=== PATIENT | male | born 1965 | race Caucasian/White ===

== ENCOUNTER 2025-01-29 10:04 | Emergency (ER) | payer OTHER ==
--- OUTSIDE RECORDS SUMMARY | 2025-01-29 10:11 | XMS REPORT | Continuity of Care Document ---
Author Name Unknown Address [address] [facility] [address] [place] [address] [facility] [place] Address [address] [facility] [place] [address] Care Team Providers Care Silk Presser Name Role Phone No , Pcp Primary Care Physician Unavailab AGUSTIN Perkins Attending Clinician Unavailable ANGELICA CASTRO Attending Clinician Unavail able TEENA SAXENA Attending Clinician UnavailBERENICE De La Cruz Attending Clinician Unavailable CARLEEN ABARCA Attending Clinician Rosario JAMARI Damian Attending Clinician Unavailable Tabby Lim RN Attending Clinician UnavailDEMETRA Alfonso Attending Clinician Unavailable Alpa Pal RN Attending Clinician Unavailbrina Rizzo MD, Attending Clinician [phone] Roya Alfonso Attending Clinician Unavailable Jayashree Mccartney MD Attending Clinician [phone] Joel ESTEBAN, Chicho Attending Clinician [phone] Parker Reese MD Attending Clinician [phone] Teena Saxena MD Attending Clinician [phone] Doctor Unassigned, [place] Attending Clinician U mandi HAY Attending Clinician Unavailable Olivia Graham LMSW Attending Clinician Unava ilable ROMANA, CHOCKALINGAM Attending Clinician Unav ERNIE Moss Attending Clinician Unav ailable Duane Salter Attending Clinician [phone] CHRETIEN_F Attending Clinician Unavailable SALINA_L Attending Clinician Unavailable Huma Downing Attending Clinician [phone] XI PAYAN Attending Clinician UnavailJunior Gruber Attending Clinician [phone] RUEL ATKINS Admitting Clinician Unavailable PARKER REESE Admitting Clinician Unavailable GENE REES Admitting Clinician Sofi Reese MD, Parker Admitting Clinician [phone] GAETANO_Frederick Admitting Clinician Unavailable TANIETIMAL_F Admitting Clinician Unavailable SALINA_Inez Admitting Clinician Unavailable KELLE SAMUELS Admitting Clinician Unavailable Payers Payer Name Policy Type Policy Number Effective Date Expirati on Date Source [employer] [employer] [id number] 2024 00:00:00 INDIGENT PROGRAM [id number] Problems Condition Name Condition Details Condition Category Status Onset Date Resolution Date Last Treatment Date Treating Clinician Comments Source Thrombus of cardiac chamber Thrombus of Cardiac Chamber Problem Active 09-09 00:00: 00 [facility] LV (left ventricula r) mural thrombus LV (left ventricula r) mural thrombus Disease Active 2023-04 00:00: 00 Herlinda Alfredo Heart failure Heart failure Disease [facility] 2023-04 00:00: 00 Herlinda Alfredo Smoker Smoker Disease Recurre [facility] 2023-04 00:00: 00 Herlinda Alfredo History of CAD (coronary artery disease) History of CAD (coronary artery disease) Disease Active 2023-04 00:00: 00 Herlinda Alfredo Acute ischemic stroke Acute ischemic stroke Disease Active 2023-04 00:00: 00 Herlinda Alfredo Sleep apnea Sleep Apnea Problem Active 2021-04 0-06 00:00: 00 [facility] Dyspnea Dyspnea Problem Active 2020-04 00:00: 00 [facility] Cerebral atheroscle rosis Cerebral atheroscle rosis Disease Active 2020-04 00:00: 00 [facility]linda Bolaños Epic Family history of ischemic heart disease Family history of ischemic heart disease Disease Active 2020-04 00:00: 00 Herlinda Bolaños Epic 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 ve heart disease with congestive heart failure Disease Active 2020-04 00:00: 00 Herlinda Bolaños Epic Stented coronary artery Stented coronary artery Disease Active 2020-04 00:00: 00 Herlinda Bolaños Epic Body mass index 30+ - obesity Body Mass Index 30+ - Obesity Problem Active 12-14 00:00: 00 [facility] Coronary arterioscl erosis in patient with history of previous myocardial infarction Coronary arterioscl erosis in patient with history of previous myocardial infarction Disease Active 05-20 00:00: 00 [facility]linda Bolaños Epic Benign hypertensi ve kidney disease Benign hypertensi ve kidney disease Disease Active 2018-04 00:00: 00 Herlinda Bolaños Epic Localized edema Localized edema Disease Active 01-20 00:00: 00 Herlinda Bolaños Epic Microscopi c hematuria Microscopi c hematuria Disease Active 01-20 00:00: 00 Herlinda Bolaños Epic Nicotine dependence Nicotine dependence Disease Active 01-20 00:00: 00 Herlinda Bolaños Epic Nonalcohol ic steatohepa titis (MOTA) Nonalcohol ic steatohepa titis (MOTA) Disease Active 01-20 00:00: 00 Herlinda Bolaños Epic Obstructiv e sleep apnea syndrome Obstructiv e sleep apnea syndrome Disease Active 01-20 00:00: 00 Herlinda Bolaños [facility] Pain of right hip joint Pain of right hip joint Disease Active 01-20 00:00: 00 Herlinda Bolaños Epic Coronary arterioscl erosis in [place] artery Coronary Arterioscl erosis in [place] Artery Problem Active 12-23 00:00: 00 [facility] Coronary arterioscl erosis in [place] artery Coronary arterioscl erosis in [place] artery Disease Active 12-23 00:00: 00 Herlinda Bolaños Epic Cardiomyop athy Cardiomyop athy Disease Active 12-23 00:00: 00 Herlinda Bolaños Epic Chronic kidney disease stage 3 Chronic Kidney Disease Stage 3 Problem Active 12-03 00:00: 00 [facility] Type 2 diabetes mellitus with diabetic chronic kidney disease Type 2 diabetes mellitus with diabetic chronic kidney disease Disease Active 12-03 00:00: 00 Herlinda Bolaños Epic Type 2 diabetes mellitus Type 2 diabetes mellitus Disease Active 12-03 00:00: 00 Herlinda Bolaños [facility] Chronic low back pain Chronic low back pain Disease Active 12-03 00:00: 00 Herlinda Bolaños [facility] Morbid obesity Morbid obesity Disease Active 12-03 00:00: 00 Herlinda Alfredo Tobacco use disorder, continuous Tobacco use disorder, continuous Disease Active 12-03 00:00: 00 Herlinda Alfredo Vitamin D deficiency , unspecifie d Vitamin D deficiency , unspecifie d Disease Active 12-03 00:00: 00 Herlinda Alfredo Hyperlipid emia Hyperlipid emia Problem Active 10-08 00:00: 00 [facility] Sleep disorder Sleep Disorder Problem Active 09-10 00:00: 00 [facility] Steatotic liver disease Steatotic Liver Disease Problem Active 07-17 00:00: 00 [facility] Hydronephr osis Hydronephr osis Disease Active 07-17 00:00: 00 Herlinda Alfredo Myocardial infarction Myocardial Infarction Problem Active 07-10 00:00: 00 [facility] History of renal calculi History of renal calculi Disease Active 07-10 00:00: 00 Herlinda Alfredo Coronary atheroscle rosis Coronary atheroscle rosis Disease Active 2-11 00:00: 00 Overview: Formattin g of this note might be different from the original. ICD10 Diagnosis Term Compounding Assistant Utility [facility] HLD (hyperlipi demia) HLD (hyperlipi demia) Disease Active 2- 00:00: 00 Overview: Formattin g of this note might be different from the original. ICD10 Diagnosis Term Compounding Assistant Utility [facility] Allergies, Adverse Reactions, Alerts Allergy Name Allergy Type Status Severity Reaction(s) Onset Date Inactive Date Treating Clinician Comments Source NO KNOWN ALLERGIE S Drug Class Active [facility] Tramadol Allergy to substanc e Active Nausea [facility] Social History Social Habit Start Date Stop Date Quantity Comments Source Exposure to SARS-CoV-2 (event) Not sure [facility] History of tobacco use Cigarette Smoker [facility] Sexual orientation [facility] Gender identity Jamari malini [facility] Cigarette pack-years 2024-05-11 00:00:00 2024-05-11 00:00:00 [facility] Alcoholic beverage intake 2024-05-11 00:00:00 2024-05-11 00:00:00 Lifetime non-drinker (finding) [facility] History of Social function 2024-05-11 00:00:00 2024-05-11 00:00:00 [facility] Tobacco use and exposure 2024-04-15 00:00:00 2024-04-15 00:00:00 User of smokeless tobacco [facility] Sex 2020-10-12 04:46:49 2020-10-12 04:46:49 Male (finding) [facility] Cigarettes smoked current (pack per day) - Reported 2018-11-12 00:00:00 2018-11-12 00:00:00 [facility] Alcohol intake 2018-11-12 00:00:00 2018-11-12 00:00:00 Current non-drinker of alcohol (finding) [facility] Tobacco Comment 2018-08-06 00:00:00 2018-08-06 00:00:00 vapes too [facility] Sex Assigned At 1965 00:00:00 1965 00:00:00 [facility] Smoking Status Start Date Stop Date Source Smokes tobacco daily 2024-05-11 00:00:00 [facility] Heavy tobacco smoker 2020-10-31 00:00:00 [facility] Medications Ordered Medication Name Filled Medication Name Start Date Stop Date Current Medication? Ordering Clinician Indication Dosage Frequency Signature (SIG) Comments Components Source aspirin 325 MG EC tablet 1-13 09:27: 58 Yes QD 1 (one) time each day. [facility] nitroglycer in (Nitrostat) 0.4 MG SL tablet nitroglycer in (Nitrostat) 0.4 MG SL tablet - 16:17: [address] 0.4 mg under the tongue every 5 minutes if needed for chest pain. Herlinda Bolaños [email or web address] empaglifloz in (Jardiance) tablet 10 mg empaglifloz in (Jardiance) tablet 10 mg 2023-04 09:00: 00 Yes 10mg QD 10 mg, Oral, Daily, First dose on 04/26/24 at 0900 Herlinda Bolaños [email or web address] metoprolol succinate XL (Toprol-XL) 24 hr tablet 25 mg metoprolol succinate XL (Toprol-XL) 24 hr tablet 25 mg 2023-04 09:00: 00 Yes 25mg QD 25 mg, Oral, Daily, First dose on 04/26/24 at 0900, Do not crush or chew. Herlinda Bolaños [email or web address] metFORMIN (Glucophage ) tablet 1,000 mg metFORMIN (Glucophage ) tablet 1,000 mg 2023-04 08:00: 00 Yes 1000mg 1,000 mg, Oral, 2 times daily with meals, First dose on 04/26/24 at 0800, Restricted to ordering by or upon consult with Endocrine Service for all new patient orders. Consult NOT required for patients admitted on metformin from home and whose metformin is not the reason for the admission. Herlinda Bolaños [email or web address] lisinopril 2.5 MG tablet lisinopril 2.5 MG tablet 2023-04 00:00: 00 04-26 23:59 :00 No 2.5mg QD Take 1 tablet by mouth 1 time each day. Do not start before April 26, 2024. Herlinda Bolaños [email or web address] aspirin 81 MG chewable tablet aspirin 81 MG chewable tablet 2023-04 00:00: 00 04-26 23:59 :00 No 81mg QD Chew 1 tablet 1 time each day. Do not start before April 26, 2024. Herlinda Bolaños [email or web address] metFORMIN (Glucophage ) 1000 MG tablet metFORMIN (Glucophage ) 1000 MG tablet 2023-04 00:00: 00 04-26 23:59 :00 No 1000mg Take 1 tablet by mouth in the morning and 1 tablet in the evening. Take with meals. Do not start before April 26, 2024. Herlinda Alfredo metoprolol succinate XL (Toprol-XL) 25 MG 24 hr tablet metoprolol succinate XL (Toprol-XL) 25 MG 24 hr tablet 2023-04 00:00: 00 04-26 23:59 :00 No 25mg QD Take 1 tablet by mouth 1 time each day. Do not crush or chew. Do not start before April 26, 2024. Herlinda Alfredo empaglifloz in (Jardiance) 10 MG empaglifloz in (Jardiance) 10 MG 2023-04 00:00: 00 10-23 23:59 :00 No 10mg QD Take 1 tablet by mouth 1 time each day. Do not start before April 26, 2024. Herlinda Alfredo warfarin (Coumadin) tablet 5 mg warfarin (Coumadin) tablet 5 mg 2023-04 17:00: 00 Yes 5mg 5 mg, Oral, Once, On 04/25/24 at 1700, For 1 dose, [facility] 3: Reproducti ve risk Hazardous Drug -- Refer to safe handling procedure PPE Matrix Herlinda Alfredo cholecalcif christiane (Vitamin D-3) 250 MCG (19118 UT) capsule cholecalcif christiane (Vitamin D-3) 250 MCG (18362 UT) capsule 2023-04 14:55: 54 04-25 00:00 :00 No [id number] QD Take 10,000 Units by mouth 1 time each day. Herlinda Alfredo rivaroxaban (Xarelto) 2.5 MG tablet rivaroxaban (Xarelto) 2.5 MG tablet 2023-04 14:55: 54 04-25 00:00 :00 No 2.5mg Q.5D 2.5 mg by Per G Tube route in the morning and 2.5 mg in the evening. Herlinda Alfredo simvastatin (Zocor) 40 MG tablet simvastatin (Zocor) 40 MG tablet 2023-04 14:55: 54 04-25 00:00 :00 No 1{tbl} QD Take 1 tablet by mouth 1 time each day. Herlinda Alfredo empaglifloz in (Jardiance) tablet 10 mg empaglifloz in (Jardiance) tablet 10 mg 2023-04 13:30: 00 Yes [id number] 10mg QD Herlinda Alfredo lisinopril tablet 2.5 mg lisinopril tablet 2.5 mg 2023-04 10:00: 00 Yes 2.5mg QD 2.5 mg, Oral, Daily, First dose on Sat04/25/24 at 1000 Herlinda Alfredo atorvastati n (Lipitor) 80 MG tablet atorvastati n (Lipitor) 80 MG tablet 2023-04 00:00: 00 04-25 23:59 :00 No 80mg Take 1 tablet by mouth at bedtime. Herlinda Alfredo insulin glargine (Lantus) 100 UNIT/ML injection insulin glargine (Lantus) 100 UNIT/ML injection 2023-04 00:00: 00 04-25 23:59 :00 No 10U Inject 10 Units under the skin in the evening. Herlinda Alfredo warfarin (Coumadin) tablet 5 mg warfarin (Coumadin) tablet 5 mg 2023-04 17:00: 00 Yes 5mg 5 mg, Oral, Once, On Sat04/24/24 at 1700, For 1 dose, [facility] 3: Reproducti ve risk Hazardous Drug -- Refer to safe handling procedure PPE Matrix Herlinda Alfredo aspirin chewable tablet 81 mg aspirin chewable tablet 81 mg 2023-04 14:15: 00 Yes 81mg QD 81 mg, Oral, Daily, First dose on Sat04/24/24 at 1415 Herlinda Alfredo gabapentin (Neurontin) capsule 300 mg gabapentin (Neurontin) capsule 300 mg 2023-04 02:00: 00 04-24 02:06 :00 No 300mg 300 mg, Oral, Once, On Sat04/24/24 at 0200, For 1 dose Herlinda Alfredo ceFAZolin injection solution 2 g ceFAZolin injection solution 2 g 2023-04 00:00: 00 Yes 2g 2 g, Intravenou s, Administer over 6 Minutes, Oncall, Starting on Sat04/24/24 at 0000, For 1 dose, Prior to EP device imlant Reconstitu te powder vial with 19 mL SWFI to give 100 mg/mL concentrat ion. If approved for IV push, draw up ordered dose and administer ; discard any solution remaining in vial., Suspected Indication (Select all that apply): Surgical Prophylaxi s Herlinda Alfredo vancomycin (Vancocin) vial for injection 1,000 mg vancomycin (Vancocin) vial for injection 1,000 mg 2023-04 00:00: 00 Yes 1000mg 1,000 mg, Intravenou s, Oncall, Starting on Sat04/24/24 at 0000, For 1 dose, Prior to EP device implant Attached 100ml bag of NS Mini-Bag Plus bag. Break seal and mix before use, as follows: For liquid drug vials, skip to step 2. 1. Hold bag with vial down. Squeeze solution into vial until half-full. Shake to suspend drug in solution. 2. Hold bag with vial upside down. Squeeze bag to force air into vial, then release to drain suspended drug from vial into bag. 3. Repeat above until vial is empty of drug and solution is thoroughly mixed. Ensure drug is completely dissolved. Do not remove drug vial. 4. Remove port protector, attach admin set per its instructio ns, then hang container from IV pole and prime set per directions . Do not use in series connection s. 5. Ensure the vial is empty of drug and in solution, then administer medication as ordered. Use within specified BUD., Suspected Indication (Select all that apply): Surgical Prophylaxi s Herlinda Alfredo warfarin (Coumadin) tablet 7.5 mg warfarin (Coumadin) tablet 7.5 mg 2023-04 17:00: 00 Yes 7.5mg 7.5 mg, Oral, Once, On Bijal 04/23/24 at 1700, For 1 dose, [facility] 3: Reproducti ve risk Hazardous Drug -- Refer to safe handling procedure PPE Matrix Herlinda Alfredo insulin lispro (Humalog, Admelog) injection 4 Units insulin lispro (Humalog, Admelog) injection 4 Units 2023-04 12:00: 00 Yes 4U 4 Units, Subcutaneo us, 3 times daily with meals, First dose (after last modificati on) on Sat04/23/24 at 1200 Herlinda Bolaños Epic insulin glargine (Lantus) injection 10 Units insulin glargine (Lantus) injection 10 Units 2023-04 18:00: 00 Yes 10U 10 Units, Subcutaneo us, Every evening, First dose (after last modificati on) on Sat04/22/24 at 1800 Herlinda Bolaños Juni warfarin (Coumadin) tablet 7.5 mg warfarin (Coumadin) tablet 7.5 mg 2023-04 17:00: 00 Yes 7.5mg 7.5 mg, Oral, Once, On Sat04/22/24 at 1700, For 1 dose, [facility] 3: Reproducti ve risk Hazardous Drug -- Refer to safe handling procedure PPE Matrix Herlinda Bolaños Juni aspirin EC EC tablet 81 mg aspirin EC EC tablet 81 mg 2023-04 13:45: 00 04-23 13:06 :05 No 81mg QD 81 mg, Oral, Daily, First dose on Sat04/22/24 at 1345, Do not crush, chew, or split., On hold since Sat04/23/2024 at 0811 until manually unheld Herlinda Bolaños Juni insulin glargine (Lantus) injection 8 Units insulin glargine (Lantus) injection 8 Units 2023-04 18:00: 00 04-22 11:59 :30 No 8U 8 Units, Subcutaneo us, Every evening, First dose (after last modificati on) on Sat04/21/24 at 1800 Herlinda Bolaños Epic insulin lispro (Humalog, Admelog) injection 3 Units insulin lispro (Humalog, Admelog) injection 3 Units 2023-04 17:30: 00 04-23 09:20 :53 No 3U 3 Units, Subcutaneo us, 3 times daily with meals, First dose on Sat04/21/24 at 1730 Herlinda Alfredo insulin lispro (HumaLOG, Admelog) injection 1-4 Units insulin lispro (HumaLOG, Admelog) injection 1-4 Units 2023-04 17:14: 02 Yes 1U [id number] 3D 1-4 Units, Subcutaneo us, 3 times daily PRN, high blood sugar, with meals, Starting on Sat04/21/24 at 1714, For BG < 70, follow hypoglycem ia protocol and notify ordering provider. If patient can eat or drink, give oral carbohydra te as ordered per hypoglycem ia protocol. If patient NPO, give dextrose 50 % IV as ordered per hypoglycem ia protocol. If NPO and no IV access, give glucagon IM as ordered per hypoglycem ia protocol. Check BG every 15 minutes and repeat treatment if continued BG < 80., Correction Insulin Dosing: (DO NOT CHANGE DEFAULT SELECTION/ VALUES): Very Low, BG < 70 instructio ns: Follow Hypoglycem ia Orders, BG 70-149 instructio ns: No Dose Needed, BG 150-199: 1, BG 200-249: 2, BG 250-299: 3, BG >/= 300: 4, BG > 300 instructio ns: Contact Provider Herlinda wiley Roscoe Juni warfarin (Coumadin) tablet 7.5 mg warfarin (Coumadin) tablet 7.5 mg 2023-04 17:00: 00 Yes 7.5mg 7.5 mg, Oral, Once, On Sat04/21/24 at 1700, For 1 dose, [facility] Group 3: Reproducti ve risk Hazardous Drug -- Refer to safe handling procedure PPE Matrix Herlinda Bolaños [facility] warfarin (Coumadin) tablet 7.5 mg warfarin (Coumadin) tablet 7.5 mg 2023-04 17:00: 00 Yes 7.5mg 7.5 mg, Oral, Once, On Sat04/20/24 at 1700, For 1 dose, Haz[facility]ous Drug Group 3: Reproducti ve risk Hazardous Drug -- Refer to safe handling procedure PPE Matrix Herlinda wiley [facility] famotidine (Pepcid) tablet 20 mg famotidine (Pepcid) tablet 20 mg 2023-04 17:00: 04-23 11:11 :28 No 20mg Q.5D 20 mg, Oral, 2 times daily, First dose on Sat04/20/24 at 1700 Herlinda Alfredo Warfarin Dosing per Pharmacy Warfarin Dosing per Pharmacy 2023-04 09:38: 30 Yes 1{each} 1 each, Does not apply, As needed, other, Dose per pharmacy., Starting on Sat04/20/24 at 0938, This order is a placeholde r as a reminder that warfarin is being dosed per pharmacy. Warfarin doses will be entered as a separate order. Herlinda Alfredo metoprolol tartrate (Lopressor) half tablet 12.5 mg metoprolol tartrate (Lopressor) half tablet 12.5 mg 2023-04 10:30: 00 04-25 12:55 :39 No 12.5mg Q.5D 12.5 mg, Oral, Every 12 hours scheduled, First dose (after last modificati on) on Sat04/19/24 at 1030 Herlinda Alfredo lisinopril tablet 5 mg lisinopril tablet 5 mg 2023-04 10:30: 00 04-22 06:21 :30 No 5mg QD 5 mg, Oral, Daily, First dose on Sat04/19/24 at 1030, On hold since Sat04/21/2024 at 1113 until manually unheld Herlinda Alfredo gabapentin (Neurontin) capsule 300 mg gabapentin (Neurontin) capsule 300 mg 2023-04 14:00: 00 04-23 11:11 :28 No 300mg [id number] 3D 300 mg, Oral, Every 8 hours scheduled, First dose on Sat04/17/24 at 1400 Herlinda Bolaños [email or web address] lisinopril tablet 10 mg lisinopril tablet 10 mg 2023-04 12:30: 00 04-19 06:39 :19 No 10mg QD 10 mg, Oral, Daily, First dose on Sat04/17/24 at 1230 Herlinda Bolaños [email or web address] metoprolol tartrate (Lopressor) half tablet 12.5 mg metoprolol tartrate (Lopressor) half tablet 12.5 mg 2023-04 12:30: 00 04-19 10:23 :25 No 12.5mg Q.5D 12.5 mg, Oral, Every 12 hours scheduled, First dose on Sat04/17/24 at 1230 Georgedav Alfredo heparin 50 units/mL in sodium chloride 0.45 % heparin 50 units/mL in sodium chloride 0.45 % 2023-04 10:00: 00 04-24 14:36 :16 No .1U/kg/ h 0.1-40 Units/kg/h r ?96 kg (0.192-76. 8 mL/hr, rounded to 0.19-76.8 mL/hr), Intravenou s, Continuous , Starting on Sat04/17/24 at 1000, AFIB/Strok e PTT Weight Based Heparin Protocol Calculate heparin infusion dose using ACTUAL BODY WEIGHT. Start at 14 units/kg/h r (MAX INITIAL INFUSION = 1,200 units/hr = 24 mL/hr) - adjust per AFIB / Stroke Guidelines below Draw baseline PTT. Initiate drip. DO NOT wait for PTT results to start drip. Draw PTT 6 hours after drip initiation and 6 hours after every dose change. No heparin loading dose or bolus unless specifical ly ordered by provider. Do not draw PTT through line heparin is infused. --- Titration Table PTT < 30 sec: INCREASE dose by 4 units /kg/hr (Actual body Weight). Notify Provider STAT. Draw PTT 6 hours after increase in dose. PTT 30 - 45.9 sec: INCREASE dose by 3 units/kg/h r (Actual body Weight). Draw PTT 6 hours after increase in dose. PTT 46 - 59.9 sec: INCREASE dose by 2 units/kg/h r (Actual body Weight). Draw PTT 6 hours after increase in dose. PTT 60 - 79.9 sec: Therapeuti c, continue at same dose. Redraw PTT in 6 hours to confirm. Once 3 consecutiv e therapeuti c PTT, reduce draws to Q12H. PTT 80 - 90.9 sec: DECREASE dose by 1 unit/kg/hr (Actual Body Weight). Draw PTT 6 hours after decrease in dose. PTT 91 - 99.9 sec: HOLD infusion for 45 min. Notify provider STAT. DECREASE dose by 2 units/kg/h r (Actual Body Weight). Draw PTT 6 hours after decrease in dose. PTT 100 - 119.9 sec: HOLD infusion for 60 min. Notify provider STAT. DECREASE dose by 3 units/kg/h r (Actual Body Weight). Draw PTT 6 hours after decrease in dose. PTT 120 - 150.9 sec: HOLD infusion for 60 min. Notify provider STAT. DECREASE dose by 4 units/kg/h r (Actual Body Weight). Draw PTT 6 hours after decrease in dose. PTT >/= 151 sec: HOLD infusion and repeat PTT STAT through venipunctu re or separate line. Notify provider STAT. 1. If repeat PTT < 151 sec, then follow above protocol. 2. If repeat PTT >/= 151 sec, then continue to HOLD infusion & repeat PTT every 2 hours until PTT < 100 sec. Then DECREASE previous dose by 5 units/kg/h r (Actual Body Weight). Draw PTT 6 hours after decrease in dose --- Herlinda Bolaños Epic gadoteridol (Prohance) injection 7,541.1 mg gadoteridol (Prohance) injection 7,541.1 mg 2023-04 08:30: 31 04-17 08:00 :00 No 27mL 7,541.1 mg (27 mL), Intravenou s, Once in imaging, Starting on Sat04/17/24 at 0830, For 1 dose Herlinda Bolaños Epic heparin injection 5,000 Units heparin injection 5,000 Units 2023-04 16:00: 00 04-17 09:57 :03 No 5000U Q8H 5,000 Units, Subcutaneo us, Every 8 hours, First dose on Sat04/16/24 at 1600 Herlinda Bolaños Epic iohexol (OMNIPaque) 350 MG/ML injection 70 mL iohexol (OMNIPaque) 350 MG/ML injection 70 mL 2023-04 10:06: 21 04-16 10:06 :00 No 70mL 70 mL, Intravenou s, Once in imaging, Starting on Sat04/16/24 at 1006, For 1 dose Herlinda Bolaños Epic sulfur hexafluorid e lipid-type A microsphere s (Lumason) 60.7-25 MG Injectable suspension 2 mL sulfur hexafluorid e lipid-type A microsphere s (Lumason) 60.7-25 MG Injectable suspension 2 mL 2023-04 01:35: 19 04-16 01:35 :00 No 2mL 2 mL, Intravenou s, Once in imaging, Starting on Sat04/16/24 at 0135, For 1 dose, Reconstitu te with 5 mL of PF NS only using provided Mini-Charanjit ; shake vigorously for 20 sec until a homogenous white milky suspension forms. Use immediatel y. May repeat once during procedure. Herlinda Alfredo furosemide (Lasix) injection 40 mg furosemide (Lasix) injection 40 mg 2023-04 23:45: 00 04-16 00:02 :00 No 40mg 40 mg, Intravenou s, Once, On Sat04/15/24 at 2345, For 1 dose Herlinda Alfredo electrolyte solution pH 7.4 (Plasma-lyt e/Normosol/ Isolyte) infusion electrolyte solution pH 7.4 (Plasma-lyt e/Normosol/ Isolyte) infusion 2023-04 22:30: 00 04-17 12:18 :15 No 50mL/h 50 mL/hr, Intravenou s, Continuous , Starting on Sat04/15/24 at 2230 Herlinda Alfredo atorvastati n (Lipitor) tablet 80 mg atorvastati n (Lipitor) tablet 80 mg 2023-04 21:00: 00 Yes 80mg 80 mg, Oral, Nightly, First dose on Sat04/15/24 at 2100 Herlinda Alfredo sodium chloride (NS) 0.9 % flush 10 mL sodium chloride (NS) 0.9 % flush 10 mL 2023-04 21:00: 00 04-25 13:20 :03 No 10mL Q.5D 10 mL, Intravenou s, Every 12 hours scheduled, First dose on Sat04/15/24 at 2100, Administer at least once every 12 hours Herlinda Alfredo sennosides (Senokot) tablet 8.6 mg sennosides (Senokot) tablet 8.6 mg 2023-04 21:00: 00 04-25 13:20 :03 No 1{tbl} Q.5D 8.6 mg (1 tablet), Oral, Every 12 hours scheduled, First dose on Sat04/15/24 at 2100, Hold for Diarrhea Herlinda Alfredo sodium chloride 0.9 % bolus 500 mL sodium chloride 0.9 % bolus 500 mL 2023-04 16:45: 00 04-15 19:00 :00 No 500mL 500 mL, Intravenou s, at 250 mL/hr, Administer over 2 Hours, Once, On Sat04/15/24 at 1645, For 1 dose Herlinda Alfredo nicotine (Nicoderm, Step 1) 21 MG/24HR patch 1 patch nicotine (Nicoderm, Step 1) 21 MG/24HR patch 1 patch 2023-04 16:25: 00 04-25 13:20 :03 No 1{patch } QD 1 patch, Transderma l, Administer over 24 Hours, Daily, First dose on Sat04/15/24 at 1625 Herlinda Alfredo polyethylen e glycol (PEG) 3350 (Miralax) packet 17 g polyethylen e glycol (PEG) 3350 (Miralax) packet 17 g 2023-04 16:25: 00 04-25 13:20 :03 No 17g QD 17 g, Oral, Daily, First dose on Sat04/15/24 at 1625, Dissolve 17 g in 120 to 240 mL (4 to 8 ounces) of beverage. Herlinda Alfredo insulin lispro (HumaLOG, Admelog) injection 2-8 Units [id number] 2-18 16:24: 00 04-21 17:14 :20 No 2U Q6H 2-8 Units, Subcutaneo us, Every 6 hours PRN, high blood sugar, Starting on Sat04/15/24 at 1624, For BG < 70, follow hypoglycem ia protocol and notify ordering provider. If patient can eat or drink, give oral carbohydra te as ordered per hypoglycem ia protocol. If patient NPO, give dextrose 50 % IV as ordered per hypoglycem ia protocol. If NPO and no IV access, give glucagon IM as ordered per hypoglycem ia protocol. Check BG every 15 minutes and repeat treatment if continued BG < 80., Correction Insulin Dosing: (DO NOT CHANGE DEFAULT SELECTION/ VALUES): Starting, BG < 70 instructio ns: Follow Hypoglycem ia Orders, BG 70-149 instructio ns: No Dose Needed, BG 150-199: 2, BG 200-249: 4, BG 250-299: 6, BG >/= 300: 8, BG > 300 instructio ns: Contact Provider Herlinda Bolaños Epic sodium chloride 0.9 % bolus 1,000 mL sodium chloride 0.9 % bolus 1,000 mL 2023-04 16:15: 00 04-15 16:43 :46 No 1000mL 1,000 mL, Intravenou s, at 1,000 mL/hr, Administer over 1 Hours, Once, On Sat04/15/24 at 1615, For 1 dose, Therapeuti c interchang e per protocol for LR fluid shortage Herlinda Bolaños Epic tenecteplas e (TNKase) injection (STROKE) 24 mg tenecteplas e (TNKase) injection (STROKE) 24 mg 2023-04 16:10: 00 04-15 15:39 :00 No 24mg 24 mg, Intravenou s, Once, On Sat04/15/24 at 1610, For 1 dose, IV push over 5 seconds. Dilute with 10 mL sterile water for injection. Max dose = 25 mg (5 mL). Tenectepla se incompatib le with Dextrose solutions. Flush with 10 mL of Normal Saline before and after administra tion. Herlinda Bolaños Epic iohexol (OMNIPaque) 350 MG/ML injection 100 mL iohexol (OMNIPaque) 350 MG/ML injection 100 mL 2023-04 15:38: 00 04-15 15:38 :00 No 100mL 100 mL, Intravenou s, Once in imaging, Starting on Sat04/15/24 at 1538, For 1 dose Herlinda Bolaños Epic sodium chloride (NS) 0.9 % flush 10 mL sodium chloride (NS) 0.9 % flush 10 mL 2023-04 15:24: 00 04-25 13:20 :03 No 10mL 10 mL, Intravenou s, As needed, line care, Starting on Sat04/15/24 at 1524 [facility] simvastatin (Zocor) 10 MG tablet 10-26 13:44: 49 Yes simvastati n 40mg tablet take one tablet every night [facility] LISINOPRIL PO LISINOPRIL PO 10-12 00:00: 00 Yes PO, Daily, 0 Refill(s) [facility] aspirin EC 81 MG EC tablet aspirin EC 81 MG EC tablet 10-12 00:00: 00 Yes 81mg 81 mg = 1 tab, PO, Daily, # 90 tab, 3 Refill(s) [facility] metFORMIN XR (Glucophage -XR) 750 MG 24 hr tablet 09-14 00:00: 00 Yes QD 1 (one) time each day. [facility] clopidogrel (Plavix) 75 MG tablet 09-14 00:00: 00 Yes QD 1 (one) time each day. [facility] nitroglycer in (Nitrostat) 0.4 MG SL tablet 09-14 00:00: 00 Yes nitroglyce rin 0.[address] 1 TABLET (0.4 MG) BY SUBLINGUAL ROUTE NEEDED FOR PAIN. Take one EVERY 5 MINUTES NEEDED FOR CHEST PAIN. DO NOT EXCEED 3 DOSES IN 15 MINUTES. [facility] metoprolol tartrate (Lopressor) 50 MG tablet 09-14 00:00: 00 09-15 04:59 :00 No 50mg Take 50 mg by mouth. [facility] lisinopril 10 MG tablet 09-14 00:00: 00 09-15 04:59 :00 No 10mg Take 10 mg by mouth. [facility] metformin ER 750 mg 24 hr tablet 10-16 00:00: 00 Yes metformin ER 500 mg tablet,ext ended release 24 hr Take 1 tablet every day by oral route in the morning for 30 days. [facility] simvastatin 40 mg tablet 08-06 11:11: 52 Yes 40mg Take 40 mg by mouth at bedtime. [facility] lisinopril 10 mg tablet 08-06 11:10: 49 Yes 10mg Take 10 mg by mouth daily. [facility] ASPIRIN 325 MG ORAL TAB 06-09 00:00: 00 Yes [id number] 1 Tab Oral DAILY [facility] NITROGLYCER IN 0.4 MG SL SUBL 06-09 00:00: 00 Yes [id number] 1 Tab SL Q5MIN PRN [facility] METOPROLOL TARTRATE 50 MG ORAL TAB 06-09 00:00: 00 Yes [id number] 1 Tab Oral BID [facility] CLOPIDOGREL 75 MG ORAL TAB 06-02 00:00: 00 Yes 1 Tab Oral DAILY [facility] aspirin 325 mg tablet,sadaf yed release Take 1 tablet every day by oral route as directed. aspirin 325 mg tablet,sadaf yed release Take 1 tablet every day by oral route as directed. No 1 Q1D aspirin 325 mg tablet,del ayed release Take 1 tablet every day by oral route as directed. [facility] Nitrostat 0.[address] 1 TABLET (0.4 MG) BY SUBLINGUAL ROUTE AT 1ST SIGN OF ATTACK; MAY REPEAT EVERY 5 MINUTES UP TO 3 TABS; IF NO RELIEF SEEK MEDICAL HELP Nitrostat 0.[address] 1 TABLET (0.4 MG) BY SUBLINGUAL ROUTE AT 1ST SIGN OF ATTACK; MAY REPEAT EVERY 5 MINUTES UP TO 3 TABS; IF NO RELIEF SEEK MEDICAL HELP No Nitrostat 0.[address] 1 TABLET (0.4 MG) BY SUBLINGUAL ROUTE AT 1ST SIGN OF ATTACK; MAY REPEAT EVERY 5 MINUTES UP TO 3 TABS; IF NO RELIEF SEEK MEDICAL HELP [facility] lisinopril 2.5 mg tablet Take 1 tablet every day by oral route. lisinopril 2.5 mg tablet Take 1 tablet every day by oral route. No 1 Q1D lisinopril 2.5 mg tablet Take 1 tablet every day by oral route. [facility] metformin 1,000 mg tablet Take 1 tablet twice a day by oral route. metformin 1,000 mg tablet Take 1 tablet twice a day by oral route. No 1 BID metformin 1,000 mg tablet Take 1 tablet twice a day by oral route. [facility] metoprolol succinate ER 25 mg capsule sprinkle, ext. release 24 hr Take 1 capsule every day by oral route. metoprolol succinate ER 25 mg capsule sprinkle, ext. release 24 hr Take 1 capsule every day by oral route. No 1capsul e(s) Q1D metoprolol succinate ER 25 mg capsule sprinkle, ext. release 24 hr Take 1 capsule every day by oral route. [facility] warfarin 5 mg tablet Take 1 tablet by oral route. warfarin 5 mg tablet Take 1 tablet by oral route. No 1 warfarin 5 mg tablet Take 1 tablet by oral route. [facility] Vital Signs Vital Name Observation Time Observation Value Comments S ource Respiratory rate 2024-04-25 14:00:00 18 /min [facility] Systolic blood pressure 2024-04-25 13:15:00 146 mm[Hg] [facility] Diastolic blood pressure 2024-04-25 13:15:00 68 mm[Hg] [facility] Heart rate 2024-04-25 13:15:00 71 /min [facility] Oxygen saturation in Arterial blood by Pulse oximetry 2024-04-25 13:15:00 95 /min [facility] Body temperature 2024-04-25 11:32:56 36.78 [place] [facility] Body height 2024-04-15 22:33:00 183 cm [facility] Body weight 2024-04-15 22:33:00 96 kg [facility] BMI 2024-04-15 22:33:00 28.67 kg/m2 [facility] BP Systolic 2024-09-09 00:00:00 96 mm[Hg] [facility] Height 2024-09-09 00:00:00 67 [in_i] [facility] BP Diastolic 2024-09-09 00:00:00 67 mm[Hg] [facility] Body Weight 2024-09-09 00:00:00 2776 [oz_av] [facility] BMI (Body Mass Index) 2024-09-09 00:00:00 27.2 kg/m2 [facility] Systolic blood pressure 2024-05-11 15:28:00 97 mm[Hg] [facility] Diastolic blood pressure 2024-05-11 15:28:00 72 mm[Hg] [facility] Heart rate 2024-05-11 15:28:00 73 /min [facility] Body temperature 2024-05-11 15:28:00 37 [place] [facility] Respiratory rate 2024-05-11 15:28:00 18 /min [facility] Body height 2024-05-11 15:28:00 [facility].2 [facility] 2024-05-11 15:28:00 86.818 [facility] BMI 2024-05-11 15:28:00 29.98 [facility] Res[facility] 2024-04-25 14:00:00 18 /min [facility] Systolic blood pressure 2024-04-25 13:15:00 146 mm[Hg] [facility] Diastolic blood pressure 2024-04-25 13:15:00 68 mm[Hg] [facility] Heart rate 2024-04-25 13:15:00 71 /min [facility] Oxygen saturation in Arterial blood by Pulse oximetry 2024-04-25 13:15:00 95 /min [facility] Body temperature 2024-04-25 11:32:56 36.78 [place] [facility] Body height 2024-04-15 22:33:00 183 [facility] 2024-04-15 22:33:00 96 kg [facility] 2024-04-15 22:33:00 28.67 kg/m2 [facility] Res[facility] rate 2024-04-25 14:00:00 18 /min [facility] Epic Systolic blood pressure 2024-04-25 13:15:00 146 mm[Hg] [facility] Diastolic blood pressure 2024-04-25 13:15:00 68 mm[Hg] [facility] Epic Heart rate 2024-04-25 13:15:00 71 /min [facility] Oxygen saturation in Arterial blood by Pulse oximetry 2024-04-25 13:15:00 95 /min [facility] Body temperature 2024-04-25 11:32:56 36.78 [place] [facility] Body height 2024-04-15 22:33:00 183 cm Jamari [facility] [place] Body weight 2024-04-15 22:33:00 96 kg Jamari [facility] Epic BMI 2024-04-15 22:33:00 28.67 kg/m2 [facility] BP Diastolic 2022-03-20 00:00:00 74 mm[Hg] [facility] Height 2022-03-20 00:00:00 66 [in_i] [facility] BMI (Body Mass Index) 2022-03-20 00:00:00 34.1 kg/m2 [facility] BP Systolic 2022-03-20 00:00:00 120 mm[Hg] [facility] Body Weight 2022-03-20 00:00:00 3376 [oz_av] [facility] BP Diastolic 2022-02-01 00:00:00 72 mm[Hg] [facility] Height 2022-02-01 00:00:00 66 [in_i] [facility] BMI (Body Mass Index) 2022-02-01 00:00:00 34.2 kg/m2 [facility] BP Systolic 2022-02-01 00:00:00 118 mm[Hg] [facility] Body Weight 2022-02-01 00:00:00 3392 [oz_av] [facility] BP Diastolic 2022-01-02 00:00:00 86 mm[Hg] [facility] Height 2022-01-02 00:00:00 66 [in_i] [facility] BMI (Body Mass Index) 2022-01-02 00:00:00 34.7 kg/m2 [facility] BP Systolic 2022-01-02 00:00:00 138 mm[Hg] [facility] Body Weight 2022-01-02 00:00:00 3440 [oz_av] [facility] BP Diastolic 2020-12-14 00:00:00 95 mm[Hg] [facility] Height 2020-12-14 00:00:00 66 [in_i] [facility] BMI (Body Mass Index) 2020-12-14 00:00:00 36.8 kg/m2 [facility] BP Systolic 2020-12-14 00:00:00 145 mm[Hg] [facility] Body Weight 2020-12-14 00:00:00 3651.2 [oz_av] [facility] BP Diastolic 2020-11-11 00:00:00 77 mm[Hg] [facility] Height 2020-11-11 00:00:00 66 [in_i] [facility] BP Systolic 2020-11-11 00:00:00 122 mm[Hg] [facility] BP Diastolic 2020-10-28 00:00:00 74 mm[Hg] [facility] Height 2020-10-28 00:00:00 66 [in_i] [facility] BMI (Body Mass Index) 2020-10-28 00:00:00 35.6 kg/m2 [facility] BP Systolic 2020-10-28 00:00:00 123 mm[Hg] [facility] Body Weight 2020-10-28 00:00:00 3532.8 [oz_av] [facility] Systolic blood pressure 2020-10-26 13:42:00 119 mm[Hg] [facility] Diastolic blood pressure 2020-10-26 13:42:00 85 mm[Hg] [facility] Heart rate 2020-10-26 13:42:00 93 /min [facility] Body temperature 2020-10-26 13:42:00 36.33 [place] [facility] Body height 2020-10-26 13:42:00 168.9 [facility] Body weight 2020-10-26 13:42:00 100.653 [facility] BMI 2020-10-26 13:42:00 35.28 kg/m2 [facility] Systolic blood pressure 2020-10-26 13:42:00 119 mm[Hg] [facility] Diastolic blood pressure 2020-10-26 13:42:00 85 mm[Hg] [facility] Heart rate 2020-10-26 13:42:00 93 /min [facility] Body temperature 2020-10-26 13:42:00 36.33 [place] [facility] Body height 2020-10-26 13:42:00 168.9 cm [facility] Body weight 2020-10-26 13:42:00 100.653 [facility] BMI 2020-10-26 13:42:00 35.28 kg[facility]m2 [facility] BP Diastolic 2020-10-06 00:00:00 74 mm[Hg] [facility] Height 2020-10-06 00:00:00 66 [in_i] [facility] BMI (Body Mass Index) 2020-10-06 00:00:00 38.1 kg/m2 [facility] BP Systolic 2020-10-06 00:00:00 122 mm[Hg] [facility] Body Weight 2020-10-06 00:00:00 3776 [oz_av] [facility] Procedures Procedure Date / Time Performed Performing Clinician Source POCT Glucose 2024-05-21 00:00:00 [facility] Basic Metabolic Panel 2024-05-03 00:00:00 [facility] Complete Blood Count w/Diff and Platelet 2024-05-03 00:00:00 [facility] Epic PT-INR 2024-04-27 00:00:00 [facility] Epic Protime-INR 2024-04-26 00:00:00 [facility] Epic POC GLUCOSE UNSOLICITED RESULTS 2024-04-25 11:29:00 Teena Saxena [facility] Epic POC GLUCOSE UNSOLICITED RESULTS 2024-04-25 08:45:00 Teena Saxena [facility] Epic COMPLETE BLOOD COUNT 2024-04-25 01:19:00 [facility] DIFFERENTIAL 2024-04-25 01:19:00 Frank Markham [facility] Epic BASIC METABOLIC PANEL 2024-04-25 01:19:00 Brina Markham [facility] Epic COMPLETE BLOOD COUNT W/DIFF AND PLATELET 2024-04-25 01:19:00 [facility] PROTIME-INR 2024-04-25 01:19:00 Frank Markham [facility] POC GLUCOSE UNSOLICITED RESULTS 2024-04-24 22:26:00 Teena Saxena [facility] XR CHEST 2 VIEWS 2024-04-24 21:06:00 Aminah Ramsey [facility] POC GLUCOSE UNSOLICITED RESULTS 2024-04-24 17:35:00 Teena Saxena [facility] ICD DC NEW 2024-04-24 12:28:04 Britton Peterson [facility] POC GLUCOSE UNSOLICITED RESULTS 2024-04-24 07:48:00 Teena Saxena [facility] PT AND PTT 2024-04-24 01:47:[address] [facility] PTT 2024-04-24 00:00:00 Teena Saxena [facility] COMPLETE BLOOD COUNT 2024-04-24 00:00:00 Lior Markham [facility] AUTOMATED DIFFERENTIAL 2024-04-24 00:00:00 Frank Markham [facility] BASIC METABOLIC PANEL 2024-04-24 00:00:00 Brina Markham [facility] MAGNESIUM LEVEL 2024-04-24 00:00:00 [facility] PHOS[facility] 2024-04-24 00:00:00 [facility] COMPLETE BLOOD COUNT W/DIFF AND PLATELET 2024-04-24 00:00:00 Frank Markham [facility] PROTIME-INR 2024-04-24 00:00:00 Darwin Arredondo [facility] POC GLUCOSE UNSOLICITED RESULTS 2024-04-23 15:42:00 Teena Saxena [facility] PT AND PTT 2024-04-23 13:31:00 Teena Saxena [facility] POC GLUCOSE UNSOLICITED RESULTS 2024-04-23 11:51:00 Teena Saxena [facility] POC GLUCOSE UNSOLICITED RESULTS 2024-04-23 07:30:00 Teena Saxena [facility] PT AND PTT 2024-04-23 04:28:00 Duane Merida [facility] COMPLETE BLOOD COUNT 2024-04-23 04:28:00 Kinoshita, To silverio [facility] Epic AUTOMATED DIFFERENTIAL 2024-04-23 04:28:00 Kinoshita, Tomoki [facility] BASIC METABOLIC PANEL 2024-04-23 04:28:00 Kinoshita, T omoki [facility] COMPLETE BLOOD COUNT W/DIFF AND PLATELET 2024-04-23 04:28:00 Kinoshita, Tomoki [facility] Epic PT AND PTT 2024-04-22 21:27:00 Duane Merida [facility] POC GLUCOSE UNSOLICITED RESULTS 2024-04-22 19:18:00 Teena Saxena [facility] Epic POC GLUCOSE UNSOLICITED RESULTS 2024-04-22 16:22:00 Teena Saxena [facility] Epic PT AND PTT 2024-04-22 13:38:00 Vaishnavi Astudillo [facility] POC GLUCOSE UNSOLICITED RESULTS 2024-04-22 12:36:00 Teena Saxena [facility] Epic POC GLUCOSE UNSOLICITED RESULTS 2024-04-22 08:13:00 Teena Saxena [facility] Epic PT AND PTT 2024-04-22 05:46:00 Lynette Castro [facility] COMPLETE BLOOD COUNT 2024-04-22 05:46:00 Kinoshita, To silverio [facility] AUTOMATED DIFFERENTIAL 2024-04-22 05:46:00 Kinoshita, Tomoki [facility] BASIC METABOLIC PANEL 2024-04-22 05:46:00 Kinoshita, T omoki [facility] COMPLETE BLOOD COUNT W/DIFF AND PLATELET 2024-04-22 05:46:00 Kinoshita, Tomoki [facility] Epic POC GLUCOSE UNSOLICITED RESULTS 2024-04-21 19:14:00 Teena Saxena [facility] Epic PT AND PTT 2024-04-21 18:05:00 Teena Saxena [facility] Epic POC GLUCOSE UNSOLICITED RESULTS 2024-04-21 16:12:00 Teena Saxena [facility] POC GLUCOSE UNSOLICITED RESULTS 2024-04-21 11:54:00 Wes Teena [facility] POC GLUCOSE UNSOLICITED RESULTS 2024-04-21 08:24:00 Teena Saxena [facility] PTT 2024-04-21 06:06:00 Teena Saxena [facility] COMPLETE BLOOD COUNT 2024-04-21 00:46:00 Lior Markham [facility] AUTOMATED DIFFERENTIAL 2024-04-21 00:46:00 Rashi, Tomayeshai [facility] BASIC METABOLIC PANEL 2024-04-21 00:46:00 Brina Markham [facility] COMPLETE BLOOD COUNT W/DIFF AND PLATELET 2024-04-21 00:46:00 Rashi, Rupertvalentin [facility] PROTIME-INR 2024-04-21 00:46:00 Yash Gray [facility] PT AND PTT 2024-04-20 18:01:00 Parker Reese [facility] POC GLUCOSE UNSOLICITED RESULTS 2024-04-20 16:11:00 Manndonna Sisjoanner [facility] POC GLUCOSE UNSOLICITED RESULTS 2024-04-20 13:00:00 Parker Reese [facility] PT AND PTT 2024-04-20 12:56:00 Yash Gray [facility] POC GLUCOSE UNSOLICITED RESULTS 2024-04-20 11:32:00 Hugh Sisjoanner [facility] COMPLETE BLOOD COUNT 2024-04-20 10:07:00 Yash Cornelius [facility] AUTOMATED DIFFERENTIAL 2024-04-20 10:07:00 Delci mmjyotioYash [facility] COMPLETE BLOOD COUNT W/DIFF AND PLATELET 2024-04-20 10:07:00 Yash Gray [facility] POC GLUCOSE UNSOLICITED RESULTS 2024-04-20 07:59:00 Manndonna Sishifrederick [facility] PTT 2024-04-20 06:05:00 Lynette Castro [facility] COMPLETE BLOOD COUNT 2024-04-20 02:21:00 Kinoshita, To silverio [facility] AUTOMATED DIFFERENTIAL 2024-04-20 02:21:00 Kinoshita, Frank [facility] BASIC METABOLIC PANEL 2024-04-20 02:21:00 Kinoshita, T kelli [facility] COMPLETE BLOOD COUNT W/DIFF AND PLATELET 2024-04-20 02:21:00 Kinoshita, Abhijiti [facility] POC GLUCOSE UNSOLICITED RESULTS 2024-04-19 20:30:00 Mannava, Sishir [facility] PTT 2024-04-19 17:59:00 Mannava, Sishir [facility] POC GLUCOSE UNSOLICITED RESULTS 2024-04-19 16:08:00 Mannava, Sishir [facility] PTT 2024-04-19 11:55:00 Mannava, Sishir [facility] POC GLUCOSE UNSOLICITED RESULTS 2024-04-19 11:35:00 Mannava, Sishir [facility] COMPLETE BLOOD COUNT 2024-04-19 10:15:00 Kinoshita, To silverio [facility] AUTOMATED DIFFERENTIAL 2024-04-19 10:15:00 Kinoshita, Frank [facility] BASIC METABOLIC PANEL 2024-04-19 10:15:00 Kinoshita, Brina marie [facility] COMPLETE BLOOD COUNT W/DIFF AND PLATELET 2024-04-19 10:15:00 Kinoshita, Abhijiti [facility] PT AND PTT 2024-04-19 05:59:00 [facility] 2024-04-19 05:59:00 Matthias, Mark taylor [facility] AUTOMATED DIFFERENTIAL 2024-04-19 05:59:00 Matthias, Mark Beach [facility] COMPLETE BLOOD COUNT W/DIFF AND PLATELET 2024-04-19 05:59:00 Matthias, Mark Beach [facility] Epic POC GLUCOSE UNSOLICITED RESULTS 2024-04-18 20:17:00 Mannava, Sishir [facility] Epic PT AND PTT 2024-04-18 20:12:00 Mannava, Sishir [facility] POC GLUCOSE UNSOLICITED RESULTS 2024-04-18 17:27:00 Mannava, Sishir [facility] POC GLUCOSE UNSOLICITED RESULTS 2024-04-18 13:11:00 Mannava, Sishir [facility] POC GLUCOSE UNSOLICITED RESULTS 2024-04-18 11:57:00 Mannava, Sishir [facility] POC GLUCOSE UNSOLICITED RESULTS 2024-04-18 08:34:00 Mannava, Sishir [facility] Epic PT AND PTT 2024-04-18 08:28:00 Yash Gray [facility] CT BRAIN WO IV CONTRAST 2024-04-18 05:42:00 Hemalatha Rodriges liberty [facility] COMPLETE BLOOD COUNT 2024-04-18 03:33:00 Mannava, Sish ir [facility] AUTOMATED DIFFERENTIAL 2024-04-18 03:33:00 Mannava, Si eklly [facility] BASIC METABOLIC PANEL 2024-04-18 03:33:00 Mannava, Sis hir [facility] COMPLETE BLOOD COUNT W/DIFF AND PLATELET 2024-04-18 03:33:00 Mannava, Sishir [facility] PT AND PTT 2024-04-18 02:12:00 Mannava, Sishir [facility] COMPLETE BLOOD COUNT 2024-04-18 00:04:00 Mannava, Sish ir [facility] AUTOMATED DIFFERENTIAL 2024-04-18 00:04:00 Mannava, Si kelly [facility] COMPLETE BLOOD COUNT W/DIFF AND PLATELET 2024-04-18 00:04:00 Mannava, Sishir [facility] Epic PT AND PTT 2024-04-17 17:35:00 Lynette Castro [facility] INSPECTOR DIALS FEES PROCEDURE 2024-04-17 16:40:04 Lynette Castro [facility] Epic POC GLUCOSE UNSOLICITED RESULTS 2024-04-17 16:38:00 Manndonna, [facility] CHEST 1 VIEW 2024-04-17 13:30:51 Mark Rizzo [facility] Epic POC GLUCOSE UNSOLICITED RESULTS 2024-04-17 12:24:00 Mannava, Sishir [facility] COMPLETE BLOOD COUNT 2024-04-17 10:08:00 Mark Rizzo [facility] AUTOMATED DIFFERENTIAL 2024-04-17 10:08:00 Matthias, Mark Beach [facility] COMPLETE BLOOD COUNT W/DIFF AND PLATELET 2024-04-17 10:08:00 Matthias, Mark Beach [facility] PROTIME-INR 2024-04-17 10:08:00 Mark Rizzo [facility] PTT 2024-04-17 10:08:00 Matthias, Mark Burr [facility] MRI CARDIAC MORPHOLOGY AND FUNCTION W AND WO IV CONTRAST 2024-04-17 08:27:00 [facility] POC GLUCOSE UNSOLICITED RESULTS 2024-04-17 06:14:00 Mannava, [facility] POC GLUCOSE UNSOLICITED RESULTS 2024-04-17 00:39:00 Mann[facility], [facility] POC GLUCOSE UNSOLICITED RESULTS 2024-04-16 16:33:00 Mann[facility], [facility] POC GLUCOSE UNSOLICITED RESULTS 2024-04-16 12:31:00 Mann[facility], [facility] CT BRAIN WO IV CONTRAST 2024-04-16 10:28:53 Afun Enrike caballero [facility] CT ANGIOGRAM BRAIN NECK STROKE 2024-04-16 10:28:53 Mannava, [facility] POC GLUCOSE UNSOLICITED RESULTS 2024-04-16 08:26:00 Mann[facility], [facility] PLAVIX EFFECT PLATELET 2024-04-16 03:05:00 Agustin Dennison [facility] TRANSTHORACIC ECHO (TTE) COMPLETE W/ CONTRAST 2024-04-16 01:35:10 Paige Moreno [facility] COMPLETE BLOOD COUNT (NO DIFF) 2024-04-16 00:09:00 Susan Oliva Ressler [facility] TROPONIN I HIGH SENSITIVITY (SINGLE ORDER) 2024-04-16 00:08:00 Kelvin Monroy [facility] BASIC METABOLIC PANEL 2024-04-16 00:08:00 [facility] MAGNESIUM LEVEL 2024-04-16 00:08:00 Xavier Oliva Ressler [facility] B-TYPE NATRIURETIC PEPTIDE 2024-04-16 00:08:00 Kelvin Monroy [facility] PHOSPHORUS LEVEL 2024-04-16 00:08:00 Irving Oliva [facility] MRI BRAIN WO IV CONTRAST 2024-04-15 22:40:00 Susan Kyle [facility] PLAVIX EFFECT PLATELET 2024-04-15 20:05:00 Susan Mccartney [facility] ECG 12-LEAD 2024-04-15 16:47:53 Xavier Oliva [facility] DRUG SCREEN URINE (8 DRUGS) 2024-04-15 16:28:00 Susan Oliva [facility] UA WITH CULTURE IF INDICATED 2024-04-15 16:28:00 Susan Oliva [facility] XR CHEST 1 VIEW 2024-04-15 16:19:04 Xavier Oliva [facility] LIPID PANEL W/CALCULATED LDL 2024-04-15 16:03:00 Susan Oliva [facility] HEMOGLOBIN A1C 2024-04-15 16:03:00 Xavier Oliva [facility] CT ANGIOGRAM BRAIN NECK STROKE 2024-04-15 15:37:46 Susan Oliva [facility] CT BRAIN STROKE WO IV CONTRAST 2024-04-15 15:37:46 Susan Oliva [facility] COMPLETE BLOOD COUNT 2024-04-15 15:29:00 Susan Oliva [facility] AUTOMATED DIFFERENTIAL 2024-04-15 15:29:00 Susan Mccartney [facility] BASIC METABOLIC PANEL 2024-04-15 15:29:00 Susan Wong [facility] CREATINE KINASE (CK TOTAL) 2024-04-15 15:29:00 Susan Valles [facility] COMPLETE BLOOD COUNT W/DIFF AND PLATELET 2024-04-15 15:29:00 Susan Oliva [facility] PROTIME-INR 2024-04-15 15:29:00 Xavier Oliva [facility] PTT 2024-04-15 15:29:00 Xavier Oliva [facility] AUTHORIZATION FOR RELEASE OF PHI 2022-11-26 05:01:00 Doctor Unassigned, [facility] EXTERNAL PROVIDER RECORDS 2022-02-09 05:01:00 Do ctor Unassigned, [facility] REFERRAL- REQUEST/RESPONSE 2022-02-01 05:01:00 D octor Unassigned, [facility] AUTHORIZATION FOR RELEASE OF PHI 2020-12-20 05:01:00 Doctor Unassigned, [facility] electrocardiogram, routine ECG, 12 leads min 2020-11-11 00:00:00 [facility] US, abdomen 2020-11-11 00:00:00 [facility] Cholecystectomy 2020-10-23 00:00:[address] [facility] US, gallbladder 2020-10-06 00:00:[address] [facility] Coronary Angioplasty [facility] Insertion of Arterial Stent [facility] Percutaneous Transluminal Angioplasty of Coronary Artery Using Imaging Guidance with Contrast [facility] Magnesium [facility] Phosphorus [facility] Plan of Care Planned Activity Planned Date Details Comments Source Encounters Start Date/Time End Date/Time Encounter Type Admission Type Attending Clinicians Care Facility Care Department Encounter ID Source 2024-11-27 18:18:00 Inpatient Emergency [facility]IN [facility] General Medicine [id number] 2024-04-15 15:22:00 Inpatient Emergency TEENA SAXENA [facility] General Medicine [id number] [facility] 2020-11-14 01:03:56 Outpatient BERENICE ELDER [facility] [id number] [facility] 2024-11-27 18:18:00 2024-12-15 18:09:00 Inpatient Emergency YOEL ABARCA [facility] Cardiology [id number] [facility] 2024-10-28 09:36:00 2024-10-28 09:36:00 Outpatient JAMARI APARICIO [facility] [id number] [facility] 2024-09-09 00:00:00 2024-09-09 00:00:00 TRACI Ritter C: [address] [facility], [place] [address] , Ph. [facility] [phone] [place] [address] 2024-05-07 00:00:00 2024-06-07 23:52:59 Telephone Tabby Lim [facility] [id number] 350.1.13.70 8.2.7.2.686 [id number] [facility] 2024-05-20 13:00:00 2024-05-20 13:00:00 Outpatient DEMETRA BALLARD [facility] [id number] [facility] 2024-04-15 00:00:00 2024-05-16 23:50:05 Telephone Alpa Pal [facility] 1.2840.114 350.1.13.70 8.2.7.2.686 [id number] [facility] 2024-05-11 09:30:00 2024-05-11 10:46:16 Office Visit MatthiasMark FAREED [address] [facility] 1.2840.114 350.1.13.58 9.2.7.2.686 [id number] [facility] 2024-04-16 00:00:00 2024-05-05 13:04:51 [facility] 1.2840.114 350.1.13.70 8.2.7.2.686 [id number] [facility] 2024-04-27 13:40:00 2024-04-27 13:40:00 Outpatient [facility] [id number] [facility] 2024-04-15 15:22:00 2024-04-25 14:55:00 Hospital Encounter Jayashree Mccartney, ChigoziriParker Ortiz [facility] [id number] 350.1.13.70 8.2.7.2.686 [id number] Herlinda Bolaños [facility] 2024-04-15 15:22:00 2024-04-25 14:55:00 Inpatient Emergency TEENA SAXENA [facility] General Medicine [id number] [facility] 2022-11-26 00:00:00 2022-11-26 00:00:00 Orders Only Doctor Unassigned, [facility] 1.2840.114 350.1.13.10 4.2.7.2.686 [id number] [facility] 2022-03-20 00:00:00 2022-03-20 00:00:00 Duane Salter, DO: [address], [facility] G, [place] [address] , Ph. [phone] [place] [address], DR. SALTER [id number] [facility] 2022-02-22 00:00:00 2022-02-22 00:00:00 Case Management Olivia Graham 1..840.114 350.1.13.10 4.2.7.2.686 [id number] [facility] 2022-02-21 13:00:00 2022-02-21 13:00:00 Outpatient R BING AVENDAN[facility] [id number] [facility] 2022-02-09 00:00:00 2022-02-09 00:00:00 Orders Only Doctor Unassigned, [facility] 1.2840.114 350.1.13.10 4.2.7.2.686 [id number] [facility] 2022-02-01 00:00:00 2022-02-01 00:00:00 Orders Only Doctor Unassigned, [facility] 1.2.840.114 350.1.13.10 4.2.7.2.686 [id number] [facility] 2022-02-01 00:00:00 2022-02-01 00:00:00 Duane Salter, DO: [address], [place] [address] , Ph. [facility] SALTER [id number] [facility] 2022-01-02 00:00:00 2022-01-02 00:00:00 Outpatient Duane Salter [facility] [id number] 2022-01-02 00:00:00 2022-01-02 00:00:00 Duane Salter, DO: [address] [place] [address] , Ph. [phone] [facility] SALTER [id number] [facility] 2020-12-20 00:00:00 2020-12-20 00:00:00 Orders Only Doctor Unassigned, [facility] 1.2.840.114 350.1.13.10 4.2.7.2.686 [id number] [facility] 2020-12-14 00:00:00 2020-12-14 00:00:00 Outpatient Huma Downing [facility] [id number] 2020-12-14 00:00:00 2020-12-14 00:00:00 Outpatient Huma Downing [facility] [id number] 2020-12-14 00:00:00 2020-12-14 00:00:00 MARYANN Guillermo-C: [address], [address], [place] [address] , Ph. [facility] [id number] [facility] 2020-11-11 00:00:00 2020-11-11 00:00:00 Outpatient Salina Heena [facility] [id number] 2020-11-11 00:00:00 2020-11-11 00:00:00 Outpatient Salina Heena [facility] [id number] 2020-11-11 00:00:00 2020-11-11 00:00:00 MARYANN Guillermo-C: [address] [place] [address], [address] [place] [address] , Ph. [facility] [id number] [facility] 2020-11-11 00:00:00 2020-11-11 00:00:00 Outpatient Destiny Downinga Marie [facility] [id number] 2020-11-11 00:00:00 2020-11-11 00:00:00 Outpatient Salina Heena [facility] [id number] 2020-10-28 00:00:00 2020-10-28 00:00:00 MARYANN Guillermo-C: [address] [place] [address], [address], [place] [address] , Ph. [facility] [id number] [facility] 2020-10-28 00:00:00 2020-10-28 00:00:00 Outpatient Huma Downing [facility] [id number] 2020-10-26 08:21:02 2020-10-26 09:02:05 Office Visit Berenice Elder [facility] 1.2.840.114 350.1.13.58 9.2.7.2.686 [id number] 2020-10-26 08:21:02 2020-10-26 09:02:05 Office Visit Elder Berenice [facility] 1.2.840.114 350.1.13.58 9.2.7.2.686 [id number] [facility] 2020-10-12 03:37:00 2020-10-15 12:26:00 Inpatient U XI PAYAN [facility] [id number] 2020-10-06 00:00:00 2020-10-06 00:00:00 Junior Tee MD: [address] [place] [address] , Ph. [facility] [id number] [facility] 2020-10-06 00:00:00 2020-10-06 00:00:00 Outpatient Junior Tee [facility] [id number] Results Test Description Test Time Test Comments Results Result Co mments Source [facility] Xcloppa2781-57-77 08:48:02* Test Item Value Reference Range Interpretation Comme nts POC Glu (test code = 7003353153) 212 mg/dL 70-99 H POC Glu Comment 1 (test code = 1526657872) Notified RN/MD POC Performing Location (ayaan t code = 3728602927) [facility] Lab Interpretation (test cod e = 65801-9) Abnormal [facility] Qxfpqcr5031-63-92 22:27:54* Test Item Value Reference Range Interpretation Comme nts POC Glu (test code = 4925761831) 152 mg/dL 70-99 H POC Glu Comment 1 (test code = 1208813366) Notified RN/MD POC Performing Location (ayaan t code = 2449657082) [facility] Lab Interpretation (test cod e = 19260-3) Abnormal [facility] Iqakeoe0447-79-49 17:38:33* Test Item Value Reference Range Interpretation Comme nts POC Glu (test code = 3294914943) 231 mg/dL 70-99 H POC Performing Location (ayaan t code = 7715419145) [facility] Lab Interpretation (test cod e = 98548-6) Abnormal [facility] Sxqprrs8807-09-97 07:50:35* Test Item Value Reference Range Interpretation Comme nts POC Glu (test code = 7503774337) 188 mg/dL 70-99 H POC Performing Location (ayaan t code = 7759419192) [facility] Lab Interpretation (test cod e = 43588-0) Abnormal [facility] Dqsbwel8989-63-00 15:44:16* Test Item Value Reference Range Interpretation Comme nts POC Glu (test code = 7479535957) 168 mg/dL 70-99 H POC Performing Location (ayaan t code = 6908286062) [facility] Lab Interpretation (test cod e = 44273-0) Abnormal [facility] Fkkoxmh7076-32-35 11:52:33* Test Item Value Reference Range Interpretation Comme nts POC Glu (test code = 6749490657) 210 mg/dL 70-99 H POC Performing Location (ayaan t code = 9787307971) [facility] Lab Interpretation (test cod e = 57276-6) Abnormal [facility] Cpyjseq5854-53-57 07:33:10* Test Item Value Reference Range Interpretation Comme nts POC Glu (test code = 4850334286) 170 mg/dL 70-99 H POC Performing Location (ayaan t code = 0252666284) [facility] Lab Interpretation (test cod e = 91062-8) Abnormal [facility] Qfgfirk4369-05-48 19:24:25* Test Item Value Reference Range Interpretation Comme nts POC Glu (test code = 4175577541) 129 mg/dL 70-99 H POC Glu Comment 1 (test code = 7312776978) Notified RN/MD POC Performing Location (ayaan t code = 3177326314) [facility] Lab Interpretation (test cod e = 50598-9) Abnormal [facility] Rtsovbd9572-08-39 17:25:52* Test Item Value Reference Range Interpretation Comme nts POC Glu (test code = 4161208187) 175 mg/dL 70-99 H POC Performing Location (ayaan t code = 5232620616) [facility] Lab Interpretation (test cod e = 39863-3) Abnormal [facility] Uizgaqv1398-47-90 12:54:13* Test Item Value Reference Range Interpretation Comme nts POC Glu (test code = 6130212651) 169 mg/dL 70-99 H POC Performing Location (ayaan t code = 1809601110) [facility] Lab Interpretation (test cod e = 67645-6) Abnormal [facility] Ccmicrt2495-85-98 08:42:27* Test Item Value Reference Range Interpretation Comme nts POC Glu (test code = 4348218984) 196 mg/dL 70-99 H POC Performing Location (ayaan t code = 8217524564) [facility] Lab Interpretation (test cod e = 84377-1) Abnormal [facility] Bvtujey8319-55-48 19:16:33* Test Item Value Reference Range Interpretation Comme nts POC Glu (test code = 0917211538) 151 mg/dL 70-99 H POC Glu Comment 1 (test code = 7555825873) Notified RN/MD POC Performing Location (ayaan t code = 3999664870) [facility] Lab Interpretation (test cod e = 56691-4) Abnormal [facility] Rlemxuf2181-88-59 16:15:55* Test Item Value Reference Range Interpretation Comme nts POC Glu (test code = 8324460419) 189 mg/dL 70-99 H POC Performing Location (ayaan t code = 0933375424) [facility] Lab Interpretation (test cod e = 00755-0) Abnormal [facility] Mpgnkrg4871-21-94 12:00:13* Test Item Value Reference Range Interpretation Comme nts POC Glu (test code = 9547615194) 201 mg/dL 70-99 H POC Performing Location (ayaan t code = 6306626381) [facility] Lab Interpretation (test cod e = 10394-9) Abnormal [facility] Engmnyo6306-16-53 08:55:56* Test Item Value Reference Range Interpretation Comme nts POC Glu (test code = 8175984209) 207 mg/dL 70-99 H POC Performing Location (ayaan t code = 0146915182) [facility] Lab Interpretation (test cod e = 86034-4) Abnormal [facility] Rbshsqk0375-25-01 17:17:39* Test Item Value Reference Range Interpretation Comme nts POC Glu (test code = 8801020528) 125 mg/dL 70-99 H POC Glu Comment 1 (test code = 9477867155) Notified RN/MD POC Performing Location (ayaan t code = 8129535946) [facility] Lab Interpretation (test cod e = 19049-2) Abnormal [facility] Tkavuqs0603-42-06 13:06:24* Test Item Value Reference Range Interpretation Comme nts POC Glu (test code = 8647251375) 226 mg/dL 70-99 H POC Performing Location (ayaan t code = 2309047195) [facility] Lab Interpretation (test cod e = 80177-2) Abnormal [facility] Mzcxxtc0500-05-58 12:00:41* Test Item Value Reference Range Interpretation Comme nts POC Glu (test code = 3039225575) 221 mg/dL 70-99 H POC Glu Comment 1 (test code = 7660007479) Notified RN/MD POC Performing Location (ayaan t code = 9912515506) [facility] Lab Interpretation (test cod e = 26190-9) Abnormal [facility] Hjshmnr9457-66-43 08:28:58* Test Item Value Reference Range Interpretation Comme nts POC Glu (test code = 4237155259) 174 mg/dL 70-99 H POC Glu Comment 1 (test code = 4073984145) Notified RN/MD POC Performing Location (ayaan t code = 5754145402) [facility] Lab Interpretation (test cod e = 64222-1) Abnormal [facility] Dclzfww4931-50-55 20:31:57* Test Item Value Reference Range Interpretation Comme nts POC Glu (test code = 9264084895) 276 mg/dL 70-99 H POC Glu Comment 1 (test code = 4968826930) Notified RN/MD POC Performing Location (ayaan t code = 4467507847) [facility] Lab Interpretation (test cod e = 49531-2) Abnormal [facility] Vxpbmbt9703-04-16 17:09:01* Test Item Value Reference Range Interpretation Comme nts POC Glu (test code = 6689892907) 155 mg/dL 70-99 H POC Glu Comment 1 (test code = 2703812982) Notified RN/MD POC Performing Location (ayaan t code = 9739244030) [facility] Lab Interpretation (test cod e = 92679-1) Abnormal [facility] Jthzgxw9456-15-39 11:37:24* Test Item Value Reference Range Interpretation Comme nts POC Glu (test code = 3838934596) 232 mg/dL 70-99 H POC Glu Comment 1 (test code = 6303549928) Notified RN/MD POC Performing Location (ayaan t code = 0717419610) [facility] Lab Interpretation (test cod e = 48883-0) Abnormal [facility] Dywzsoh0345-00-19 20:28:34* Test Item Value Reference Range Interpretation Comme nts POC Glu (test code = 3380269580) 238 mg/dL 70-99 H POC Performing Location (ayaan t code = 9877982662) [facility] Lab Interpretation (test cod e = 25372-4) Abnormal [facility] Njxndru7327-16-41 17:44:09* Test Item Value Reference Range Interpretation Comme nts POC Glu (test code = 9644085481) 115 mg/dL 70-99 H POC Glu Comment 1 (test code = 8784157164) Notified RN/MD POC Performing Location (ayaan t code = 1588316019) [facility] Lab Interpretation (test cod e = 71832-2) Abnormal [facility] Yuaolpa0025-84-37 13:13:33* Test Item Value Reference Range Interpretation Comme nts POC Glu (test code = 6289963008) 313 mg/dL 70-99 H POC Performing Location (ayaan t code = 5987051173) [facility] Lab Interpretation (test cod e = 10589-4) Abnormal [facility]2024-12-21 12:02:02* Test Item Value Reference Range Interpretation Comme nts POC Glu (test code = 3236210037) 383 mg/dL 70-99 H POC Glu Comment 1 (test code = 5720181539) Notified RN/MD POC Performing Location (ayaan t code = 3910822257) [facility] Lab Interpretation (test cod e = 03303-2) Abnormal [facility]2024-12-21 09:22:10* Test Item Value Reference Range Interpretation Comme nts POC Glu (test code = 2501371207) 205 mg/dL 70-99 H POC Performing Location (ayaan t code = 5645344012) 4 [facility] Lab Interpretation (test cod e = 94305-9) Abnormal [facility]2024-12-20 16:39:35* Test Item Value Reference Range Interpretation Comme nts POC Glu (test code = 2062685926) 208 mg/dL 70-99 H POC Glu Comment 1 (test code = 2362641458) Notified RN/MD POC Performing Location (ayaan t code = 4813191237) [facility] Lab Interpretation (test cod e = 16741-3) Abnormal [place] [address] dhbl9642-90-23 14:46:25* Test Item Value Reference Range Interpretation Comme nts Ventricular Rate (test code = 7899947406) BPM Atrial Rate (test code = 2302675019) BPM LA Interval (test code = 5210983687) 180 ms QRS Duration (test code = 0137347473) 120 ms QT/QTc (test code = 6693626409) 386 ms QTc Calculation (test code = 9709397698) 495 ms P-Stanchfield (test code = 1758086065) degrees R-[place]field (test code = 8617659318) degrees T-[place] (test code = 3050839232) degrees IMP (test code = IMP) PXN (test code = PXN) [facility]2024-12-20 12:47:34* Test Item Value Reference Range Interpretation Comme nts POC Glu (test code = 4147300206) 238 mg/dL 70-99 H POC Performing Location (ayaan t code = 3220265511) [facility] Lab Interpretation (test cod e = 14014-3) Abnormal [facility] Pttgnah1454-75-40 06:17:06* Test Item Value Reference Range Interpretation Comme nts POC Glu (test code = 4249562044) 186 mg/dL 70-99 H POC Performing Location (ayaan t code = 2010305115) [facility] Lab Interpretation (test cod e = 82655-4) Abnormal [facility] Upwmvbj3321-18-51 00:41:40* Test Item Value Reference Range Interpretation Comme nts POC Glu (test code = 2184422567) 229 mg/dL 70-99 H POC Performing Location (ayaan t code = 7380952742) [facility] Lab Interpretation (test cod e = 29642-0) Abnormal [facility] Dbiewwk8974-90-32 17:07:16* Test Item Value Reference Range Interpretation Comme nts POC Glu (test code = 2204530651) 251 mg/dL 70-99 H POC Glu Comment 1 (test code = 0974965336) Notified RN/MD POC Performing Location (ayaan t code = 9972136856) [facility] Lab Interpretation (test cod e = 52064-7) Abnormal [facility] Zdaykda7960-47-31 12:51:37* Test Item Value Reference Range Interpretation Comme nts POC Glu (test code = 3284469708) 251 mg/dL 70-99 H POC Glu Comment 1 (test code = 2174752168) Notified RN/MD POC Performing Location (ayaan t code = 5306229698) [facility] Lab Interpretation (test cod e = 04736-5) Abnormal [facility] Dwvsmda8210-47-39 08:53:42* Test Item Value Reference Range Interpretation Comme nts POC Glu (test code = 1817809089) 262 mg/dL 70-99 H POC Glu Comment 1 (test code = 2196820920) Notified RN/MD POC Performing Location (ayaan t code = 9682213013) J7 [facility] Lab Interpretation (test cod e = 30826-5) Abnormal [facility] tsurxbbe1158-86-99 08:34:44* Test Item Value Reference Range Interpretation Comme nts RVOT Vmean (test code = 3224924092) 0.48 m/s LVOT Vmax/AV Vmax (test code = 6518773393) 0.53 {ratio} Ao Root diam diastole (test code = 2203554422) 32 mm LVOT Vmean (test code = 7066987589) 0.43 m/s LV SV (A4C) (test code = 0287327472) 21 ml LV SI (A2C) (test code = 0239923546) 26 ml LV SV (BP) (test code = 5163784092) 20 ml LVLs (A4C) (test code = 5461138166) 89 mm LVLs (A2C) (test code = 0578518116) 93.3 mm LVLd (A4C) (test code = 2562929690) 95.2 mm LVLd (A2C) (test code = 0050068098) 94.8 mm PV mn eliz (test code = 5768219413) 0.84 m/s LV ESV A2C (test code = [id number]) 168 mL LV EDV A4C (test code = 5881512399) 227 mL LA area A4C (test code = 3679439876) 25.1 cm2 LA area A2C (test code = 8669337672) 22.6 cm2 LV ESV A4C (test code = 2422037056) 206 mL LV EDV A2C (test code = 4153589769) 194 mL LA ESV A2C (test code = 6351284683) 72.319172569734609 mL LA ESV A4C (test code = 4915447369) 72.264129529969223 mL LV est EF (test code = 2205581710) 9 % LV EDV BP (test code = 0807180534) 210 mL LV ESV BP (test code = 4761207415) 190 mL MV A pk eliz (test code = 3456783202) 0.51 m/s MV PHT (test code = 6515056675) 36 ms MV E pk eliz (test code = 8799277667) 1.02 m/s PV mn grad (test code = 7389605636) mmHg AV pk grad (test code = 9300094647) mmHg LV stroke vol (test code = 5758406626) 28 ml RVOT VTI (test code = 9810574336) 15.9 cm RVOT pk eliz (test code = 9157264861) 0.71 m/s AV VTI (test code = 8677827755) 23.3 cm AV pk eliz (test code = 9877747307) 1.33 m/s LVOT VTI (test code = 6506948263) 10 cm LVOT pk eliz (test code = 0430434328) 0.71 m/s LVOT area (test code = 7664386969) 2.84 cm2 LVOT diam (test code = 9704344366) 19 mm MV DT (test code = 4075242847) 122 ms MV e' lateral eliz (test code = 2899937778) 2.94 cm/s MV E/A ratio (test code = 5808154866) PV pk grad (test code = 4405043208) mmHg MV area PHT (test code = 1250742319) 6.11 cm2 LVOT pk grad (test code = 0501429389) mmHg AV mn grad (test code = 7068819208) mmHg RVOT mn grad (test code = 3215637854) mmHg RVOT pk grad (test code = 3656306843) mmHg MV E/e' septal (test code = 3239188401) AV area pk eliz (test code = 2305689491) 1.51 cm2 AV area cont VTI (test code = 0947588550) 1.22 cm2 LVOT mn grad (test code = 8668843877) mmHg RV-chin mid diam (test code = 5543003127) 24 cm RV-chin basal diam (test code = 8029649218) 35 cm RV-chin longitudinal diam (test code = 4870281613) 66 cm LV A4C EF (test code = 7084459122) 9 % LV A2C EF (test code = 9539332945) 13 % AV mn eliz (test code = 1815565474) 0.91 m/s LVPWd (test code = 7254637653) 7 mm LA size (test code = 7844835754) 42 mm Ascending aorta (test code = 4305071498) [address] junction (test code = 2757869505) 24 mm LA vol BP (test code = 4599744737) 81 ml LV biplane EF (test code = 9993508968) 9.5 % Fractional Shortening 2D (test code = 7593210917) 4 % LVIDs (test code = 3287272801) 66 mm IVSd (test code = 5549954293) 7 mm LVIDd (test code = 3521611018) 69 mm PV pk eliz (test code = 2985425350) 1.21 m/s PV VTI (test code = 5889197) 21.7 cm MV E/e' lateral (test code = 0565455) MV e' septal eliz (test code = 9417838) 3.7 cm/s LV ESV 2D (test code = 6716440) 224 mL LV EDV 2D (test code = 6733937) 247 mL IVSd 2D (test code = 1352787) 7 cm BSA (test code = 6790304324) 2.21 m2 Radiology Study observation (narrative) (test code = 46581-0) MARY JO (test code = MARY JO) [facility] EpicGlucose [Mass/volume] in Capillary [id number] 11:16:00 * Test Item Value Reference Range Interpretation Comme nts Blood Glucose: mg/dl (test c ode = Blood Glucose: mg/dl) 349 [facility] Consult Notes Date/Time Note Provider Source 2024-04-23 11:48:35 Reason For Consult Candidacy for primary prevention ICD History Of Present Illness Mr. Calle is a 58-year-old male who was admitted to the hospital on April 15, 2024. He has a history of hypertension, type 2 diabetes, congestive heart failure, coronary artery disease status post PCI x 3 currently on Plavix. He presented to the hospital with left-sided weakness, left facial droop, slurred speech. He received TNK. CTA revealed right M2 proximal occlusion. Endovascular intervention was deferred due to low NIHSS. No significant atherosclerotic disease. MRI brain did show small petechial hemorrhage. Echo showed ejection fraction of 17% with left ventricular thrombus, started on heparin drip. Etiology is thought to be possibly cardioembolic due to LV thrombus. Plan is to transition to warfarin today. Pt has a hx of HFrEf with EF of 35% or less and has been on Metoprolol and Lisinopril for many years. However, during this admission, his EF is reduced to 17% despite being on GDMT. Cardiac MRI 04/16/2024: IMPRESSION: Technically difficult study due to patient's inability to perform adequate breath holding and follow instruction. Realtime, single shot and free breathing techniques were utilized. The exam was terminated prematurely and the study was focusing on accessing intracardiac thrombus. 1. Moderately dilated left ventricle with severely reduced systolic function (LVEF 17% ). The mid to apical anterior, septal and LV apex and mid to apical inferior wall are thinned, severely hypokinetic to akinetic. 2. Normal right ventricular size and systolic function (RVEF 58%) 3. LV thrombus measuring 1.0 x 0.7 cm is seen adjacent to the mid anterior wall. 4. Transmural infarction in the proximal LAD and mid PDA distribution (scar burden approximately 37% and 9% of LV, respectively). The LAD and PDA distribution is nonviable. 5. The LCx distribution is viable. 6. No significant valvular dysfunction on the visualized images Past Medical History He has no past medical history on file. Surgical History He has no past surgical history on file. Social History He reports that he has been smoking cigarettes. He uses smokeless tobacco. He reports current drug use. Drugs: Hydrocodone and Oxycodone. He reports that he does not drink alcohol. Allergies Patient has no known allergies. Medications Medications Prior to Admission Medication Sig Dispense Refill Last Dose/Taking cholecalciferol (Vitamin D-3) 250 MCG (60360 UT) capsule Take 10,000 Units by mouth 1 time each day. lisinopril 10 MG tablet Take 10 mg by mouth 1 time each day. nitroglycerin (Nitrostat) 0.[address] 0.4 mg under the tongue every 5 minutes if needed for chest pain. rivaroxaban (Xarelto) 2.5 MG tablet 2.5 mg by Per G Tube route in the morning and 2.5 mg in the evening. simvastatin (Zocor) 40 MG tablet Take 1 tablet by mouth 1 time each day. Physical Exam CV: Extremities well-perfused Lungs: Non-labored respirations Abdomen: Non-tender, non-distended Neuro:-Mental status: He is alert and oriented x 3. Last Recorded Vitals Blood pressure 117/64, pulse 66, temperature 36.7 ?C (98.1 ?F), resp. rate (!) 23, height 1.83 m (6' 0.05"), weight 96 kg (211 lb 10.3 oz), SpO2 97%. ECG: NSR, IVCD Echo 04/16/2024: Left Ventricle: Left ventricle is severely dilated. LVEDD 7.0 cm Severely reduced systolic function with an estimated EF of 15 - 20%. Grade III diastolic dysfunction of the left ventricle. Elevated left ventricular filling pressure. Large areas of wall motion abnormalities with akinesis involving much of the septum, apex, mid to distal lateral wall and inferior terrell. Anterior basal septum has the best movement. No LV thrombus noted. Right Ventricle: Right ventricle size is normal. Mildly reduced systolic function in the right ventricle. Left Atrium: Left atrium is moderately dilated. Interatrial Septum: Agitated saline study was negative showing no evidence of interatrial shunt. Aortic Valve: Trileaflet aortic valve sclerosis is present. No aortic stenosis present. Mitral Valve: Mitral valve is structurally normal. Trace mitral regurgitation present. Tricuspid Valve: Tricuspid valve is structurally normal. There is insufficient TR jet to estimate pulmonary pressure. IVC/SVC: IVC diameter is less than or equal to 21 mm and decreases greater than 50% during inspiration; therefore the estimated right atrial pressure is normal (~3 mmHg). Pericardium: Small pericardial effusion present. No indication of cardiac tamponade present. Aorta: Normal sized aortic root present. No prior study available. Assessment & Plan Principal Problem: Acute ischemic stroke (HCC) Active Problems: Heart failure (HCC) Smoker Hypertensive disorder History of CAD (coronary artery disease) Type 2 diabetes mellitus with diabetic chronic kidney disease (HCC) Type 2 diabetes mellitus (HCC) LV (left ventricular) mural thrombus #Candidacy for primary prevention ICD #ICM #HFrEF #LV thrombus on warfarin -Pt has a hx of Coronary artery disease status post PCI x 3 -Pt supposedly has a hx of HFrEf with EF of 35% and has been on Metoprolol and Lisinopril for many years. However, during this admission, his EF is reduced to 17% despite being on GDMT. NYHA Class III Plan: - Plan for primary prevention ICD once INR is between 2-3. Will plan for dual chamber ICD. [place] shared decision making tool used. - Pt consented at bedside. Case discussed with Dr. Page. Darwin Arredondo MD electric motor tester EMASON APPRENTICE EMASON APPRENTICE EMASON APPRENTICE EMASON APPRENTICE Childcare Director Physician [facility] 2024-04-21 17:07:17 Associated Order(s): IP CONSULT TO ENDOCRINOLOGY Endocrinology Initial Consult Note Assessment: Patient is a 58-year-old male w/ pmhx of HTN, T2DM, CHF, CAD s/p PCI x 3 currently on Plavix. He presented to the hospital with left-sided weakness, left facial droop, slurred speech. Endocrine consulted for assistance with T2DM management. A1c 10.05 Home med: metformin 1000 mg BID Problem list: T2DM Recommendations: - start glargine 8 U every day - start lispro 3 U TID with meals - lispro low dose sliding scale (listed in epic as very low dose) Plan was discussed with Dr. Davis. Thank you for the opportunity to participate in the care of this patient. We will continue to follow. Please page with any questions or concerns. Thor Pulliam MD PGY-4 Endocrinology Fellow [facility] Date of Consult: 04/21/24 Requesting Physician: Dr Gray Consulting Physician: Dr Davis Reason for Consult:T2DM History of Present Illness: The patient is a 58 y.o. male w PMH of of HTN, T2DM, CHF, CAD s/p PCI x 3 currently on Plavix. He presented to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 Pain Assessment: DVPRS 0 Diet Prior to this Evaluation: NPO Preferred Language: Kosovan PRE-ASSESSMENT: INSPECTOR DIALS Pre-Assessment Current Method of Nutrition: NPO until cleared by Speech FEES PROCEDURE: The Patient was educated re: the purpose of the test and the procedure. The Patient was given the chance to ask questions re: the procedure and provided verbal assent. The [facility] was utilized at this evaluation. Pt completed instrumental assessment of the swallow while seated upright in bed. Time out was performed, and the flexible endoscope was passed through the right naris, through the velopharyngeal port, and into the oropharynx where visualization of the hypopharynx was obtained. Laryngeal anatomy was WFL. EXAMINATION METHOD: Examination Method Previous MBS or FEES: No Time out protocol completed: Yes Respiratory Status: Room air ANATOMICAL OVERVIEW Anatomical Overview Views of The Larynx and Vocal Folds Included: Within Functional Limits Secretions: 0-Normal amount of secretions, mucosa moist, but no saliva flowing Velopharyngeal Closure: Within Functional Limits Epiglottis: Within Functional Limits Valleculae: Within Functional Limits Arytenoids: Within Functional Limits Posterior Pharyngeal Wall: Within Functional Limits True Vocal Cords at Rest: Within Functional Limits True Vocal Cords During Voicing: Within Functional Limits FEES BOLUS: Bolus 1: Bolus 1 Texture: 0 Thin Method of Feeding: Spoon Bolus Amount: 5 ml Oral Phase Observations: Other (comment) (WFL) Swallow Initiated: Valleculae CallieMinervaValleculae Residue: I- None 0% No Residue [place]-Pyriform Sinus Residue: I- None 0% No Residue Penetration-Aspiration Scale: 1: Material does not enter airway Bolus 2: Bolus 2 Texture: 0 Thin Method of Feeding: Straw Bolus Amount: Straw sip Oral Phase Observations: Other (comment) (WFL) Swallow Initiated: Valleculae Callie-Valleculae Residue: I- None 0% No Residue [place]-Pyriform Sinus Residue: I- None 0% No Residue Penetration-Aspiration Scale: 1: Material does not enter airway Bolus 3: Bolus 3 Texture: 7 Regular Method of Feeding: Other (comment) (Piece) Bolus Amount: Piece Oral Phase Observations: Reduced mastication Swallow Initiated: Base of tongue Callie-Valleculae Residue: I- None 0% No Residue Callie-Pyriform Sinus Residue: I- None 0% No Residue Penetration-Aspiration Scale: 1: Material does not enter airway OUTCOME MEASURES: International Dysphagia Diet Standardization Initiative - IDDSI Solids - 7 - Regular Liquids - 0 - Thin IDDSI Level - 8 FUNCTIONAL ORAL INTAKE SCALE (FOIS), ZAIRA ET AL., 2005: 7- Total oral diet with no restrictions DYSPHAGIA OUTCOME AND SEVERITY SCALE (LAINA), O'NEMESIO ET AL., 1999: 7 = Normal in all situations. Normal diet. No strategies or extra time needed. GOALS: Encounter Goals Encounter Goals (Active) LTG - Patient will participate in ongoing diagnostic assessments to determine plan of care Start: 04/17/24 Expected End: 05/18/24 STG - Patient will participate in ongoing diagnostic assessments to determine plan of care Start: 04/17/24 Expected End: 05/01/24 Encounter Goals (Resolved) LTG - Patient will improve on swallowing outcome measure (Completed) Start: 04/17/24 Expected End: 05/15/24 Resolved: 04/17/24 STG - Participate in an instrumental swallow study (Completed) Start: 04/17/24 Expected End: 05/01/24 Resolved: 04/17/24 EDUCATION: Education Documentation Dietary Recommendations, taught by Kait Wagner CCC-INSPECTOR DIALS at 04/17/2024 11:46 AM. Learner: Patient Readiness: Eager Method: Explanation Response: Verbalizes Understanding Results of Exam, taught by AILEEN GamezINSPECTOR DIALS at 04/17/2024 11:46 AM. Learner: Patient Readiness: Eager Method: Explanation Response: Verbalizes Understanding Speech-Language/Pathology Treatment Plan, taught by MAITE Gamez at 04/17/2024 10:31 AM. Learner: Patient Readiness: Eager Method: Explanation Response: Verbalizes Understanding Results of Exam, taught by MAITE Gamez at 04/17/2024 10:31 AM. Learner: Patient Readiness: Eager Method: Explanation Response: Verbalizes Understanding Education Comments No comments found. Spoke with KOBI Matt on unit re: FEES results and recs. If this is the last documented treatment, then it will signify discharge from acute care prior to discharge from the therapy service and will serve as the discharge summary. Therapy discharge recommendations are made by determining the patient's prior level of function, assessing current function level and establishing rehab potential. The overall discharge plan may be affected by input from Physicians, Care Coordination, medical condition/status, family support and insurance benefits. MAITE Gamez AEL Bolaños Notes Date/Time Note Provider Source 2024-06-07 23:58:[address] [facility]2025-02-09 23:58:22 [id number] 23:58:22 [place] [id number] 23:56:28* Audit-C Score Answer Date of Assessment Author 0 04/15/2024 6:26 PM Marylou Ambrocio RN * Intimate Partner Violence Question Answer Date of Assessment Author Within the last year, have y ou been humiliated or emotionally abused in other ways by your partner or ex-partner? No 04/15/2024 6:26 PM Marylou Ambrocio RN Within the last year, have y ou been afraid of your partner or ex-partner? No 04/15/2024 6:26 PM Marylou Ambrocio RN Within the last year, have y ou been raped or forced to have any kind of sexual activity by your partner or ex-partner? No 04/15/2024 6:26 PM Marylou Ambrocio RN Within the last year, have y ou been kicked, hit, slapped, or otherwise physically hurt by your partner or ex-partner? No 04/15/2024 6:26 PM STONEMASON APPRENTICE Marylou Lilly , KOBI * * Calculated C-SSRS Risk Score (Lifetime/Recent) Answer Date of Assessment Author No Risk Indicated 04/15/2024 3:29 PM STONEMASON APPRENTICE Kirt Leyva, KOBI * [place] Suicide Severity Rating Scale (Screener/Recent Self-Report) Question Answer Date of Assessment Author 1. Wish to be (Past 1 Month) No 024 3:29 PM STONEMASON APPRENTICE Grayson Leyva, KOBI 2. Non-Specific Active Suici sterling Thoughts (Past 1 Month) No 04/15/2024 3:29 PM STONEMASON APPRENTICE Grayson Leyva, KOBI 6. Suicidal Behavior (Lifetime) No 3:29 PM STONEMASON APPRENTICE Grayson Leyva, KOBI [id number] 23:56:28 [facility] [id number] 23:56:28 [id number]:56:28 [facility] [id number] 13:04:51 [facility] [id number] 13:04:51 [facility] [id number] 13:04:51 [facility]32[facility]41-17 14:55:57* Consultation (Routine) - Pending Review Specialty Diagnoses / Procedures Referred By Shashi yarbrough Referred To Contact Family Medicine Diagnoses Cerebrovascular accident (CVA) due to occlusion of right middle cerebral artery (HCC) Procedures LA OFFICE/OUTPATIENT NEW HIGH MDM 60-74 MINUTES Frank Markham MD [address] [place] [address] Phone: tel: fax: Referral ID Status Reason Start Date Expiration Date Visits Requested Visits Authorized [id number] Pending Review Specialty Services Required 4 10/22/2024 1 1 EMASON APPRENTICE* Consultation (Routine) - Pending Review Specialty Diagnoses / Procedures Referred By Shashi yarbrough Referred To Contact Cardiology Diagnoses History of CAD (coronary artery disease) Procedures LA OFFICE/OUTPATIENT NEW HIGH MDM 60-74 MINUTES Frank Markham MD [address] [place] [address] Phone: tel: fax: Referral ID Status Reason Start Date Expiration Date Visits Requested Visits Authorized [id number] Pending Review Specialty Services Required 4 10/22/2024 1 1 EMASON APPRENTICE* Consultation (Routine) - Pending Review Specialty Diagnoses / Procedures Referred By Shashi t Referred To Contact Neurology Diagnoses Cerebrovascular accident (CVA) due to occlusion of right middle cerebral artery (HCC) Procedures LA OFFICE/OUTPATIENT [facility] MDM 60-74 MINUTES Frank Markham MD [address] [place], [place] [id number] Phone: tel: fax: Referral ID Status Reason Start Date Expiration Date Visits Requested Visits Authorized [id number] Pending Review Specialty Services Required 4 10/22/2024 1 1 EMASON APPRENTICE* Therapy (Routine) - Pending Review Specialty Diagnoses / Procedures Referred By Shashi yarbrough Referred To Contact Speech Pathology / Speech Therapy Diagnoses Cerebrovascular accident (CVA) due to occlusion of right middle cerebral artery (HCC) Frank Markham MD [address] [place], [place] [id number] Phone: tel: fax: Referral ID Status Reason Start Date Expiration Date Visits Requested Visits Authorized [id number] Pending Review Specialty Services Required 4 10/22/2024 1 1 EMASON APPRENTICE* Therapy (Routine) - Pending Review Specialty Diagnoses / Procedures Referred By Shashi yarbrough Referred To Contact Occupational Therapy Diagnoses Cerebrovascular accident (CVA) due to occlusion of right middle cerebral artery (HCC) Frank Markham MD [address] [place] [address] Phone: tel: fax: Referral ID Status Reason Start Date Expiration Date Visits Requested Visits Authorized [id number] Pending Review Specialty Services Required 4 10/22/2024 2 2 EMASON APPRENTICE* Therapy (Routine) - Pending Review Specialty Diagnoses / Procedures Referred By Shashi yarbrough Referred To Contact Physical Therapy Diagnoses Cerebrovascular accident (CVA) due to occlusion of right middle cerebral artery (HCC) Frank Markham MD [address] [place] [address] Phone: tel: fax: Referral ID Status Reason Start Date Expiration Date Visits Requested Visits Authorized [id number] Pending Review Specialty Services Required 4 10/22/2024 2 2 EMASON APPRENTICE [facility] [id number] 14:55:57* [facility] CampusGunvxly5834-97-43 14:55:57* Audit- C Score Answer Date of Assessment Author 0 04/15/2024 6:26 PM STONEMASON APPRENTICE Marylou Lilly RN * Intimate Partner Violence Question Answer Date of Assessment Author Within the last year, have y ou been humiliated or emotionally abused in other ways by your partner or ex-partner? No 04/15/2024 6:26 PM Marylou Ambrocio RN Within the last year, have y ou been afraid of your partner or ex-partner? No 04/15/2024 6:26 PM Marylou Ambrocio RN Within the last year, have y ou been raped or forced to have any kind of sexual activity by your partner or ex-partner? No 04/15/2024 6:26 PM Marylou Ambrocio RN Within the last year, have y ou been kicked, hit, slapped, or otherwise physically hurt by your partner or ex-partner? No 04/15/2024 6:26 PM Marylou Ambrocio RN * * Calculated C-SSRS Risk Score (Lifetime/Recent) Answer Date of Assessment Author No Risk Indicated 04/15/2024 3:29 PM STONEMASON APPRENTICE Kirt Leyva RN * [place] Suicide Severity Rating Scale (Screener/Recent Self-Report) Question Answer Date of Assessment Author 1. Wish to be (Past 1 Month) No 024 3:29 PM STONEMASON APPRENTICE Grayson Leyva, RN 2. Non-Specific Active Suici sterling Thoughts (Past 1 Month) No 04/15/2024 3:29 PM STONEMASON APPRENTICE Grayson Leyva, RN 6. Suicidal Behavior (Lifetime) No 4 3:29 PM STONEMASON APPRENTICE Grayson Leyva, RN [place] [id number] 14:55:57* Frank Markham MD - 04/25/2024 6:03 AM STONEMASON APPRENTICE Stroke A Progress Note Subjective: No acute event overnight. BP 112/73-149/100. No fever, breathing on RA. Objective:Vitals: 04/25/24 0300 04/25/24 0400 04/25/24 0437 04/25/24 0500 BP: 118/77 112/73 120/74 Pulse: 72 67 82 Resp: 20 19 20 Temp: 36.6 ?C (97.8 ?F) 36.6 ?C (97.9 ?F) TempSrc: Axillary SpO2: 95% 95% 94% Weight: Height: Physical ExamPhysical Exam: General: well nourished, somewhat dischelved HEENT: mucus membranes moist CV: tachycardic Pulm: breathing comfortably on room air Abd: non-distended Ext: skin clear, no rashes, Neuro Exam:Drowsy but appropriately responsive to questions. AAOx3 (, name, hospital, city, year and month) Language: intact fluency, comprehension, naming, and repetition Speech: mild dysarthria CN: Right gaze preference, but overcomes with EOMI testing and cross midline, full VF; significant left facial droop, auditory acuity intact; tongue midline Motor: Normal tone and bulk, no abnormal movements. AG throughout, no drift Sensory: Intact to light touch equally on both sides, no extinction Coordination: no dysmetria on FTN bilaterally Gait: deferred Labs: Na 140, K 3.9, Cr 1.05, WBC 10.83, Hgb 16.2, Plt 230, INR 2.12UA clear, UDS was positive for cannab, cocaine and opiate. A1C 10.05, LDL 111 Medications:Current Facility-Administered Medications Medication Dose Route Frequency Provider Last Rate Last Admin acetaminophen (Tylenol) tablet 650 mg 650 mg Oral q4h PRN Susan Oliva MD 650 mg at 04/25/24 0337 Or acetaminophen (Tylenol) suppository 650 mg 650 mg Rectal q4h PRN Susan Oliva MD aspirin chewable tablet 81 mg 81 mg Oral Daily Cheri Reese MD 81 mg at 04/24/24 1438 atorvastatin (Lipitor) tablet 80 mg 80 mg Oral Nightly Susan Oliva MD 80 mg at 04/24/24 2121 ceFAZolin (Ancef) injection PRN Britton An MD 2 g at 04/24/24 1124 ceFAZolin injection solution 2 g 2 g Intravenous Allen Hancock MD dextrose 50 % solution 12.5 g 12.5 g Intravenous PRN Susan Oliva MD dextrose 50 % solution 25 g 25 g Intravenous PRN Susan Oliva MD fentaNYL (Sublimaze) injection PRN Britton An MD 25 mcg at 04/24/24 1139 glucagon injection 1 mg 1 mg Intramuscular PRN Susan Oliva MD guaiFENesin (Mucinex) 12 hr tablet 600 mg 600 mg Oral BID PRN Susan Oliva MD insulin glargine (Lantus) injection 10 Units 10 Units Subcutaneous Every evening Thor Pulliam MD 10 Units at 04/24/24 1752 insulin lispro (HumaLOG, Admelog) injection 1-4 Units 1-4 Units Subcutaneous TID PRN Thor Pulliam MD 2 Units at 04/24/24 1753 insulin lispro (Humalog, Admelog) injection 4 Units 4 Units Subcutaneous TID with meals Thor Pulliam MD 4 Units at 04/24/24 1752 iodixanol (VISIPaque) 320 MG/ML injection PRN Britton An MD 10 mL at 04/24/24 1127 lidocaine (Xylocaine) 1 % injection PRN Britton An MD 10 mL at 04/24/24 1148 metoprolol tartrate (Lopressor) half tablet 12.5 mg 12.5 mg Oral q12h CAMILO Yash Gray MD 12.5 mg at 04/24/24 2121 midazolam (PF) (Versed) injection PRN Britton An MD 1 mg at 04/24/24 1139 nicotine (Nicoderm, Step 1) 21 MG/24HR patch 1 patch 1 patch Transdermal Daily Susan Oliva MD 1 patch at 04/24/24 0838 polyethylene glycol (PEG) 3350 (Miralax) packet 17 g 17 g Oral Daily Susan Oliva MD sennosides (Senokot) tablet 8.6 mg 1 tablet Oral q12h [facility] Susan Oliva MD 8.6 mg at 04/24/241 sodium chloride (NS) 0.9 % flush 10 mL 10 mL Intravenous PRN Susan Oliva MD 10 mL at 04/21/24 0816 sodium chloride (NS) 0.9 % flush 10 mL 10 mL Intravenous q12h [facility] Susan Oliva MD 10 mL at 04/24/241 sodium chloride (NS) 0.9 % flush 10 mL 10 mL Intravenous PRN Susan Oliva MD tobramycin (Nebcin) injection PRN Britton An MD 80 mg at 04/24/24 1211 vancomycin (Vancocin) vial for injection 1,000 mg 1,000 mg Intravenous Allen Hancock MD vancomycin in NS (Vancocin) IVPB Continuous PRN Britton An MD 1,000 mg at 04/24/24 1125 Warfarin Dosing per Pharmacy 1 each Does not apply PRN Yash Gray MD Imaging:CT head: IMPRESSION: * No sign of acute cortical infarct or parenchymal hemorrhage. * Small remote prior right frontal lobe and posterior temporal lobe infarcts with encephalomalacia and gliosis. CTA head/Neck: Occlusion of the superior division of the right MCA M2 segment, neck ICA normal, MRI brain:right MCA territory involving the right inferior frontal gyrus, frontal operculum, insular cortex, temporal operculum,and the right frontal little radiata TTE: 15-20%, No thrombus, generalized akinesis Cardiac MRI: dilated left ventricle with LVEF 17%; severly hypokinetic to akinetic; LV Thrombus 1.0 x 0.7 cm in mid anterior wall. No significant valvular dysfunction Assessment and Plan:Judi Calle (69) is a 58 year old M with PMH HTN, CHF, DM, CAD s/p stents x3 on plavix who presents to the hospital as a code stroke with LFD, drift in LUE, and dysarthria. CTA concerning for RM2. Patient is s/p TNK at 1539. Endovascular declined IAT due to low NIH and unclear occlusion. MRI brain shows petechial hemorrhage. A1c: 10.05, LDL 111, EF of 15-20% on TTE. Cardiac MRI shows LVEF 17% with LV Thrombus 1.0x0.7cm and started on Heparin gtt ptt 60-80. Etiology of stroke Cardioembolic 2/2 LV Thrombus. ICD was placed from cardiology given significantly reduced EF. Principal Problem: Acute ischemic stroke (HCC) Active Problems: Heart failure (HCC) Smoker Hypertensive disorder History of CAD (coronary artery disease) Type 2 diabetes mellitus with diabetic chronic kidney disease (HCC) Type 2 diabetes mellitus (HCC) Cardiomyopathy (HCC) LV (left ventricular) mural thrombus Resolved Problems: * No resolved hospital problems. * KILN SETTER:#Ischemic Stroke of M2 right MCA Acuity: Acute Suspected Etiology: Cardioembolic 2/2 LV Thrombus - Plavix effect: 129 - A1C 10.05, LDL 111 - CTA: Occlusion of the superior division of the right MCA M2 segment, neck ICA normal, - MRI brain: right MCA territory involving the right inferior frontal gyrus, frontal operculum, insular cortex, temporal operculum,and the right frontal little radiata -TTE: EF 15-20%, No thrombus, generalized akinesis Cardiac MRI: dilated left ventricle with LVEF 17%; severly hypokinetic to akinetic; LV Thrombus 1.0 x 0.7 cm in mid anterior wall. No significant valvular dysfunction Plan: - Atorvastatin 80 mg - Aspirin 81 mg 04/16-, off when heparin gtt started - BP goal < 130/80 - Heparin gtt since 04/17-04/24, CT head (therapeutic PTT): only petechial hemorrhage - Warfarin from 04/20 with goal INR 2-3. INR w/in goal today. - on Aspirin 04/22-, per cardiology - s/p ICD placement on 04/24 - His primary respooler, Dr. Lockwood will follow INR after discharge. Need to follow up 04/27 or 04/28 on first visit. - PT/OT/ST RESP:#Smoker #Chronic Cough - Nicotine patch - Continue home PRN mucinex - No acute concern CV:# Recently diagnosed congestive Heart Failure # Essential hypertension - BP goal < 130/80 - Continue Metoprolol tartrate 12.5mg q12h - Lisinopril 2.5 mg daily - Start Aspirin 81mg as cardiology recommended - ICD placed by EP on 04/24. - Titrate oral agents CAD s/p stents x3On Home plavix - Troponin negative - TTE: EF 15-20% - Telemetry - Started Aspirin (04/16-) stopped due to heparin gtt RENAL: CKD Stage 3 (GFR 30-59) vs CHRISTOS - Cr up from 1.07--> 1.34 - Encourage PO intake and follow BMP - No documented history of CKD - S/p 1 liter bolus in ED - Trend BMP ENDO:Type 2 DM Hypodense thyroid nodule - On home metformin - SSI for goal FSBG 140-180 - Regular diet - Glucose 200s will start glargine 8U daily and lispro 3U TID --> 10U, 3U TID (04/23-) - Follow up hypodense thyroid nodule outpatient - Continue glargine 10 U daily, resume metformin 1000 mg PO BID, and start Jardiance 10 mg daily upon discharge - No short acting insulin on discharge - diabetes education HEME:No acute abnormalities - Monitor ID:No acute abnormalities - Monitor - Follow up UA ordered in ED GI:N/A Bowel regimen: senna, miralax Consults:Endocrinology, Cardiology DVT PPX: warfarinBowel Regimen:senna, Miramax Diet: Adult Regular Diet Code status: Full Dispo: to home pending clinical improvement Patient discussed with attending physician Dr. SAXENA, TEENA Markham MDNeurology PGY-1 Counts include 234 beds at the [facility] Cosigned by Teena Saxena MD at 04/25/2024 12:10 PM CST EMASON APPRENTICE EMASON APPRENTICE EMASON APPRENTICE Associated attestation - Teena Saxena MD - 04/25/2024 12:10 PM STONEMASON APPRENTICE Judi Calle (67) is a 58 year old M with PMH HTN, CHF, DM, CAD s/p stents x3 on plavix who presents to the hospital as a code stroke with LFD, drift in LUE, and dysarthria. CTA concerning for RM2. Patient is s/p TNK at 1539. Endovascular declined IAT due to low NIH and unclear occlusion. MRI brain shows petechial hemorrhage. A1c: 10.05, LDL 111, EF of 15-20% on TTE. Cardiac MRI shows LVEF 17% with LV Thrombus 1.0x0.7cm and started on Heparin gtt ptt 60-80. Etiology of stroke possibly Cardioembolic 2/2 LV Thrombus. Dual Chamber ICD yesterday. Cardiology ok to discharged On ASA and Warfarin INR: 2.12 Insulin regimen per endocrinology Dispo home with out patient therapy Follow up with cardiology, EP, stroke and PCP I spent a total of 55 minutes direct contact with the patient, of which the entire encounter was spent counseling the patient on direct management includ * Tami Drake OT - 04/24/2024 12:30 PM STONEMASON APPRENTICE OT Encounter Note Patient Name: Judi Calle Today's Date: 04/24/2024 Missed Treatment Time and Reason Pt off for procedure - Will follow-up Tami Drake OT EMASON APPRENTICE * Therese Arizmendi CCC-INSPECTOR DIALS - 04/24/2024 12:29 PM STONEMASON APPRENTICE Speech-Language Pathology Encounter Note Patient Name: Judi Calle Today's Date: 04/24/2024 Missed Treatment Time and Reason Pt off unit for procedure. INSPECTOR DIALS will continue to follow; plan to f/u for completion of speech/language/cognitive evaluation. AILEEN PeñaSLP EMASON APPRENTICE * Miriam Gonzalez PharmD - 04/24/2024 10:47 AM STONEMASON APPRENTICE Warfarin Dosing Consult Note WARFARIN THERAPEUTIC DRUG MONITORING - INITIAL CONSULT NOTE Indication of use: Left ventricular thrombus INR Target Range: 2 - 3 (Low Risk Mechanical Prosthetic Heart Valves (Aortic bileaflet)) Therapy Status: New therapy, no doses given yet Subjective: 58 yo male with PMH significant for tobacco use, HTN, CHF, DM, and CAD (stents x 3) who presented 04/15/24 as a code stroke with LFD, drift in LUE, and dysarthria; NIHSS = 4. Urine was positive for cocaine and cannabis. CTA brain/neck 04/15/24 showed an occlusion of the superior division of the R MCA; s/p TNK. MRI brain 04/15/24 showed acute/subacute R MCA territorial ischemic infarct with few foci of petechial hemorrhage. TTE 04/15/24 showed EF of 15-20%, grade III diastolic abnormalities with akinesis involving septum, apex, mid to distal lateral wall and inferior terrell. Cardiac MRI 04/17/24 showed LVEF 17% with LV Thrombus 1.0 x 0.7cm. Home antiplatelet regimen includes clopidogrel. Heparin drip started 04/17/24 and warfarin initiated 04/20/24 with pharmacy anticoagulation dosing service consult. Labs Hgb Date Value Ref Range Status 04/24/2024 15.7 12.4 - 17.4 g/dL Final 04/23/2024 16.2 12.4 - 17.4 g/dL Final 04/22/2024 15.8 12.4 - 17.4 g/dL Final Plt Count Date Value Ref Range Status 04/24/2024 256 160 - 381 10*3/uL Final 04/23/2024 223 160 - 381 10*3/uL Final 04/22/2024 226 160 - 381 10*3/uL Final INR Date Value Ref Range Status 04/24/2024 2.14 (H) 0.85 - 1.17 Final 04/24/2024 1.89 (H) 0.85 - 1.17 Final 04/23/2024 1.51 (H) 0.85 - 1.17 Final 04/23/2024 1.49 (H) 0.85 - 1.17 Final 04/22/2024 1.26 (H) 0.85 - 1.17 Final No results found for: "PROTIME" PTT Date Value Ref Range Status 04/24/2024 153.4 (HH) 22.9 - 35.8 Seconds Final 04/24/2024 185.2 (HH) 22.9 - 35.8 Seconds Final 04/23/2024 29.8 22.9 - 35.8 Seconds Final 04/23/2024 131.0 (HH) 22.9 - 35.8 Seconds Final 04/22/2024 31.2 22.9 - 35.8 Seconds Final Warfarin Dose Administered: Warfarin Administrations (last 168 hours) Date/Time Action Medication Dose 04/23/24 1552 Given warfarin (Coumadin) tablet 7.5 mg 7.5 mg 04/22/24 1722 Given warfarin (Coumadin) tablet 7.5 mg 7.5 mg 04/21/24 1613 Given warfarin (Coumadin) tablet 7.5 mg 7.5 mg 04/20/24 1614 Given warfarin (Coumadin) tablet 7.5 mg 7.5 mg Bridging Agents Administered:Heparin drip Antiplatelets:None Significant Drug Interactions:There are no significant medication or pharmacodynamic interactions identified. Assessment and Plan:INR = 2.14, up from 1.89 yesterday and 1.51 the day before Based on rise in INR in the past few days will reduce dose to 5 mg Will monitor for signs and symptoms of bleeding. Thank you for the consult. We will continue to follow the patient. Pleasecontact through Secure Chat or the [facility] clinical pharmacist after hours at pager [phone] with any questions. Miriam Gonzalez PharmD EMASON APPRENTICE * Cheri Reese MD - 04/24/2024 7:49 AM STONEMASON APPRENTICE Stroke A Progress Note Subjective: No acute event overnight. BP within goal. Hep gtt stopped. INR 2.4. PTT 153. Objective:Vitals: 04/24/24 0500 04/24/24 0600 04/24/24 0746 04/24/24 0747 BP: 121/84 100/66 Pulse: 69 77 Resp: 20 21 Temp: 36.4 ?C (97.5 ?F) TempSrc: Oral SpO2: 96% 94% Weight: Height: Physical ExamPhysical Exam: General: well nourished, somewhat dischelved HEENT: mucus membranes moist CV: tachycardic Pulm: breathing comfortably on room air Abd: non-distended Ext: skin clear, no rashes, Neuro Exam:Drowsy but appropriately responsive to questions. AAOx3 (, name, hospital, city, year and month) Language: intact fluency, comprehension, naming, and repetition Speech: mild dysarthria CN: Right gaze preference, but overcomes with EOMI testing and cross midline, full VF; significant left facial droop, auditory acuity intact; tongue midline Motor: Normal tone and bulk, no abnormal movements. AG throughout, no drift Sensory: Intact to light touch equally on both sides, no extinction Coordination: no dysmetria on FTN bilaterally Gait: deferred Labs: Na 140, K 4.0, Cr 1.16, WBC 8.17, Hgb 16, Plt 223, PTT 131, INR 1.49UA clear, UDS was positive for cannab, cocaine and opiate. A1C 10.05, LDL 111 Medications:Current Facility-Administered Medications Medication Dose Route Frequency Provider Last Rate Last Admin acetaminophen (Tylenol) tablet 650 mg 650 mg Oral q4h PRN Susan Oliva MD 650 mg at 04/23/24 2342 Or acetaminophen (Tylenol) suppository 650 mg 650 mg Rectal q4h PRN Susan Oliva MD atorvastatin (Lipitor) tablet 80 mg 80 mg Oral Nightly Susan Oliva MD 80 mg at 04/23/248 ceFAZolin injection solution 2 g 2 g Intravenous Allen Hancock MD dextrose 50 % solution 12.5 g 12.5 g Intravenous PRN Susan Oliva MD dextrose 50 % solution 25 g 25 g Intravenous PRN Susan Oliva MD glucagon injection 1 mg 1 mg Intramuscular PRN Susan Oliva MD guaiFENesin (Mucinex) 12 hr tablet 600 mg 600 mg Oral BID PRN Susan Oliva MD heparin 50 units/mL in sodium chloride 0.45 % 0.1-40 Units/kg/hr Intravenous Continuous Yong Rizzo MD Stopped at 04/24/24 0134 insulin glargine (Lantus) injection 10 Units 10 Units Subcutaneous Every evening Thor Pulliam MD 10 Units at 04/23/24 1724 insulin lispro (HumaLOG, Admelog) injection 1-4 Units 1-4 Units Subcutaneous TID PRN Thor Pulliam MD 1 Units at 04/23/24 1550 insulin lispro (Humalog, Admelog) injection 4 Units 4 Units Subcutaneous TID with meals Thor Pulliam MD 4 Units at 04/23/24 1600 metoprolol tartrate (Lopressor) half tablet 12.5 mg 12.5 mg Oral q12h CAMILO Gray MD 12.5 mg at 04/22/24 2122 nicotine (Nicoderm, Step 1) 21 MG/24HR patch 1 patch 1 patch Transdermal Daily Susan Oliva MD 1 patch at 04/23/24 0852 polyethylene glycol (PEG) 3350 (Miralax) packet 17 g 17 g Oral Daily Susan Oliva MD sennosides (Senokot) tablet 8.6 mg 1 tablet Oral q12h [facility] Susan Oliva MD 8.6 mg at 04/20/242016 sodium chloride (NS) 0.9 % flush 10 mL 10 mL Intravenous PRN Susan Oliva MD 10 mL at 04/21/24 0816 sodium chloride (NS) 0.9 % flush 10 mL 10 mL Intravenous q12h [facility] Susan Oliva MD 10 mL at 04/23/24 2128 sodium chloride (NS) 0.9 % flush 10 mL 10 mL Intravenous PRN Susan Oliva MD vancomycin (Vancocin) vial for injection 1,000 mg 1,000 mg Intravenous Allen Hancock MD Warfarin Dosing per Pharmacy 1 each Does not apply PRN Yash Gray MD Imaging:CT head: IMPRESSION: * No sign of acute cortical infarct or parenchymal hemorrhage. * Small remote prior right frontal lobe and posterior temporal lobe infarcts with encephalomalacia and gliosis. CTA head/Neck: Occlusion of the superior division of the right MCA M2 segment, neck ICA normal, MRI brain:right MCA territory involving the right inferior frontal gyrus, frontal operculum, insular cortex, temporal operculum,and the right frontal little radiata TTE: 15-20%, No thrombus, generalized akinesis Cardiac MRI: dilated left ventricle with LVEF 17%; severly hypokinetic to akinetic; LV Thrombus 1.0 x 0.7 cm in mid anterior wall. No significant valvular dysfunction Assessment and Plan:Judi Calle (69) is a 58 year old M with PMH HTN, CHF, DM, CAD s/p stents x3 on plavix who presents to the hospital as a code stroke with LFD, drift in LUE, and dysarthria. CTA concerning for RM2. Patient is s/p TNK at 1539. Endovascular declined IAT due to low NIH and unclear occlusion. MRI brain shows petechial hemorrhage. A1c: 10.05, LDL 111, EF of 15-20% on TTE. Cardiac MRI shows LVEF 17% with LV Thrombus 1.0x0.7cm and started on Heparin gtt ptt 60-80. Etiology of stroke Cardioembolic 2/2 LV Thrombus. Principal Problem: Acute ischemic stroke (HCC) Active Problems: Heart failure (HCC) Smoker Hypertensive disorder History of CAD (coronary artery disease) Type 2 diabetes mellitus with diabetic chronic kidney disease (HCC) Type 2 diabetes mellitus (HCC) Cardiomyopathy (HCC) LV (left ventricular) mural thrombus Resolved Problems: * No resolved hospital problems. * KILN SETTER:#Ischemic Stroke of M2 right MCA Acuity: Acute Suspected Etiology: Cardioembolic 2/2 LV Thrombus - Plavix effect: 129 - A1C 10.05, LDL 111 - CTA: Occlusion of the superior division of the right MCA M2 segment, neck ICA normal, - MRI brain: right MCA territory involving the right inferior frontal gyrus, frontal operculum, insular cortex, temporal operculum,and the right frontal little radiata -TTE: EF 15-20%, No thrombus, generalized akinesis Cardiac MRI: dilated left ventricle with LVEF 17%; severly hypokinetic to akinetic; LV Thrombus 1.0 x 0.7 cm in mid anterior wall. No significant valvular dysfunction Plan: - Atorvastatin 80 mg - Aspirin 81 mg 04/16-, off when heparin gtt started - BP goal < 130/80 - Heparin gtt since 04/17-04/24, CT head (therapeutic PTT): only petechial hemorrhage - Warfarin from 04/20 with goal INR 2-3. INR w/in goal today. - on Aspirin 04/22-, per cardiology - His primary respooler, Dr. Lockwood will follow INR after discharge - PT/OT/ST RESP:#Smoker #Chronic Cough - Nicotine patch - Continue home PRN mucinex - No acute concern CV:# Recently diagnosed congestive Heart Failure # Essential hypertension - BP goal < 130/80 - Continue Metoprolol tartrate 12.5mg q12h - Start Aspirin 81mg as cardiology recommended 04/22- - EP: Plan for primary prevention ICD once INR is between 2-3. Will plan for dual chamber ICD. - Titrate oral agents CAD s/p stents x3On Home plavix - Troponin negative - TTE: EF 15-20% - Telemetry - Started Aspirin (04/16-) stopped due to heparin gtt RENAL: CKD Stage 3 (GFR 30-59) vs CHRISTOS - Cr up from 1.07--> 1.34 - Encourage PO intake and follow BMP - No documented history of CKD - S/p 1 liter bolus in ED - Trend BMP ENDO:Type 2 DM Hypodense thyroid nodule - On home metformin - SSI for goal FSBG 140-180 - Regular diet - Glucose 200s will start glargine 8U daily and lispro 3U TID --> 10U, 3U TID (04/23-) - Follow up hypodense thyroid nodule outpatient - Continue glargine 10 U daily, resume metformin 1000 mg PO BID, and start Jardiance 10 mg daily - No short acting insulin on discharge - diabetes education HEME:No acute abnormalities - Monitor ID:No acute abnormalities - Monitor - Follow up UA ordered in ED GI:N/A Bowel regimen: senna, miralax Consults:Endocrinology, Cardiology DVT PPX: heparin dripBowel Regimen:senna, Miramax Diet: Adult Regular Diet Code status: Full Dispo: to home pending clinical improvement Patient discussed with attending physician TEENA Devlin This patient was seen and staffed with attending physician, Dr. Saxena. See the attending attestation for further details and final recommendations. Cheri Reese, DONeurology PGY-1 Counts include 234 beds at the [facility] Cosigned by eTena Saxena MD at 04/24/2024 11:56 AM CST EMASON APPRENTICE EMASON APPRENTICE Associated attestation - Teena Saxena MD - 04/24/2024 11:56 AM STONEMASON APPRENTICE Judi Calle (67) is a 58 year old M with PMH HTN, CHF, DM, CAD s/p stents x3 on plavix who presents to the hospital as a code stroke with LFD, drift in LUE, and dysarthria. CTA concerning for RM2. Patient is s/p TNK at 1539. Endovascular declined IAT due to low NIH and unclear occlusion. MRI brain shows petechial hemorrhage. A1c: 10.05, LDL 111, EF of 15-20% on TTE. Cardiac MRI shows LVEF 17% with LV Thrombus 1.0x0.7cm and started on Heparin gtt ptt 60-80. Etiology of stroke possibly Cardioembolic 2/2 LV Thrombus. On heparin bridge to warfarin INR 2.14 and heparin stopped Plan Dual Chamber ICD today Will start ASA Insulin regimen will check about the coverage Dispo home with out patient therapy, can be discharged home after clarification with cardiology I spent a total of 55 minutes direct contact with the patient, of which the entire encounter was spent counseling the patient on direct management includ * Radha Vargas LMSW - 04/23/2024 4:00 PM STONEMASON APPRENTICE 04/23/24 1500 Discharge Planning Patient expects to be discharged to: Home w/ OP Expected Discharge Disposition Home Discharge Planning Comments SW met with pt at bedside to confirm discharge plan. PT stated that his sister will be at home and lives with him and his parents and able to provide 24hr supervision for him. PT stated that sister is a home health aide and can provide care. PT inquired about medications to d/c and if the scripts can be given so he can get them at his clinic in [place], [place]. SW discussed options for meds to bed and alternatives and that MD will f/up depending on his medication regimine. PT expressed understanding. Discharge Planning Status Initial Assessment Complete EMASON APPRENTICE * Betsy Justin MD - 04/23/2024 8:57 AM STONEMASON APPRENTICE Endocrinology Progress Note Assessment: Patient is a 58-year-old male w/ pmhx of HTN, T2DM, CHF, CAD s/p PCI x 3 currently on Plavix. He presented to the hospital with left-sided weakness, left facial droop, slurred speech. Endocrine consulted for assistance with T2DM management. A1c 10.05 Home med: metformin 1000 mg BID Problem list: T2DM Recommendations: - Continue glargine 10 U every day and lispro 3 TID with meals while patient is inpatient >>For outpatient/discharge regimen: - Continue glargine 10 U daily, resume metformin 1000 mg PO BID, and start Jardiance 10 mg daily - No short acting insulin on discharge - Patient will need diabetes education prior to discharge for insulin teaching Plan was discussed with Dr. More Thank you for the opportunity to participate in the care of this patient. Please page/message us with any further concerns. We will sign off. Betsy Justin MD KORY PGY3 | Internal Medicine [facility] Subjective: NAEON History: Medical: No past medical history on file. Surgical: No past surgical history on file. Social: Social History Tobacco Use Smoking status: Every Day Types: Cigarettes Smokeless tobacco: Current Substance Use Topics Alcohol use: Never Family: No family history on file. Prior to admission medications Current Outpatient Medications Medication Instructions cholecalciferol (VITAMIN D-3) 10,000 Units, Oral, Daily lisinopril 10 mg, Oral, Daily nitroglycerin (NITROSTAT) 0.4 mg, Sublingual, Every 5 min PRN rivaroxaban (XARELTO) 2.5 mg, Per G Tube, 2 times daily simvastatin (Zocor) 40 MG tablet 1 tablet, Oral, Daily Allergies No Known Allergies Review of Systems: Gen: No fever, chills, nightsweats, or fatigue. Skin: No rashes, sores, itching, or bruising. HEENT: No trauma, headache, or visual changes. No hearing loss, tinnitus, or vertigo. Resp: No wheezing, shortness or breath, cough, or hemoptysis. CV: No tachycardia, dyspnea on exertion, or orthopnea. No leg edema, or claudication GI: No nausea, vomiting, or abdominal pain. : No dysuria, hematuria, or incontinence. Msk: No myalgias or arthralgias. Neuro: No syncope, seizures, headaches, changes in sensation, or weakness. Heme: No easy bruising, bleeding, or lymphadenopathy. Endo: No heat or cold intolerance, hair loss, or weight changes. Psych: Not depressed or elevated mood, no anxiety. Physical Exam: Patient Vitals for the past 24 hrs: BP Temp Temp src Pulse Resp SpO2 04/23/24 0700 98/68 -- -- 61 (!) 25 -- 04/23/24 0600 (!) 94/53 -- -- 61 17 94 % 04/23/24 0500 102/67 -- -- 54 18 94 % 04/23/24 0400 99/67 -- -- 53 12 97 % 04/23/24 0347 -- -- Axillary -- 20 -- 04/23/24 0346 -- 36.8 ?C (98.2 ?F) -- -- -- -- 04/23/24 0300 108/69 -- -- 59 20 94 % 04/23/24 0200 (!) 89/59 -- -- 59 20 96 % 04/23/24 0100 (!) 95/54 -- -- 58 16 95 % 04/23/24 0000 117/82 -- -- 68 17 91 % 04/22/24 2314 -- -- Oral -- 20 -- 04/22/24 2314 -- 36.8 ?C (98.3 ?F) -- -- -- -- 04/22/24 2300 (!) 114/59 -- -- 70 14 96 % 04/22/24 2200 131/71 -- -- 81 16 95 % 04/22/24 2100 111/68 -- -- 83 17 99 % 04/22/241999 120/61 -- -- 75 20 94 % 04/22/241915 -- -- Oral -- 20 -- 04/22/241915 -- 36.7 ?C (98 ?F) -- -- -- -- 04/22/24 1900 108/65 -- -- 77 21 99 % 04/22/24 1700 104/73 -- -- 80 19 93 % 04/22/24 1611 99/65 -- -- 72 20 94 % 04/22/24 1547 -- 36.9 ?C (98.4 ?F) -- -- -- -- 04/22/24 1400 127/81 -- -- 68 20 93 % 04/22/24 1343 -- -- -- 68 (!) 29 95 % 04/22/24 1300 (!) 144/92 -- -- 65 20 -- 04/22/24 1237 -- -- Oral -- -- -- 04/22/24 1237 -- 36.8 ?C (98.3 ?F) -- -- -- -- 04/22/24 1000 106/77 -- -- 63 20 -- 04/22/24 0935 -- -- -- 64 22 92 % 04/22/24 0900 121/84 -- -- 89 20 96 % .Physical Exam Constitutional: The patient is not in acute distress. HENT: Normocephalic and atraumatic. Eyes: No scleral icterus, Extraocular movements intact , Conjunctivae normal, Pupils are equal, round, and reactive to light. Cardiovascular: Normal rate and regular rhythm with no added sounds Pulmonary: Pulmonary effort is normal. No respiratory distress. Normal breath sounds. No wheezing. Abdominal:Abdomen is soft., bowel sounds are normal. no distension. no abdominal tenderness. Skin:Skin is warm. Neurological: Alert and oriented with no focal deficit present. Data: Pertinent Labs : Labs in chart were reviewed. Lab Results Component Value Date WBC 8.17 04/23/2024 Hgb 16.2 04/23/2024 Hct 49.4 04/23/2024 Plt Count 223 04/23/2024 Lab ResultsComponent Value Date Sodium Lvl 140 04/23/2024 Potassium Lvl 4.0 04/23/2024 Chloride Lvl 106 04/23/2024 CO2 Lvl 24.1 04/23/2024 BUN 16 04/23/2024 Creatinine Lvl 1.16 04/23/2024 Glucose Lvl 159 (H) 04/23/2024 POC Glu 210 (H) 04/23/2024 Lab ResultsComponent Value Date Calcium Lvl 9.7 04/23/2024 No results found for: "AST", "ALT", "ALKPHOS" Radiology Review: @[email or web address]@ Cosigned by Cat More MD at 04/23/2024 2:41 PM CST EMASON APPRENTICE EMASON APPRENTICE EMASON APPRENTICE Associated attestation - Cat More MD - 04/23/2024 2:41 PM CST Endocrinology Staff: I have personally interviewed and examined patient with the resident/fellow and Endocrine team. I have reviewed the evaluation and agree with issues, findings, and plan of care as documented in today's note. I have amended the note as needed. Data:Labs/imaging reviewed Mdm:* Labs/log/data reviewed in [facility], and endocrine studies/fingersticks ordered. * External records requested/reviewed. * Case reviewed with primary team. Consult time includes face to face time, review of chart/notes, lab orders, review of medications, review of external records/data. Thank you for allowing us to participate in the patient's care. [place] Endocrinology * Alexia Suero, PT - 04/23/2024 7:42 AM STONEMASON APPRENTICE Physical Therapy Treatment Session Note Patient Name: Judi Calle Today's Date: 04/23/2024 Preferred Language: Kosovan Assessment & Plan Pt was seen for PT with focus on transfers and gait training. Pt continues to demonstrate improvement with mobility. Pt demonstrating bed mobility IND. Pt Jamarcus-SBA for all OOB mobility. Pt is safe to continue mobilizing with nursing and/or family. Pt does not have any further acute PT needs. PT will sign off and place on functional maintenance for continued mobility while in house. Assessment: Prognosis: Good Evaluation/Treatment Tolerance: Patient tolerated treatment well Medical Staff Made Aware: Yes Plan: Treatment Plan/Goals Established with Patient/Caregiver: Yes Treatment/Interventions: Balance training, Bed mobility training, Caregiver training, Equipment training, Functional activities, Gait training, Manual therapy, Neuromuscular re-education, Orthotic training, Pain management, Patient education, Positioning, Posture/Body mechanics baring, Stair training, Therapeutic exercises, Transfer training, Wheelchair assessment and management PT Plan: No skilled PT PT Discharge Recommendations: Outpatient PT, Home health PT Equipment Recommended: Walker- rolling PT Recommended Transfer Status: Stand by assist PT- Okay to Discharge from Therapy: Yes Subjective Precautions: Medical Precautions: falls, Standard Post-Surgical Precautions: Fall, Standard Pain: Pain Assessment: DVPRS (04/23/2024 10:00 AM) Pain Score: 0 (04/23/2024 10:00 AM) Pain Type: Acute pain (04/22/2024 10:00 PM) Pain Location: Leg (04/22/2024 10:00 PM) Pain Descriptors: Aching (04/22/2024 10:00 PM) Pain Frequency: Intermittent (04/22/2024 10:00 PM) Objective General Visit Information: PT Last Visit PT Received On: 04/23/24 Cognition Overall Cognitive Status: Within Functional Limits Behavior/Cognition: Alert, Pleasant mood Orientation Level: Oriented X4 Treatment Therapeutic activity: Therapeutic Activity Therapeutic Activity Time Entry: 15 Therapeutic Activity 1: Static sitting EOB IND ~8min Bed Mobility: Bed Mobility 1: Level of Assistance 1: Independent Bed Mobility To/From: Supine to sit on EOB Assistive Devices And Adaptive Equipments: Bed rail Transfers: Transfers 1: Level of Assistance 1: Supervision/touching assistance Trials/Comments 1: Multiple STS transfers throughout Transfer To/From: [id number] Assistive Devices And Adaptive Equipments: Walker, front-wheeled Gait training: Gait Training Time Entry: 14 Gait Training Activity 1: Distance (enter in feet): 250ft Assistive Devices And Adaptive Equipments: Walker, front-wheeled Level of Assistance 1: Supervision/touching assistance AM-PAC Basic Mobility: AM-PAC Basic Mobility Inpatient Turning in bed without bedrails: None Lying on back to sitting on edge of flat bed: None Bed to chair: None Standing up from chair: None Walk in room: A Little Climbing 3-5 stairs: A Little Mobility Inpatient Raw Score: 22 JH-HLM Goal: 7 Mobility: Highest Level of Mobility Performed (JH-HLM) JH-HLM Goal: 7 Highest Level of Mobility Performed (JH-HLM): Walked 250 feet or more (i.e. several laps on unit) Modified [place] Modified Navi (mRS) Modified [place] Score: Moderate disability. Requires some help, but able to walk unassisted. Patient Education: Education Documentation No documentation found. Education Comments No comments found. Goals: Encounter Goals Encounter Goals (Resolved) Pt will perform bed mobility with LRAD with Jamarcus. (Completed) Start: 04/16/24 Expected End: 04/20/24 Resolved: 04/23/24 Patient will perform transfers using LRAD with Jamarcus to improve functional mobility. (Completed) Start: 04/16/24 Expected End: 04/20/24 Resolved: 04/23/24 Patient will perform gait training with SBA using LRAD for >400ft. (Completed) Start: 04/16/24 Expected End: 04/20/24 Resolved: 04/23/24 Treatment Note: If this is the last documented treatment, then it will signify discharge from acute care prior to discharge from the therapy service and will serve as the discharge summary. Alexia Suero PT EMASON APPRENTICE * Frank Markham MD - 04/23/2024 6:42 AM STONEMASON APPRENTICE Stroke A Progress Note Mr Judi Calle 58 year old right handed male with severe cardiac history came with right M2 stroke. Cardiac MRI confirmed Left ventricle thrombus, and heparin drip started. Warfarin started yesterday with goal INR 2-3. Subjective: No acute event overnight. Patient took PRN tylenol one time for left calf pain. No fever, HR 50-70s, BP 89/59-117/82, breathing on RA Objective: Vitals: 04/23/24 0347 04/23/24 0400 04/23/24 0500 04/23/24 0600 BP: 99/67 102/67 (!) 94/53 Pulse: 53 54 61 Resp: 20 12 18 17 Temp: TempSrc: Axillary SpO2: 97% 94% 94% Weight: Height: Physical Exam Physical Exam: General: well nourished, somewhat dischelved HEENT: mucus membranes moist CV: tachycardic Pulm: breathing comfortably on room air Abd: non-distended Ext: skin clear, no rashes, Neuro Exam: Drowsy but appropriately responsive to questions. AAOx3 (, name, hospital, city, year and month) Language: intact fluency, comprehension, naming, and repetition Speech: mild dysarthria CN: Right gaze preference, but overcomes with EOMI testing and cross midline, full VF; significant left facial droop, auditory acuity intact; tongue midline Motor: Normal tone and bulk, no abnormal movements. AG throughout, no drift Sensory: Intact to light touch equally on both sides, no extinction Coordination: no dysmetria on FTN bilaterally Gait: deferred Labs: Na 140, K 4.0, Cr 1.16, WBC 8.17, Hgb 16, Plt 223, PTT 131, INR 1.49 UA clear, UDS was positive for cannab, cocaine and opiate. A1C 10.05, LDL 111 Medications: Current Facility-Administered Medications Medication Dose Route Frequency Provider Last Rate Last Admin acetaminophen (Tylenol) tablet 650 mg 650 mg Oral q4h PRN Susan Oliva MD 650 mg at 04/23/24 0023 Or acetaminophen (Tylenol) suppository 650 mg 650 mg Rectal q4h PRN Susan Oliva MD aspirin EC EC tablet 81 mg 81 mg Oral Daily Chai Gillespie MD 81 mg at 04/22/24 1444 atorvastatin (Lipitor) tablet 80 mg 80 mg Oral Nightly Susan Oliva MD 80 mg at 04/22/242121 dextrose 50 % solution 12.5 g 12.5 g Intravenous PRN Susan Oliva MD dextrose 50 % solution 25 g 25 g Intravenous PRN Susan Oliva MD famotidine (Pepcid) tablet 20 mg 20 mg Oral BID Yash Gray MD 20 mg at 04/22/24 172 gabapentin (Neurontin) capsule 300 mg 300 mg Oral q8h [facility] Mark Rizzo MD 300 mg at 04/22/242121 glucagon injection 1 mg 1 mg Intramuscular PRN Susan Oliva MD guaiFENesin (Mucinex) 12 hr tablet 600 mg 600 mg Oral BID PRN Susan Oliva MD heparin 50 units/mL in sodium chloride 0.45 % 0.1-40 Units/kg/hr Intravenous Continuous Mark Rizzo MD Stopped at 04/23/24 0631 insulin glargine (Lantus) injection 10 Units 10 Units Subcutaneous Every evening Thor Pulliam MD 10 Units at 04/22/24 1726 insulin lispro (HumaLOG, Admelog) injection 1-4 Units 1-4 Units Subcutaneous TID PRN Thor Pulliam MD 1 Units at 04/22/24 1728 insulin lispro (Humalog, Admelog) injection 3 Units 3 Units Subcutaneous TID with meals Thor Pulliam MD 3 Units at 04/22/24 1725 metoprolol tartrate (Lopressor) half tablet 12.5 mg 12.5 mg Oral q12h [facility] Yash Gray MD 12.5 mg at 04/22/242121 nicotine (Nicoderm, Step 1) 21 MG/24HR patch 1 patch 1 patch Transdermal Daily Susan Oliva MD 1 patch at 04/22/24 0839 polyethylene glycol (PEG) 3350 (Miralax) packet 17 g 17 g Oral Daily Susan Oliva MD sennosides (Senokot) tablet 8.6 mg 1 tablet Oral q12h [facility] Susan Oliva MD 8.6 mg at 04/20/242016 sodium chloride (NS) 0.9 % flush 10 mL 10 mL Intravenous PRN Susan Oliva MD 10 mL at 04/21/24 08 sodium chloride (NS) 0.9 % flush 10 mL 10 mL Intravenous q12h [facility] Susan Oliva MD 10 mL at 04/22/242121 sodium chloride (NS) 0.9 % flush 10 mL 10 mL Intravenous PRN Susan Oliva MD Warfarin Dosing per Pharmacy 1 each Does not apply PRN Yash Gray MD Imaging: CT head: IMPRESSION: * No sign of acute cortical infarct or parenchymal hemorrhage. * Small remote prior right frontal lobe and posterior temporal lobe infarcts with encephalomalacia and gliosis. CTA head/Neck: Occlusion of the superior division of the right MCA M2 segment, neck ICA normal, MRI brain:right MCA territory involving the right inferior frontal gyrus, frontal operculum, insular cortex, temporal operculum,and the right frontal little radiata TTE: 15-20%, No thrombus, generalized akinesis Cardiac MRI: dilated left ventricle with LVEF 17%; severly hypokinetic to akinetic; LV Thrombus 1.0 x 0.7 cm in mid anterior wall. No significant valvular dysfunction Assessment and Plan: Juid Calle ([id number]) is a 58 year old M with PMH HTN, CHF, DM, CAD s/p stents x3 on plavix who presents to the hospital as a code stroke with LFD, drift in LUE, and dysarthria. CTA concerning for RM2. Patient is s/p TNK at 1539. Endovascular declined IAT due to low NIH and unclear occlusion. MRI brain shows petechial hemorrhage. A1c: 10.05, LDL 111, EF of 15-20% on TTE. Cardiac MRI shows LVEF 17% with LV Thrombus 1.0x0.7cm and started on Heparin gtt ptt 60-80. Etiology of stroke possibly Cardioembolic 2/2 LV Thrombus. Patient home medications are Plavix, Lisinopril, Lasix, Metoprolol, Metformin and Mucinex. Confirmed to patient that he has not taken Xarelto at home. 04/21: Endocrine consulted and diabetic education ordered Cardiology consulted for life vest and need of anti-platelet Once INR reaches 2-3, discontinue heparin. Likely discharge to home. 04/22: Glargine 8U and lispro 3 U TID started Cardiology ok to give warfarin + aspirin 04/23 Glargine 10U and lispro 3 U TID started Principal Problem: Acute ischemic stroke (HCC) Active Problems: Heart failure (HCC) Smoker Hypertensive disorder History of CAD (coronary artery disease) Type 2 diabetes mellitus with diabetic chronic kidney disease (HCC) Type 2 diabetes mellitus (HCC) LV (left ventricular) mural thrombus Resolved Problems: * No resolved hospital problems. * KILN SETTER: #Ischemic Stroke of M2 right MCA Acuity: Acute Suspected Etiology: Cardioembolic 2/2 LV Thrombus - Plavix effect: 129 - A1C 10.05, LDL 111 - CTA: Occlusion of the superior division of the right MCA M2 segment, neck ICA normal, - MRI brain: right MCA territory involving the right inferior frontal gyrus, frontal operculum, insular cortex, temporal operculum,and the right frontal little radiata -TTE: EF 15-20%, No thrombus, generalized akinesis Cardiac MRI: dilated left ventricle with LVEF 17%; severly hypokinetic to akinetic; LV Thrombus 1.0 x 0.7 cm in mid anterior wall. No significant valvular dysfunction Plan: - Atorvastatin 80 mg - Aspirin 81 mg 04/16-, off when heparin gtt started - BP goal < 130/80 - Heparin gtt since 04/17, CT head (therapeutic PTT): only petechial hemorrhage - Starting Warfarin from 04/20 with goal INR 2-3. - on Aspirin 04/22-, per cardiology - His primary respooler, Dr. Lockwood will follow INR after discharge - PT/OT/ST RESP: #Smoker #Chronic Cough - Nicotine patch - Continue home PRN mucinex - No acute concern CV: # Recently diagnosed congestive Heart Failure # Essential hypertension - BP goal < 130/80 - Continue Metoprolol tartrate 12.5mg q12h - Start Aspirin 81mg as cardiology recommended 04/22- - EP team will evaluate today 04/23 - Titrate oral agents CAD s/p stents x3 On Home plavix - Troponin negative - TTE: EF 15-20% - Telemetry - Started Aspirin () stopped due to heparin gtt - Restarted aspirin 04/22- RENAL: CKD Stage 3 (GFR 30-59) vs CHRISTOS - Cr up from 1.07--> 1.34 - Encourage PO intake and follow BMP - No documented history of CKD - S/p 1 liter bolus in ED - Trend BMP ENDO: Type 2 DM Hypodense thyroid nodule - On home metformin - SSI for goal FSBG 140-180 - Regular diet - Glucose 200s will start glargine 8U daily and lispro 3U TID --> 10U, 3U TID (04/23-) - Follow up hypodense thyroid nodule outpatient HEME: No acute abnormalities - Monitor ID: No acute abnormalities - Monitor - Follow up UA ordered in ED GI: N/A Bowel regimen: senna, miralax Consults: Endocrinology, Cardiology DVT PPX: heparin drip Bowel Regimen:senna, Miramax Diet: Adult Regular Diet Code status: Full Dispo: to home pending clinical improvement Patient discussed with attending physician Dr. SAXENA, TEENA Markham MD Adult Neurology | PGY1 [facility] | [facility] 04/23/24, 6:42 AM Cosigned by Teena Saxena MD at 04/23/2024 2:47 PM CST EMASON APPRENTICE EMASON APPRENTICE Associated attestation - Teena Saxena MD - 04/23/2024 2:47 PM STONEMASON APPRENTICE Judi Calle ([id number]) is a 58 year old M with PMH HTN, CHF, DM, CAD s/p stents x3 on plavix who presents to the hospital as a code stroke with LFD, drift in LUE, and dysarthria. CTA concerning for RM2. Patient is s/p TNK at 1539. Endovascular declined IAT due to low NIH and unclear occlusion. MRI brain shows petechial hemorrhage. A1c: 10.05, LDL 111, EF of 15-20% on TTE. Cardiac MRI shows LVEF 17% with LV Thrombus 1.0x0.7cm and started on Heparin gtt ptt 60-80. Etiology of stroke possibly Cardioembolic 2/2 LV Thrombus. On heparin bridge to warfarin INR 1.49 Cardiology consulted for low EF recommended dual chamber ICD after INR therapeutic Cardiology recommenced and ASA 80 mg added will add after INR be therapeutic Dispo home with out patient therapy I spent a total of 55 minutes direct contact with the patient, of which the entire encounter was spent counseling the patient on direct management includ * Thor Pulliam MD - 04/22/2024 3:03 PM STONEMASON APPRENTICE Brief Endocrinology Note Assessment: Patient is a 58-year-old male w/ pmhx of HTN, T2DM, CHF, CAD s/p PCI x 3 currently on Plavix. He presented to the hospital with left-sided weakness, left facial droop, slurred speech. Endocrine consulted for assistance with T2DM management. A1c 10.05 Home med: metformin 1000 mg BID Problem list: T2DM Recommendations: - inc glargine 10 U every day - cont lispro 3 U TID with meals - lispro low dose sliding scale (listed in epic as very low dose) Plan was discussed with Dr. Davis. Thank you for the opportunity to participate in the care of this patient. We will continue to follow. Please page with any questions or concerns. Thor Pulliam MD PGY-4 Endocrinology Fellow [facility] Cosigned by Td Davis MD at 04/22/2024 3:20 PM STONEMASON APPRENTICE EMASON APPRENTICE EMASON APPRENTICE * Frank Markham MD - 04/22/2024 6:20 AM STONEMASON APPRENTICE Stroke A Progress Note Mr Judi Calle 58 year old right handed male with severe cardiac history came with right M2 stroke. Cardiac MRI confirmed Left ventricle thrombus, and heparin drip started. Warfarin started yesterday with goal INR 2-3. Subjective: No acute event overnight. No fever, HR once reached to 103, but mostly 60-70s, BP 101/59-131/71, breathing on RA Vitals: No fever, HR 60-70, BP 84/55-110/72, MAP 65-87 Objective: Vitals: 04/22/24 0200 04/22/24 0351 04/22/24 0351 04/22/24 0400 BP: 118/73 131/71 Pulse: 66 69 Resp: 15 20 17 Temp: 36.9 ?C (98.5 ?F) TempSrc: Axillary SpO2: 96% 94% Weight: Height: Physical Exam Physical Exam: General: well nourished, somewhat dischelved HEENT: mucus membranes moist CV: tachycardic Pulm: breathing comfortably on room air Abd: non-distended Ext: skin clear, no rashes, Neuro Exam: Drowsy but appropriately responsive to questions. AAOx3 (, name, hospital, city, year and month) Language: intact fluency, comprehension, naming, and repetition Speech: mild dysarthria CN: Right gaze preference, but overcomes with EOMI testing and cross midline, full VF; significant left facial droop, auditory acuity intact; tongue midline Motor: Normal tone and bulk, no abnormal movements. AG throughout, no drift Sensory: Intact to light touch equally on both sides, no extinction Coordination: no dysmetria on FTN bilaterally Gait: deferred Labs: Na 141, K 3.9, Cr 1.34, WBC 9.83, Hgb 16, Plt 243, PTT 70, INR 0.97 UA clear, UDS was positive for cannab, cocaine and opiate. A1C 10.05, LDL 111 Medications: Current Facility-Administered Medications Medication Dose Route Frequency Provider Last Rate Last Admin acetaminophen (Tylenol) tablet 650 mg 650 mg Oral q4h PRN Susan Oliva MD Or acetaminophen (Tylenol) suppository 650 mg 650 mg Rectal q4h PRN Susan Oliva MD atorvastatin (Lipitor) tablet 80 mg 80 mg Oral Nightly Susan Oliva MD 80 mg at 04/21/24 2101 dextrose 50 % solution 12.5 g 12.5 g Intravenous PRN Susan Oliva MD dextrose 50 % solution 25 g 25 g Intravenous PRN Susan Oliva MD famotidine (Pepcid) tablet 20 mg 20 mg Oral BID Yash Gray MD 20 mg at 04/21/24 1613 gabapentin (Neurontin) capsule 300 mg 300 mg Oral q8h [facility] Mark Rizzo MD 300 mg at 04/22/24 0546 glucagon injection 1 mg 1 mg Intramuscular PRN Susan Oliva MD guaiFENesin (Mucinex) 12 hr tablet 600 mg 600 mg Oral BID PRN Susan Oliva MD heparin 50 units/mL in sodium chloride 0.45 % 0.1-40 Units/kg/hr Intravenous Continuous Yong Rizzo MD 30.7 mL/hr at 04/22/24 0250 16 Units/kg/hr at 04/22/24 0250 insulin glargine (Lantus) injection 8 Units 8 Units Subcutaneous Every evening Thor Pulliam MD 8 Units at 04/21/24 1837 insulin lispro (HumaLOG, Admelog) injection 1-4 Units 1-4 Units Subcutaneous TID PRN Thor Pulliam MD insulin lispro (Humalog, Admelog) injection 3 Units 3 Units Subcutaneous TID with meals Thor Pulliam MD 3 Units at 04/21/24 1733 [Held by provider] lisinopril tablet 5 mg 5 mg Oral Daily Chin Basurto MD 5 mg at 04/21/24 0814 metoprolol tartrate (Lopressor) half tablet 12.5 mg 12.5 mg Oral q12h [facility] Yash Gray MD 12.5 mg at 04/21/242100 nicotine (Nicoderm, Step 1) 21 MG/24HR patch 1 patch 1 patch Transdermal Daily Susan Oliva MD 1 patch at 04/21/24 0815 polyethylene glycol (PEG) 3350 (Miralax) packet 17 g 17 g Oral Daily Susan Oliva MD sennosides (Senokot) tablet 8.6 mg 1 tablet Oral q12h [facility] Susan Oliva MD 8.6 mg at 04/20/242016 sodium chloride (NS) 0.9 % flush 10 mL 10 mL Intravenous PRN Susan Oliva MD 10 mL at 04/21/24 0816 sodium chloride (NS) 0.9 % flush 10 mL 10 mL Intravenous q12h [facility] Susan Oliva MD 10 mL at 04/21/242100 sodium chloride (NS) 0.9 % flush 10 mL 10 mL Intravenous PRN Susan Oliva MD Warfarin Dosing per Pharmacy 1 each Does not apply PRN Yash Gray MD Imaging: CT head: IMPRESSION: * No sign of acute cortical infarct or parenchymal hemorrhage. * Small remote prior right frontal lobe and posterior temporal lobe infarcts with encephalomalacia and gliosis. CTA head/Neck: Occlusion of the superior division of the right MCA M2 segment, neck ICA normal, MRI brain:right MCA territory involving the right inferior frontal gyrus, frontal operculum, insular cortex, temporal operculum,and the right frontal little radiata TTE: 15-20%, No thrombus, generalized akinesis Cardiac MRI: dilated left ventricle with LVEF 17%; severly hypokinetic to akinetic; LV Thrombus 1.0 x 0.7 cm in mid anterior wall. No significant valvular dysfunction Assessment and Plan: Judi Calle (69) is a 58 year old M with PMH HTN, CHF, DM, CAD s/p stents x3 on plavix who presents to the hospital as a code stroke with LFD, drift in LUE, and dysarthria. CTA concerning for RM2. Patient is s/p TNK at 1539. Endovascular declined IAT due to low NIH and unclear occlusion. MRI brain shows petechial hemorrhage. A1c: 10.05, LDL 111, EF of 15-20% on TTE. Cardiac MRI shows LVEF 17% with LV Thrombus 1.0x0.7cm and started on Heparin gtt ptt 60-80. Etiology of stroke possibly Cardioembolic 2/2 LV Thrombus. Patient home medications are Plavix, Lisinopril, Lasix, Metoprolol, Metformin and Mucinex.Confirmed to patient that he has not taken Xarelto at home. 04/21: Endocrine consulted and diabetic education ordered Cardiology consulted for life vest and need of anti-platelet Once INR reaches 2-3, discontinue heparin. Likely discharge to home. 04/22: Glargine 8U and lispro 3 U TID started Cardiology ok to give warfarin + aspirin Principal Problem: Acute ischemic stroke (HCC) Active Problems: Heart failure (HCC) Smoker Hypertensive disorder History of CAD (coronary artery disease) Type 2 diabetes mellitus with diabetic chronic kidney disease (HCC) Type 2 diabetes mellitus (HCC) LV (left ventricular) mural thrombus Resolved Problems: * No resolved hospital problems. * KILN SETTER:#Ischemic Stroke of M2 right MCA Acuity: Acute Suspected Etiology: Cardioembolic 2/2 LV Thrombus - Plavix effect: 129 - A1C 10.05, LDL 111 - CTA: Occlusion of the superior division of the right MCA M2 segment, neck ICA normal, - MRI brain: right MCA territory involving the right inferior frontal gyrus, frontal operculum, insular cortex, temporal operculum,and the right frontal little radiata -TTE: EF 15-20%, No thrombus, generalized akinesis Cardiac MRI: dilated left ventricle with LVEF 17%; severly hypokinetic to akinetic; LV Thrombus 1.0 x 0.7 cm in mid anterior wall. No significant valvular dysfunction Plan: - Atorvastatin 80 mg - Aspirin 81 mg 04/16-, off when heparin gtt started - BP goal < 130/80 - Heparin gtt since 04/17, CT head (therapeutic PTT): only petechial hemorrhage - Starting Warfarin from 04/20 with goal INR 2-3. - on Aspirin 04/22-, per cardiology - His primary respooler, Dr. Lockwood will follow INR after discharge - PT/OT/ST RESP:#Smoker #Chronic Cough - Nicotine patch - Continue home PRN mucinex - No acute concern CV:# Recently diagnosed congestive Heart Failure # Essential hypertension - BP goal < 130/80 - Continue Metoprolol tartrate 12.5mg q12h - Start Aspirin 81mg as cardiology recommended 04/22- - Titrate oral agents CAD s/p stents x3On Home plavix - Troponin negative - TTE: EF 15-20% - Telemetry - Started Aspirin (04/16-) stopped due to heparin gtt - Restarted aspirin 04/22- RENAL:CKD Stage 3 (GFR 30-59) vs CHRISTOS - Cr up from 1.07--> 1.34 - Encourage PO intake and follow BMP - No documented history of CKD - S/p 1 liter bolus in ED - Trend BMP ENDO:Type 2 DM Hypodense thyroid nodule - On home metformin - SSI for goal FSBG 140-180 - Regular diet - Glucose 200s will start glargine 8U daily and lispro 3U TID --> 10U, 3U TID - Follow up hypodense thyroid nodule outpatient HEME:No acute abnormalities - Monitor ID:No acute abnormalities - Monitor - Follow up UA ordered in ED GI:N/A Bowel regimen: senna, miralax Consults:Endocrinology, Cardiology DVT PPX: heparin dripBowel Regimen:senna, Miramax Diet: Adult Regular Diet Code status: Full Dispo: to home pending clinical improvement Patient discussed with attending physician TEENA Devlin MDAdult Neurology | PGY1 [facility] | [facility] 04/22/24, 6:20 AM Cosigned by Teena Saxena MD at 04/22/2024 4:56 PM CST EMASON APPRENTICE EMASON APPRENTICE EMASON APPRENTICE Associated attestation - Teena Saxena MD - 04/22/2024 4:56 PM STONEMASON APPRENTICE Judi Calle (67) is a 58 year old M with PMH HTN, CHF, DM, CAD s/p stents x3 on plavix who presents to the hospital as a code stroke with LFD, drift in LUE, and dysarthria. CTA concerning for RM2. Patient is s/p TNK at 1539. Endovascular declined IAT due to low NIH and unclear occlusion. MRI brain shows petechial hemorrhage. A1c: 10.05, LDL 111, EF of 15-20% on TTE. Cardiac MRI shows LVEF 17% with LV Thrombus 1.0x0.7cm and started on Heparin gtt ptt 60-80. Etiology of stroke possibly Cardioembolic 2/2 LV Thrombus. On heparin bridge to warfarinCardiology consulted for low EF and need of life west Cardiology recommenced and ASA 80 mg added Dispo home with out patient therapy I spent a total of 55 minutes direct contact with the patient, of which the entire encounter was spent counseling the patient on direct management includ * Miriam Gonzalez, VianeyD - 04/21/2024 12:38 PM STONEMASON APPRENTICE Warfarin Dosing Consult Note WARFARIN THERAPEUTIC DRUG MONITORING - INITIAL CONSULT NOTE Indication of use: Left ventricular thrombus INR Target Range: 2 - 3 (Low Risk Mechanical Prosthetic Heart Valves (Aortic bileaflet)) Therapy Status: New therapy, no doses given yet Subjective: 58 yo male with PMH significant for tobacco use, HTN, CHF, DM, and CAD (stents x 3) who presented 04/15/24 as a code stroke with LFD, drift in LUE, and dysarthria; NIHSS = 4. Urine was positive for cocaine and cannabis. CTA brain/neck 04/15/24 showed an occlusion of the superior division of the R MCA; s/p TNK. MRI brain 04/15/24 showed acute/subacute R MCA territorial ischemic infarct with few foci of petechial hemorrhage. TTE 04/15/24 showed EF of 15-20%, grade III diastolic abnormalities with akinesis involving septum, apex, mid to distal lateral wall and inferior terrell. Cardiac MRI 04/17/24 showed LVEF 17% with LV Thrombus 1.0 x 0.7cm. Home antiplatelet regimen includes clopidogrel. Heparin drip started 04/17/24 and warfarin initiated 04/20/24 with pharmacy anticoagulation dosing service consult. Labs Hgb Date Value Ref Range Status 04/21/2024 16.0 12.4 - 17.4 g/dL Final 04/20/2024 16.6 12.4 - 17.4 g/dL Final 04/20/2024 15.5 12.4 - 17.4 g/dL Final 04/19/2024 11.3 (L) 12.4 - 17.4 g/dL Final 04/19/2024 16.9 12.4 - 17.4 g/dL Final Plt Count Date Value Ref Range Status 04/21/2024 243 160 - 381 10*3/uL Final 04/20/2024 229 160 - 381 10*3/uL Final 04/20/2024 224 160 - 381 10*3/uL Final 04/19/2024 154 (L) 160 - 381 10*3/uL Final 04/19/2024 237 160 - 381 10*3/uL Final INR Date Value Ref Range Status 04/21/2024 0.97 0.85 - 1.17 Final 04/20/2024 1.01 0.85 - 1.17 Final 04/20/2024 1.00 0.85 - 1.17 Final 04/19/2024 1.01 0.85 - 1.17 Final 04/18/2024 0.95 0.85 - 1.17 Final No results found for: "PROTIME" PTT Date Value Ref Range Status 04/21/2024 70.7 (H) 22.9 - 35.8 Seconds Final 04/20/2024 60.8 (H) 22.9 - 35.8 Seconds Final 04/20/2024 52.1 (H) 22.9 - 35.8 Seconds Final 04/20/2024 66.1 (H) 22.9 - 35.8 Seconds Final 04/19/2024 63.4 (H) 22.9 - 35.8 Seconds Final Warfarin Dose Administered: Warfarin Administrations (last 168 hours) Date/Time Action Medication Dose 04/20/24 1614 Given warfarin (Coumadin) tablet 7.5 mg 7.5 mg Bridging Agents Administered:Heparin drip Antiplatelets:None Significant Drug Interactions:There are no significant medication or pharmacodynamic interactions identified. Assessment and Plan:INR = 0.97 Will continue warfarin 7.5 mg today. Will monitor for signs and symptoms of bleeding. Thank you for the consult. We will continue to follow the patient. Pleasecontact through Secure Chat or the [facility] clinical pharmacist after hours at pager [phone] with any questions. Miriam Gonzalez PharmD EMASON APPRENTICE * Frank Markham MD - 04/21/2024 6:50 AM STONEMASON APPRENTICE Stroke A Progress Note Subjective: Overnight, No fever, HR 60-70, BP 84/55-110/72, MAP 65-87 Vitals: No fever, HR 60-70, BP 84/55-110/72, MAP 65-87 Objective: Vitals: 04/21/24 0205 04/21/24 0400 04/21/24 0546 04/21/24 0600 BP: (!) 84/55 110/72 103/72 Pulse: 58 64 63 Resp: 12 Temp: 37.3 ?C (99.1 ?F) TempSrc: SpO2: 96% 95% 95% Weight: Height: Physical Exam Physical Exam: General: well nourished, somewhat dischelved HEENT: mucus membranes moist CV: tachycardic Pulm: breathing comfortably on room air Abd: non-distended Ext: skin clear, no rashes, Neuro Exam: Drowsy but appropriately responsive to questions. AAOx3 (, name, hospital, city, year and month) Language: intact fluency, comprehension, naming, and repetition Speech: mild dysarthria CN: Right gaze preference, but overcomes with EOMI testing and cross midline, full VF; significant left facial droop, auditory acuity intact; tongue midline Motor: Normal tone and bulk, no abnormal movements. AG throughout, no drift Sensory: Intact to light touch equally on both sides, no extinction Coordination: no dysmetria on FTN bilaterally Gait: deferred Labs: Na 141, K 3.9, Cr 1.34, WBC 9.83, Hgb 16, Plt 243, PTT 70, INR 0.97 UA clear, UDS was positive for cannab, cocaine and opiate. A1C 10.05, LDL 111 Medications: Current Facility-Administered Medications Medication Dose Route Frequency Provider Last Rate Last Admin acetaminophen (Tylenol) tablet 650 mg 650 mg Oral q4h PRN Susan Oliva MD Or acetaminophen (Tylenol) suppository 650 mg 650 mg Rectal q4h PRN Susan Oliva MD atorvastatin (Lipitor) tablet 80 mg 80 mg Oral Nightly Susan Oliva MD 80 mg at 04/20/242015 dextrose 50 % solution 12.5 g 12.5 g Intravenous PRN Susan Oliva MD dextrose 50 % solution 25 g 25 g Intravenous PRN Susan Oliva MD famotidine (Pepcid) tablet 20 mg 20 mg Oral BID Yash Gray MD 20 mg at 04/20/24 1614 gabapentin (Neurontin) capsule 300 mg 300 mg Oral q8h [facility] Mark Rizzo MD 300 mg at 04/21/24605 glucagon injection 1 mg 1 mg Intramuscular PRN Susan Oliva MD guaiFENesin (Mucinex) 12 hr tablet 600 mg 600 mg Oral BID PRN Susan Oliva MD heparin 50 units/mL in sodium chloride 0.45 % 0.1-40 Units/kg/hr Intravenous Continuous Mark Rizzo MD 30.7 mL/hr at 04/20/241912 16 Units/kg/hr at 12/23/24 1913 insulin lispro (HumaLOG, Admelog) injection 2-8 Units 2-8 Units Subcutaneous q6h PRN Susan Oliva MD 4 Units at 04/20/24 1306 lisinopril tablet 5 mg 5 mg Oral Daily Chin Basurto MD 5 mg at 04/20/24 0941 metoprolol tartrate (Lopressor) half tablet 12.5 mg 12.5 mg Oral q12h [facility] Yash Gray MD 12.5 mg at 04/20/242015 nicotine (Nicoderm, Step 1) 21 MG/24HR patch 1 patch 1 patch Transdermal Daily Susan Oliva MD 1 patch at 04/20/24 0942 polyethylene glycol (PEG) 3350 (Miralax) packet 17 g 17 g Oral Daily Susan Oliva MD sennosides (Senokot) tablet 8.6 mg 1 tablet Oral q12h [facility] Susan Oliva MD 8.6 mg at 04/20/242016 sodium chloride (NS) 0.9 % flush 10 mL 10 mL Intravenous PRN Suasn Oliva MD sodium chloride (NS) 0.9 % flush 10 mL 10 mL Intravenous q12h [facility] Susan Oliva MD 10 mL at 04/20/242016 sodium chloride (NS) 0.9 % flush 10 mL 10 mL Intravenous PRN Susan Oliva MD Warfarin Dosing per Pharmacy 1 each Does not apply PRN Yash Gray MD Imaging: CT head: IMPRESSION: * No sign of acute cortical infarct or parenchymal hemorrhage. * Small remote prior right frontal lobe and posterior temporal lobe infarcts with encephalomalacia and gliosis. CTA head/Neck: Occlusion of the superior division of the right MCA M2 segment, neck ICA normal, MRI brain:right MCA territory involving the right inferior frontal gyrus, frontal operculum, insular cortex, temporal operculum,and the right frontal little radiata TTE: 15-20%, No thrombus, generalized akinesis Cardiac MRI: dilated left ventricle with LVEF 17%; severly hypokinetic to akinetic; LV Thrombus 1.0 x 0.7 cm in mid anterior wall. No significant valvular dysfunction Assessment and Plan: Judi Calle (69) is a 58 year old M with PMH HTN, CHF, DM, CAD s/p stents x3 on plavix who presents to the hospital as a code stroke with LFD, drift in LUE, and dysarthria. CTA concerning for RM2. Patient is s/p TNK at 1539. Endovascular declined IAT due to low NIH and unclear occlusion. MRI brain shows petechial hemorrhage. A1c: 10.05, LDL 111, EF of 15-20% on TTE. Cardiac MRI shows LVEF 17% with LV Thrombus 1.0x0.7cm and started on Heparin gtt ptt 60-80. Etiology of stroke possibly Cardioembolic 2/2 LV Thrombus. Patient home medications are Plavix, Lisinopril, Lasix, Metoprolol, Metformin and Mucinex.Confirmed to patient that he has not taken Xarelto at home. 04/21: Endocrine consulted and diabetic education ordered Cardiology consulted for life vest and need of anti-platelet Once INR reaches 2-3, discontinue heparin. Likely discharge to home. Principal Problem: Acute ischemic stroke (HCC) Active Problems: Heart failure (HCC) Smoker Hypertensive disorder History of CAD (coronary artery disease) Type 2 diabetes mellitus with diabetic chronic kidney disease (HCC) Type 2 diabetes mellitus (HCC) LV (left ventricular) mural thrombus Resolved Problems: * No resolved hospital problems. * KILN SETTER: #Ischemic Stroke of M2 right MCA Acuity: Acute Suspected Etiology: Cardioembolic 2/2 LV Thrombus - Plavix effect: 129 - A1C 10.05, LDL 111 - CTA: Occlusion of the superior division of the right MCA M2 segment, neck ICA normal, - MRI brain: right MCA territory involving the right inferior frontal gyrus, frontal operculum, insular cortex, temporal operculum,and the right frontal little radiata -TTE: EF 15-20%, No thrombus, generalized akinesis Cardiac MRI: dilated left ventricle with LVEF 17%; severly hypokinetic to akinetic; LV Thrombus 1.0 x 0.7 cm in mid anterior wall. No significant valvular dysfunction Plan: - Atorvastatin 80 mg - Aspirin 81 mg 04/16-, off when heparin gtt started - BP goal < 130/80 - Heparin gtt since 04/17, CT head (therapeutic PTT): only petechial hemorrhage - Starting Warfarin from 04/20 with goal INR 2-3. - His primary respooler, Dr. Dabagh will follow INR after discharge - PT/OT/ST RESP: #Smoker #Chronic Cough - Nicotine patch - Continue home PRN mucinex - No acute concern CV: # Recently diagnosed congestive Heart Failure # Essential hypertension - When goal is normotension, restart home Lisinopril, Lasix & Metoprolol - Continue Metoprolol tartrate 12.5mg q12h as GDMT - Continue on lisinopril 5 mg as GDMT - 7 pvcs between 8157-4278 and around 1130 began having -40 PVCs per hour - Titrate oral agents - MAP goal > 60 CAD s/p stents x3 On Home plavix - Troponin negative - TTE: EF 15-20% - Telemetry - Started Aspirin (04/16-) stopped due to heparin gtt RENAL: CKD Stage 3 (GFR 30-59) vs CHRISTOS - Cr up from 1.07--> 1.34 - Encourage PO intake and follow BMP - No documented history of CKD - S/p 1 liter bolus in ED - Trend BMP ENDO: Type 2 DM Hypodense thyroid nodule - On home metformin - SSI for goal FSBG 140-180 - Regular diet - Glucose 200s will start glargine 6U daily - Follow up hypodense thyroid nodule outpatient HEME: No acute abnormalities - Monitor ID: No acute abnormalities - Monitor - Follow up UA ordered in ED GI: N/A Bowel regimen: senna, miralax Consults: Endocrinology, Cardiology DVT PPX: Sub Q heparin - stopped because starting Heparin gtt, Bowel Regimen:senna, Miramax Diet: Adult Regular Diet Code status: Full Dispo: to home pending clinical improvement Patient discussed with attending physician, Hugh. Frank Markham MD Adult Neurology | PGY1 [facility] | [facility] 04/21/24, 6:50 AM Cosigned by Teena Saxena MD at 04/21/2024 7:43 PM STONEMASON APPRENTICE EMASON APPRENTICE EMASON APPRENTICE EMASON APPRENTICE EMASON APPRENTICE Associated attestation - Teena Saxena MD - 04/21/2024 7:43 PM STONEMASON APPRENTICE I saw and evaluated the patient with the resident, participating in the banuelos portions of the service. I reviewed the resident's note and agree with the documented findings and plan of care. Judi Calle (67) is a 58 year old M with PMH HTN, CHF, DM, CAD s/pstents x3 on plavix who presents to the hospital as a code stroke with LFD, drift in LUE, and dysarthria. CTA concerning for RM2. Patient is s/p TNK at 1539. Endovascular declined IAT due to low NIH and unclear occlusion. MRI brain shows petechial hemorrhage. A1c: 10.05, LDL 111, EF of 15-20% on TTE. Cardiac MRI shows LVEF 17% with LV Thrombus 1.0x0.7cm and started on Heparin gtt ptt 60-80. Etiology of stroke possibly Cardioembolic 2/2 LV Thrombus. On heparin bridge to warfarinDM education Endocrine consulted Cardiology consulted for low EF and need of life west and need of ASA given the stent ? Dispo home with out patient therapy I spent a total of 55 minutes direct contact with the patient, of which the entire encounter was spent counseling the patient on direct management includ * Frank Markham MD - 04/20/2024 3:15 PM STONEMASON APPRENTICE [facility] Query Clarification Progress Note As related to the inpatient hospital stay starting on 04/15/2024, 4:00 PM. I have reviewed the patient’s medical record and the following accurately represents the patient’s current condition. PROVIDER RESPONSE TEXT: CHRISTOS only, CKD ruled out was present at the time of admission Query Created By : Jaqueline Lopez, 04/20/2024, 2:28 PM EMASON APPRENTICE * Aris Villalobos RN - 04/20/2024 2:52 PM STONEMASON APPRENTICE CASE MANAGEMENT ROUTINE DISCHARGE PLANNING NOTE LOS: 5 days BARRIERS: coumadin bridge, supervison plan DISCHARGE PLAN A: Home w/ OP + 24 HR supervision DISCHARGE PLAN B: CAMILO: 04/24/2024 Additional Comments: Pt pending dispo plan as patient's parents are elderly + disabled and will not be able to safely provide 24 HR supervision for patient. CM/SW will continue to follow patient for further DC planning needs. Aris Villalobos RN Case Manager [phone] EMASON APPRENTICE * Miriam Gonzalez PharmD - 04/20/2024 2:03 PM STONEMASON APPRENTICE Warfarin Dosing Consult Note WARFARIN THERAPEUTIC DRUG MONITORING - INITIAL CONSULT NOTE Indication of use: Left ventricular thrombus INR Target Range: 2 - 3 (Low Risk Mechanical Prosthetic Heart Valves (Aortic bileaflet)) Therapy Status: New therapy, no doses given yet Subjective: 58 yo male with PMH significant for tobacco use, HTN, CHF, DM, and CAD (stents x 3) who presented 04/15/24 as a code stroke with LFD, drift in LUE, and dysarthria; NIHSS = 4. Urine was positive for cocaine and cannabis. CTA brain/neck 04/15/24 showed an occlusion of the superior division of the R MCA; s/p TNK. MRI brain 04/15/24 showed acute/subacute R MCA territorial ischemic infarct with few foci of petechial hemorrhage. TTE 04/15/24 showed EF of 15-20%, grade III diastolic abnormalities with akinesis involving septum, apex, mid to distal lateral wall and inferior terrell. Cardiac MRI 04/17/24 showed LVEF 17% with LV Thrombus 1.0 x 0.7cm. Home antiplatelet regimen includes clopidogrel. Heparin drip started 04/17/24 and warfarin initiated 04/20/24 with pharmacy anticoagulation dosing service consult. Labs Hgb Date Value Ref Range Status 04/20/2024 16.6 12.4 - 17.4 g/dL Final 04/20/2024 15.5 12.4 - 17.4 g/dL Final 04/19/2024 11.3 (L) 12.4 - 17.4 g/dL Final 04/19/2024 16.9 12.4 - 17.4 g/dL Final 04/18/2024 17.1 12.4 - 17.4 g/dL Final Plt Count Date Value Ref Range Status 04/20/2024 229 160 - 381 10*3/uL Final 04/20/2024 224 160 - 381 10*3/uL Final 04/19/2024 154 (L) 160 - 381 10*3/uL Final 04/19/2024 237 160 - 381 10*3/uL Final 04/18/2024 240 160 - 381 10*3/uL Final INR Date Value Ref Range Status 04/20/2024 1.00 0.85 - 1.17 Final 04/19/2024 1.01 0.85 - 1.17 Final 04/18/2024 0.95 0.85 - 1.17 Final 04/18/2024 1.11 0.85 - 1.17 Final 04/18/2024 1.04 0.85 - 1.17 Final No results found for: "PROTIME" PTT Date Value Ref Range Status 04/20/2024 52.1 (H) 22.9 - 35.8 Seconds Final 04/20/2024 66.1 (H) 22.9 - 35.8 Seconds Final 04/19/2024 63.4 (H) 22.9 - 35.8 Seconds Final 04/19/2024 68.4 (H) 22.9 - 35.8 Seconds Final 04/19/2024 77.2 (H) 22.9 - 35.8 Seconds Final Warfarin Dose Administered: Warfarin Administrations (last 168 hours) None Bridging Agents Administered:Heparin drip Antiplatelets:None Significant Drug Interactions:There are no significant medication or pharmacodynamic interactions identified. Assessment and Plan:INR = 1 Will start warfarin 7.5 mg today based on weight and diet Will monitor for signs and symptoms of bleeding. Thank you for the consult. We will continue to follow the patient. Pleasecontact through Secure Chat or the [facility] clinical pharmacist after hours at pager [phone] with any questions. Miriam Gonzalez PharmD EMASON APPRENTICE * Jameel aSleem - 04/20/2024 1:40 PM STONEMASON APPRENTICE Functional Maintenance Patient Name: Judi Calle Today's Date: 04/20/2024 Mobility: RN requested Lift Team assistance. Pt was assisted to transfer from bedside chair B2B via SPT. Pt was safely left under care of RN. Jameel Reynoldsom EMASON APPRENTICE * Frank Markham MD - 04/20/2024 11:10 AM STONEMASON APPRENTICE Brief note I called to this patient primary respooler office, Dr Gatica [phone], on Saturday04/20/2024. I confirmed that the clinic does PT-INR monitor for warfarin. The patient needs to visit the clinic every week until his INR reaches therapeutic range (2-3), and after that he needs to visit once a month. Frank Markham MD Adult Neurology PGY1 Cosigned by Parker Reese MD at 04/21/2024 6:32 PM STONEMASON APPRENTICE EMASON APPRENTICE EMASON APPRENTICE EMASON APPRENTICE EMASON APPRENTICE * Alexia Suero, PT - 04/20/2024 7:27 AM STONEMASON APPRENTICE Physical Therapy Treatment Session Note Patient Name: Judi Calle Today's Date: 04/20/2024 Preferred Language: Kosovan Assessment & Plan Pt was seen for PT with focus on gait training. Pt demonstrating improvement in balance with gait while using walker. Pt does require VC to maintain L hand on walker string top sealer and VC to scan L side. Pt does demonstrate impairments in safety awareness. Pt continues to benefit from skilled PT during acute care stay. Assessment: Prognosis: Good Evaluation/Treatment Tolerance: Patient tolerated treatment well Medical Staff Made Aware: Yes Plan: Treatment Plan/Goals Established with Patient/Caregiver: Yes Treatment/Interventions: Balance training, Bed mobility training, Caregiver training, Equipment training, Functional activities, Gait training, Manual therapy, Neuromuscular re-education, Orthotic training, Pain management, Patient education, Positioning, Posture/Body mechanics baring, Stair training, Therapeutic exercises, Transfer training, Wheelchair assessment and management PT Plan: Skilled PT PT Frequency: 2-3 times per week until discharge PT Discharge Recommendations: Home health PT Equipment Recommended: Walker- rolling Subjective Precautions: Medical Precautions: falls, Standard Post-Surgical Precautions: Fall, Standard Pain: Pain Assessment: 0-10 (04/20/2024 7:27 AM) Pain Score: 0 (04/20/2024 7:27 AM) Objective General Visit Information: PT Last Visit PT Received On: 04/20/24 Cognition Overall Cognitive Status: Impaired Behavior/Cognition: Alert, Pleasant mood Orientation Level: Oriented X4 Treatment Therapeutic activity: Therapeutic Activity Therapeutic Activity Time Entry: 9 Bed Mobility: Bed Mobility 1: Level of Assistance 1: Supervision/touching assistance Bed Mobility To/From: Supine to sit on EOB Assistive Devices And Adaptive Equipments: Bed rail Transfers: Transfers 1: Level of Assistance 1: Supervision/touching assistance Transfer To/From: [id number] Assistive Devices And Adaptive Equipments: Walker, front-wheeled Transfers 2: Level of Assistance 2: Supervision/touching assistance Transfer To/From: Chair Assistive Devices And Adaptive Equipments: Bed rail, Walker, front-wheeled Gait training: Gait Training Time Entry: 14 Gait Training Activity 1: Distance (enter in feet): 200ft Assistive Devices And Adaptive Equipments: Walker, front-wheeled Level of Assistance 1: Supervision/touching assistance Post-Therapy Checklist: Pt sitting up in chair, Bed/chair alarm on, Call light within reach, All lines/lead intact, Vital signs stable, and RN informed/aware AM-PAC Basic Mobility: AM-PAC Basic Mobility Inpatient Turning in bed without bedrails: None Lying on back to sitting on edge of flat bed: None Bed to chair: A Little Standing up from chair: A Little Walk in room: A Little Climbing 3-5 stairs: A Little Mobility Inpatient Raw Score: 20 JH-HLM Goal: 6 Mobility: Highest Level of Mobility Performed (JH-HLM) JH-HLM Goal: 6 Highest Level of Mobility Performed (JH-HLM): Walked 25 feet or more (i.e. walked outside of room) Modified [place] Modified [place] (mRS) Modified [place] Score: Moderate disability. Requires some help, but able to walk unassisted. Patient Education: Education Documentation No documentation found. Education Comments No comments found. Goals: Encounter Goals Encounter Goals (Active) Pt will perform bed mobility with LRAD with Jamarcus. Start: 04/16/24 Expected End: 04/20/24 Patient will perform transfers using LRAD with Jamarcus to improve functional mobility. Start: 04/16/24 Expected End: 04/20/24 Patient will perform gait training with SBA using LRAD for >400ft. Start: 04/16/24 Expected End: 04/20/24 Treatment Note: If this is the last documented treatment, then it will signify discharge from acute care prior to discharge from the therapy service and will serve as the discharge summary. Alexia Suero PT EMASON APPRENTICE * Frank Markham MD - 04/20/2024 6:38 AM STONEMASON APPRENTICE Stroke A Progress Note Subjective: - No acute event overnight. BP has been low but it's from CHF. Changed MAP goal greater than 60. Vitals: Afebrile Tmax 98.6, HR 59-97, SBP 94-134, SpO2 95-96 on RA Objective: Vitals: 04/20/24 0500 04/20/24 0540 04/20/24 0540 04/20/24 0615 BP: 101/68 95/69 Pulse: 59 62 Resp: 20 19 Temp: 36.7 ?C (98 ?F) TempSrc: Axillary SpO2: 97% 95% Weight: Height: Physical Exam Physical Exam: General: well nourished, somewhat dischelved HEENT: mucus membranes moist CV: tachycardic Pulm: breathing comfortably on room air Abd: non-distended Ext: skin clear, no rashes, Neuro Exam: Drowsy but appropriately responsive to questions. AAOx3 (, name, hospital, city, year and month) Language: intact fluency, comprehension, naming, and repetition Speech: mild dysarthria CN: Right gaze preference, but overcomes with EOMI testing and cross midline, full VF; significant left facial droop, auditory acuity intact; tongue midline Motor: Normal tone and bulk, no abnormal movements. AG throughout, no drift Sensory: Intact to light touch equally on both sides, no extinction Coordination: no dysmetria on FTN bilaterally Gait: deferred Labs: reviewed, stable UA clear, UDS was positive for cannab, cocaine and opiate. A1C 10.05, LDL 111 Medications: Current Facility-Administered Medications Medication Dose Route Frequency Provider Last Rate Last Admin acetaminophen (Tylenol) tablet 650 mg 650 mg Oral q4h PRN Susan Oliva MD Or acetaminophen (Tylenol) suppository 650 mg 650 mg Rectal q4h PRN Susan Oliva MD atorvastatin (Lipitor) tablet 80 mg 80 mg Oral Nightly Susan Oliva MD 80 mg at 04/19/24 2200 dextrose 50 % solution 12.5 g 12.5 g Intravenous PRN Susan Oliva MD dextrose 50 % solution 25 g 25 g Intravenous PRN Susan Oliva MD gabapentin (Neurontin) capsule 300 mg 300 mg Oral q8h [facility] Mark Rizzo MD 300 mg at 04/19/24 2200 glucagon injection 1 mg 1 mg Intramuscular PRN Susan Oliva MD guaiFENesin (Mucinex) 12 hr tablet 600 mg 600 mg Oral BID PRN Susan Oliva MD heparin 50 units/mL in sodium chloride 0.45 % 0.1-40 Units/kg/hr Intravenous Continuous Mark Rizzo MD 30.7 mL/hr at 04/19/24 2354 16 Units/kg/hr at 04/19/24 2354 insulin lispro (HumaLOG, Admelog) injection 2-8 Units 2-8 Units Subcutaneous q6h PRN Susan Oliva MD 2 Units at 04/19/24 1724 lisinopril tablet 5 mg 5 mg Oral Daily Chin Basurto MD 5 mg at 04/19/24 1039 metoprolol tartrate (Lopressor) half tablet 12.5 mg 12.5 mg Oral q12h [facility] Yash Gray MD 12.5 mg at 04/19/24 2200 nicotine (Nicoderm, Step 1) 21 MG/24HR patch 1 patch 1 patch Transdermal Daily Susan Oliva MD 1 patch at 04/19/24 0842 polyethylene glycol (PEG) 3350 (Miralax) packet 17 g 17 g Oral Daily Susan Oliva MD sennosides (Senokot) tablet 8.6 mg 1 tablet Oral q12h CAMILO Oliva MD 8.6 mg at 04/19/24 2200 sodium chloride (NS) 0.9 % flush 10 mL 10 mL Intravenous PRN Susan Oliva MD sodium chloride (NS) 0.9 % flush 10 mL 10 mL Intravenous q12h CAMILO Oliva MD 10 mL at 04/19/24 2221 sodium chloride (NS) 0.9 % flush 10 mL 10 mL Intravenous PRN Susan Oliva MD Imaging: CT head: IMPRESSION: * No sign of acute cortical infarct or parenchymal hemorrhage. * Small remote prior right frontal lobe and posterior temporal lobe infarcts with encephalomalacia and gliosis. CTA head/Neck: Occlusion of the superior division of the right MCA M2 segment, neck ICA normal, MRI brain:right MCA territory involving the right inferior frontal gyrus, frontal operculum, insular cortex, temporal operculum,and the right frontal little radiata TTE: 15-20%, No thrombus, generalized akinesis Cardiac MRI: dilated left ventricle with LVEF 17%; severly hypokinetic to akinetic; LV Thrombus 1.0 x 0.7 cm in mid anterior wall. No significant valvular dysfunction Assessment and Plan: Judi Calle (69) is a 58 year old M with PMH HTN, CHF, DM, CAD s/p stents x3 on plavix who presents to the hospital as a code stroke with LFD, drift in LUE, and dysarthria. CTA concerning for RM2. Patient is s/p TNK at 1539. Endovascular declined IAT due to low NIH and unclear occlusion. MRI brain shows petechial hemorrhage. A1c: 10.05, LDL 111, EF of 15-20% on TTE. Cardiac MRI shows LVEF 17% with LV Thrombus 1.0x0.7cm and started on Heparin gtt ptt 60-80. Etiology of stroke possibly Cardioembolic 2/2 LV Thrombus. Patient home medications are Plavix, Lisinopril, Lasix, Metoprolol, Metformin and Mucinex. Principal Problem: Acute ischemic stroke (HCC) Active Problems: Heart failure (HCC) Smoker Hypertensive disorder History of CAD (coronary artery disease) Type 2 diabetes mellitus with diabetic chronic kidney disease (HCC) Type 2 diabetes mellitus (HCC) LV (left ventricular) mural thrombus Resolved Problems: * No resolved hospital problems. * KILN SETTER: #Ischemic Stroke of M2 right MCA Acuity: Acute Suspected Etiology: Cardioembolic 2/2 LV Thrombus - Plavix effect: 129 - A1C 10.05, LDL 111 - CTA: Occlusion of the superior division of the right MCA M2 segment, neck ICA normal, - MRI brain: right MCA territory involving the right inferior frontal gyrus, frontal operculum, insular cortex, temporal operculum,and the right frontal little radiata -TTE: EF 15-20%, No thrombus, generalized akinesis Cardiac MRI: dilated left ventricle with LVEF 17%; severly hypokinetic to akinetic; LV Thrombus 1.0 x 0.7 cm in mid anterior wall. No significant valvular dysfunction Plan: - Atorvastatin 80 mg - Aspirin 81 mg 04/16-, off when heparin gtt started - BP goal < 160/100 - Heparin gtt since 04/17, CT head (therapeutic PTT): only petechial hemorrhage - Starting Warfarin from 04/20 with goal INR 2-3. - His primary respooler, Dr. Lockwood will follow INR after discharge - Meds to beds upon discharge - PT/OT/ST RESP: #Smoker #Chronic Cough - Nicotine patch - Continue home PRN mucinex - No acute concern CV: # Recently diagnosed congestive Heart Failure # Essential hypertension # Frequent PVCs - When goal is normotension, restart home Lisinopril, Lasix & Metoprolol - Continue Metoprolol tartrate 12.5mg q12h as GDMT - Continue on lisinopril 5 mg as GDMT - 7 pvcs between [id number] and around 1130 began having -40 PVCs per hour - Titrate oral agents - MAP goal > 60 CAD s/p stents x3 On Home plavix - Troponin negative - TTE: EF 15-20% - Telemetry - Started Aspirin () stopped due to heparin gtt RENAL: CKD Stage 3 (GFR 30-59) vs CHRISTOS - No documented history of CKD - S/p 1 liter bolus in ED - Trend BMP ENDO: Type 2 DM Hypodense thyroid nodule - On home metformin - SSI for goal FSBG 140-180 - Regular diet - Follow up hypodense thyroid nodule outpatient HEME: No acute abnormalities - Monitor ID: No acute abnormalities - Monitor - Follow up UA ordered in ED GI: N/A Bowel regimen: senna, miralax DVT PPX: on heparin gtt and warfarin Bowel Regimen:senna, Emperatriz lax Diet: Adult Regular Diet Code status: Full Dispo: to home pending clinical improvement Patient discussed with attending physician, Hugh. Frank Markham MD Adult Neurology | PGY1 [facility] | [facility] 04/20/24, 6:38 AM Cosigned by Parker Reese MD at 04/21/2024 6:35 PM STONEMASON APPRENTICE EMASON APPRENTICE EMASON APPRENTICE EMASON APPRENTICE EMASON APPRENTICE EMASON APPRENTICE EMASON APPRENTICE EMASON APPRENTICE EMASON APPRENTICE Associated attestation - Parker Reese MD - 04/21/2024 6:35 PM CST STROKE NEUROLOGY ATTENDING ATTESTATION I have personally seen and evaluated the patient on 04/20/2024, and I waspresent for banuelos critical points of the encounter. I have discussed the case with and reviewed the provider note detailed above. I have personally viewed the patient's radiographic studies, laboratory tests, and medications. I agree with the above documented history, exam, assessment and plan. Please see note below for any additions and/or exceptions to the note above. [id number] yo M hx of htn, dm, chf, cad s/p PCI x 3, currently taking plavix who presents after acute onset R MCA syndorme with left hemiparesis, left facial droop, and slurred speech and presented with initial nihss 4 but found to have debilitating imbalance of gait on initial [place] [facility] [place] [facility] [place]. Case was discussed with me and I reviewed his acute neuroimaging in real time and I made decision to give tnk. Patient CTA h/n revealed right m2 proximal occlusion, nihss 5 for non-debilitating deficits (left facial droop 2, right gaze preference 1, dysarthria mild 1, disorientation 1) Endovascular intervention deferred due to low nihss and non debilitating deficits. Patient received tenecteplase (tnk) for stroke MRI brain reviewed - right m2 completed infarction with mild petechial HT TTE shows ef 15% and large WMA - concern for LV thrombus --> will obtain cardiac mri to rule out. 04/20 update - patient exam remains stable. PCP contacted and states they mansi coumadin with INR clinic checks. Coumadin ordered per pharmacy dosing and warfarin 7.5mg given, inr goal 2-3. MDM: SBP goal < 160 mmhg Heparin gtt for LV thrombus and transition to coumadin inr goal 2-[address] tail worker consulted Dispo: Pending approval for [address] [place] [address]. Encounter took 36 minutes of total cumulative time examining the patient at the bedside and in discussion regarding plan of care and addressing questions and concerns, reviewing the EMR and paper chart, reviewing diagnostic studies, laboratory values, and recommendations. I provided a substantive portion of the care of this patient. I personally performed the MDM for this encounter. Parker Reese MD, RPNIAssistant Professor, Vascular Neurology [employer] [facility] [employer] * Jessica Houston, 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 - 04/19/2024 2:27 PM STONEMASON APPRENTICE Treatment Session Note Patient Name: Judi Calle Today's Date: 04/19/2024 Preferred Language: Kosovan Assessment & Plan Assessment: Pt able to stand and ambulate two full loops around the unit using RW, min A with very close guarding. Pt currently requires min A for bed mobility, min A for transfers and min A for gait training. Plan: PT Discharge Recommendations: Outpatient PT, Home health PT Todd Tirado RN cleared pt for skilled PT intervention. Pt received supine in bed, no one visiting at b/s, pt pleasant and agreed to participate in treatment. Pt left supine in bed, VSS, pt in NAD, all needs in reach, RN notified of status/end of visit. Objective PT Last Visit PT Received On: 04/19/24 Cognition Orientation Level: Oriented X4 Treatment Therapeutic activity: Therapeutic Activity Therapeutic Activity Time Entry: 13 Therapeutic Activity 1: Static standing balance Therapeutic Activity 2: Static sitting balance Therapeutic Activity 3: Side steps @ EOB Therapeutic Activity 4: Toileting Therapeutic Activity 5: STS Bed Mobility: Bed Mobility 1: Level of Assistance 1: Partial/Mod assistance, Substantial/Max assistance Bed Mobility To/From: Roll left/right, Sitting EOB to supine, Supine to sit on EOB Assistive Devices And Adaptive Equipments: No device Transfers: Transfers 1: Technique 1: Via walking Level of Assistance 1: Partial/Mod assistance Transfer To/From: Bed, [id number] Assistive Devices And Adaptive Equipments: No device Gait training: Gait Training Time Entry: 10 Gait Training Activity 1: Distance (enter in feet): 75 Gait Training Activity 1: Indoor surface Assistive Devices And Adaptive Equipments: Walker, front-wheeled Level of Assistance 1: Partial/Mod assistance AM-PAC Basic Mobility: AM-PAC Basic Mobility Inpatient Turning in bed without bedrails: None Lying on back to sitting on edge of flat bed: None Bed to chair: A Little Standing up from chair: A Little Walk in room: A Little Climbing 3-5 stairs: A Little Mobility Inpatient Raw Score: 20 JH-HLM Goal: 6 Mobility: Highest Level of Mobility Performed (JH-HLM) JH-HLM Goal: 6 Goals: Encounter Goals Encounter Goals (Active) Pt will perform bed mobility with LRAD with Jamarcus. Start: 04/16/24 Expected End: 04/20/24 Patient will perform transfers using LRAD with Jamarcus to improve functional mobility. Start: 04/16/24 Expected End: 04/20/24 Patient will perform gait training with SBA using LRAD for >400ft. Start: 04/16/24 Expected End: 04/20/24 Treatment Note: If this is the last documented treatment, then it will signify discharge from acute care prior to discharge from the therapy service and will serve as the discharge summary. Jessica Houston PTA EMASON APPRENTICE * Frank Markham MD - 04/19/2024 6:34 AM STONEMASON APPRENTICE Stroke A Progress Note Subjective: - No acute event overnight. Vitals: Afebrile Tmax 98.6, HR 59-97, SBP 94-134, SpO2 95-96 on RA Objective: Vitals: 04/19/24 0000 04/19/24 0200 04/19/24 0400 04/19/24 0601 BP: 134/84 (!) 94/50 (!) 99/57 98/64 BP Location: Right arm Right arm Patient Position: Lying Lying Pulse: 65 61 59 63 Resp: 20 21 20 (!) 11 Temp: 37 ?C (98.6 ?F) 37 ?C (98.6 ?F) TempSrc: SpO2: 97% 99% 98% 98% Weight: Height: Physical Exam Physical Exam: General: well nourished, somewhat dischelved HEENT: mucus membranes moist CV: tachycardic Pulm: breathing comfortably on room air Abd: non-distended Ext: skin clear, no rashes, Neuro Exam: Drowsy but appropriately responsive to questions. AAOx3 (, name, hospital, city, year and month) Language: intact fluency, comprehension, naming, and repetition Speech: mild dysarthria CN: Right gaze preference, but overcomes with EOMI testing and cross midline, full VF; significant left facial droop, auditory acuity intact; tongue midline Motor: Normal tone and bulk, no abnormal movements. AG throughout, no drift Sensory: Intact to light touch equally on both sides, no extinction Coordination: no dysmetria on FTN bilaterally Gait: deferred Labs: Na 137, K 3.8, Cr 1.17, WBC 80.6, Hg 17.1, Plt 240 UA clear, UDS was positive for cannab, cocaine and opiate. A1C 10.05, LDL 111 Medications: Current Facility-Administered Medications Medication Dose Route Frequency Provider Last Rate Last Admin acetaminophen (Tylenol) tablet 650 mg 650 mg Oral q4h PRN Susan Oliva MD Or acetaminophen (Tylenol) suppository 650 mg 650 mg Rectal q4h PRN Susan Oliva MD atorvastatin (Lipitor) tablet 80 mg 80 mg Oral Nightly Susan Oliva MD 80 mg at 04/18/242023 dextrose 50 % solution 12.5 g 12.5 g Intravenous PRN Susan Oliva MD dextrose 50 % solution 25 g 25 g Intravenous PRN Susan Oliva MD gabapentin (Neurontin) capsule 300 mg 300 mg Oral q8h [facility] Mark Rizzo MD 300 mg at 04/19/24 0556 glucagon injection 1 mg 1 mg Intramuscular PRN Susan Oliva MD guaiFENesin (Mucinex) 12 hr tablet 600 mg 600 mg Oral BID PRN Susan Oliva MD heparin 50 units/mL in sodium chloride 0.45 % 0.1-40 Units/kg/hr Intravenous Continuous Mark Rizzo MD 30.7 mL/hr at 04/18/242139 16 Units/kg/hr at 04/18/242139 insulin lispro (HumaLOG, Admelog) injection 2-8 Units 2-8 Units Subcutaneous q6h PRN Susan Oliva MD 4 Units at 04/18/242023 lisinopril tablet 10 mg 10 mg Oral Daily aMrk Rizzo MD 10 mg at 04/18/242037 metoprolol tartrate (Lopressor) half tablet 12.5 mg 12.5 mg Oral q12h [facility] Mark Rizzo MD 12.5 mg at 04/18/242023 nicotine (Nicoderm, Step 1) 21 MG/24HR patch 1 patch 1 patch Transdermal Daily Susan Oliva MD 1 patch at 04/18/24 0821 polyethylene glycol (PEG) 3350 (Miralax) packet 17 g 17 g Oral Daily Susan Oliva MD sennosides (Senokot) tablet 8.6 mg 1 tablet Oral q12h [facility] Susan Oliva MD 8.6 mg at 04/18/242023 sodium chloride (NS) 0.9 % flush 10 mL 10 mL Intravenous PRN Susan Oliva MD sodium chloride (NS) 0.9 % flush 10 mL 10 mL Intravenous q12h [facility] Susan Oliva MD 10 mL at 04/18/242045 sodium chloride (NS) 0.9 % flush 10 mL 10 mL Intravenous PRN Susan Oliva MD Imaging: CT head: IMPRESSION: * No sign of acute cortical infarct or parenchymal hemorrhage. * Small remote prior right frontal lobe and posterior temporal lobe infarcts with encephalomalacia and gliosis. CTA head/Neck: Occlusion of the superior division of the right MCA M2 segment, neck ICA normal, MRI brain:right MCA territory involving the right inferior frontal gyrus, frontal operculum, insular cortex, temporal operculum,and the right frontal little radiata TTE: 15-20%, No thrombus, generalized akinesis Cardiac MRI: dilated left ventricle with LVEF 17%; severly hypokinetic to akinetic; LV Thrombus 1.0 x 0.7 cm in mid anterior wall. No significant valvular dysfunction Assessment and Plan: Judi Calle (69) is a 58 year old M with PMH HTN, CHF, DM, CAD s/p stents x3 on plavix who presents to the hospital as a code stroke with LFD, drift in LUE, and dysarthria. CTA concerning for RM2. Patient is s/p TNK at 1539. Endovascular declined IAT due to low NIH and unclear occlusion. MRI brain shows petechial hemorrhage. A1c: 10.05, LDL 111, EF of 15-20% on TTE. Cardiac MRI shows LVEF 17% with LV Thrombus 1.0x0.7cm and started on Heparin gtt ptt 60-80. Etiology of stroke possibly Cardioembolic 2/2 LV Thrombus. Patient home medications are Plavix, Lisinopril, Lasix, Metoprolol, Metformin and Mucinex. Principal Problem: Acute ischemic stroke (HCC) Active Problems: Heart failure (HCC) Smoker Hypertensive disorder History of CAD (coronary artery disease) Type 2 diabetes mellitus with diabetic chronic kidney disease (HCC) Type 2 diabetes mellitus (HCC) LV (left ventricular) mural thrombus Resolved Problems: * No resolved hospital problems. * KILN SETTER: #Ischemic Stroke of M2 right MCA Acuity: Acute Suspected Etiology: Cardioembolic 2/2 LV Thrombus - Plavix effect: 129 - A1C 10.05, LDL 111 - CTA: Occlusion of the superior division of the right MCA M2 segment, neck ICA normal, - MRI brain: right MCA territory involving the right inferior frontal gyrus, frontal operculum, insular cortex, temporal operculum,and the right frontal little radiata -TTE: EF 15-20%, No thrombus, generalized akinesis Cardiac MRI: dilated left ventricle with LVEF 17%; severly hypokinetic to akinetic; LV Thrombus 1.0 x 0.7 cm in mid anterior wall. No significant valvular dysfunction Plan: - Atorvastatin 80 mg - Aspirin 81 mg 04/16-, off when heparin gtt started - BP goal < 160/100 - Heparin gtt since 04/17, CT head (therapeutic PTT): only petechial hemorrhage - Consider Eliquis or warfarin or Dabigatran based on his PCP availability and affordability. Follow up 04/20. - PT/OT/ST RESP: #Smoker #Chronic Cough - Nicotine patch - Continue home PRN mucinex - No acute concern CV: # Recently diagnosed congestive Heart Failure # Essential hypertension - When goal is normotension, restart home Lisinopril, Lasix & Metoprolol - Continue Metoprolol tartrate 12.5mg q12h as GDMT - Continue on lisinopril 5 mg as GDMT - Titrate oral agents - BP goal < 160 CAD s/p stents x3 On Home plavix - Troponin negative - TTE: EF 15-20% - Telemetry - Started Aspirin () stopped due to heparin gtt RENAL: CKD Stage 3 (GFR 30-59) vs CHRISTOS - No documented history of CKD - S/p 1 liter bolus in ED - Trend BMP ENDO: Type 2 DM Hypodense thyroid nodule - On home metformin - SSI for goal FSBG 140-180 - Regular diet - Follow up hypodense thyroid nodule outpatient HEME: No acute abnormalities - Monitor ID: No acute abnormalities - Monitor - Follow up UA ordered in ED GI: N/A Bowel regimen: senna, miralax DVT PPX: Sub Q heparin - stopped because starting Heparin gtt, Bowel Regimen:senna, Miramax Diet: Adult Regular Diet Code status: Full Dispo: to home pending clinical improvement Patient discussed with attending physician, Hugh. Frank Markham MD Adult Neurology | PGY1 [facility] | [place] 04/19/24, 6:34 AM Cosigned by Parker Reese MD at 04/19/2024 10:53 PM STONEMASON APPRENTICE EMASON APPRENTICE EMASON APPRENTICE EMASON APPRENTICE Associated attestation - Parker Reese MD - 04/19/2024 10:53 PM CST STROKE NEUROLOGY ATTENDING ATTESTATION I have personally seen and evaluated the patient on 04/19/2024, and I waspresent for banuelos critical points of the encounter. I have discussed the case with and reviewed the provider note detailed above. I have personally viewed the patient's radiographic studies, laboratory tests, and medications. I agree with the above documented history, exam, assessment and plan. Please see note below for any additions and/or exceptions to the note above. [id number] yo M hx of htn, dm, chf, cad s/p PCI x 3, currently taking plavix who presents after acute onset R MCA syndorme with left hemiparesis, left facial droop, and slurred speech and presented with initial nihss 4 but found to have debilitating imbalance of gait on initial assessment [place] [facility] [facility] [place]. Case was discussed with me and I reviewed his acute neuroimaging in real time and I made decision to give tnk. Patient CTA h/n revealed right m2 proximal occlusion, nihss 5 for non-debilitating deficits (left facial droop 2, right gaze preference 1, dysarthria mild 1, disorientation 1) Endovascular intervention deferred due to low nihss and non debilitating deficits. Patient received tenecteplase (tnk) for stroke MRI brain reviewed - right m2 completed infarction with mild petechial HT TTE shows ef 15% and large WMA - concern for LV thrombus --> will obtain cardiac mri to rule out. 04/19 update - patient exam remains stable. Overall, tolerating heparin gttwell, still moving left hemibody well, able to count fingers in left hemifield, names objects well, still has mild dysarthria, left facial lower droop and some gait imbalance. Pending approval for 4E IPR. Plan to call PCP tomorrow as he receives indigent care and we would like to see if he is able to be linked into INR clinic to start coumadin. 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 MDM:SBP goal < 160 mmhg Heparin gtt for LV thrombus PT OT ST tail worker consult tomorrow, make arrangements for either DOAC vs coumadin clinic for LV thrombus depending on his coverage and care access. Dispo: Pending approval for 4EJ [facility]. Encounter took 38 minutes of total cumulative time examining the patient at the bedside and in discussion regarding plan of care and addressing questions and concerns, reviewing the EMR and paper chart, reviewing diagnostic studies, laboratory values, and recommendations. I provided a substantive portion of the care of this patient. I personally performed the MDM for this encounter. Parker Reese MD, RPNIAssistant Professor, Vascular Neurology [facility] [employer] [email or web address] Office contact: [phone] Stroke Clinic: [phone] * Felipe Marcano - 04/18/2024 1:30 PM STONEMASON APPRENTICE Functional Maintenance Patient Name: Judi Calle Today's Date: 04/18/2024 ADLs Range of Motion: Mobility: RN requested Lift Team assistance. Pt was assisted to transfer from bedside chair B2B via SPT. Pt was safely left under care of RN. Comfort and Environment Interventions: Miscellaneous Devices: Vital Signs Felipe Ramírezectronically signed by Felipe Marcano at 04/18/2024 5:59 PM STONEMASON APPRENTICE * Frank Markham MD - 04/18/2024 7:03 AM STONEMASON APPRENTICE Stroke A Progress Note Subjective: - No acute event overnight. PTT reached therapeutic 70m took NYH. Stable stroke burden, showed petechial hemorrhage, not concerning. - Cardiac MRI shows LV Thrombus, started on heparin gtt Vitals: Afebrile Tmax 98, HR 60-90, SBP 103-160, SpO2 95-96 on RA Objective: Vitals: 04/18/24 0414 04/18/24 0414 04/18/24 0500 04/18/24 0600 BP: 122/81 105/71 Pulse: 75 81 Resp: Temp: 36.4 ?C (97.5 ?F) TempSrc: Axillary SpO2: 91% 98% Weight: Height: Physical Exam Physical Exam: General: well nourished, somewhat dischelved HEENT: mucus membranes moist CV: tachycardic Pulm: breathing comfortably on room air Abd: non-distended Ext: skin clear, no rashes, Neuro Exam: Drowsy but appropriately responsive to questions. AAOx3 (, name, hospital, city, year and month) Language: intact fluency, comprehension, naming, and repetition Speech: mild dysarthria CN: Right gaze preference, but overcomes with EOMI testing and cross midline, full VF; significant left facial droop, auditory acuity intact; tongue midline Motor: Normal tone and bulk, no abnormal movements. AG throughout, no drift Sensory: Intact to light touch equally on both sides, no extinction Coordination: no dysmetria on FTN bilaterally Gait: deferred Labs: Na 137, K 3.8, Cr 1.17, WBC 80.6, Hg 17.1, Plt 240 UA clear, UDS was positive for cannab, cocaine and opiate. A1C 10.05, LDL 111 Medications: Current Facility-Administered Medications Medication Dose Route Frequency Provider Last Rate Last Admin acetaminophen (Tylenol) tablet 650 mg 650 mg Oral q4h PRN Susan Oliva MD Or acetaminophen (Tylenol) suppository 650 mg 650 mg Rectal q4h PRN Susan Oliva MD aspirin chewable tablet 81 mg 81 mg Oral Daily Mark Rizzo MD atorvastatin (Lipitor) tablet 80 mg 80 mg Oral Nightly Susan Oliva MD 80 mg at 04/17/242055 dextrose 50 % solution 12.5 g 12.5 g Intravenous PRN Susan Oliva MD dextrose 50 % solution 25 g 25 g Intravenous PRN Susan Oliva MD gabapentin (Neurontin) capsule 300 mg 300 mg Oral q8h [facility] Mark Rizzo MD 300 mg at 04/18/24 0515 glucagon injection 1 mg 1 mg Intramuscular PRN Susan Oliva MD guaiFENesin (Mucinex) 12 hr tablet 600 mg 600 mg Oral BID PRN Susan Oliva MD heparin 50 units/mL in sodium chloride 0.45 % 0.1-40 Units/kg/hr Intravenous Continuous Mark Rizzo MD 26.9 mL/hr at 04/18/24 0323 14 Units/kg/hr at 04/18/24 0323 insulin lispro (HumaLOG, Admelog) injection 2-8 Units 2-8 Units Subcutaneous q6h PRN Susan Oliva MD 4 Units at 04/17/24 1320 lisinopril tablet 10 mg 10 mg Oral Daily Mark Rizzo MD metoprolol tartrate (Lopressor) half tablet 12.5 mg 12.5 mg Oral q12h [facility] Mark Rizzo MD 12.5 mg at 04/17/242055 nicotine (Nicoderm, Step 1) 21 MG/24HR patch 1 patch 1 patch Transdermal Daily Susan Oliva MD 1 patch at 04/17/24 0927 polyethylene glycol (PEG) 3350 (Miralax) packet 17 g 17 g Oral Daily Susan Oliva MD sennosides (Senokot) tablet 8.6 mg 1 tablet Oral q12h [facility] Susan Oliva MD sodium chloride (NS) 0.9 % flush 10 mL 10 mL Intravenous PRN Susan Oliva MD sodium chloride (NS) 0.9 % flush 10 mL 10 mL Intravenous q12h [facility] Susan Oliva MD 10 mL at 04/17/242055 sodium chloride (NS) 0.9 % flush 10 mL 10 mL Intravenous PRN Susan Oliva MD Imaging: CT head: IMPRESSION: * No sign of acute cortical infarct or parenchymal hemorrhage. * Small remote prior right frontal lobe and posterior temporal lobe infarcts with encephalomalacia and gliosis. CTA head/Neck: Occlusion of the superior division of the right MCA M2 segment, neck ICA normal, MRI brain:right MCA territory involving the right inferior frontal gyrus, frontal operculum, insular cortex, temporal operculum,and the right frontal little radiata TTE: 15-20%, No thrombus, generalized akinesis Cardiac MRI: dilated left ventricle with LVEF 17%; severly hypokinetic to akinetic; LV Thrombus 1.0 x 0.7 cm in mid anterior wall. No significant valvular dysfunction Assessment and Plan: Judi Calle (69) is a 58 year old M with PMH HTN, CHF, DM, CAD s/p stents x3 on plavix who presents to the hospital as a code stroke with LFD, drift in LUE, and dysarthria. CTA concerning for RM2. Patient is s/p TNK at 1539. Endovascular declined IAT due to low NIH and unclear occlusion. MRI brain shows petechial hemorrhage. A1c: 10.05, LDL 111, EF of 15-20% on TTE. Cardiac MRI shows LVEF 17% with LV Thrombus 1.0x0.7cm and started on Heparin gtt ptt 60-80. Etiology of stroke possibly Cardioembolic 2/2 LV Thrombus. Patient home medications are Plavix, Lisinopril, Lasix, Metoprolol, Metformin and Mucinex but patient is unclear on the dosing. Med rec technicians engaged. Principal Problem: Acute ischemic stroke (HCC) Active Problems: Heart failure (HCC) Smoker Hypertensive disorder History of CAD (coronary artery disease) Type 2 diabetes mellitus with diabetic chronic kidney disease (HCC) Type 2 diabetes mellitus (HCC) LV (left ventricular) mural thrombus Resolved Problems: * No resolved hospital problems. * KILN SETTER: #Ischemic Stroke of M2 right MCA Acuity: Acute Suspected Etiology: Cardioembolic 2/2 LV Thrombus - Plavix effect: 129 - A1C 10.05, LDL 111 - CTA: Occlusion of the superior division of the right MCA M2 segment, neck ICA normal, - MRI brain: right MCA territory involving the right inferior frontal gyrus, frontal operculum, insular cortex, temporal operculum,and the right frontal little radiata -TTE: EF 15-20%, No thrombus, generalized akinesis Cardiac MRI: dilated left ventricle with LVEF 17%; severly hypokinetic to akinetic; LV Thrombus 1.0 x 0.7 cm in mid anterior wall. No significant valvular dysfunction Plan: - Atorvastatin 80 mg - Aspirin 81 mg 04/16-, off when heparin gtt started - BP goal < 160/100 - Heparin gtt since 04/17, CT head (therapeutic PTT): only petechial hemorrhage - Consider Eliquis or warfarin or Dabigatran based on his PCP availability and affordability - PT/OT/ST RESP: #Smoker #Chronic Cough - Nicotine patch - Continue home PRN mucinex - No acute concern CV: # Recently diagnosed congestive Heart Failure # Essential hypertension - When goal is normotension, restart home Lisinopril, Lasix & Metoprolol - restarted on Metoprolol tartrate 12.5mg q12h - restarted on lisinopril 10 mg - Titrate oral agents - BP goal < 160 CAD s/p stents x3 On Home plavix - Troponin negative - TTE: EF 15-20% - Telemetry - Started Aspirin (04/16-) stopped due to heparin gtt RENAL: CKD Stage 3 (GFR 30-59) vs CHRISTOS - No documented history of CKD - S/p 1 liter bolus in ED - Trend BMP ENDO: Type 2 DM Hypodense thyroid nodule - On home metformin - SSI for goal FSBG 140-180 - Regular diet - Follow up hypodense thyroid nodule outpatient HEME: No acute abnormalities - Monitor ID: No acute abnormalities - Monitor - Follow up UA ordered in ED GI: N/A Bowel regimen: senna, miralax DVT PPX: Sub Q heparin - stopped because starting Heparin gtt, Bowel Regimen:senna, Miramax Diet: Adult Regular Diet Code status: Full Dispo: to home pending clinical improvement Patient discussed with attending physician, Huhg. Frank Markham MD Adult Neurology | PGY1 [facility] | [facility] 04/18/24, 7:03 AM Cosigned by Parker Reese MD at 04/19/2024 10:46 PM STONEMASON APPRENTICE EMASON APPRENTICE EMASON APPRENTICE EMASON APPRENTICE Associated attestation - Parker Reese MD - 04/19/2024 10:46 PM CST STROKE NEUROLOGY ATTENDING ATTESTATION I have personally seen and evaluated the patient on 04/18/2024, and I waspresent for banuelos critical points of the encounter. I have discussed the case with and reviewed the provider note detailed above. I have personally viewed the patient's radiographic studies, laboratory tests, and medications. I agree with the above documented history, exam, assessment and plan. Please see note below for any additions and/or exceptions to the note above. Cardiac MRI shows LV Thrombus, started on heparin gtt Encounter took 45 minutes of total cumulative time examining the patient at the bedside and in discussion regarding plan of care and addressing questions and concerns, reviewing the EMR and paper chart, reviewing diagnostic studies, laboratory values, and recommendations. I provided a substantive portion of the care of this patient. I personally performed the MDM for this encounter. Parker Reese MD, TADciarant Professor, Vascular Neurology [facility] [employer] [email or web address] Office contact: [phone] Stroke Clinic: [phone] * Kait Wagner, [facility] - 04/17/2024 4:24 PM STONEMASON APPRENTICE Images from the original note were not included. Speech-Language Pathology [facility] CLINICAL SWALLOWING EVALUATION (CSE) Patient Name: Judi Calle Today's Date: 04/17/2024 Room: [place] [id number] Session Time: 10:21 - 10:31 CLINICAL SWALLOW EVALUATION SUMMARY: Oral phase appears WFL. Pt demonstrating s/s aspiration w/ PO at b/s. Rec instrumental swallow evaluation to F/A pharyngeal phase of swallow and r/o aspiration. Pt verbalized choice of FEES. Rec NPO with alternative means nutrition/hydration/medication until FEES performed. Rec intensive post acute ST services. RECOMMENDATIONS: NPO with alternative means nutrition/hydration Medications: Non oral Oral care: Suction toothbrush Perform FEES Intensive post acute ST services PROGNOSIS: Good PLAN: Treatment/Interventions: Swallow function Frequency: Other (comment) (2-3 times per week) Duration: 4 weeks GENERAL INFORMATION: Reason for Consult: Pt was referred for a clinical swallow evaluation in the setting of ischemic stroke of M2 R MCA s/p TNK. Oxygenation: Room air Behavior:Cooperative Level of Consciousness: Awake & alert Pain: Pain Assessment: DVPRS 0 Diet Prior to this Evaluation: NPO Preferred Language: Kosovan Pt reports coughing 2/2 recent sinus infection. ORAL MOTOR EXAM: Dentition: Adequate Face: Impaired Face Symmetry: Impaired Face Sensation: Impaired Facial ROM: Impaired Jaw: Impaired Jaw Symmetry: Impaired Jaw ROM: Impaired Jaw Coordination: Impaired Jaw Strength: Impaired Jaw Sensation: Impaired Lips: Impaired Lips Symmetry: Impaired Lips ROM: Impaired Lips Coordination: Impaired Lips Strength: Impaired Lips Speed: Impaired Lips Sensation: Impaired Tongue: Impaired Tongue Symmetry: Impaired Tongue ROM: Impaired Tongue Coordination: Impaired Tongue Strength: Impaired Tongue Speed: Impaired Tongue Sensation: Impaired Soft Palate: Impaired Soft Palate Appearance At Rest: Impaired Soft Palate Appearance During Phonation: Impaired SWALLOW ASSESSMENT: Consistencies Assessed Consistencies Assessed: Yes Swallowing Overview - Liquids0 - Thin Liquid: Impaired Clinical Swallow Evaluation Patient Positioning: In bed, Upright Previous History of Dysphagia?: No Inability to Follow One Step Directions?: No Tracheostomy Present: No Inability to Manage Their Secretions?: No Incomplete Lingual ROM?: Yes Incomplete Facial Symmetry (Facial Droop)?: Yes Voice Change During Swallowing Trials?: No Abnormal/Weak Volitional Cough?: No Cough/Throat Clear w/ Trial Consistency?: Yes Dysphonia (Quality and/or Pitch Change)?: No Motor Speech Disorder (Dysarthria/Apraxia)?: Yes Apraxia of the Swallow Suspected?: No Delayed Swallow Suspected?: No Multiple Swallows Per Bolus Suspected?: No Tongue Pumping Suspected?: No OUTCOME MEASURES:International Dysphagia Diet Standardization Initiative - IDDSI Solids - N/A Liquids - N/A IDDSI Level - 0 GOALS:Encounter Goals Encounter Goals (Active) LTG - Patient will improve on swallowing outcome measure Start: 04/17/24 Expected End: 05/15/24 STG - Participate in an instrumental swallow study Start: 04/17/24 Expected End: 05/01/24 EDUCATION:Education Documentation Speech-Language/Pathology Treatment Plan, taught by MAITE Gamez at 04/17/2024 10:31 AM. Learner: Patient Readiness: Eager Method: Explanation Response: Verbalizes Understanding Results of Exam, taught by MAITE Gamez at 04/17/2024 10:31 AM.Learner: Patient Readiness: Eager Method: Explanation Response: Verbalizes Understanding Education CommentsNo comments found. Ed to pt re: rec of instrumental swallow evaluation and options of FEES or Modified Barium Swallow Study. Pt verbalized choice of FEES. Spoke with KOBI Matt on unit re: plan for FEES today. If this is the last documented treatment, then it will signify discharge from acute care prior to discharge from the therapy service and will serve as the discharge summary. Therapy discharge recommendations are made by determining the patient's prior level of function, assessing current function level and establishing rehab potential. The overall discharge plan may be affected by input from Physicians, Care Coordination, medical condition/status, family support and insurance benefits. MAITE Gamez EMASON APPRENTICE * Tami Drake, OT - 04/17/2024 2:40 PM STONEMASON APPRENTICE Treatment Session Note Patient Name: Judi Calle Today's Date: 04/17/2024 Preferred Language: Kosovan [place]: Pt in bed upon entry, noted to be soiled. Pt woken up for session, cleaned with rolling CGA x1. Pt did well, total for toileting 2/2 to diarrhea. Pt then sat up min x1 assist, then stood min x1, standing 2min for bed change. Pt then BTB c all needs met and lines intact, HOB up and alarm on. Recs/Assessment: Pt limited by balance, oob function and dysarthria, rec cont therapy or max indep - IP short stay vs OP/HH level therapy Precautions: UE Weight Bearing Status: fwb LE Weight Bearing Status: fwb Medical Precautions: falls, safety Plan: Treatment Plan/Goals Established with Patient/Caregiver: Yes OT Plan: Skilled OT OT Frequency: 2-4 times per week until discharge OT Discharge Recommendations: Inpatient rehab facility placement, Outpatient OT Self Care (ADL): Self Care/Home Management (ADLs) Time Entry: 18 Toileting Assistance: Dependent Toileting Deficit: Perineal hygiene Mobility/Transfers: Bed Mobility Bed Mobility Bed Mobility: Yes Bed Mobility 1 Level of Assistance 1: Supervision/touching assistance Bed Mobility To/From: Roll left/right, Sitting EOB to supine, Supine to sit on EOB Transfer Transfers Transfer: Yes Transfer 1 Level of Assistance 1: Supervision/touching assistance Transfer To/From: [id number] Treatment Self-Care: Self Care/Home Management (ADLs) Time Entry: 18 Toileting Assistance: Dependent Toileting Deficit: Perineal hygiene AM-PAC Daily Activity: Putting on and taking off regular lower body clothing: A Lot Bathing (including washing, rinsing, drying): A Lot Toileting, which includes using toilet, bedpan or urinal: A Little Putting on and taking off regular upper body clothing: A Little Taking care of personal grooming such as brushing teeth: A Little Eating Meals: A Little AM-PAC Daily Activity Raw Score: 16 Mobility Highest Level of Mobility Performed (-HLM): Static standing (1 or more minutes) Patient Education: Education Documentation No documentation found. Education Comments No comments found. Goals: Encounter Goals Encounter Goals (Active) Patient will perform transfer to bathroom equipment toilet with SBA assist to decrease in caregiver burden and for improved independence. Start: 04/16/24 Expected End: 05/09/24 Patient will perform grooming at sink with min assist for improved independence with ADLs Start: 04/16/24 Expected End: 05/09/24 Patient will perform upper body dressing with min or better assist to improve independence with dressing. Start: 04/16/24 Expected End: 05/09/24 Patient will perform lower body dressing with AE PRN at min assist to improve independence with dressing. Start: 04/16/24 Expected End: 05/09/24 Within 2 weeks of starting therapy, the patient and/or family/caregiver will demonstrate independence and be compliant in a written HEP in order to maximize gains made during therapy. (Progressing) Start: 04/16/24 Expected End: 05/09/24 Treatment Note: If this is the last documented treatment, then it will signify discharge from acute care prior to discharge from the therapy service and will serve as the discharge summary. Tami Drake OT EMASON APPRENTICE * Aris Villalobos RN - 04/17/2024 1:54 PM STONEMASON APPRENTICE CASE MANAGEMENT ROUTINE DISCHARGE PLANNING NOTE LOS: 2 days BARRIERS: hep drip bridge to anti coag DISCHARGE PLAN A: Home w/ OP DISCHARGE PLAN B: CAMILO: 04/20/2024 Additional Comments: Disability Statement was completed and signed by Dr. Parker Loza of Stroke A Team. This was submitted to Financial Counselors. Mold Parter will coordinate with Financial Counselors and patient/family in disability application/submission and in follow-up for SSA appointment. CM/SW will continue to follow patient for further DC planning needs. Aris Villalobos RN Case Manager [phone] EMASON APPRENTICE * Alexia Suero, RAKESH - 04/17/2024 1:33 PM STONEMASON APPRENTICE Physical Therapy Treatment Session Note Patient Name: Judi Calle Today's Date: 04/17/2024 Preferred Language: Kosovan Assessment & Plan Pt was seen for PT with focus on transfers and gait training. Pt demonstrating improvement with mobility today. Pt ambulated around unit with CGA with few bouts of [place] for LOB. Pt does demonstrate decreased L foot clearance with increasing activity. PT noted pt pocketing foot in L side and drooling throughout treatment. VC to pay attention to L side of body. Pt continues to benefit from skilled PT during acute care stay. Pt may need supervision at home once discharged. Assessment: Prognosis: Good Barriers to Discharge: Safety awareness, Severity of deficits Evaluation/Treatment Tolerance: Patient tolerated treatment well Medical Staff Made Aware: Yes Plan: Treatment Plan/Goals Established with Patient/Caregiver: Yes Treatment/Interventions: Balance training, Bed mobility training, Caregiver training, Equipment training, Functional activities, Gait training, Manual therapy, Neuromuscular re-education, Orthotic training, Pain management, Patient education, Positioning, Posture/Body mechanics baring, Stair training, Therapeutic exercises, Transfer training, Wheelchair assessment and management PT Plan: Skilled PT PT Frequency: 2-3 times per week until discharge PT Discharge Recommendations: Home health PT PT Recommended Transfer Status: Stand by assist Subjective Precautions: Medical Precautions: falls, Standard Post-Surgical Precautions: Fall, Standard Pain: Pain Assessment: DVPRS (04/17/2024 2:00 PM) Pain Score: 0 (04/17/2024 1:33 PM) Objective General Visit Information: PT Last Visit PT Received On: 04/17/24 Cognition Overall Cognitive Status: Impaired Behavior/Cognition: Alert, Pleasant mood, Cooperative Orientation Level: Oriented X4 Awareness of Deficits: Decreased awareness of deficits Treatment Therapeutic activity: Therapeutic Activity Therapeutic Activity Time Entry: 20 Bed Mobility: Bed Mobility 1: Level of Assistance 1: Supervision/touching assistance Bed Mobility To/From: Supine to sit on EOB, Sitting EOB to supine Assistive Devices And Adaptive Equipments: Bed rail Transfers: Transfers 1: Level of Assistance 1: Supervision/touching assistance Transfer To/From: [id number]-bj-[id number]/Shdxy-ll-Dle Assistive Devices And Adaptive Equipments: Bed rail Transfers 2: Level of Assistance 2: Supervision/touching assistance Transfer To/From: Toilet Assistive Devices And Adaptive Equipments: No device Gait training: Gait Training Time Entry: 12 Gait Training Activity 1: Distance (enter in feet): 200ft Assistive Devices And Adaptive Equipments: No device Level of Assistance 1: Partial/Mod assistance, Supervision/touching assistance (CGA with intermittent bouts of [place]) AM-PAC Basic Mobility: AM-PAC Basic Mobility Inpatient Turning in bed without bedrails: A Little Lying on back to sitting on edge of flat bed: A Little Bed to chair: A Little Standing up from chair: A Little Walk in room: A Little Climbing 3-5 stairs: A Little Mobility Inpatient Raw Score: 18 JH-HLM Goal: 6 Mobility: Highest Level of Mobility Performed (JH-HLM) JH-HLM Goal: 6 Highest Level of Mobility Performed (JH-HLM): Walked 25 feet or more (i.e. walked outside of room) Patient Education: Education Documentation No documentation found. Education Comments No comments found. Goals: Encounter Goals Encounter Goals (Active) Pt will perform bed mobility with LRAD with Jamarcus. Start: 04/16/24 Expected End: 05/16/24 Patient will perform transfers using LRAD with Jamarcus to improve functional mobility. Start: 04/16/24 Expected End: 05/16/24 Patient will perform gait training with SBA using LRAD for >400ft. Start: 04/16/24 Expected End: 05/16/24 Treatment Note: If this is the last documented treatment, then it will signify discharge from acute care prior to discharge from the therapy service and will serve as the discharge summary. Alexia Suero PT EMASON APPRENTICE * Radha Vargas LMSW - 04/17/2024 11:18 AM STONEMASON APPRENTICE Disability Statement Disability Statement was completed and signed by Dr. Parker Loza of Stroke A Team. This was submitted to Financial Counselors. Mold Parter will coordinate with Financial Counselors and patient/family in disability application/submission and in follow-up for SSA appointment. EMASON APPRENTICE * Lynette Castro MD - 04/17/2024 5:36 AM STONEMASON APPRENTICE Stroke A Progress Note Subjective: - No acute event overnight. Exams stable with NIHSS 4-5, drowsy, oriented, follows commands, left facial droop, dysarthria, and LUE drift - MRI showing petechial hemorrhage - Cardiac MRI shows LV Thrombus, started on heparin gtt Vitals: Afebrile Tmax 98, HR 60-90, SBP 103-160, SpO2 95-96 on RA Objective: Vitals: 04/17/24 1600 04/17/24 1700 04/17/24 1800 04/17/24 1900 BP: 119/79 112/75 106/74 130/68 BP Location: Patient Position: Pulse: 76 74 74 91 Resp: (!) 25 20 (!) 25 20 Temp: TempSrc: SpO2: 94% 92% 93% 93% Weight: Height: Physical Exam Physical Exam: General: well nourished, somewhat dischelved HEENT: mucus membranes moist CV: tachycardic Pulm: breathing comfortably on room air Abd: non-distended Ext: skin clear, no rashes, Neuro Exam: Drowsy but appropriately responsive to questions. AAOx3 (, name, hospital, city, year and month) Language: intact fluency, comprehension, naming, and repetition Speech: dysarthria CN: Right gaze preference, but overcomes with EOMI testing and cross midline, full VF; significant left facial droop, auditory acuity intact; tongue midline Motor: Normal tone and bulk, no abnormal movements. Drift in the LUE otherwise AG with no drift throughout Sensory: Intact to light touch equally on both sides, no extinction Coordination: no dysmetria on FTN bilaterally Gait: deferred Labs: Na 141, K 3.8, Cr 1.09, WBC 81.3, Hg 16.7, Plt 251 UA clear, UDS was positive for cannab, cocaine and opiate. A1C 10.05, LDL 111 Medications: Current Facility-Administered Medications Medication Dose Route Frequency Provider Last Rate Last Admin acetaminophen (Tylenol) tablet 650 mg 650 mg Oral q4h PRN Susan Oliva MD Or acetaminophen (Tylenol) suppository 650 mg 650 mg Rectal q4h PRN Susan Oliva MD aspirin chewable tablet 81 mg 81 mg Oral Daily Yong Rizzo MD atorvastatin (Lipitor) tablet 80 mg 80 mg Oral Nightly Susan Oliva MD dextrose 50 % solution 12.5 g 12.5 g Intravenous PRN Susan Oliva MD dextrose 50 % solution 25 g 25 g Intravenous PRN Susan Oliva MD gabapentin (Neurontin) capsule 300 mg 300 mg Oral q8h [facility] Mark Rizzo MD 300 mg at 04/17/24 1312 glucagon injection 1 mg 1 mg Intramuscular PRN Susan Oliva MD guaiFENesin (Mucinex) 12 hr tablet 600 mg 600 mg Oral BID PRN Susan Oliva MD heparin 50 units/mL in sodium chloride 0.45 % 0.1-40 Units/kg/hr Intravenous Continuous Mark Rizzo MD 26.9 mL/hr at 04/17/24 1835 14 Units/kg/hr at 04/17/24 1835 insulin lispro (HumaLOG, Admelog) injection 2-8 Units 2-8 Units Subcutaneous q6h PRN Susan Oliva MD 4 Units at 04/17/24 1320 lisinopril tablet 10 mg 10 mg Oral Daily Mark Rizzo MD metoprolol tartrate (Lopressor) half tablet 12.5 mg 12.5 mg Oral q12h [facility] Mark Rizzo MD 12.5 mg at 04/17/24 1312 nicotine (Nicoderm, Step 1) 21 MG/24HR patch 1 patch 1 patch Transdermal Daily Susan Oliva MD 1 patch at 04/17/24 0927 polyethylene glycol (PEG) 3350 (Miralax) packet 17 g 17 g Oral Daily Susan Oliva MD sennosides (Senokot) tablet 8.6 mg 1 tablet Oral q12h [facility] Susan Oliva MD sodium chloride (NS) 0.9 % flush 10 mL 10 mL Intravenous PRN Susan Oliva MD sodium chloride (NS) 0.9 % flush 10 mL 10 mL Intravenous q12h [facility] Susan Oliva MD 10 mL at 04/17/24 1106 sodium chloride (NS) 0.9 % flush 10 mL 10 mL Intravenous PRN Susan Oliva MD Imaging: CT head: IMPRESSION: * No sign of acute cortical infarct or parenchymal hemorrhage. * Small remote prior right frontal lobe and posterior temporal lobe infarcts with encephalomalacia and gliosis. CTA head/Neck: Occlusion of the superior division of the right MCA M2 segment, neck ICA normal, MRI brain:right MCA territory involving the right inferior frontal gyrus, frontal operculum, insular cortex, temporal operculum,and the right frontal little radiata TTE: 15-20%, No thrombus, generalized akinesis Cardiac MRI: dilated left ventricle with LVEF 17%; severly hypokinetic to akinetic; LV Thrombus 1.0 x 0.7 cm in mid anterior wall. No significant valvular dysfunction Assessment and Plan: Judi Calle (67) is a 58 year old M with PMH HTN, CHF, DM, CAD s/p stents x3 on plavix who presents to the hospital as a code stroke with LFD, drift in LUE, and dysarthria. CTA concerning for RM2. Patient is s/p TNK at 1539. Endovascular declined IAT due to low NIH and unclear occlusion. MRI brain shows petechial hemorrhage. A1c: 10.05, LDL 111, EF of 15-20% on TTE. Cardiac MRI shows LVEF 17% with LV Thrombus 1.0x0.7cm and started on Heparin gtt ptt 60-80. Etiology of stroke possibly Cardioembolic 2/2 LV Thrombus. Patient home medications are Plavix, Lisinopril, Lasix, Metoprolol, Metformin and Mucinex but patient is unclear on the dosing. Med rec technicians engaged. Principal Problem: Acute ischemic stroke (HCC) Active Problems: Heart failure (HCC) Smoker Hypertensive disorder History of CAD (coronary artery disease) Type 2 diabetes mellitus with diabetic chronic kidney disease (HCC) Type 2 diabetes mellitus (HCC) LV (left ventricular) mural thrombus Resolved Problems: * No resolved hospital problems. * KILN SETTER: #Ischemic Stroke of M2 right MCA Acuity: Acute Suspected Etiology: Cardioembolic 2/2 LV Thrombus - Plavix effect: 129 - A1C 10.05, LDL 111 - CTA: Occlusion of the superior division of the right MCA M2 segment, neck ICA normal, - MRI brain: right MCA territory involving the right inferior frontal gyrus, frontal operculum, insular cortex, temporal operculum,and the right frontal little radiata -TTE: EF 15-20%, No thrombus, generalized akinesis Cardiac MRI: dilated left ventricle with LVEF 17%; severly hypokinetic to akinetic; LV Thrombus 1.0 x 0.7 cm in mid anterior wall. No significant valvular dysfunction Plan: - Atorvastatin 80 mg - Aspirin 81 mg 04/16- - BP goal < 160/100 - Started on heparin gtt therapeutic, ptt 60-80; repeat CT Head when Heparin is Therapeutic - PT/OT/ST RESP: #Smoker #Chronic Cough - Nicotine patch - Continue home PRN mucinex - No acute concern CV: # Recently diagnosed congestive Heart Failure # Essential hypertension - When goal is normotension, restart home Lisinopril, Lasix & Metoprolol --- restarted on Metoprolol tartrate 12.5mg q12h - 500 ml bolus given in ED due to elevated creatinine (monitor closely) - Titrate oral agents - BP goal < 160 CAD s/p stents x3 On Home plavix - Troponin negative - TTE: EF 15-20% - Telemetry - Started Aspirin (04/16-); plan to stop because starting Heparin gtt RENAL: CKD Stage 3 (GFR 30-59) vs CHRISTOS - No documented history of CKD - S/p 1 liter bolus in ED - Trend BMP ENDO: Type 2 DM hypodense thyroid nodule - On home metformin - SSI for goal FSBG 140-180 - Regular diet - Follow up hypodense thyroid nodule outpatient HEME: No acute abnormalities - Monitor ID: No acute abnormalities - Monitor - Follow up UA ordered in ED GI: N/A Bowel regimen: senna, miralax DVT PPX: Sub Q heparin - plan to stop because starting Heparin gtt Bowel Regimen:senna, Miramax Diet: Adult Regular Diet Code status: Full Dispo: to home pending clinical improvement Patient discussed with attending physician, Hugh. Lynette Castro MD Adult Neurology | PGY2 [facility] | [employer] 04/17/24, 7:42 PM Cosigned by Parker Reese MD at 04/19/2024 10:46 PM STONEMASON APPRENTICE EMASON APPRENTICE EMASON APPRENTICE EMASON APPRENTICE Associated attestation - Parker Reese MD - 04/19/2024 10:46 PM CST STROKE NEUROLOGY ATTENDING ATTESTATION I have personally seen and evaluated the patient on 04/17/2024, and I waspresent for banuelos critical points of the encounter. I have discussed the case with and reviewed the provider note detailed above. I have personally viewed the patient's radiographic studies, laboratory tests, and medications. I agree with the above documented history, exam, assessment and plan. Please see note below for any additions and/or exceptions to the note above. Encounter took 40 minutes of total cumulative time examining the patient at the bedside and in discussion regarding plan of care and addressing questions and concerns, reviewing the EMR and paper chart, reviewing diagnostic studies, laboratory values, and recommendations. I provided a substantive portion of the care of this patient. I personally performed the MDM for this encounter. Parker Reese MD, RPNILDAssciarant Professor, Vascular Neurology [facility] [employer] [email or web address] Office contact: [phone] Stroke Clinic: [phone] * Thelma Terrazas NP - 04/16/2024 9:01 PM STONEMASON APPRENTICE NIH Stroke Scale (NIHSS) 1a. Level of Consciousness; 0-alert 1-drowsy 2-stupor 3-Coma 1b. LOC Questions month and age; 0-both 1-one 2-neither 1c. LOC Commands open/close eyes, string top sealer/release non-paretic hand; 0-both 1-one 2-neither 1 2. Best Gaze; 0-nl 1-partial 2-forced gaze 3. Visual Cuellar; 0-No visual loss. 1-Partial hemianopia 2-Complete 3-Bilateral 1 4. Facial Palsy; 0-none 1-minor 2-partial 3-complete 5. Motor - R arm; 0-No drift 1-Drift 2-Some antigravity 3-No antigravity 4-No movement 6. Motor - R leg; 0-No drift 1-Drift 2-Some antigravity 3-No antigravity 4-No movement 1 7. Motor - L arm; 0-No drift 1-Drift 2-Some antigravity 3-No antigravity 4-No movement 8. Motor - L leg; 0-No drift 1-Drift 2-Some antigravity 3-No antigravity 4-No movement 9. Limb Ataxia; 0 absent 1 - 1limb 2 - 2 limbs 10. Sensory; 0-nl 1-partial loss 2-dense loss 11. Best Language; 0-nl 1-mild/mod 2-severe 3-mute 1 12. Dysarthria; 0-nl 1-mild/mod 2-severe x-untestable 13. Extinction and Inattention (formerly Neglect); 0-none 1-partial 2-complete 4 TOTAL SCORE EMASON APPRENTICE * Radha Vargas LMSW - 04/16/2024 3:18 PM STONEMASON APPRENTICE 04/16/24 1500 Discharge Planning Information Source Self Permanent Residence Private residence Household Members Parent (mother Naomi and step-father Tylor (Guerrero)) Support Systems Parent Arrived From Permanent Residence Barriers to Discharge Home Lives in single-story home with parents as a support system In the last 12 months, was there a time when you were not able to pay the mortgage or rent on time? N In the past 12 months, how many times have you moved where you were living? 0 At any time in the past 12 months, were you homeless or living in a mcfp (including now)? N In the past 12 months has the [employer], gas, oil, or water [employer] threatened to shut off services in your home? No Within the past 12 months, you worried that your food would run out before you got the money to buy more. Never true Within the past 12 months, the food you bought just didn't last and you didn't have money to get more. Never true Assistive Devices None Assistance Needed PT independent at baseline and does not utilize any DME. Does not work, parents provide financially Patient expects to be discharged to: home w/ family Expected Discharge Disposition Home Anticipated Services at Discharge Community services In the past 12 months, has lack of transportation kept you from medical appointments or from getting medications? no In the past 12 months, has lack of transportation kept you from meetings, work, or from getting things needed for daily living? No Does the patient need discharge transport arranged? No Discharge Planning Comments SW met with pt at bedside to complete assessment. PT is with no adult children, legal NOK are parents Naomi Weakly [phone] and Yash Calle. PT independent at baseline and does not work or receive any SSI/disability assistance. PT noted that he recently applied for SSI benefits. PT receives services through the Indigent care program for [place], [place]. PH: [employer] [place] [place] [address] [place] [address] Discharge Planning Status Initial Assessment Complete EMASON APPRENTICE * Tami Drake, OT - 04/16/2024 2:15 PM STONEMASON APPRENTICE Evaluation and Treatment Patient Name: Judi Calle Today's Date: 04/16/2024 Preferred Language: Kosovan History Of Present Illness Madeleine Radha Humphries, 58 y.o. male a.k.a "Judi" with PMH of Tobacco use, HTN, DM, CAD-IL s/p PCI (stents x 3) on plavix , who presented with acute L-hemiparesis and L-facial droop with LKN around 2 pm on 04/15. His NIHSS was 4 initially, with gait imbalance. CT brain negative for acute bleed. CTA H/N showed a R-M1/M2 occlusion. No contraindications and within window, TNK given 04/15 @ 1539. PLOF: Pt lives c mother + step dad in trailer home c ramp access, not working, drives, no device use EVAL: Pt in bed upon entry, oriented and cooperative but is trying to get oob to toilet, impulsive + recent fall in hospital from similar behavior in ICU- RN September' tx and oob along c eval. Pt sat up c CGA for safety, sitting EOB c cues to stay seated. Pt shows WFL R UE ROM + MMT, L UE pt req some cues to bring forward showing some dec attn to L UE, MMT around 4/5 as pt has string top sealer + resists gravity but weaker vs R UE. Denies vision or sensation issues. Pt then stood min x2 for amb to toilet, does have dec balance c task. Pt mod for transfer to sit on toilet as pt req assist to fully turn + sit. Pt then voids on toilet, stood min assist from low toilet. Pt attempting to wipe self but req assist for toughness. Pt then amb BTB, used hand remote sensing analyst c gather assist. Pt in bed EOS, all needs met and lines intact. Pt asking for water, given a mouth swabs for mouth moisturizer use. Pt in bed, restraints + belt on for safety. Vitals: 130s BP Recs/Assessment: Pt typically I PLOF, rec cont therapy for L UE weakness, ALDs, transfers, safety awareness and balance c ADL tasks - rec IPR at this time Assessment: OT Assessment Results: Impaired ADL status, Impaired safe judgment during ADL, Impaired cognition, Impaired functional mobility Prognosis: Good Evaluation/Treatment Tolerance: Patient tolerated treatment well Medical Staff Made Aware: Yes Plan: Treatment Plan/Goals Established with Patient/Caregiver: Yes OT Plan: Skilled OT OT Frequency: 2-4 times per week until discharge OT Discharge Recommendations: Inpatient rehab facility placement General Visit Information: Others Present: tech Precautions: UE Weight Bearing Status: fwb LE Weight Bearing Status: fwb Medical Precautions: falls, safety Cognition: Overall Cognitive Status: Impaired Behavior/Cognition: Cooperative Orientation Level: Oriented X4 Safety Judgment: Decreased awareness of need for assistance Awareness of Deficits: Decreased awareness of deficits Home Living: Type of Home: Trailer Lives With: Family Bathroom Accessibility: ramp access Prior Function: Prior Function Comments: I PLOF Self Care (ADL): Self Care/Home Management (ADLs) Time Entry: 20 Grooming Assistance: Supervision/touching assistance Toileting Assistance: Partial/Mod assistance Mobility/Transfers: Bed Mobility Bed Mobility Bed Mobility: Yes Bed Mobility 1 Level of Assistance 1: Supervision/touching assistance Bed Mobility To/From: Sitting EOB to supine, Supine to sit on EOB Assistive Devices And Adaptive Equipments: Head of bed elevated, Bed rail Transfer Transfers Transfer: Yes Transfer 1 Technique 1: Via walking Level of Assistance 1: Partial/Mod assistance Trials/Comments 1: bed <> toilet, IRRIGATION TECHNICIAN-min x2 Transfer To/From: Bed, Toilet Extremity Assessments: Right Upper Extremity RUE Assessment RUE Assessment: Within Functional Limits Left Upper Extremity LUE Assessment LUE Assessment: Exceptions to WFL 4/5, pt c some dec attn to L UE, weaker vs R UE Treatment: Self-Care: Self Care/Home Management (ADLs) Time Entry: 20 Grooming Assistance: Supervision/touching assistance Toileting Assistance: Partial/Mod assistance AM-PAC Daily Activity: Putting on and taking off regular lower body clothing: A Lot Bathing (including washing, rinsing, drying): A Lot Toileting, which includes using toilet, bedpan or urinal: A Lot Putting on and taking off regular upper body clothing: A Little Taking care of personal grooming such as brushing teeth: A Little Eating Meals: A Little AM-PAC Daily Activity Raw Score: 15 Mobility Highest Level of Mobility Performed (JH-HLM): Walked 10 steps or more (i.e. walked to restroom) Patient Education: Education Documentation ADL Training, taught by Tami Drake OT at 04/16/2024 4:09 PM. Learner: Patient Readiness: Acceptance Method: Explanation, Demonstration Response: Verbalizes Understanding, Needs Reinforcement Occupational Therapy Plan of Care, taught by Tami Drake OT at 04/16/2024 4:09 PM. Learner: Patient Readiness: Acceptance Method: Explanation, Demonstration Response: Verbalizes Understanding, Needs Reinforcement Education Comments No comments found. Goals: Encounter Goals Encounter Goals (Active) Patient will perform transfer to bathroom equipment toilet with SBA assist to decrease in caregiver burden and for improved independence. Start: 04/16/24 Expected End: 05/09/24 Patient will perform grooming at sink with min assist for improved independence with ADLs Start: 04/16/24 Expected End: 05/09/24 Patient will perform upper body dressing with min or better assist to improve independence with dressing. Start: 04/16/24 Expected End: 05/09/24 Patient will perform lower body dressing with AE PRN at min assist to improve independence with dressing. Start: 04/16/24 Expected End: 05/09/24 Within 2 weeks of starting therapy, the patient and/or family/caregiver will demonstrate independence and be compliant in a written HEP in order to maximize gains made during therapy. (Progressing) Start: 04/16/24 Expected End: 05/09/24 Treatment Note: If this is the last documented treatment, then it will signify discharge from acute care prior to discharge from the therapy service and will serve as the discharge summary. Tami Drake OT EMASON APPRENTICE * MAITE Byrnes - 04/16/2024 12:38 PM STONEMASON APPRENTICE Encounter Note Patient Name: Judi Calle Today's Date: 04/16/2024 Missed Treatment Time and Reason Attempted to see patient after he returned from [place] but patient was preparing to be transferred to . Will f/u. AILEEN ByrnesINSPECTOR DIALS EMASON APPRENTICE * MAITE Byrnes - 04/16/2024 10:58 AM STONEMASON APPRENTICE Encounter Note Patient Name: Judi Calle Today's Date: 04/16/2024 Missed Treatment Time and Reason Orders received and chart reviewed. Upon INSPECTOR DIALS arrival, patient off the unit. Will f/u. MAITE Byrnes EMASON APPRENTICE * Parker Reese MD - 04/16/2024 9:39 AM STONEMASON APPRENTICE ASSESSMENT 58 yo M hx of htn, dm, chf, cad s/p PCI x 3, currently taking plavix who presents after acute onset R MCA syndorme with left hemiparesis, left facial droop, and slurred speech and presented with initial nihss 4 but found to have debilitating imbalance of gait on initial assessment in code stroke [place] [facility] [place]. Case was discussed with me and I reviewed his acute neuroimaging in real time and I made decision to give tnk. Patient CTA h/n revealed right m2 proximal occlusion, nihss 5 for non-debilitating deficits (left facial droop 2, right gaze preference 1, dysarthria mild 1, disorientation 1) Endovascular intervention deferred due to low nihss and non debilitating deficits. Patient received tenecteplase (tnk) for stroke 04/16 update - patient exam remains stable. Apparently had a brief fall to his knees this morning so stat CTB ordered. I have added cta h/n to review how m2 occlusion is appearing. However, given stable exam will continue to plan for close monitoring, will not pursue IAT. SBP goal < 180 mmhg Hold all additional blood thinners including heparin subcutaneous for 24 hours No invasive lines or catheters that are non-emergent Repeat CT brain stat and notify stroke team if any change in neurological exam. Neurochecks q1h MRI brain reviewed on rounds right m2 completed infarction without HT Repeat NIHSS 24h post-tnk TTE shows ef 15% and large WMA - concern for LV thrombus --> will obtain cardiac mri to rule out. Troponin level normal, EKG reviewed no STEMI Encounter took 55 minutes of total cumulative time examining the patient at the bedside and in discussion regarding plan of care and addressing questions and concerns, reviewing the EMR and paper chart, reviewing diagnostic studies, laboratory values, and recommendations. I provided a substantive portion of the care of this patient. I personally performed the MDM for this encounter. EMASON APPRENTICE EMASON APPRENTICE EMASON APPRENTICE * Alexia Suero, PT - 04/16/2024 7:54 AM STONEMASON APPRENTICE Physical Therapy Evaluation and Treatment Note Patient Name: Judi Calle Today's Date: 04/16/2024 Preferred Language: Kosovan Assessment & Plan 58 yo M admitted with TEACHER RESOURCE, found to have R MCA occlusion, now s/p TNK. Pt reports independence with mobility at baseline. Pt currently demonstrating TEACHER RESOURCE, though able to move against gravity. Pt demonstrating bed mobility SBA for safety. Pt requiring VC to bring LUE forward as pt with inattention to L side. Pt CGA-Reno for all OOB mobility due to TEACHER RESOURCE and decreased L foot clearance. Pt continues to benefit from skilled PT during acute care stay. Assessment: Prognosis: Good Evaluation/Treatment Tolerance: Patient tolerated treatment well Medical Staff Made Aware: Yes Plan: Treatment Plan/Goals Established with Patient/Caregiver: Yes Treatment/Interventions: Bed mobility training, Caregiver training, Balance training, Equipment training, Functional activities, Gait training, Manual therapy, Neuromuscular re-education, Orthotic training, Pain management, Patient education, Positioning, Posture/Body mechanics baring, Scar management, Stair training, Therapeutic exercises, Transfer training, Wheelchair assessment and management PT Plan: Skilled PT PT Frequency: 2-4 times per week until discharge PT Discharge Recommendations: Home health PT Equipment Recommended: Walker- rolling PT Recommended Transfer Status: Assistive equipment (Comment) Subjective Current Problem: Per EMR 58 y.o. male a.k.a "Judi" with PMH of Tobacco use, HTN, DM, CAD-IL s/p PCI (stents x 3) on plavix , who presented with acute L-hemiparesis and L-facial droop with LKN around 2 pm on 04/15. His NIHSS was 4 initially, with gait imbalance. CT brain negative for acute bleed. CTA H/N showed a R-M1/M2 occlusion. No contraindications and within window, TNK given 04/15 @ 1539. Pain: Pain Assessment: DVPRS (04/16/2024 8:00 AM) Pain Score: 0 (04/16/2024 7:54 AM) Home Living: Type of Home: Trailer Lives With: Family Home Adaptive Equipment: None Home Layout: One level Home Access: Ramped entrance Prior Level of Function: Level of [place]: Household ambulation Prior Function Comments: Pt reports independence with mobility at baseline. Objective Precautions: Post-Surgical Precautions: Fall, Standard Cognition: Behavior/Cognition: Alert, Cooperative, Pleasant mood Orientation Level: Oriented X4 General Assessments: Sensation Sensation Light Touch: LLE Intact, RLE Intact Perception Perception Inattention/Neglect: Cues to attend to left side of body Coordination Coordination Movements are Fluid and Coordinated: Yes Balance- Sitting Static Sitting-Balance Support: Right upper extremity supported, Left upper extremity supported Level of Assistance: Supervision/touching assistance Balance- Standing Static Standing-Level of Assistance: Supervision/touching assistance Functional Assessments: Bed Mobility Bed Mobility 1: Level of Assistance 1: Supervision/touching assistance Bed Mobility To/From: Roll lying on back to left, Supine to sit on EOB, Sitting EOB to supine Assistive Devices And Adaptive Equipments: Bed rail Transfers Transfers 1:Level of Assistance 1: Supervision/touching assistance Transfer To/From: [id number] Assistive Devices And Adaptive Equipments: No device Gait Training Activity 1:Distance (enter in feet): 5ft forward and backwards, 3 trials Level of Assistance 1: Supervision/touching assistance Extremity Assessments:Right Lower Extremity RLE Assessment RLE Assessment: Within Functional Limits Left Lower Extremity LLE Assessment LLE Assessment: Exceptions to WFL Strength LLE L Hip Flexion: 3/5 L Hip Extension: 3/5 L Hip ABduction: 3/5 L Hip ADduction: 3/5 L Hip External Rotation: 3/5 L Hip Internal Rotation: 3/5 L Knee Flexion: 3/5 L Knee Extension: 3/5 L Ankle Dorsiflexion: 3/5 L Ankle Plantar Flexion: 3/5 L Ankle EVersion: 3/5 L Ankle INversion: 3/5 CognitionBehavior/Cognition: Alert, Cooperative, Pleasant mood Orientation Level: Oriented X4 TreatmentPost-Therapy Checklist: Pt supine in bed, HOB elevated >30 degrees, Lap belt in place, Bed/chair alarm on, All lines/lead intact, Vital signs stable, and RN informed/aware AM-PAC Basic Mobility:Turning in bed without bedrails: None Lying on back to sitting on edge of flat bed: A Little Bed to chair: A Little Standing up from chair: A Little Walk in room: A Little Climbing 3-5 stairs: A Little Mobility Inpatient Raw Score: 19 JH-HLM Goal: 6 Mobility: Highest Level of Mobility Performed (JH-HLM)Walked 10 steps or more (i.e. walked to restroom) Patient Education:Education Documentation Physical Therapy Plan of Care, taught by Alexia Suero PT at 04/16/2024 12:23 PM. Learner: Patient Readiness: Acceptance Method: Explanation Response: Needs Reinforcement Education CommentsNo comments found. Goal:Encounter Goals Encounter Goals (Active) Pt will perform bed mobility with LRAD with Jamarcus. Start: 04/16/24 Expected End: 05/16/24 Patient will perform transfers using LRAD with Jamarcus to improve functional mobility. Start: 04/16/24 Expected End: 05/16/24 Patient will perform gait training with SBA using LRAD for >400ft. Start: 04/16/24 Expected End: 05/16/24 Treatment Note: If this is the last documented treatment, then it will signify discharge from acute care prior to discharge from the therapy service and will serve as the discharge summary. Alexia Suero PT EMASON APPRENTICE * Frank Markham MD - 04/16/2024 7:33 AM STONEMASON APPRENTICE Stroke A Progress Note Subjective: Judi Calle is a 58 year old M with pmh HTN, DM, CHF, CAD s/p stents x3 on plavix who presents to the hospital as a code stroke. TEACHER RESOURCE was 2 PM on 04/15 and Family noted left facial droop, left sided weakness and slurred speech. Patient was lifeflighted to the hospital. On arrival, BP 140-150, B. Initial NIHSS 4 for incorrect orientation questions, LFD, left arm drift but found to have imbalance of gait on initial assessment. CTH revealed encephalomalacia in R hemisphere with no bleed, CTA concerning for R M2 occlusion. Patient developed worsening dysarthria after scan and received TNK at 1539. Endovascular was consulted and decision was made not to pursue IAT due to low NIH score. Admitted to ICU for post-TNK care. No acute event overnight. Exams stable with NIHSS 4-5, drowsy, oriented, follows commands, left facial droop, dysarthria, and LUE drift Vitals: Afebrile Tmax 98, HR 60-90, SBP 103-160, SpO2 95-96 on RA Objective: Vitals: 04/16/24 0545 04/16/24 0600 04/16/24 0615 04/16/24 0625 BP: 103/71 Pulse: 92 83 68 71 Resp: 18 14 20 17 Temp: TempSrc: SpO2: 95% 94% 95% 96% Weight: Height: Physical Exam Physical Exam: General: well nourished, somewhat dischelved HEENT: mucus membranes moist CV: tachycardic Pulm: breathing comfortably on room air Abd: non-distended Ext: skin clear, no rashes, Neuro Exam: Drowsy but appropriately responsive to questions. AAOx3 (, name, hospital, city, year and month) Language: intact fluency, comprehension, naming, and repetition Speech: dysarthria CN: Right gaze preference, but overcomes with EOMI testing and cross midline, full VF; significant left facial droop, auditory acuity intact; tongue midline Motor: Normal tone and bulk, no abnormal movements. Drift in the LUE otherwise AG with no drift throughout Sensory: Intact to light touch equally on both sides, no extinction Coordination: no dysmetria on FTN bilaterally Gait: deferred Labs: Na 141, K 3.8, Cr 1.09, WBC 81.3, Hg 16.7, Plt 251 UA clear, UDS was positive for cannab, cocaine and opiate. A1C 10.05, LDL 111 Medications: Current Facility-Administered Medications Medication Dose Route Frequency Provider Last Rate Last Admin acetaminophen (Tylenol) tablet 650 mg 650 mg Oral q4h PRN Susan Oliva MD Or acetaminophen (Tylenol) suppository 650 mg 650 mg Rectal q4h PRN Susan Oliva MD atorvastatin (Lipitor) tablet 80 mg 80 mg Oral Nightly Susan Oliva MD dextrose 50 % solution 12.5 g 12.5 g Intravenous PRN Susan Oliva MD dextrose 50 % solution 25 g 25 g Intravenous PRN Susan Oliva MD electrolyte solution pH 7.4 (Plasma-lyte/Normosol/Isolyte) infusion 50 mL/hr Intravenous Continuous Patience NIDA Moreno glucagon injection 1 mg 1 mg Intramuscular PRN Susan Oliva MD guaiFENesin (Mucinex) 12 hr tablet 600 mg 600 mg Oral BID PRN Susan Oliva MD insulin lispro (HumaLOG, Admelog) injection 2-8 Units 2-8 Units Subcutaneous q6h PRN Susan Oliva MD nicotine (Nicoderm, Step 1) 21 MG/24HR patch 1 patch 1 patch Transdermal Daily Susan Oliva MD polyethylene glycol (PEG) 3350 (Miralax) packet 17 g 17 g Oral Daily Susan Oliva MD sennosides (Senokot) tablet 8.6 mg 1 tablet Oral q12h [facility] Susan Oliva MD sodium chloride (NS) 0.9 % flush 10 mL 10 mL Intravenous PRN Susan Oliva MD sodium chloride (NS) 0.9 % flush 10 mL 10 mL Intravenous q12h [facility] Susan Oliva MD 10 mL at 04/16/24 0003 sodium chloride (NS) 0.9 % flush 10 mL 10 mL Intravenous PRN Susan Oliva MD Imaging: CT head: IMPRESSION: * No sign of acute cortical infarct or parenchymal hemorrhage. * Small remote prior right frontal lobe and posterior temporal lobe infarcts with encephalomalacia and gliosis. CTA head/Neck: Occlusion of the superior division of the right MCA M2 segment, neck ICA normal, MRI brain:right MCA territory involving the right inferior frontal gyrus, frontal operculum, insular cortex, temporal operculum,and the right frontal little radiata TTE: 15-20%, No thrombus, generalized akinesis Assessment and Plan: Judi Calle (69) is a 58 year old M with PMH HTN, CHF, DM, CAD s/p stents x3 on plavix who presents to the hospital as a code stroke with LFD, drift in LUE, and dysarthria. CTA concerning for RM2. Patient is s/p TNK at 1539. Endovascular declined IAT due to low NIH and unclear occlusion. Etiology of stroke possibly cardioembolic but pending further workup. Patient home medications are Plavix, Lisinopril, Lasix, Metoprolol, Metformin and Mucinex but patient is unclear on the dosing. Med rec technicians engaged. KILN SETTER: #Ischemic Stroke of M2 right MCA Acuity: Acute Suspected Etiology: Cardioembolic - Plavix effect: 129 - A1C 10.05, LDL 111 - CTA: Occlusion of the superior division of the right MCA M2 segment, neck ICA normal, - MRI brain: right MCA territory involving the right inferior frontal gyrus, frontal operculum, insular cortex, temporal operculum,and the right frontal little radiata -TTE: EF 15-20%, No thrombus, generalized akinesis Plan: - Atorvastatin 80 mg - Aspirin 81 mg 04/16- - BP goal < 185/105 - MRI cardiac to look for thrombus - PT/OT/ST RESP: #Smoker #Chronic Cough - Nicotine patch - Continue home PRN mucinex - No acute concern CV: # Recently diagnosed congestive Heart Failure # Essential hypertension - When goal is normotension, restart home Lisinopril, Lasix & Metoprolol - 500 ml bolus given in ED due to elevated creatinine (monitor closely) - Titrate oral agents - BP goal < 185/105 CAD s/p stents x3 On Home plavix - Troponin negative - TTE: EF 15-20% - Telemetry - Started Aspirin (04/16-) RENAL: CKD Stage 3 (GFR 30-59) vs CHRISTOS - No documented history of CKD - S/p 1 liter bolus in ED - Trend BMP ENDO: Type 2 DM hypodense thyroid nodule - On home metformin - SSI for goal FSBG 140-180 - diabetic diet when clears swallow - Follow up hypodense thyroid nodule outpatient HEME: No acute abnormalities - Monitor ID: No acute abnormalities - Monitor - Follow up UA ordered in ED GI: N/A Bowel regimen: senna, miralax DVT PPX:Sub Q heparin Bowel Regimen:senna, Miramax Diet:NPO, tube feeding, pending speech evaluation Code status: Full Dispo: to home pending clinical improvement Patient discussed with attending physician, Hugh. Frank Markham MD Adult Neurology | PGY1 [facility] | [facility] [employer] 04/16/24, 7:33 AM Cosigned by Parker Reese MD at 04/17/2024 11:10 PM STONEMASON APPRENTICE EMASON APPRENTICE EMASON APPRENTICE Associated attestation - Parker Reese MD - 04/17/2024 11:10 PM STONEMASON APPRENTICE ASSESSMENT 58 yo M hx of htn, dm, chf, cad s/p PCI x 3, currently taking plavix who presents after acute onset R MCA syndorme with left hemiparesis, left facial droop, and slurred speech and presented with initial nihss 4 but found to have debilitating imbalance of gait on initial assessment in [place] [facility] [place]. Case was discussed with me and I reviewed his acute neuroimaging in real time and I made decision to give tnk. Patient CTA h/n revealed right m2 proximal occlusion, nihss 5 for non-debilitating deficits (left facial droop 2, right gaze preference 1, dysarthria mild 1, disorientation 1) Endovascular intervention deferred due to low nihss and non debilitating deficits. Patient received tenecteplase (tnk) for stroke 04/16 update - patient exam remains stable. Apparently had a brief fall to his knees this morning so stat CTB ordered. I have added cta h/n to review how m2 occlusion is appearing. However, given stable exam will continue to plan for close monitoring, will not pursue IAT. SBP goal < 180 mmhg Hold all additional blood thinners including heparin subcutaneous for 24 hours No invasive lines or catheters that are non-emergent Repeat CT brain stat and notify stroke team if any change in neurological exam. Neurochecks q1h MRI brain reviewed on rounds right m2 completed infarction without HT Repeat NIHSS 24h post-tnk TTE shows ef 15% and large WMA - concern for LV thrombus --> will obtain cardiac mri to rule out. Troponin level normal, EKG reviewed no STEMI Encounter took 55 minutes of total cumulative time examining the patient at the bedside and in discussion regarding plan of care and addressing questions and concerns, reviewing the EMR and paper chart, reviewing diagnostic studies, laboratory values, and recommendations. I provided a substantive portion of the care of this patient. I personally performed the MDM for this encounter. * Dickson Bruner MD - 04/16/2024 7:15 AM STONEMASON APPRENTICE Neurocritical Care Progress Note Consulted by stroke for medical mgmt of stroke History Of Present Illness Madeleine Humphries, 58 y.o. male a.k.a "Judi" with PMH of Tobacco use, HTN, DM, CAD-IL s/p PCI (stents x 3) on plavix , who presented with acute L-hemiparesis and L-facial droop with LKN around 2 pm on 04/15. His NIHSS was 4 initially, with gait imbalance. CT brain negative for acute bleed. CTA H/N showed a R-M1/M2 occlusion. No contraindications and within window, TNK given 04/15 @ 1539. Interval Events: 04/15: arrives to unit room air; neuro unchanged 04/16: had a fall this morning without headstrike, neurologically unchanged; [facility] pending Past Medical History has no past medical history on file. Surgical History has no past surgical history on file. Family History No family history on file. Social History Social History Tobacco Use Smoking status: Every Day Types: Cigarettes Smokeless tobacco: Current Vaping Use Vaping status: Never Used Substance Use Topics Alcohol use: Never Drug use: Yes Types: Hydrocodone, Oxycodone Allergies Patient has no known allergies. Home Medications No medications prior to admission. Review of Systems ROS all negative except those noted in HPI ASSESSMENT AND PLAN Madeleine Humphries, 58 y.o. male with PMH of CAD s/p stents, HTN, new CHF who presented with R-MCA syndrome now post-TNK NEUROLOGIC Acute ischemic stroke R-MCA, POA Acute Left Hemiparesis, Face droop, Neuro Exam: Awake, answered questions appropriately, following all commands +dysarthria; repetition, fluency, naming intact Pupils 3-4 mm reactive brisk, slight R gaze preference but able to cross midline Left Face droop (dense) RUE/RLE AG without drift LUE AG with drift, LLE AG without drift Etiology: possible embolic, but no clear history of afib, no significant atherosclerotic disease NIHSS 4-5 initially, s/p TNK at 04/15 1539; No IAT CT brain negative for bleed CTA H/N showed a R-M2 occlusion UDS ++ cannabis, cocaine MRI Brain without contrast with diffusion restriction in the right MCA territory involving the R inferior frontal gyrus, frontal operculum, insular cortex, temporal operculum, and R little radiata rCTH pending s/p TNK and fall Echo pending Stroke work-up Hold AP/AC for 24 hours until post-TNK PT/OT/Speech CARDIOVASCULAR History of CAD, POA History of [place] s/p cardiac stents on plavix, POA CHF Hypertension, POA CV Exam: RRR Temp: [36.3 ?C (97.3 ?F)-36.7 ?C (98 ?F)] 36.7 ?C (98 ?F) Heart Rate: [66-102] 71 Resp: [10-39] 17 BP: (103-160)/(71-110) 103/71 VS Parameters: SBP<180 PRN labetalol Home meds: plavix, lisinopril, metoprolol, metformin, mucinex; pending med rec techs EKG sinus rhythm TTE pending Trops 32 BNP 304 No a-line No central line PULMONARY Pulmonary venous congestion Pulm Exam: breathing comfortably on room air Room air, sP02 goal >90% CPT and Duo nebs q4 hours CXR -> lung congestion and cardiomegaly S/p lasix 40 mg IV once for concern for volume overload GASTROINTESTINAL GI Exam: soft, non-distended, present bowl sounds Nutrition: Current Order: NPO Diet GI route: pending swallow/INSPECTOR DIALS evaluation; no access at present GI ppx: not warranted bowel regimen: miralax, senna last BM 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 No results found for: "ALT", "AST", "GGT", "ALKPHOS", "BILITOT" RENAL CHRISTOS, on arrival Intake/Output Summary (Last 24 hours) at 04/16/2024 0715 Last data filed at 04/16/2024 0400 Gross per 24 hour Intake 1004 ml Output 1850 ml Net -846 ml Results from last 7 days Lab Units 04/16/24 0008 04/15/24 1529 SODIUM mEq/L 141 138 POTASSIUM mEq/L 3.8 4.0 CHLORIDE mEq/L 108* 109* CO2 mEq/L 23.6 22.9 BUN mg/dL 15 19 CREATININE mg/dL 1.09 1.31* CK 50 no need to trend ICU electrolyte replacement protocol IV 500 ml bolus received on arrival No maintenance IVF in the setting of CHF and lung congestion no cooper INFECTIOUS DISEASE Temp (24hrs), Av.5 ?C (97.7 ?F), Min:36.3 ?C (97.3 ?F), Max:36.7 ?C (98 ?F) Results from last 7 days Lab Units 04/16/24 0009 04/15/24 1529 WBC 10*3/uL 8.13 7.17 UA not infectious Monitor trend fever curve and WBC no ABX indicated HEMATOLOGIC Results from last 7 days Lab Units 04/16/24 0009 04/15/24 1529 HEMOGLOBIN g/dL 16.7 17.1 PLATELETS 10*3/uL 251 250 INR -- 0.89 PTT Seconds -- 22.1* No active signs of bleeding DVT ppx: SCDs; sc heparin 24 hours post TNK - today at 1600 ENDOCRINE T2DM Results from last 7 days Lab Units 04/16/24 0008 04/15/24 1603 04/15/24 1529 GLUCOSE mg/dL 187* -- 279* HEMOGLOBIN A1C % -- 10.05* -- CHOLESTEROL mg/dL -- 192 -- TRIGLYCERIDES mg/dL -- 135 -- HDL CHOLESTEROL mg/dL -- 54.3 -- BG goal 80-180 medium-dose ISS MUSCULOSKELETAL AND INTEGUMENTARY Skin Exam: warm, dry, intact Code Status: No Order Disposition: [place] [place] [facility] ICU Ph #[phone] [facility]2024-12-28 14:55:57Scheduled Orders Scheduled Referrals Name Type Priority Associated Diagnoses Orde r Schedule Ambulatory referral to Physical Therapy Outpatient Referral Routine Cerebrovascular accident (CVA) due to occlusion of right middle cerebral artery (HCC) Expected: 04/25/2024 (Approximate), Expires: 04/25/2025 Ambulatory referral to Occupational Therapy Outpatient Referral Routine Cerebrovascular accident (CVA) due to occlusion of right middle cerebral artery (HCC) Expected: 04/25/2024 (Approximate), Expires: 04/25/2025 Ambulatory referral to Speech Therapy Outpatient Referral Routine Cerebrovascular accident (CVA) due to occlusion of right middle cerebral artery (HCC) Expected: 04/25/2024 (Approximate), Expires: 04/25/2025 Ambulatory referral to Neurology Outpatient Referral Routine Cerebrovascular accident (CVA) due to occlusion of right middle cerebral artery (HCC) Expected: 04/25/2024 (Approximate), Expires: 04/25/2025 Ambulatory referral to Cardiac Electrophysiology Outpatient Referral Routine History of CAD (coronary artery disease) Expected: 04/25/2024 (Approximate), Expires: 04/25/2025 OP Referral to Primary Care Provider Outpatient Referral Routine Cerebrovascular accident (CVA) due to occlusion of right middle cerebral artery (HCC) Expected: 04/25/2024 (Approximate), Expires: 04/25/2025 Health Maintenance Due Date Last Done Comments CT Colonography 1967 Colonoscopy 1967 Colorectal Cancer Screening 1967 FIT-DNA 1967 FIT 1967 FOBT 1967 Sigmoidoscopy 1967 Annual Physical 1970 Pneumococcal Vaccine: Pediat rics (0 to 5 Years) and At-Risk Patients (6 to 64 Years) (1 of 2 - PCV) 1973 Diabetes: Foot Exam 1977 Diabetes: Retinopathy Screening 1977 DTaP/Tdap/Td Vaccines (1 - Tdap) 1986 Hepatitis A Vaccines (1 of 2 - Risk 2-dose series) 1986 Hepatitis B Vaccines (1 of 3 - 19+ 3-dose series) 1986 Zoster Vaccines (1 of 2) 2017 Influenza Vaccine (#1) 2023 Diabetes: Hemoglobin A1C 07/14/2024 04/15/2024 Lipid Panel 04/15/2025 04/15/2024 HIB Vaccines Aged Out No longer eligi ble based on patient's age to complete this topic HPV Vaccines Aged Out No longer eligi ble based on patient's age to complete this topic IPV Vaccines Aged Out No longer eligi ble based on patient's age to complete this topic Meningococcal Vaccine Aged Out No debbie santhosh eligible based on patient's age to complete this topic Rotavirus Vaccines Aged Out No longer eligible based on patient's age to complete this topic [id number] 14:55:57Community Resource Recommendations [facility] [id number] 14:55:57 [facility] [id number] 14:55:57 Diagnosis Acute ischemic stroke (HCC) - Primary Unspecified cerebral artery occlusion with cerebral infarction Cerebrovascular accident (CV A) due to occlusion of right middle cerebral artery (HCC) Heart failure (HCC) Unspecified heart failure Cardiomyopathy (HCC) Other primary cardiomyopathies Type 2 diabetes mellitus wit hout complication, without long-term current use of insulin (CMS/HCC) (HCC) History of CAD (coronary art raul disease) Heart failure (HCC) Unspecified heart failure Smoker Tobacco use disorder Hypertensive disorder Unspecified essential hypertension History of CAD (coronary art raul disease) Type 2 diabetes mellitus wit h diabetic chronic kidney disease (HCC) Type 2 diabetes mellitus (HC C) LV (left ventricular) mural thrombus Acute myocardial infarction, unspecified site, episode of care unspecified Cardiomyopathy (HCC) Other primary cardiomyopathies Chronic systolic heart failure (CMS/HCC) (HCC) Chronic systolic heart failure Heart failure (HCC) Unspecified heart failure Cardiomyopathy (HCC) Other primary cardiomyopathies [facility] [id number] 14:55:57 [facility] [id number] 14:06:39 Currently waiting for pts meds to be delivered so that pt can be discharged [facility]2024-12-28 13:23:59 Images from the original note were not included. [id number] Warfarin Brand Name(s): Coumadin?, Jantoven?; also available generically IMPORTANT WARNING: Warfarin may cause severe bleeding that can be life-threatening and even cause . Tell your doctor if you have or have ever had a blood or bleeding disorder; bleeding problems, especially in your stomach or your esophagus (tube from the throat to the stomach), intestines, urinary tract or bladder, or lungs; high blood pressure; heart attack; angina (chest pain or pressure); heart disease; pericarditis (swelling of the lining (sac) around the heart); endocarditis (infection of one or more heart valves); a stroke or ministroke; aneurysm (weakening or tearing of an artery or vein); anemia (low number of red blood cells in the blood); cancer; chronic diarrhea; or kidney, or liver disease. Also tell your doctor if you fall often or have had a recent serious injury or surgery. Bleeding is more likely during warfarin treatment for people over 65 years of age, and it is also more likely during the first month of warfarin treatment. Bleeding is also more likely to occur for people who take high doses of warfarin, or take this medication for a long time. The risk for bleeding while taking warfarin is also higher for people participating in an activity or sport that may result in serious injury. Tell your doctor and pharmacist if you are taking or plan to take any prescription or nonprescription medications, vitamins, nutritional supplements, and herbal or botanical products (See SPECIAL PRECAUTIONS), as some of these products may increase the risk for bleeding while you are taking warfarin. If you experience any of the following symptoms, call your doctor immediately: pain, swelling, or discomfort, bleeding from a cut that does not stop in the usual amount of time, nosebleeds or bleeding from your gums, coughing up or vomiting blood or material that looks like coffee grounds, unusual bleeding or bruising, increased menstrual flow or vaginal bleeding, pink, red, or dark brown urine, red or tarry black bowel movements, headache, dizziness, or weakness. Some people may respond differently to warfarin based on their heredity or genetic make-up. Your doctor may order a blood test to help find the dose of warfarin that is best for you. Warfarin prevents blood from clotting so it may take longer than usual for you to stop bleeding if you are cut or injured. Avoid activities or sports that have a high risk of causing injury. Call your doctor if bleeding is unusual or if you fall and get hurt, especially if you hit your head. Keep all appointments with your doctor and the laboratory. Your doctor will order a blood test (PT [prothrombin test] reported as INR [international normalized ratio] value) regularly to check your body's response to warfarin. If your doctor tells you to stop taking warfarin, the effects of this medication may last for 2 to 5 days after you stop taking it. Your doctor or pharmacist will give you the steel detailer's patient information sheet (Medication Guide) when you begin treatment with warfarin and each time you refill your prescription. Read the information carefully and ask your doctor or pharmacist if you have any questions. You can also visit the Food and Drug Administration (FDA) website (https://www.fda.gov/downloads/Drugs/DrugSafety/yag443752.pdf) or the steel detailer's website to obtain the Medication Guide. Talk to your doctor about the risk(s) of taking warfarin. WHY is this medicine prescribed? Warfarin is used to prevent blood clots from forming or growing larger in your blood and blood vessels. It is prescribed for people with certain types of irregular heartbeat, people with prosthetic (replacement or mechanical) heart valves, and people who have suffered a heart attack. Warfarin is also used to treat or prevent venous thrombosis (swelling and blood clot in a vein) and pulmonary embolism (a blood clot in the lung). Warfarin is in a class of medications called anticoagulants ('blood thinners'). It works by decreasing the clotting ability of the blood. HOW should this medicine be used? Warfarin comes as a tablet to take by mouth. It is usually taken once a day with or without food. Take warfarin at around the same time every day. Follow the directions on your prescription label carefully, and ask your doctor or pharmacist to explain any part you do not understand. Take warfarin exactly as directed. Do not take more or less of it or take it more often than prescribed by your doctor. Call your doctor immediately if you take more than your prescribed dose of warfarin. Your doctor will probably start you on a low dose of warfarin and gradually increase or decrease your dose based on the results of your blood tests. Make sure you understand any new dosing instructions from your doctor. Continue to take warfarin even if you feel well. Do not stop taking warfarin without talking to your doctor. Are there OTHER USES for this medicine? This medication may be prescribed for other uses; ask your doctor or pharmacist for more information. What SPECIAL PRECAUTIONS should I follow? Before taking warfarin, ? tell your doctor and pharmacist if you are allergic to warfarin, any other medications, or any of the ingredients in warfarin tablets. Ask your pharmacist or check the Medication Guide for a list of the ingredients. ? do not take two or more medications that contain warfarin at the same time. Be sure to check with your doctor or pharmacist if you are uncertain if a medication contains warfarin or warfarin sodium. ? tell your doctor and pharmacist what prescription and nonprescription medications, vitamins, and nutritional supplements you are taking or plan to take while taking warfarin. Your doctor may change the doses of your medications or monitor you carefully for side effects. ? the following nonprescription or herbal products may interact with warfarin: coenzyme Q10 (Ubidecarenone), Echinacea, garlic, Ginkgo biloba, ginseng, goldenseal, and Anat's wort; omeprazole (Prilosec); famotidine (Pepcid AC); aspirin and nonsteroidal anti-inflammatory drugs (NSAIDS) such as ibuprofen (Advil, Motrin, others) and naproxen (Aleve). Be sure to let your doctor and pharmacist know that you are taking these medications before you start taking warfarin. Do not start any of these medications while taking warfarin without discussing with your healthcare provider. ? tell your doctor if you have or have ever had diabetes. Also tell your doctor if you have an infection, a gastrointestinal illness such as diarrhea, or sprue (an allergic reaction to protein found in grains that causes diarrhea), or an indwelling catheter (a flexible plastic tube that is placed into the bladder to allow the urine to drain out). ? Tell your doctor if you are , think you might be , or plan to become while taking warfarin. women should not take warfarin unless they have a mechanical heart valve. Talk to your doctor about the use of effective control while taking warfarin. If you become while taking warfarin, call your doctor immediately. Warfarin may harm the fetus. ? tell your doctor if you are breast-feeding. ? if you are having surgery, including dental surgery, or any type of medical or dental procedure, tell the doctor or dentist that you are taking warfarin. Your doctor may tell you to stop taking warfarin before the surgery or procedure or change your dosage of warfarin before the surgery or procedure. Follow your doctor's directions carefully and keep all appointments with the laboratory if your doctor orders blood tests to find the best dose of warfarin for you. ? ask your doctor about the safe use of alcoholic beverages while you are taking warfarin. ? tell your doctor if you use tobacco products. Cigarette smoking may decrease the effectiveness of this medication. What SPECIAL DIETARY instructions should I follow? Eat a normal, healthy diet. Some foods and beverages, particularly those that contain vitamin K, can affect how warfarin works for you. Ask your doctor or pharmacist for a list of foods that contain vitamin K. Eat consistent amounts of vitamin K-containing food on a [id number] basis. Do not eat large amounts of leafy, green vegetables or certain vegetable oils that contain large amounts of vitamin K. Be sure to talk to your doctor before you make any changes in your diet. Talk to your doctor about eating grapefruit and drinking grapefruit juice while taking this medication. What should I do IF I FORGET to take a dose? Take the missed dose as soon as you remember it, if it is the same day that you were to take the dose. Do not take a double dose the next day to make up for a missed one. Call your doctor if you miss a dose of warfarin. What SIDE EFFECTS can this medicine cause? Warfarin may cause side effects. Tell your doctor if any of these symptoms are severe or do not go away: ? gas ? abdominal pain ? bloating ? change in the way things taste ? loss of hair ? feeling cold or having chills If you experience any of the following symptoms, or those listed in the IMPORTANT WARNING section, call your doctor immediately: ? hives ? rash ? itching ? difficulty breathing or swallowing ? swelling of the face, throat, tongue, lips, or eyes ? hoarseness ? chest pain or pressure ? swelling of the hands, feet, ankles, or lower legs ? fever ? infection ? nausea ? vomiting ? diarrhea ? extreme tiredness ? lack of energy ? loss of appetite ? pain in the upper right part of the stomach ? yellowing of the skin or eyes ? flu-like symptoms You should know that warfarin may cause necrosis or gangrene ( of skin or other body tissues). Call your doctor immediately if you notice a purplish or darkened color to your skin, skin changes, ulcers, or an unusual problem in any area of your skin or body, or if you have a severe pain that occurs suddenly, or color or temperature change in any area of your body. Call your doctor immediately if your toes become painful or become purple or dark in color. You may need medical care right away to prevent amputation (removal) of your affected body part. Warfarin may cause other side effects. Call your doctor if you have any unusual problems while taking this medication. What should I know about STORAGE and DISPOSAL of this medication? Keep this medication in the container it came in, tightly closed, and out of reach of children. Store it at room temperature and away from excess heat, moisture (not in the bathroom), and light. Unneeded medications should be disposed of in special ways to ensure that pets, children, and other people cannot consume them. However, you should not flush this medication down the toilet. Instead, the best way to dispose of your medication is through a medicine take-back program. Talk to your pharmacist or contact your local garbage/recycling department to learn about take-back programs in your community. See the FDA's Safe Disposal of Medicines website (https://goo.gl/c4Rm4p) for more information if you do not have access to a take-back program. It is important to keep all medication out of sight and reach of children as many containers (such as weekly pill minders and those for eye drops, creams, patches, and inhalers) are not child-resistant and young children can open them easily. To protect young children from poisoning, always lock safety caps and immediately place the medication in a safe location -- one that is up and away and out of their sight and reach. https://www.upandaway.org What should I do in case of OVERDOSE? In case of overdose, call the poison control helpline at . Information is also available online at https://www.poisonhelp.org/help. If the victim has collapsed, had a seizure, has trouble breathing, or can't be awakened, immediately call emergency services at [phone]. Symptoms of overdose may include the following: ? bloody or red, or tarry bowel movements ? spitting or coughing up blood ? heavy bleeding with your menstrual period ? pink, red, or dark brown urine ? coughing up or vomiting material that looks like coffee grounds ? small, flat, round red spots under the skin ? unusual bruising or bleeding ? continued oozing or bleeding from minor cuts What OTHER INFORMATION should I know? Carry an identification card or wear a bracelet stating that you take warfarin. Ask your pharmacist or doctor how to obtain this card or bracelet. List your name, medical problems, medications and dosages, and doctor's name and telephone number on the card. Tell all your healthcare providers that you take warfarin. Do not let anyone else take your medication. Ask your pharmacist any questions you have about refilling your prescription. It is important for you to keep a written list of all of the prescription and nonprescription (mqhi-hes-ihhjbsb) medicines you are taking, as well as any products such as vitamins, minerals, or other dietary supplements. You should bring this list with you each time you visit a doctor or if you are admitted to a hospital. It is also important information to carry with you in case of emergencies. This report on medications is for your information only, and is not considered individual patient advice. Because of the changing nature of drug information, please consult your physician or pharmacist about specific clinical use. [employer] [employer] represents that the information provided hereunder was formulated with a reasonable standard of care, and in conformity with professional standards in the field. [employer] [employer] makes no representations or warranties, express or implied, including, but not limited to, any implied warranty of [facility] and/or fitness for a particular purpose, with respect to such information and specifically disclaims all such warranties. Users are advised that decisions regarding drug therapy are complex medical decisions requiring the independent, informed decision of an appropriate health memory care program director, and the information is provided for informational purposes only. The entire monograph for a drug should be reviewed for a thorough understanding of the drug's actions, uses and side effects. [employer] [employer] does not endorse or recommend the use of any drug. The information is not a substitute for medical care. AHFS? Patient Medication Information?. ? Copyright, 2023. [employer]?, [address], [address], [place], [place]. All Rights Reserved. Duplication for commercial use must be authorized by [facility]. Selected Revisions: October 11, 2016. AHFS? Patient Medication Information?. ? Copyright, 2023 [facility] 13:23:55 Images from the original note were not included. Warfarin - Video Learn how Warfarin works to prevent blood clots from forming, getting bigger, or traveling through the body. Also, learn the possible side effects to be aware of, and how to properly use and store this medication. To view the video go to this web address: [email or web address] Or, scan this QR code with your smart phone ? [facility] 13:23:44 Images from the original note were not included. [id number] Lisinopril Brand Name(s): Prinivil?, Qbrelis?, Zestril?, Zestoretic? (containing Hydrochlorothiazide, Lisinopril); also available generically IMPORTANT WARNING: Do not take lisinopril if you are . If you become while taking lisinopril, call your doctor immediately. Lisinopril may harm the fetus. WHY is this medicine prescribed? Lisinopril is used alone or in combination with other medications to treat high blood pressure in adults and children 6 years of age and older. It is used in combination with other medications to treat heart failure. Lisinopril is also used to improve survival after a heart attack. Lisinopril is in a class of medications called angiotensin-converting enzyme (LIZZY) inhibitors. It works by decreasing certain chemicals that tighten the blood vessels, so blood flows more smoothly and the heart can pump blood more efficiently. High blood pressure is a common condition and when not treated, can cause damage to the brain, heart, blood vessels, kidneys, and other parts of the body. Damage to these organs may cause heart disease, a heart attack, heart failure, stroke, kidney failure, loss of vision, and other problems. In addition to taking medication, making lifestyle changes will also help to control your blood pressure. These changes include eating a diet that is low in fat and salt, maintaining a healthy weight, exercising at least 30 minutes most days, not smoking, and using alcohol in moderation. HOW should this medicine be used? Lisinopril comes as a tablet and a solution (liquid) to take by mouth. It is usually taken once a day. To help you remember to take lisinopril, take it around the same time every day. Follow the directions on your prescription label carefully, and ask your doctor or pharmacist to explain any part you do not understand. Take lisinopril exactly as directed. Do not take more or less of it or take it more often than prescribed by your doctor. If you are taking the solution, do not use a household spoon to measure your dose. Use an oral syringe made especially for measuring liquid medication. Your doctor will probably start you on a low dose of lisinopril and gradually increase your dose. Lisinopril controls your condition, but it is not a cure. Continue to take lisinopril even if you feel well. Do not stop taking lisinopril without talking to your doctor. Are there OTHER USES for this medicine? This medication may be prescribed for other uses; ask your doctor or pharmacist for more information. What SPECIAL PRECAUTIONS should I follow? Before taking lisinopril, ? tell your doctor and pharmacist if you are allergic to lisinopril; other LIZZY inhibitors such as enalapril (Vasotec, in Vaseretic), benazepril (Lotensin, in Lotrel), captopril (Capoten), fosinopril (Monopril), moexipril (Univasc, in Uniretic), perindopril (Aceon), quinapril (Accupril, in Accuretic, in Quinaretic), ramipril (Altace), and trandolapril (Mavik, in Tarka); any other medications; or any ingredients in lisinopril tablets and solution. Ask your pharmacist for a list of the ingredients. ? tell your doctor or pharmacist if you are taking valsartan and sacubitril (Entresto) or if you have stopped taking it within the last 36 hours. Your doctor will probably tell you not to take lisinopril, if you are also taking valsartan and sacubitril. Also, tell your doctor if you have diabetes and you are taking aliskiren (Tekturna, in Amturnide, Tekamlo, Tekturna HCT). Your doctor will probably tell you not to take lisinopril if you have diabetes and you are also taking aliskiren. ? some medications should not be taken with lisinopril. Other medications may cause dosing changes or extra monitoring when taken with lisinopril. Make sure you have discussed any medications you are currently taking or plan to take before starting lisinopril with your doctor and pharmacist. Before starting, stopping, or changing any medications while taking lisinopril, please get the advice of your doctor or pharmacist. ? the following nonprescription products may interact with lisinopril: aspirin and nonsteroidal anti-inflammatory drugs (NSAIDS) such as ibuprofen (Advil, Motrin, others) and naproxen (Aleve); potassium supplements. Be sure to let your doctor and pharmacist know that you are taking these medications before you start taking lisinopril. Do not start any of these medications while taking lisinopril without discussing with your healthcare provider. ? tell your doctor if you have or have had certain types of angioedema (a condition that causes difficulty swallowing or breathing and painful swelling of the face, throat, tongue, lips, eyes, hands, feet, ankles, or lower legs). Your doctor will probably tell you not to take lisinopril. ? tell your doctor if you have or have ever had heart or kidney disease or diabetes. ? tell your doctor if you are . ? if you are having surgery, including dental surgery, tell the doctor or dentist that you are taking lisinopril. ? you should know that diarrhea, vomiting, not drinking enough fluids, and sweating a lot can cause a drop in blood pressure, which may cause lightheadedness and fainting. What SPECIAL DIETARY instructions should I follow? Talk to your doctor before using salt substitutes containing potassium. If your doctor prescribes a low-salt or low-sodium diet, follow these directions carefully. What should I do IF I FORGET to take a dose? Take the missed dose as soon as you remember it. However, if it is almost time for the next dose, skip the missed dose and continue your regular dosing schedule. Do not take a double dose to make up for a missed one. What SIDE EFFECTS can this medicine cause? Lisinopril may cause side effects. Tell your doctor if any of these symptoms are severe or do not go away: ? cough ? dizziness ? headache ? excessive tiredness ? nausea ? diarrhea ? weakness ? sneezing ? runny nose ? decrease in sexual ability ? rash Some side effects can be serious. If you experience any of these symptoms, call your doctor immediately: ? swelling of the face, throat, tongue, lips, eyes, hands, feet, ankles, or lower legs ? hoarseness ? difficulty breathing or swallowing ? fever, sore throat, chills, and other signs of infection ? yellowing of the skin or eyes ? lightheadedness ? fainting ? chest pain Lisinopril may cause other side effects. Call your doctor if you have any unusual problems while taking this medication. If you experience a serious side effect, you or your doctor may send a report to the Food and Drug Administration's (FDA) MedWatch Adverse Event Reporting program online (https://www.fda.gov/Safety/MedWatch) or by phone ( ). What should I know about STORAGE and DISPOSAL of this medication? Keep this medication in the container it came in, tightly closed, and out of reach of children. Store it at room temperature and away from excess heat and moisture (not in the bathroom). It is important to keep all medication out of sight and reach of children as many containers (such as weekly pill minders and those for eye drops, creams, patches, and inhalers) are not child-resistant and young children can open them easily. To protect young children from poisoning, always lock safety caps and immediately place the medication in a safe location -- one that is up and away and out of their sight and reach. https://www.[employer].org Unneeded medications should be disposed of in special ways to ensure that pets, children, and other people cannot consume them. However, you should not flush this medication down the toilet. Instead, the best way to dispose of your medication is through a medicine take-back program. Talk to your pharmacist or contact your local garbage/recycling department to learn about take-back programs in your community. See the FDA's Safe Disposal of Medicines website (https://goo.gl/c4Rm4p) for more information if you do not have access to a take-back program. What should I do in case of OVERDOSE? In case of overdose, call the poison control helpline at . Information is also available online at https://www.poisonhelp.org/help. If the victim has collapsed, had a seizure, has trouble breathing, or can't be awakened, immediately call emergency services at [phone]. Symptoms of overdose may include the following: ? lightheadedness ? fainting What OTHER INFORMATION should I know? Keep all appointments with your doctor and the laboratory. Your blood pressure should be checked regularly to determine your response to lisinopril. Your doctor may order certain lab tests to check your body's response to lisinopril. Do not let anyone else take your medication. Ask your pharmacist any questions you have about refilling your prescription. It is important for you to keep a written list of all of the prescription and nonprescription (ozif-bnk-cgxzsgr) medicines you are taking, as well as any products such as vitamins, minerals, or other dietary supplements. You should bring this list with you each time you visit a doctor or if you are admitted to a hospital. It is also important information to carry with you in case of emergencies. This report on medications is for your information only, and is not considered individual patient advice. Because of the changing nature of drug information, please consult your physician or pharmacist about specific clinical use. [employer] [employer] represents that the information provided hereunder was formulated with a reasonable standard of care, and in conformity with professional standards in the field. [employer] [employer] makes no representations or warranties, express or implied, including, but not limited to, any implied warranty of merchantability and/or fitness for a particular purpose, with respect to such information and specifically disclaims all such warranties. Users are advised that decisions regarding drug therapy are complex medical decisions requiring the independent, informed decision of an appropriate health memory care program director, and the information is provided for informational purposes only. The entire monograph for a drug should be reviewed for a thorough understanding of the drug's actions, uses and side effects. [employer] [employer] does not endorse or recommend the use of any drug. The information is not a substitute for medical care. AHFS? Patient Medication Information?. ? Copyright, 2023. [employer]?, [address], [address], [place], [place]. All Rights Reserved. Duplication for commercial use must be authorized by [facility]. Selected Revisions: June 13, 2020. AHFS? Patient Medication Information?. ? Copyright, 2023 [facility]2024-12-28 13:23:35 Images from the original note were not included. [id number] Atorvastatin Brand Name(s): Atorvaliq?, Lipitor?, Caduet? (as a combination product containing Amlodipine, Atorvastatin), Lipqozet? (as a combination product containing Atorvastatin, Ezetimibe), Liptruzet? (as a combination product containing Atorvastatin, Ezetimibe); also available generically WHY is this medicine prescribed? Atorvastatin is used together with diet, weight loss, and exercise to reduce the risk of heart attack and stroke and to decrease the chance that heart surgery will be needed in people who have heart disease or who are at risk of developing heart disease. Atorvastatin is also used to decrease the amount of fatty substances such as low-density lipoprotein (LDL) cholesterol ('bad cholesterol') and triglycerides in the blood and to increase the amount of high-density lipoprotein (HDL) cholesterol ('good cholesterol') in the blood. Atorvastatin may also be used to decrease the amount of cholesterol and other fatty substances in the blood in children and teenagers 10 to 17 years of age who have familial heterozygous hypercholesterolemia (an inherited condition in which cholesterol cannot be removed from the body normally). Atorvastatin is in a class of medications called HMG-CoA reductase inhibitors (statins). It works by slowing the production of cholesterol in the body to decrease the amount of cholesterol that may build up on the terrell of the arteries and block blood flow to the heart, brain, and other parts of the body. Accumulation of cholesterol and fats along the terrell of your arteries (a process known as atherosclerosis) decreases blood flow and, therefore, the oxygen supply to your heart, brain, and other parts of your body. Lowering your blood level of cholesterol and fats with atorvastatin has been shown to prevent heart disease, angina (chest pain), strokes, and heart attacks. HOW should this medicine be used? Atorvastatin comes as a tablet and suspension (liquid) to take by mouth. The tablet is usually taken once a day with or without food. The suspension is usually taken once a day on an empty stomach (at least 1 hour before or 2 hours after a meal).Take atorvastatin at around the same time every day. Follow the directions on your prescription label carefully, and ask your doctor or pharmacist to explain any part you do not understand. Take atorvastatin exactly as directed. Do not take more or less of it or take it more often than prescribed by your doctor. Your doctor may start you on a low dose of atorvastatin and gradually increase your dose, not more than once every 2 to 4 weeks. If you are taking the suspension, do not use a household spoon to measure your dose. Use a properly marked measuring device such as a medicine spoon or oral syringe. Ask your doctor or pharmacist if you need help getting or using a measuring device. Continue to take atorvastatin even if you feel well. Do not stop taking atorvastatin without talking to your doctor. Are there OTHER USES for this medicine? This medication may be prescribed for other uses; ask your doctor or pharmacist for more information. What SPECIAL PRECAUTIONS should I follow? Before taking atorvastatin, ? tell your doctor and pharmacist if you are allergic to atorvastatin, any other medications, or any of the ingredients in atorvastatin tablets and suspension. Ask your pharmacist for a list of the ingredients. ? Tell your doctor and pharmacist what prescription and nonprescription medications, vitamins, nutritional supplements, and herbal products you are taking or plan to take while taking atorvastatin. Your doctor may need to change the doses of your medications or monitor you carefully for side effects. ? The following nonprescription products may interact with atorvastatin: cimetidine (Tagamet), and niacin. Be sure to let your doctor and pharmacist know that you are taking these medications before you start taking atorvastatin. Do not start any of these medications while taking atorvastatin without discussing with your healthcare provider. ? tell your doctor if you have or ever had liver disease. Your doctor will order laboratory tests to see how well your liver is working even if you do not think you have liver disease. Your doctor will probably tell you not to take atorvastatin if you have liver disease or if the tests show you may be developing liver disease. ? tell your doctor if you drink more than 2 alcoholic beverages daily, if you are 65 years of age or older, and if you have or have ever had muscle aches or weakness, diabetes, seizures, low blood pressure, or thyroid or kidney disease. ? tell your doctor if you are or plan to become . If you become while taking atorvastatin, stop taking atorvastatin and call your doctor immediately. Atorvastatin may harm the fetus. ? tell your doctor if you are or plan to breastfeed. You should not breastfeed while you are taking this medication. ? if you are having surgery, including dental surgery, tell the doctor or dentist that you are taking atorvastatin. If you are hospitalized due to serious injury or infection, tell the doctor who treats you that you are taking atorvastatin. ? ask your doctor about the safe use of alcoholic beverages while you are taking atorvastatin. Alcohol can increase the risk of serious side effects. What SPECIAL DIETARY instructions should I follow? Eat a low-fat, low-cholesterol diet. Be sure to follow all exercise and dietary recommendations made by your doctor or dietitian. You can also visit the National Cholesterol Education Program (NCEP) website for additional dietary information at https://www.nhlbi.nih.gov/health/public/heart/chol/chol_tlc.pdf. Avoid drinking large amounts [more than 1.2 liter (approximately 1 quart) per day] of grapefruit juice while taking atorvastatin. What should I do IF I FORGET to take a dose? If you miss a dose of the tablet, skip the missed dose and continue your regular dosing schedule. Do not take a double dose to make up for a missed one. If you miss a dose of the suspension, take the missed dose as soon as you remember it. However, if it is less than 12 hours until your next scheduled dose, skip the missed dose and continue your regular dosing schedule. Do not take a double dose to make up for a missed one. What SIDE EFFECTS can this medicine cause? Atorvastatin may cause side effects. Tell your doctor if any of these symptoms are severe or do not go away: ? diarrhea ? heartburn ? gas ? joint pain ? forgetfulness or memory loss ? confusion Some side effects can be serious. The following symptoms are uncommon, but if you experience any of them, call your doctor or get emergency medical help immediately: ? muscle pain, tenderness, or weakness ? lack of energy ? fever ? chest pain ? nausea ? extreme tiredness ? weakness ? unusual bleeding or bruising ? loss of appetite ? pain in the upper right part of the stomach ? flu-like symptoms ? dark colored urine ? yellowing of the skin or eyes ? rash ? hives ? itching ? difficulty breathing or swallowing ? swelling of the face, throat, tongue, lips, eyes, hands, feet, ankles, or lower legs ? hoarseness Atorvastatin may cause other side effects. Call your doctor if you have any unusual problems while taking this medication. If you experience a serious side effect, you or your doctor may send a report to the Food and Drug Administration's (FDA) MedWatch Adverse Event Reporting program online (https://www.fda.gov/Safety/MedWatch) or by phone ( ). What should I know about STORAGE and DISPOSAL of this medication? Keep this medication in the container it came in, tightly closed, and out of reach of children. Store it at room temperature and away from excess heat and moisture (not in the bathroom). Unneeded medications should be disposed of in special ways to ensure that pets, children, and other people cannot consume them. However, you should not flush this medication down the toilet. Instead, the best way to dispose of your medication is through a medicine take-back program. Talk to your pharmacist or contact your local garbage/recycling department to learn about take-back programs in your community. See the FDA's Safe Disposal of Medicines website (https://goo.gl/c4Rm4p) for more information if you do not have access to a take-back program. It is important to keep all medication out of sight and reach of children as many containers (such as weekly pill minders and those for eye drops, creams, patches, and inhalers) are not child-resistant and young children can open them easily. To protect young children from poisoning, always lock safety caps and immediately place the medication in a safe location -- one that is up and away and out of their sight and reach. https://www.upandaway.org What should I do in case of OVERDOSE? In case of overdose, call the poison control helpline at . Information is also available online at https://www.poisonhelp.org/help. If the victim has collapsed, had a seizure, has trouble breathing, or can't be awakened, immediately call emergency services at [phone]. What OTHER INFORMATION should I know? Keep all appointments with your doctor and the laboratory. Your doctor may order certain lab tests during your treatment , especially if you develop symptoms of liver damage. Before having any laboratory test, tell your doctor and the laboratory personnel that you are taking atorvastatin. Do not let anyone else take your medication. Ask your pharmacist any questions you have about refilling your prescription. It is important for you to keep a written list of all of the prescription and nonprescription ([id number]) medicines you are taking, as well as any products such as vitamins, minerals, or other dietary supplements. You should bring this list with you each time you visit a doctor or if you are admitted to a hospital. It is also important information to carry with you in case of emergencies. This report on medications is for your information only, and is not considered individual patient advice. Because of the changing nature of drug information, please consult your physician or pharmacist about specific clinical use. The [employer] represents that the information provided hereunder was formulated with a reasonable standard of care, and in conformity with professional standards in the field. [employer] makes no representations or warranties, express or implied, including, but not limited to, any implied warranty of merchantability and/or fitness for a particular purpose, with respect to such information and specifically disclaims all such warranties. Users are advised that decisions regarding drug therapy are complex medical decisions requiring the independent, informed decision of an appropriate health memory care program director, and the information is provided for informational purposes only. The entire monograph for a drug should be reviewed for a thorough understanding of the drug's actions, uses and side effects. The [employer] does not endorse or recommend the use of any drug. The information is not a substitute for medical care. AHFS? Patient Medication Information?. ? Copyright, 2023. [employer]?, [address], [address], [place], [place]. All Rights Reserved. Duplication for commercial use must be authorized by [facility]. Selected Revisions: November 16, 2023. AHFS? Patient Medication Information?. ? Copyright, 2023 [facility]2024-12-28 02:14:44 Problem: Neurological Deficit Goal: Neurological status is stable or improving Outcome: Progressing Goal: Maintain vital signs within ordered limits Outcome: Progressing Goal: Oxygenation goal greater than 94% Outcome: Progressing The patient is Moderately Unstable - Medium risk of patient condition declining or worsening The patient's goals for the shift include rehab The clinical goals for the shift include stable vitals Over the shift, the patient did not make progress toward the following goals. Barriers to progression include . Recommendations to address these barriers include . [facility]2024-12-27 12:58:14 Spoke with Inna crane with Dr. Gatica's office([phone]) regarding an appointment For next week for patient to have pt/inr checked(goal 2-3). States she will reach out to MD and They will contact patient for appt. Dr. Gatica's office called back regarding f/u. They will see patient next week for pt/inr check patient can walk in for labs, Saturday, or Saturday. Dr. 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 Barriers to progression include physical limitation. Recommendations to address these barriers include encourage participation with pt/ot. [facility]2024-12-26 15:29:05 The patient is Unstable - High likelihood or risk of patient condition declining or worsening The patient's goals for the shift include rehab The clinical goals for the shift include stable vitals Over the shift, the patient did not make progress toward the following goals. Barriers to progression include HR control. Recommendations to address these barriers include possible defib. [facility]2024-12-26 03:28:54 The patient is Moderately Stable - Low risk of patient condition declining or worsening The patient's goals for the shift include ambulation. The clinical goals for the shift include therapeutic PTT. Over the shift, the patient did not make progress toward the following goals. Barriers to progression include non-therapeutic PTT. Recommendations to address these barriers include frequent PTT checks. [facility]2024-12-25 16:29:54 The patient is Moderately Unstable - Medium risk of patient condition declining or worsening The patient's goals for the shift include rehab The clinical goals for the shift include stable vitals and therapeutic INR [facility]2024-12-25 03:54:07 The patient is Moderately Stable - Low risk of patient condition declining or worsening The patient's goals for the shift include ambulation. The clinical goals for the shift include controlled blood pressure. Over the shift, the patient did not make progress toward the following goals. Barriers to progression include patient's weakness. Recommendations to address these barriers include physical therapy. [facility]2024-12-24 08:07:44 The patient is Moderately Stable - Low risk of patient condition declining or worsening The patient's goals for the shift include rehab Problem: Activity Intolerance/Impaired Mobility Goal: Mobility/activity is maintained at optimum level for patient Outcome: Progressing Goal: Maintains or returns to baseline bowel function Outcome: Progressing Goal: Maintains or returns to baseline bladder function Outcome: Progressing The clinical goals for the shift include stable vitals Problem: Activity Intolerance/Impaired Mobility Goal: Mobility/activity is maintained at optimum level for patient Outcome: Progressing Goal: Maintains or returns to baseline bowel function Outcome: Progressing Goal: Maintains or returns to baseline bladder function Outcome: Progressing [facility]2024-12-23 10:53:57 The patient is Moderately Stable - Low risk of patient condition declining or worsening The patient's goals for the shift include eat popcorn The clinical goals for the shift include stable vitals Problem: Activity Intolerance/Impaired Mobility Goal: Mobility/activity is maintained at optimum level for patient Outcome: Progressing Goal: Maintains or returns to baseline bowel function Outcome: Progressing Problem: Neurological Deficit Goal: Neurological status is stable or improving Outcome: Progressing Goal: Maintain vital signs within ordered limits Outcome: Progressing Goal: Oxygenation goal greater than 94% Outcome: Progressing [facility]2024-12-23 04:25:12 The patient is Moderately Unstable - Medium risk of patient condition declining or worsening The patient's goals for the shift include have a good sleep and rest The clinical goals for the shift include safety [facility]2024-12-22 13:19:11 Problem: Neurological Deficit Goal: Neurological status is stable or improving Outcome: Progressing Goal: Maintain vital signs within ordered limits Outcome: Progressing Goal: Oxygenation goal greater than 94% Outcome: Progressing Problem: Activity Intolerance/Impaired Mobility Goal: Mobility/activity is maintained at optimum level for patient Outcome: Progressing Goal: Maintains or returns to baseline bowel function Outcome: Progressing Goal: Maintains or returns to baseline bladder function Outcome: Progressing Problem: Communication Impairment Goal: Ability to express needs and understand communication Outcome: Progressing Problem: Potential for Aspiration Goal: Non-ventilated patient's risk of aspiration is minimized Outcome: Progressing Goal: Ventilated patient's risk of aspiration is minimized Outcome: Progressing Problem: Infection Goal: Signs and symptoms of infections are decreased or avoided Outcome: Progressing Goal: Oral health is maintained or improved Outcome: Progressing Problem: Nutrition Goal: Nutritional status is improving Outcome: Progressing Problem: Thrombolytic Therapy Goal: Monitor for angioedema Outcome: Progressing Goal: Monitor for bleeding for 48 hours post tenectaplase/interventional procedures Outcome: Progressing Problem: Bleeding Precautions Goal: Excessive bleeding will be minimized Outcome: Progressing Problem: Knowledge Deficit Goal: Patient/family/caregiver demonstrates understanding of disease process, treatment plan, medications, and discharge instructions Outcome: Progressing Problem: Potential for Falls Goal: I will remain free of falls Outcome: Progressing [facility]2024-12-21 17:29:49 The patient is Moderately Unstable - Medium risk of patient condition declining or worsening The patient's goals for the shift include safety The clinical goals for the shift include Neuro exam stable [facility]2024-12-21 14:25:17 The patient is Moderately Unstable - Medium risk of patient condition declining or worsening The patient's goals for the shift include The clinical goals for the shift include Neuro exam stable [facility]2024-12-21 03:50:12 The patient is Moderately Stable - Low risk of patient condition declining or worsening The patient's goals for the shift include rest The clinical goals for the shift include stable neuro vs Problem: Neurological Deficit Goal: Neurological status is stable or improving 04/18/2024349 by Zeynep Reyes RN Outcome: Progressing 04/18/2024348 by Zeynep Reyes RN Outcome: Progressing Goal: Maintain vital signs within ordered limits 04/18/2024349 by Zeynep Reyes RN Outcome: Progressing 04/18/2024348 by Zeynep Reyes RN Outcome: Progressing Goal: Oxygenation goal greater than 94% 04/18/2024349 by Zeynep Reyes RN Outcome: Progressing 04/18/2024348 by Zeynep Reyes RN Outcome: Progressing Problem: Activity Intolerance/Impaired Mobility Goal: Mobility/activity is maintained at optimum level for patient 04/18/2024349 by Zeynep Reyes RN Outcome: Progressing 04/18/2024348 by Zeynep Reyes RN Outcome: Progressing Goal: Maintains or returns to baseline bowel function 04/18/2024349 by Zeynep Reyes RN Outcome: Progressing 04/18/2024348 by Zeynep Reyes RN Outcome: Progressing Flowsheets (Taken 04/17/20241999) Maintains or returns to baseline bowel function: Assess bowel function Encourage oral fluids to ensure adequate hydration Administer IV fluids as ordered to ensure adequate hydration Administer ordered medications as needed Encourage mobilization and activity Nutrition consult to assist patient with appropriate food choices Goal: Maintains or returns to baseline bladder function 04/18/2024349 by Zeynep Reyes RN Outcome: Progressing 04/18/2024348 by Zeynep Reyes RN Outcome: Progressing Problem: Communication Impairment Goal: Ability to express needs and understand communication 04/18/2024349 by Zeynep Reyes RN Outcome: Progressing 04/18/2024348 by Zeynep Reyes RN Outcome: Progressing Problem: Potential for Aspiration Goal: Non-ventilated patient's risk of aspiration is minimized 04/18/2024 0350 by Zeynep Reyes RN Outcome: Progressing 04/18/2024 0349 by Zeynep Reyes RN Outcome: Progressing Goal: Ventilated patient's risk of aspiration is minimized 04/18/2024 0350 by Zeynep Reyes RN Outcome: Progressing 04/18/2024 0349 by Zeynep Reyes RN Outcome: Progressing Problem: Potential for Falls Goal: I will remain free of falls Outcome: Progressing [facility] [id number] 16:07:06 [facility] Stroke Clinic Appointment Information VERY IMPORTANT INSTRUCTIONS, PLEASE READ !!! Appointment date: Saturday05/20/2024 @ [address] Ballard. Appt given to patient at bedside. Call Stroke Clinic @ [phone] if you need to cancel or reschedule appointment. You have been scheduled for a (in-person) visit for your stroke follow-up appointment. The address for in-person visits is listed below. Before your visit, please sign-up with Played. You can sign-up using this link: [email or web address] and the activation code sent to your email or phone number. Please sign up at least 72 hours before your appointment. If you did not receive an activation code, please call [phone]. Through Played, you will complete your information, view your medical records, send a message to your provider, and receive clinic forms in your Played inbox necessary to complete your visit. Please, complete the forms in their entirety. If you do not receive a reminder for your appointment within 48 hours of your scheduled appointment date, please call the office at [phone] to ensure that your information is correct. If your phone number or email changes before the appointment date, call the same number to update your information. If you have a telemedicine appointment, just click on the link sent to your phone or email to connect to the visit 15 minutes before your scheduled time. Please plan to arrive 15 minutes early for an in-person appointment. We look forward to seeing you soon. Clinic Address: [address], [address]. [place] [address]. . . Clinic parking ([address]) [email or web address] [facility]2024-12-20 09:01:49 Bedside report given to John vega RN upon arrival in MRI, PT vss, NAD . [facility]2024-12-20 06:30:00 Orders/tea reviewed, monitored pt. Arrived in MRI, VSS, pt. Id'd exam explained will be continuously monitored, ear protection placed, call fried in hand, will be returned to unit on monitor w/ RN [facility]2024-12-20 04:20:27 The patient is Problem: Neurological Deficit Goal: Neurological status is stable or improving Outcome: Progressing The patient's goals for the shift include The clinical goals for the shift include Neuro exam stable Over the shift, the patient did not make progress toward the following goals. Barriers to progression include Problem: Neurological Deficit Goal: Neurological status is stable or improving Outcome: Progressing . Recommendations to address these barriers include Problem: Neurological Deficit Goal: Neurological status is stable or improving Outcome: Progressing . [facility]2024-12-19 18:59:49 Problem: Neurological Deficit Goal: Neurological status is stable or improving Outcome: Progressing Goal: Maintain vital signs within ordered limits Outcome: Progressing Goal: Oxygenation goal greater than 94% Outcome: Progressing Problem: Activity Intolerance/Impaired Mobility Goal: Mobility/activity is maintained at optimum level for patient Outcome: Progressing [facility]2024-12-19 11:33:02 Report called to Amador Puente RN [facility]2024-12-19 07:20:00 Pt climbed over side rail and had a witnessed fall onto his knees. Pt stated he needed to use the restroom. Urinal on bed rail. Pt re-oriented. Pt did not hit head. Enrike ESTEBAN, made aware. MD to bedside to assess patient. CT scan ordered. Wired in bed alarm ordered from . Patient again climbed over side rail but was stopped before another fall occurred. Received and placed under bed with alarm delay set at 0 seconds. [facility]2024-12-18 22:55:00 MRI completed. VS per flowsheet. Report/handoff given to Beth PEACE. Pt transferred back to [address] [place] [address] via hospital bed with monitor in place and RN bedside. [facility]2024-12-18 21:45:00 Pt received in MRI via hospital bed with monitor in place and RN bedside. VSS. Report/handoff from Beth PEACE. Pt educated/instructed re exam. Transferred to scanner table and positioned for comfort. [place] [address]-12-18 19:34:45 Problem: Neurological Deficit Goal: Neurological status is stable or improving Outcome: Ongoing Goal: Maintain vital signs within ordered limits Outcome: Ongoing Goal: Oxygenation goal greater than 94% Outcome: Ongoing Problem: Activity Intolerance/Impaired Mobility Goal: Mobility/activity is maintained at optimum level for patient Outcome: Ongoing Goal: Maintains or returns to baseline bowel function Outcome: Ongoing Goal: Maintains or returns to baseline bladder function Outcome: Ongoing Problem: Communication Impairment Goal: Ability to express needs and understand communication Outcome: Ongoing Problem: Potential for Aspiration Goal: Non-ventilated patient's risk of aspiration is minimized Outcome: Ongoing Problem: Nutrition Goal: Nutritional status is improving Outcome: Ongoing [facility]2024-12-18 15:22:00 EMERGENCY DEPARTMENT PROVIDER NOTE: History of Present Illness: Chief Complaint: Patient presents with Stroke Patient History Madeleine Humphries is a 58 y.o. male with a PMH of IL s/p stents on plavix, HTN, DM who presented to the ED as a code stroke. LNW 1400, patient was with family when had sudden onset of dysarthria, L facial droop and L sided weakness. Symptoms resolved upon [facility] arrival, patient AO x 4, BG 300s, not endorsing chest pain, no history of trauma or dizziness or shortness of breath. No past medical history on file. No past surgical history on file. Physical Exam Vitals: 04/15/24 1610 04/15/24 1624 04/15/24 1639 04/15/24 1654 BP: 131/80 144/76 145/89 145/89 Pulse: 96 97 95 94 Resp: 18 18 16 18 Temp: SpO2: 95% 97% 94% Weight: Height: Physical Exam: Constitutional: General: He is not in acute distress. Appearance: Normal appearance. He is not ill-appearing, toxic-appearing or diaphoretic. HENT: Head: Normocephalic and atraumatic. Right Ear: External ear normal. Left Ear: External ear normal. Mouth/Throat: Mouth: Mucous membranes are moist. Eyes: Extraocular Movements: Extraocular movements intact. Pupils: Pupils are equal, round, and reactive to light. Comments: No gaze preference Cardiovascular: Rate and Rhythm: Normal rate and regular rhythm. Pulses: Normal pulses. Heart sounds: Normal heart sounds. Pulmonary: Effort: Pulmonary effort is normal. Breath sounds: Normal breath sounds. No wheezing or rhonchi. Abdominal: General: Abdomen is flat. There is no distension. Palpations: Abdomen is soft. Tenderness: There is no abdominal tenderness. Musculoskeletal: Cervical back: Normal range of motion. Skin: General: Skin is warm. Neurological: Mental Status: He is alert and oriented to person, place, and time. Cranial Nerves: Cranial nerve deficit present. Sensory: No sensory deficit. Comments: Left-sided facial droop, LUE drift but antigravity ED Course Medical Decision Making Triage Vitals: BP: 143/86, Heart Rate: 96, Temp: 36.3 ?C (97.3 ?F), Resp: 18, SpO2: 97 %, Height: 182.9 cm (6'), Weight: 96.4 kg (212 lb 8.4 oz) Assessment: 58 y.o. male with PMH of [place] s/p stents on Plavix, HTN, DM, who presents with left-sided weakness and facial droop. On arrival, patient afebrile, normotensive, nontachycardic, and saturating >95% on RA. Exam as above but pertinent for left-sided facial droop, left upper extremity drift but antigravity, no longer dysarthric. NIH 4. Will obtain CT head and CTA brain. No evidence of bleed on CT head, CTA showed possible right M2 occlusion, patient was given TNK with improvement of symptoms, walking around the room after TNK. Was admitted to stroke team Differential Diagnoses: ICH, stroke, seizure, hypoglycemia, electrolyte abnormality I personally reviewed the patient's labs and images and my findings are interpreted in the ED course below: ED Course: as of 04/15/241656Apr 15, 2024 165 Glucose Lvl(!): 279 [DA] 1655 WBC: 7.17 [DA] 1655 CT angiogram brain neck STROKE IMPRESSION: * Occlusion of the superior division of the right MCA is favored to be acute. Areas of encephalomalacia and gliosis in the right inferior frontal lobe indicate at least some component of chronic abnormalities in this region. [DA] 1655 CT brain STROKE wo IV contrast IMPRESSION: * No sign of acute cortical infarct or parenchymal hemorrhage. * Small remote prior right frontal lobe and posterior temporal lobe infarcts with encephalomalacia and gliosis. [DA] ED Course: User Index [DA] Alise Oliveira MD Diagnoses as of 04/15/241656 Cerebrovascular accident (CVA) due to occlusion of right middle cerebral artery (HCC) Diagnosis: 1. Cerebrovascular accident (CVA) due to occlusion of right middle cerebral artery (HCC) Disposition: Admit/Observation Labs: Labs Reviewed BASIC METABOLIC PANEL - Abnormal Result Value Glucose Lvl 279 (*) BUN 19 Creatinine Lvl 1.31 (*) Sodium Lvl 138 Potassium Lvl 4.0 Chloride Lvl 109 (*) CO2 Lvl 22.9 Anion Gap 10.1 Calcium Lvl 8.9 eGFR 42 (*) CREATINE KINASE (CK TOTAL) - Abnormal CK Total 50 (*) PTT - Abnormal PTT 22.1 (*) COMPLETE BLOOD COUNT - Abnormal WBC 7.17 RBC 5.78 NRBC % 0.0 Hgb 17.1 Hct 49.5 MCV 85.6 MCH 29.6 MCHC 34.5 RDW - SD 39.5 (*) Plt Count 250 MPV 10.8 UA WITH CULTURE IF INDICATED - Abnormal UA Color Light Yellow UA Turbidity Clear UA Spec Grav 1.035 (*) UA pH 5.0 UA Protein 30 (*) UA Glucose 500 (*) UA Ketones Negative UA Bilirubin Negative UA Blood Negative UA Urobilinogen <=1.0 UA Nitrite Negative UA Leuk Esterase Negative UA Ascorbic Acid Negative UA Sq Epi None Seen UA WBC <1 UA RBC (Num) 1 UA Bacteria Occasional UA Mucus Few UA Hyaline Casts 4 (*) PROTIME-INR - Normal Prothrombin Time (PT) 12.2 INR 0.89 AUTOMATED DIFFERENTIAL - Normal Segs % 70.6 Lymphs % 18.8 Monos % 6.8 Eos % 2.5 Basos % 1.0 Immature Grans % 0.3 Segs # 5.06 Lymphs # 1.35 Monos # 0.49 Eos # 0.18 Basos # 0.07 Imm Grans # 0.02 COMPLETE BLOOD COUNT W/DIFF AND PLATELET Narrative: The following orders were created for panel order Complete Blood Count w/Diff and Platelet. Procedure Abnormality Status --------- ------ Complete Blood Count[[id number]] Abnormal Final result Automated Differential[[id number]] Normal Final result Please view results for these tests on the individual orders. TYPE AND SCREEN LIPID PANEL W/CALCULATED LDL HEMOGLOBIN A1C DRUG SCREEN URINE (8 DRUGS) PLAVIX EFFECT PLATELET POCT GLUCOSE METER POCT GLUCOSE METER POCT GLUCOSE METER Imaging: CT brain STROKE wo IV contrast Final Result CT angiogram brain neck STROKE Final Result XR chest 1 view (Results Pending) MRI brain wo IV contrast (Results Pending) Applicable prescriptions New Prescriptions No medications on file Alise Oliveira DO Emergency Medicine, PGY-2 04/15/24 4:57 PM Alise Oliveira MD Resident 04/15/241908 Cosigned by Jayashree Mccartney MD at 04/15/2024 7:20 PM STONEMASON APPRENTICE EMASON APPRENTICE EMASON APPRENTICE Associated attestation - Jayashree Mccartney MD - 04/15/2024 7:20 PM STONEMASON APPRENTICE Teaching Attending Attestation: The patient was seen and examined by me in the presence of, or jointly with, the resident, and I agree with the History/Exam/Medical Decision Making documented unless further documented below. Additionally, I was directly involved in the management of the patient. Please refer to my separate note. Impression: 1. Cerebrovascular accident (CVA) due to occlusion of right middle cerebral artery (HCC) Jayashree Mccartney MD [id number] 15:22:00 Teaching Attending Attestation: The patient was seen and examined by me in the presence of, or jointly with, the resident, and I agree with the History/Exam/Medical Decision Making documented unless further documented below. Additionally, I was directly involved in the management of the patient. 58 y.o. male with PMH of [place] s/p stents on Plavix, HTN, DM, who presents with left-sided weakness and facial droop. NIHSS 4. CTA showed possible right m2 occlusion. No contraindication for TNK. Patient consented for TNK and admitted to neurology. CRITICAL CARE NOTE I examined the patient: Madeleine Humphries, who at that time was critically ill and had a high probability of sudden significant deterioration in his condition as evident by CRITICALCAREPRESENTATION: acute neurological deficit and required my constant medical attention and the highest level of preparedness to intervene urgently. I provided 30 minutes of aggregated critical care services to this patient while he was in critical condition including: direct patient care, documentation time, discussion with consultants, discussion with family members, ordering of diagnostic studies, review of consult notes, review of imaging studies, review of laboratory results, review of medications, allergies, and vital signs, and review of nursing notes. The reported time excludes time spent on separately reportable procedures. Jayashree Mccartney MD April 15, 2024 5:52 PM 1. Cerebrovascular accident (CVA) due to occlusion of right middle cerebral artery (HCC) MD Jayashree Wagoner MD 04/15/24 [id number] [facility] Emergency Medicine PhysicianCaity Bolaños
[2025-01-29 10:41] LABS: Absolute Lymphocytes (CBC) 1.5 K/uL (0.7-4.9); Hematocrit 44.7 % (39.6-49.0); Hemoglobin 15.5 g/dL (13.6-17.9); MCH 30.5 pg (27.0-35.0); MCHC 34.8 g/dL (32.0-36.0); MCV 87.8 fL (80-100); MPV 9.1 fL (7.6-11.3); Nucleated RBC Absolute Count 0.0 (0-0); Nucleated Red Blood Cells % 0.1 % (0-0); RBC Red Blood Cell Count 5.09 M/uL (4.33-5.43); White Blood Count 7.40 thou/uL (4.3-10.9)
[2025-01-29 10:56] LABS: PT Prothrombin Time 14.2 SECONDS (10-13.0); Protime INR 1.27
[2025-01-29 11:02] LABS: ALT/SGPT 30.0 U/L (16-61); AST/SGOT 14.0 U/L (15-37); Albumin 3.3 g/dL (3.4-5.0); Albumin/Globulin Ratio 0.9 (1.1-1.8); Alkaline Phosphatase 93.0 U/L (45-117); Anion Gap 6.8 mEq/L (5.0-15.0); BUN Blood Urea Nitrogen 21.0 mg/dL (7-18); Bilirubin Indirect, Calculated 1.9 mg/dL (0.2-0.8); Globulin 3.7 g/dL (2.3-3.5); Glucose Level 151.0 mg/dL (74-106); Magnesium 2.0 mg/dL (1.6-2.4); NT PRO-BNP 2297.0 pg/mL (<125); Potassium 3.8 mEq/L (3.5-5.1); Troponin High Sensitivity 16.7 pg/mL (<58.9)
--- NOTE | 2025-01-29 11:19 | EDPHYS ---
Physician Documentation [facility] Name: Angel Malik Age: 59 yrs Sex: Male : 1965 Arrival Date: 01/29/2025 Time: 10:04 Bed 8 Private MD: ED Physician Debbie Mayorga HPI: 01/29 10:21 This 59 yrs old Male presents to ER via Unassigned with complaints of near syncope. sp3 10:21 59-year-old male with history of diabetes, hyperlipidemia, hypertension, [place], atrial sp3 fibrillation currently on Coumadin now presents to the ED for recurrent episodes of near syncope. 1 week ago patient's defibrillator went off and he was seen and evaluated at [facility] and subsequently discharged. He has not had any defibrillator episodes since then. He states when the dizziness/near syncope hits he loses energy. He is not having current symptoms and is here "to get checked out". He denies any headache, neck pain, shortness of breath, chest pain, abdominal pain, vomiting, diarrhea, back pain, full syncope, or any other signs or symptoms on ROS at this time.. Historical: - Allergies: 10:23 No Known Allergies; ap3 - PMHx: 10:23 Atrial fibrillation; diabetes mellitus; High Cholesterol; Myocardial infarction; ap3 - PSHx: 10:23 Cholecystectomy; Pacemaker/Defib; ap3 - Immunization history:: Adult Immunizations unknown. - Infectious Disease History:: Denies. - Social history:: Smoking status: Patient/guardian denies using tobacco. ROS: 10:22 Constitutional: Negative for fever, chills, and weight loss, Eyes: Negative for injury, sp3 pain, redness, and discharge, ENT: Negative for injury, pain, and discharge, Neck: Negative for injury, pain, and swelling, Respiratory: Negative for shortness of breath, cough, wheezing, and pleuritic chest pain, Abdomen/GI: Negative for abdominal pain, nausea, vomiting, diarrhea, and constipation, Back: Negative for injury and pain, MS/Extremity: Negative for injury and deformity, Skin: Negative for injury, rash, and discoloration, Psych: Negative for depression, anxiety, suicide ideation, homicidal ideation, and hallucinations, Allergy/Immunology: Negative for hives, rash, and allergies, Endocrine: Negative for neck swelling, polydipsia, polyuria, polyphagia, and marked weight changes, Hematologic/Lymphatic: Negative for swollen nodes, abnormal bleeding, and unusual bruising, 10:22 All other systems are negative, Exam: 10:22 Constitutional: This is a well developed, well nourished patient who is awake, alert, sp3 and in no acute distress. Head/Face: Normocephalic, atraumatic. Eyes: Pupils equal round and reactive to light, extra-ocular motions intact. Lids and lashes normal. Conjunctiva and sclera are non-icteric and not injected. Cornea within normal limits. Periorbital areas with no swelling, redness, or edema. ENT: Nares patent. No nasal discharge, no septal abnormalities noted. External auditory canals are clear. Oropharynx with no redness, swelling, or masses, exudates, or evidence of obstruction, uvula midline. Mucous membranes moist. Neck: Trachea midline, no thyromegaly or masses palpated, and no cervical lymphadenopathy. Supple, full range of motion without nuchal rigidity, or vertebral point tenderness. No Meningismus. Chest/axilla: Normal chest wall appearance and motion. Nontender with no deformity. No lesions are appreciated. Cardiovascular: Regular rate and rhythm with a normal S1 and S2. No gallops, murmurs, or rubs. Normal PMI, no JVD. No pulse deficits. Respiratory: Lungs have equal breath sounds bilaterally, clear to auscultation and percussion. No rales, rhonchi or wheezes noted. No increased work of breathing, no retractions or nasal flaring. Abdomen/GI: Soft, non-tender, with normal bowel sounds. No distension or tympany. No guarding or rebound. No evidence of tenderness throughout. Back: No spinal tenderness. No costovertebral tenderness. Full range of motion. Skin: Warm, dry with normal turgor. Normal color with no rashes, no lesions, and no evidence of cellulitis. MS/ Extremity: Pulses equal, no cyanosis. Neurovascular intact. Full, normal range of motion. Neuro: Awake and alert, GCS 15, oriented to person, place, time, and situation. Cranial nerves II-XII grossly intact. Motor strength 5/5 in all extremities. Sensory grossly intact. Cerebellar exam normal. Normal gait. Psych: Awake, alert, with orientation to person, place and time. Behavior, mood, and affect are within normal limits. 10:22 ECG was reviewed by the Attending Physician. EKG demonstrates dual-chamber paced rhythm with adequate ventricular capture at 60 bpm Vital Signs: 10:20 BP 134 / 92; Pulse 60; Resp 17; Temp 97.9(O); Pulse Ox 97% on R/A; Weight 83.01 kg; ap3 Height 5 ft. 7 in. ; 10:30 BP 130 / 92; Pulse 60; Resp 18 S; Pulse Ox 97% on R/A; Pain 0/10; ar8 11:12 BP 129 / 92; Pulse 60; Resp 15; Pulse Ox 97% ; jl7 10:20 Body Mass Index 28.66 (83.01 kg, 170.18 cm) ap3 10:30 Pain Scale: Adult ar8 MDM: 10:11 Medical Screening Exam initiated sp3 10:23 Data reviewed: vital signs, nurses notes, old medical records, lab test result(s), EKG, sp3 radiologic studies. ED course: 59-year-old male with near syncope episodes. Patient currently has no symptoms. Please see HPI for further information. Differential diagnosis includes palpitations, arrhythmia, electrolyte disturbance, dehydration, among others. Workup will include standard cardiac workup with chest x-ray, EKG and general labs. If workup negative we will safely discharge home. Follow-up with PCP as needed.. 11:17 ED course: Full workup negative. We will safely discharge patient home at this time. sp3 Follow-up with PCP.. 01/29 10:21 Order name: Basic Metabolic Panel; Complete Time: 11: sp3 01/29 10:21 Order name: CBC with Diff; Complete Time: 11: sp3 01/29 10:21 Order name: LFT's; Complete Time: 11: sp3 01/29 10:21 Order name: Magnesium; Complete Time: 11: sp3 01/29 10:21 Order name: NT PRO-BNP; Complete Time: 11:06 sp3 01/29 10:21 Order name: PT-INR; Complete Time: 11:06 sp3 01/29 10:21 Order name: Troponin HS; Complete Time: 11:06 sp3 01/29 10:21 Order name: XRAY Chest (1 view) sp3 10/03 10:21 Order name: Cardiac monitoring; Complete Time: 10:32 sp3 01/29 10:21 Order name: EKG - Nurse/Tech; Complete Time: 10:32 sp3 01/29 10:21 Order name: IV Saline Lock; Complete Time: 10:32 sp3 01/29 10:21 Order name: Labs collected and sent; Complete Time: 10:32 sp3 01/29 10:21 Order name: O2 Per Protocol; Complete Time: 10:33 sp3 01/29 10:21 Order name: O2 Sat Monitoring; Complete Time: 10:33 sp3 Administered Medications: No medications were administered Disposition Summary: 01/29/25 11:18 Discharge Ordered Notes: Location: Home sp3 Condition: Stable sp3 Diagnosis - Near syncope, resolved sp3 Discharge Instructions: - Discharge Summary Sheet sp3 - Near-Syncope sp3 Forms: - Medication Reconciliation Form sp3 - Antibiotic Education sp3 - Prescription Opioid Use sp3 - Patient Portal Instructions sp3 - Leadership Thank You Letter sp3 Signatures: Dispatcher [employer] EDMaddi Ruiz RN RN ap3 Debbie Mayorga MD MD sp3 Corrections: (The following items were deleted from the chart) 10:21 10:21 BASIC METABOLIC PANEL+C.LAB.BRZ ordered. EDMS EDMS 10:21 10:21 CBC+H.LAB.BRZ ordered. EDMS EDMS 10:21 10:21 HEPATIC FUNCTION+C.LAB.BRZ ordered. EDMS EDMS 10:21 10:21 MAGNESIUM+C.LAB.BRZ ordered. EDMS EDMS 10:21 10:21 PROBNP+C.LAB.BRZ ordered. EDMS EDMS 10:21 10:21 PROTIME (+INR)+COAG.LAB.BRZ ordered. EDMS EDMS 10:21 10:21 Troponin High Sensitivity+C.LAB.BRZ ordered. EDMS EDMS 10:22 10:22 Chest Single View+RAD.RAD.BRZ ordered. EDMS EDMS
--- NOTE | 2025-01-29 11:19 | ER ---
Nurse's Notes [facility] Name: Angel Malik Age: 59 yrs Sex: Male : 1965 Arrival Date: 01/29/2025 Time: 10:04 Bed 8 Private MD: Diagnosis: Near syncope, resolved Presentation: 01/29 10:20 Chief complaint: Patient states: his defibrillator went off on 01/25/25, and since then ap3 he has been intermittently dizzy with feelings like he may "pass out". patient denies any pain at this time. Coronavirus screen: At this time, the client does not indicate any symptoms associated with coronavirus-19. Ebola Screen: No symptoms or risks identified at this time. Initial Sepsis Screen: Does the patient meet any 2 criteria? No. Patient's initial sepsis screen is negative. Does the patient have a suspected source of infection? No. Patient's initial sepsis screen is negative. Risk Assessment: Do you want to hurt yourself or someone else? Patient reports no desire to harm self or others. Onset of symptoms was January 25, 2025. Care prior to arrival: None. 10:20 Method Of Arrival: Ambulatory ap3 10:20 Acuity: RAI 3 ap3 Triage Assessment: 10:24 General: Appears in no apparent distress. Behavior is calm, cooperative, appropriate ap3 for age. Pain: Denies pain. Neuro: Level of Consciousness is awake, alert, obeys commands, Oriented to person, place, time, situation, Appropriate for age Reports dizziness, since 01/25/25. Cardiovascular: Patient's skin is warm and dry. Respiratory: Airway is patent Respiratory effort is even, unlabored, Respiratory pattern is regular, symmetrical. Historical: - Allergies: 10:23 No Known Allergies; ap3 - PMHx: 10:23 Atrial fibrillation; diabetes mellitus; High Cholesterol; Myocardial infarction; ap3 - PSHx: 10:23 Cholecystectomy; Pacemaker/Defib; ap3 - Immunization history:: Adult Immunizations unknown. - Infectious Disease History:: Denies. - Social history:: Smoking status: Patient/guardian denies using tobacco. Screenin:28 [facility] ED Fall Risk Assessment (Adult) History of falling in the last 3 months, jl7 including since admission No falls in past 3 months (0 pts) Confusion or Disorientation No (0 pts) Intoxicated or Sedated No (0 pts) Impaired Gait No (0 pts) Mobility Assist Device Used No (0 pt) Altered Elimination No (0 pt) Score/Fall Risk Level 0 - 2 = Low Risk Oriented to surroundings, Maintained a safe environment. Abuse screen: Denies threats or abuse. Denies injuries from another. Nutritional screening: No deficits noted. Tuberculosis screening: No symptoms or risk factors identified. Assessment: 10:30 General: Appears in no apparent distress. Behavior is calm, cooperative. Pain: Denies ar8 pain. Neuro: Level of Consciousness is awake, alert, obeys commands, Oriented to person, place, time, situation, Moves all extremities. Full function Gait is steady, Reports dizziness, intermittent dizziness x5 days, patient states that when he experiences an event he feels like he is going to pass out. Cardiovascular: Patient's skin is warm and dry. Rhythm is Respiratory: Airway is patent Respiratory effort is even, unlabored, Respiratory pattern is regular, symmetrical. GI: No signs and/or symptoms were reported involving the gastrointestinal system. : No signs and/or symptoms were reported regarding the genitourinary system. EENT: No signs and/or symptoms were reported regarding the EENT system. Derm: Skin is intact, Skin is dry, Skin is pale, Skin temperature is warm. 11:28 Reassessment: Patient and/or family updated on plan of care and expected duration. Pain ar8 level reassessed. Patient is alert, oriented x 3, equal unlabored respirations, skin warm/dry/pink. Patient states feeling better. Vital Signs: 10:20 BP 134 / 92; Pulse 60; Resp 17; Temp 97.9(O); Pulse Ox 97% on R/A; Weight 83.01 kg; ap3 Height 5 ft. 7 in. ; 10:30 BP 130 / 92; Pulse 60; Resp 18 S; Pulse Ox 97% on R/A; Pain 0/10; ar8 11:12 BP 129 / 92; Pulse 60; Resp 15; Pulse Ox 97% ; jl7 10:20 Body Mass Index 28.66 (83.01 kg, 170.18 cm) ap3 10:30 Pain Scale: Adult ar8 ED Course: 10:06 Patient arrived in ED. mr 10:07 Debbie Mayorga MD is Attending Physician. sp3 10:12 Armas, Jahala, RN is Primary Nurse. jl7 10:20 EKG done, by ED staff, reviewed by Debbie Mayorga MD. ar8 10:23 Triage completed. ap3 10:24 Patient has correct armband on for positive identification. Placed in gown. Bed in low ap3 position. Call light in reach. Side rails up X 1. Provided Education on: fall risk education . Client placed on continuous cardiac and pulse oximetry monitoring. NIBP monitoring applied. conveyor monitor on. Pulse ox on. NIBP on. 10:25 Arm band placed on right wrist. ap3 10:26 No provider procedures requiring assistance completed. Inserted saline lock: 22 gauge ar8 in left antecubital area, using aseptic technique. Blood collected. Flushed with 10 mL NS. 10:29 Wild Gongora, RN is Primary Nurse. ar8 10:31 Warm blanket given. jl7 10:54 XRAY Chest (1 view) In Process Unspecified. EDMS 11:28 IV discontinued, intact, bleeding controlled, No redness/swelling at site. Pressure ar8 dressing applied. Administered Medications: No medications were administered Medication: 10:28 VIS not applicable for this client. jl7 Outcome: 11:18 Discharge ordered by . sp3 11:28 Discharged to home ambulatory, ar8 11:28 Condition: stable 11:28 Discharge instructions given to patient, Instructed on discharge instructions, follow up and referral plans. Demonstrated understanding of instructions, follow-up care, 11:30 Patient left the ED. ar8 Signatures: Dispatcher [employer] EDMD TannerYin, Reg Reg mr Vicente Armas, KOBI PEACE jl7 Maddi Maher RN RN ap3 Debbie Mayorga MD MD sp3 Wild Gongora, RN RN ar8
[2025-01-29 11:50] VITALS: TEMP 97.9; O2SAT 97
[2025-01-29 11:53] VITALS: BP 129/92
--- NOTE | 2025-01-29 11:58 | RAD REPORT ---
EXAMINATION: ONE VIEW CHEST XR CLINICAL INDICATION: Male, 59 years old.,PALPITATIONS TECHNIQUE: Frontal chest projection is submitted. Examination is limited by patient positioning and t echnique. COMPARISON: 01/09/2025 FINDINGS: The lungs are well inflated and clear. No pneumothorax or sizable effusion. The heart is upper limit of normal in size. Left chest wall pacer/AICD unchanged in position. Mediastinal contours are unremarkable. IMPRESSION: No acute intrathoracic abnormalities.
== END 2025-01-29 11:30 | disposition home or self-care (01) ==
LOC: ER 10:04
DX: R55 Syncope and collapse (principal); Z95.810 Presence of automatic (implantable) cardiac defibrillator; I10 Essential (primary) hypertension; I48.91 Unspecified atrial fibrillation; I25.2 Old myocardial infarction
CPT/HCPCS: 36415; 71045; 80048; 80076; 83735; 83880; 84484; 85025; 85610; 93005; 99284

== ENCOUNTER 2025-02-22 02:21 | Observation (INO) | payer OTHER ==
[2025-02-22 03:30] LABS: PT Prothrombin Time 12.0 SECONDS (10-13.0); Protime INR 1.06
[2025-02-22 03:41] LABS: ALT/SGPT 19.0 U/L (16-61); AST/SGOT 12.0 U/L (15-37); Absolute Lymphocytes (CBC) 1.5 K/uL (0.7-4.9); Albumin 3.3 g/dL (3.4-5.0); Albumin/Globulin Ratio 0.9 (1.1-1.8); Alkaline Phosphatase 83.0 U/L (45-117); Anion Gap 8.6 mEq/L (5.0-15.0); BUN Blood Urea Nitrogen 18.0 mg/dL (7-18); Bilirubin Indirect, Calculated 1.0 mg/dL (0.2-0.8); Globulin 3.6 g/dL (2.3-3.5); Glucose Level 181.0 mg/dL (74-106); Hematocrit 42.5 % (39.6-49.0); Hemoglobin 14.4 g/dL (13.6-17.9); MCH 30.0 pg (27.0-35.0); MCHC 33.9 g/dL (32.0-36.0); MCV 88.6 fL (80-100); MPV 10.0 fL (7.6-11.3); Magnesium 2.2 mg/dL (1.6-2.4); NT PRO-BNP 1694.0 pg/mL (<125); Nucleated RBC Absolute Count 0.0 (0-0); Nucleated Red Blood Cells % 0.0 % (0-0); Potassium 3.6 mEq/L (3.5-5.1); RBC Red Blood Cell Count 4.80 M/uL (4.33-5.43); Troponin High Sensitivity 19.8 pg/mL (<58.9); White Blood Count 7.30 thou/uL (4.3-10.9)
--- NOTE | 2025-02-22 04:14 | EDPHYS ---
Physician Documentation [facility] Name: Angel Malik Age: 59 yrs Sex: Male : 1965 Arrival Date: 02/22/2025 Time: 02:34 Bed 2 Private MD: ED Physician Debbie Mayorga HPI: 02/22 03:37 This 59 yrs old Male presents to ER via EMS with complaints of Chest Pain - sp3 defibrillator went off. 03:37 59-year-old male with history of diabetes, hyperlipidemia, hypertension, [place], atrial sp3 fibrillation currently on Coumadin now presents to the ED for his defibrillator going off. Patient says he was watching TV no acute distress when it popped off. He denies any symptoms in the now including headache, neck pain, chest pain, shortness of breath, abdominal pain, vomiting, diarrhea, syncope, or any other signs or symptoms on ROS at this time.. Historical: - Allergies: 03:11 No Known Allergies; br2 - PMHx: 03:11 Atrial fibrillation; diabetes mellitus; High Cholesterol; Myocardial infarction; br2 - PSHx: 03:11 Cholecystectomy; Pacemaker/Defib; br2 - Immunization history:: Adult Immunizations not up to date. - Infectious Disease History:: Denies. - Social history:: Smoking status: Patient/guardian denies using tobacco, Stopped _ months ago 3 Patient/guardian denies using alcohol, street drugs. ROS: 03:40 Constitutional: Negative for fever, chills, and weight loss, Eyes: Negative for injury, sp3 pain, redness, and discharge, ENT: Negative for injury, pain, and discharge, Neck: Negative for injury, pain, and swelling, Respiratory: Negative for shortness of breath, cough, wheezing, and pleuritic chest pain, Abdomen/GI: Negative for abdominal pain, nausea, vomiting, diarrhea, and constipation, Back: Negative for injury and pain, MS/Extremity: Negative for injury and deformity, Skin: Negative for injury, rash, and discoloration, Neuro: Negative for headache, weakness, numbness, tingling, and seizure, Psych: Negative for depression, anxiety, suicide ideation, homicidal ideation, and hallucinations, Allergy/Immunology: Negative for hives, rash, and allergies, Endocrine: Negative for neck swelling, polydipsia, polyuria, polyphagia, and marked weight changes, 03:40 All other systems are negative, Exam: 03:41 Constitutional: This is a well developed, well nourished patient who is awake, alert, sp3 and in no acute distress. Head/Face: Normocephalic, atraumatic. Eyes: Pupils equal round and reactive to light, extra-ocular motions intact. Lids and lashes normal. Conjunctiva and sclera are non-icteric and not injected. Cornea within normal limits. Periorbital areas with no swelling, redness, or edema. ENT: Nares patent. No nasal discharge, no septal abnormalities noted. External auditory canals are clear. Oropharynx with no redness, swelling, or masses, exudates, or evidence of obstruction, uvula midline. Mucous membranes moist. Neck: Trachea midline, no thyromegaly or masses palpated, and no cervical lymphadenopathy. Supple, full range of motion without nuchal rigidity, or vertebral point tenderness. No Meningismus. Chest/axilla: Normal chest wall appearance and motion. Nontender with no deformity. No lesions are appreciated. Cardiovascular: Regular rate and rhythm with a normal S1 and S2. No gallops, murmurs, or rubs. Normal PMI, no JVD. No pulse deficits. Respiratory: Lungs have equal breath sounds bilaterally, clear to auscultation and percussion. No rales, rhonchi or wheezes noted. No increased work of breathing, no retractions or nasal flaring. Abdomen/GI: Soft, non-tender, with normal bowel sounds. No distension or tympany. No guarding or rebound. No evidence of tenderness throughout. Back: No spinal tenderness. No costovertebral tenderness. Full range of motion. Skin: Warm, dry with normal turgor. Normal color with no rashes, no lesions, and no evidence of cellulitis. MS/ Extremity: Pulses equal, no cyanosis. Neurovascular intact. Full, normal range of motion. Neuro: Awake and alert, GCS 15, oriented to person, place, time, and situation. Cranial nerves II-XII grossly intact. Motor strength 5/5 in all extremities. Sensory grossly intact. Cerebellar exam normal. Normal gait. Psych: Awake, alert, with orientation to person, place and time. Behavior, mood, and affect are within normal limits. 03:42 ECG was reviewed by the Attending Physician. EKG demonstrates normal sinus rhythm at 70 sp3 bpm with normal intervals, except QTc 479, leftward axis nonspecific intraventricular delay and nonspecific diffuse ST/T changes without evidence of acute ischemia. Vital Signs: 03:08 BP 145 / 93; Pulse 68; Resp 17; Temp 98.5; Pulse Ox 98% ; Weight 82.55 kg; Height 5 ft. br2 7 in. ; Pain 0/10; 04:43 BP 132 / 83; Pulse 61; Resp 17; Temp 98.5; Pulse Ox 98% ; Pain 0/10; bm8 05:34 BP 137 / 90; Pulse 60; Resp 18; Temp 98.5; Pulse Ox 96% ; Pain 0/10; bm8 06:54 BP 143 / 103; Pulse 62; Resp 17; Temp 98.5; Pulse Ox 100% ; Pain 0/10; bm8 07:30 BP 144 / 89; Pulse 60; Resp 17; Pulse Ox 98% on R/A; Pain 0/10; ar8 08:30 BP 120 / 81; Pulse 60; Resp 18; Pulse Ox 96% ; Pain 0/10; ar8 03:08 Body Mass Index 28.50 (82.55 kg, 170.18 cm) br2 03:08 Pain Scale: Adult br2 04:43 Pain Scale: Adult bm8 05:34 Pain Scale: Adult bm8 06:54 Pain Scale: Adult bm8 07:30 Pain Scale: Adult ar8 08:30 Pain Scale: Adult ar8 Robinson Coma Score: 03:27 Eye Response: spontaneous(4). Motor Response: obeys commands(6). Verbal Response: bm8 oriented(5). Total: 15. 04:43 Eye Response: spontaneous(4). Motor Response: obeys commands(6). Verbal Response: bm8 oriented(5). Total: 15. 05:34 Eye Response: spontaneous(4). Motor Response: obeys commands(6). Verbal Response: bm8 oriented(5). Total: 15. 06:54 Eye Response: spontaneous(4). Motor Response: obeys commands(6). Verbal Response: bm8 oriented(5). Total: 15. MDM: 03:00 Medical Screening Exam initiated sp3 04:12 Data reviewed: vital signs, nurses notes, EMS record, old medical records, lab test sp3 result(s), EKG, radiologic studies. ED course: 59-year-old male whose defibrillator fired prior to arrival. Differential diagnosis include shockable rhythm, ACS, electrolyte abnormality, other arrhythmia, among others. No symptoms currently. Interrogation demonstrates ventricular tachycardia prior to last shock being delivered. Patient will be placed in inpatient status with cardiology consultation already initiated. Vital signs remain normal. No arrhythmia currently in the ED.. 02/22 03:01 Order name: Basic Metabolic Panel; Complete Time: 03:46 sp3 02/22 03:01 Order name: CBC with Diff; Complete Time: 03:46 sp3 02/22 03:01 Order name: LFT's; Complete Time: 03:46 sp3 02/22 03:01 Order name: Magnesium; Complete Time: 03:46 sp3 02/22 03:01 Order name: NT PRO-BNP; Complete Time: 03:46 sp3 02/22 03:01 Order name: PT-INR; Complete Time: 03:46 sp3 02/22 03:01 Order name: Troponin HS; Complete Time: 03:46 sp3 02/22 05:43 Order name: CBC with Automated Diff EDMS 02/22 05:43 Order name: CBC with Automated Diff EDMS 02/22 05:43 Order name: Comprehensive Metabolic Panel EDMS 02/22 05:43 Order name: Comprehensive Metabolic Panel EDMS 02/22 05:43 Order name: Lipid Profile EDMS 02/22 05:43 Order name: Lipid Profile MS 02/22 05:43 Order name: Magnesium EDMS 02/22 05:43 Order name: Magnesium EDMS 02/22 03:01 Order name: XRAY Chest (1 view); Complete Time: 06:21 sp3 02/22 05:43 Order name: EKG Electrocardiogram EDMS 02/22 05:43 Order name: EKG Electrocardiogram EDMS 02/22 05:43 Order name: EKG Electrocardiogram [facility] 02/22 03:01 Order name: Cardiac monitoring; Complete Time: 03:25 sp3 02/22 03:01 Order name: EKG - Nurse/Tech; Complete Time: 03:25 sp3 02/22 03:01 Order name: IV Saline Lock; Complete Time: 03:25 sp3 02/22 03:01 Order name: Labs collected and sent; Complete Time: 03:25 sp3 02/22 03:01 Order name: O2 Per Protocol; Complete Time: 03:25 sp3 02/22 03:01 Order name: O2 Sat Monitoring; Complete Time: 03:25 sp3 Administered Medications: No medications were administered Disposition Summary: 02/22/25 04:14 Hospitalization Ordered Notes: Hospitalization Status: Inpatient Admission sp3 Provider: Sb [place] sp3 Location: Telemetry/MedSurg (Inpatient) sp3 Condition: Stable sp3 Problem: an acute exacerbation sp3 Symptoms: have worsened sp3 Bed/Room Type: Standard sp3 Room Assignment: 419(02/22/25 07:38) bd Diagnosis - Defibrillator discharge, ventricular tachycardia, palpitation sp3 Forms: - Medication Reconciliation Form sp3 - SBAR form sp3 - Leadership Thank You Letter sp3 Signatures: Dispatcher [employer] EDMS Nichelle Nagel Setul, MD MD sp3 Yolie Marcelino RN RN br2 Corrections: (The following items were deleted from the chart) 03:02 03:02 BASIC METABOLIC PANEL+C.LAB.BRZ ordered. EDMS EDMS 03:02 03:02 CBC+H.LAB.BRZ ordered. EDMS EDMS 03:02 03:02 HEPATIC FUNCTION+C.LAB.BRZ ordered. EDMS EDMS 03:02 03:02 MAGNESIUM+C.LAB.BRZ ordered. EDMS EDMS 03:02 03:02 PROBNP+C.LAB.BRZ ordered. EDMS EDMS 03:02 03:02 PROTIME (+INR)+COAG.LAB.BRZ ordered. EDMS EDMS 03:02 03:02 Troponin High Sensitivity+C.LAB.BRZ ordered. EDMS EDMS 03:02 03:02 Chest Single View+RAD.RAD.BRZ ordered. EDMS EDMS 07:38 04:14 sp3 bd
--- NOTE | 2025-02-22 04:14 | ER ---
Nurse's Notes [facility] Name: Angel Malik Age: 59 yrs Sex: Male : 1965 Arrival Date: 02/22/2025 Time: 02:34 Bed 2 Private MD: Diagnosis: Defibrillator discharge, ventricular tachycardia, palpitation Presentation: 02/22 03:08 Chief complaint: Patient states: PT STATES WAS WATCHING TV AND DEFIB SHOCKED HIM. PT br2 DENIES ANY SYMPTOMS AT THIS TIME. Coronavirus screen: Client denies travel out of the [place] in the last 14 days. Ebola Screen: Patient denies exposure to infectious person. Initial Sepsis Screen: Does the patient meet any 2 criteria? No. Patient's initial sepsis screen is negative. Does the patient have a suspected source of infection? No. Patient's initial sepsis screen is negative. Risk Assessment: Do you want to hurt yourself or someone else? Patient reports no desire to harm self or others. Onset of symptoms was February 22, 2025 at 01:25. 03:08 Method Of Arrival: EMS: [facility] br2 03:08 Acuity: RAI 3 br2 Triage Assessment: 03:11 General: Appears in no apparent distress. comfortable, Behavior is calm, cooperative. br2 Pain: Denies pain. Historical: - Allergies: 03:11 No Known Allergies; br2 - PMHx: 03:11 Atrial fibrillation; diabetes mellitus; High Cholesterol; Myocardial infarction; br2 - PSHx: 03:11 Cholecystectomy; Pacemaker/Defib; br2 - Immunization history:: Adult Immunizations not up to date. - Infectious Disease History:: Denies. - Social history:: Smoking status: Patient/guardian denies using tobacco, Stopped _ months ago 3 Patient/guardian denies using alcohol, street drugs. Screenin:[facility] ED Fall Risk Assessment (Adult) History of falling in the last 3 months, bm8 including since admission No falls in past 3 months (0 pts) Confusion or Disorientation No (0 pts) Intoxicated or Sedated No (0 pts) Impaired Gait No (0 pts) Mobility Assist Device Used No (0 pt) Altered Elimination No (0 pt) Score/Fall Risk Level 0 - 2 = Low Risk Oriented to surroundings, Maintained a safe environment, Educated pt \T\ family on fall prevention, incl call for assistance when getting out of bed, Assessed \T\ reinforced patient's understanding of fall precautions, Hourly rounding (assess needs \T\ fall precautionary measures) done, Used ambulatory aids as needed (educated on \T\ assisted with), Used gait belt as appropriate. Abuse screen: Denies threats or abuse. Nutritional screening: No deficits noted. Tuberculosis screening: No symptoms or risk factors identified. Assessment: 03:26 Reassessment: defibrillator successfully interrogated. bm8 04:43 Reassessment: Patient appears in no apparent distress at this time. Patient and/or bm8 family updated on plan of care and expected duration. Pain level reassessed. Patient is alert, oriented x 3, equal unlabored respirations, skin warm/dry/pink. Patient denies pain at this time. 05:34 Reassessment: pt is resting with eyes closed breathing is even unlabored with bm8 symmetrical rise and fall of chest, denies pain at this time. 06:54 Reassessment: Patient appears in no apparent distress at this time. Patient and/or bm8 family updated on plan of care and expected duration. Pain level reassessed. Patient is alert, oriented x 3, equal unlabored respirations, skin warm/dry/pink. walked in to see pt taking his morning amiodarone 200 mg. Patient denies pain at this time. Patient states feeling better. Patient states symptoms have improved. 07:43 Reassessment: Patient and/or family updated on plan of care and expected duration. Pain ar8 level reassessed. Patient is alert, oriented x 3, equal unlabored respirations, skin warm/dry/pink. Patient denies pain at this time. Patient states feeling better. Patient states symptoms have improved. Vital Signs: 03:08 BP 145 / 93; Pulse 68; Resp 17; Temp 98.5; Pulse Ox 98% ; Weight 82.55 kg; Height 5 ft. br2 7 in. ; Pain 0/10; 04:43 BP 132 / 83; Pulse 61; Resp 17; Temp 98.5; Pulse Ox 98% ; Pain 0/10; bm8 05:34 BP 137 / 90; Pulse 60; Resp 18; Temp 98.5; Pulse Ox 96% ; Pain 0/10; bm8 06:54 BP 143 / 103; Pulse 62; Resp 17; Temp 98.5; Pulse Ox 100% ; Pain 0/10; bm8 07:30 BP 144 / 89; Pulse 60; Resp 17; Pulse Ox 98% on R/A; Pain 0/10; ar8 08:30 BP 120 / 81; Pulse 60; Resp 18; Pulse Ox 96% ; Pain 0/10; ar8 03:08 Body Mass Index 28.50 (82.55 kg, 170.18 cm) br2 03:08 Pain Scale: Adult br2 04:43 Pain Scale: Adult bm8 05:34 Pain Scale: Adult bm8 06:54 Pain Scale: Adult bm8 07:30 Pain Scale: Adult ar8 08:30 Pain Scale: Adult ar8 Anayeli Coma Score: 03:27 Eye Response: spontaneous(4). Motor Response: obeys commands(6). Verbal Response: bm8 oriented(5). Total: 15. 04:43 Eye Response: spontaneous(4). Motor Response: obeys commands(6). Verbal Response: bm8 oriented(5). Total: 15. 05:34 Eye Response: spontaneous(4). Motor Response: obeys commands(6). Verbal Response: bm8 oriented(5). Total: 15. 06:54 Eye Response: spontaneous(4). Motor Response: obeys commands(6). Verbal Response: bm8 oriented(5). Total: 15. ED Course: 02:45 Patient arrived in ED. gm2 02:57 Debbie Mayorga MD is Attending Physician. sp3 03:11 Triage completed. br2 03:12 Maintain EMS IV. Dressing intact. Site clean \T\ dry. Gauge \T\ site: RT 20 FA. Inserted br 2 saline lock: 20 gauge in left forearm, using aseptic technique. Blood collected. Flushed with 10 mL NS. 03:24 Blaze Sharpe, RN is Primary Nurse. bm8 03:27 Patient has correct armband on for positive identification. Bed in low position. Call bm8 light in reach. Side rails up X 1. Client placed on continuous cardiac and pulse oximetry monitoring. NIBP monitoring applied. patient monitor on. Pulse ox on. NIBP on. Door closed. Noise minimized. Warm blanket given. Verbal reassurance given. Head of bed elevated. 03:46 XRAY Chest (1 view) In Process Unspecified. EDMS 04:13 Paris, Sb, MD is Hospitalizing Provider. sp3 04:43 No provider procedures requiring assistance completed. Patient admitted, IV remains in bm8 place. Patient maintains SpO2 saturation greater than 95% on room air. 04:43 Provided Education on: need for admission. bm8 07:07 Report given to WILD YANEZ ZAINA, RN'S. bm8 08:45 Patient admitted, IV remains in place. ar8 Administered Medications: No medications were administered Medication: 03:27 VIS not applicable for this client. bm8 Outcome: 04:14 Decision to Hospitalize by Provider. sp3 08:45 Admitted to Med/surg accompanied by tech, via wheelchair, room 419, with chart, ar8 08:45 Condition: stable 08:45 Discharge instructions given to N/A 08:53 Patient left the ED. ar8 Signatures: Dispatcher [employer] EDMA Debbie Mayorga MD MD sp3 Ce Mclean gm2 Blaze Sharpe RN RN bm8 Yolie Marcelino RN RN br2 Wild Gongora, KOBI RN ar8 Corrections: (The following items were deleted from the chart) 05:35 03:25 Reassessment: bm8 bm8
[2025-02-22] MEDS ORDERED: ONDANSETRON 4 MG/2 ML VIAL IV PRN (05:38)
--- NOTE | 2025-02-22 05:48 | P.HP ---
Certification for Inpatient Patient admitted to: Observation With expected LOS: <2 Midnights Patient will require the following post-hospital care: None Practitioner: I am a practitioner with admitting privileges, knowledge of patient current condition, hospital course, and medical plan of care. Services: Services provided to patient in accordance with Admission requirements found in Title 42 Section 412.3 of the Code of Federal Regulations Patient History Date of Service: 02/22/25 Reason for admission: Defibrillator shock. History of Present Illness: Patient is a pleasant 89-lif[age]-lct male, with past medical history of type 2 diabetes mellitus, atrial fibrillation currently on Coumadin 5 mg p.o. daily, hypercholesteremia, myocardial infarction in 2009 according to the patient, pacemaker/defibrillator. Patient reports to ER tonight after he was shocked by his defibrillator. Patient states tonight he was sitting watching TV, and states when he was getting ready to go to bed, he received a shock by his defibrillator, with no associated chest pain or shortness of breath. Patient states he reported to the ER for evaluation. Patient pacemaker and defibrillator was interrogated in ER, and demonstrated that patient had a V. tach which prompted the defibrillator to shock the patient. During admission assessment, patient denies of any chest pain, shortness of breath, or any discomfort at this time. Patient vital signs remained stable. Allergies No Known Drug Allergies Allergy (Verified 01/09/25 15:12) Unknown Home Medications: Aspirin 81 mg PO BEDTIME 01/09/25 Atorvastatin Calcium [Lipitor] 80 mg PO BEDTIME 01/09/25 Magnesium Oxide 400 mg PO DAILY 01/09/25 Metformin HCl 1,000 mg PO BID 01/09/25 Pantoprazole [Protonix Tab*] 1 tab PO DAILY 01/09/25 Potassium Chloride 20 meq PO DAILY 01/09/25 Sotalol HCl [Sotalol] 1 tab PO BID 01/09/25 Warfarin Sodium 5 mg PO BEDTIME 01/09/25 Bumetanide [Bumex*] 1 mg PO DAILY 30 Days #30 tab 01/11/25 Sacubitril/Valsartan [Entresto 24 mg-26 mg Tablet] 1 tab PO BID 30 Days #60 tab 01/11/25 - Past Medical/Surgical History Diabetic: Yes -: Myocardial infraction -: atrial fibrilattion -: daibetes mellitus -: high cholesterol -: GERD -: Cholecystectomy -: 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 moist/pink, Sclerae nonicteric Neck: Supple, 2+ carotid pulse no bruit, JVD not distended, No Thyromegaly, No LAD, Without JVD or thyroid abnormality Respiratory: Clear to auscultation bilaterally, Normal air movement, Diminished Cardiovascular: No edema, Normal pulses, No gallops, No rubs, Irregular heart rate/rhythm (History of atrial fibrillation.), Systolic murmur Capillary refill: <2 Seconds Gastrointestinal: Normal bowel sounds, Soft and benign, Non-distended, W/out hepatomegaly, No ascites, No tenderness, No masses, No rebound, No guarding Musculoskeletal: No clubbing, No swelling, No contractures, No erythema, No tenderness, No warmth Integumentary: No rashes, No breakdown, No significant lesion, No tenderness/swelling, No erythema, No warmth, No cyanosis Neurological: Normal gait, Normal speech, Normal strength at 5/5 x4 extr, Normal tone, Sensation intact, Cranial nerves 3-12 intact, Normal reflexes 2+, Normal affect Lymphatics: No axilla or inguinal lymphadenopathy - Studies Laboratory Data (last 24 hrs) 02/22/25 02/22/25 02/22/25 03:04 03:04 03:04 WBC 7.30 Hgb 14.4 Hct 42.5 Plt Count 204 PT 12.0 INR 1.06 Sodium 139 Potassium 3.6 BUN 18 Creatinine 1.18 Glucose 181 H Magnesium 2.2 Total Bilirubin 1.3 H AST 12 L ALT 19 Alkaline Phosphatase 83 Male Exam - Male Exam Inguinal exam: No hernias Assessment and Plan - Plan Patient is a 59-year-old male reports to [facility] complaining of shock from his defibrillator. Patient denies of any associated chest pain or shortness of breath. (1)Defibrillator shock secondary to V. tach occurrence. Patient defibrillator was interrogated in ER, showed that patient had a V. tach occurrence at home. -Telemetry monitoring. -Order repeat EKG. -Consult corporate relations director. (2)Chronic type 2 diabetes mellitus. -Continue home medication metformin 1000 mg p.o. twice daily. -ACHS with moderate sliding scale coverage. (3)Chronic hypercholesterolemia. -Continue home med atorvastatin 80 mg p.o. daily. (4)Chronic atrial fibrillation. -Telemetry monitoring. -Continue home med Coumadin 5 mg nightly. Pharmacy to monitor patient INR. (5)Chronic GERD. -Continue Protonix 40 mg p.o. daily. (6)Explained entire treatment plan to the patient, solicited questions answered and voiced understanding. Discharge Plan: Home Plan to discharge in: 48 Hours - Advance Directives Does patient have a Living Will: No Does patient have a Durable POA for Healthcare: No - Code Status/Comfort Care Code Status Assessed: Yes Code Status: Full Code Critical Care: No Time Spent Managing Pts Care (In Minutes): 55
--- NOTE | 2025-02-22 06:18 | RAD REPORT ---
CLINICAL HISTORY: Palpitations. COMPARISON: XR Chest 01/25/2025. TECHNIQUE: XR CHEST 1 VIEW 02/22/2025 3:01 AM CDT FINDINGS: The heart is enlarged. Left dual-chamber AICD is present. Lungs are clear without consolidation, atel ectasis, mass or edema. There is no pleural effusion. There is no pneumothorax. There are no acute osseous findings. IMPRESSION: Clear lungs. Electronically signed by: Abdiel Higgins MD 02/22/2025 04:35 AM CDT RP Du e to temporary technical issues with the PACS/[employer] reporting system, reports are being signed by the in-house radiologist without review as a courtesy to ensure prompt reporting the [facility] is fully responsible for the content of the report. Transcribed Date/Time: 02/22/2025 6:18 AM
[2025-02-22] MEDS: PANTOPRAZOLE 40MG TABLET PO SCH (06:30)
[2025-02-22] MEDS: INSULIN REGULAR (HUMAN) 100 UNIT/ML SQ SCH (07:30)
[2025-02-22] MEDS: METFORMIN HCL 500 MG TAB PO SCH (08:00)
[2025-02-22] MEDS ORDERED: APIXABAN 5 MG TABLET PO SCH (09:00)
[2025-02-22 10:16] VITALS: BMI 28.4
--- NOTE | 2025-02-22 10:21 | P.PN ---
Date of Service: 02/22/25 Subjective: reports recently switched from sotalol to amiodarone ~1 week ago has been using afrin twice daily for last few days denies abdominal pain Physical Exam: GEN: Alert, oriented, NAD CV: Regular rate and rhythm, no edema Pulm:Nonlabored respirations on room air, clear bilaterally ABD: soft, nontender, nondistended Neuro: Normal speech, normal affect Problem List: V.tach s/p defibrillator shock s/p recent ablation for sustained vtach (12/09/24) Paroxysmal a-fib on chronic anticoagulation Chronic CHF (HFrEF 20-25% on 12/05/2024) Chronic Multivessel CAD s/p PCI x3 Hypertension Hyperlipidemia NIDDM2 Obstructive Sleep Apnea Hx of CVA 2/2 LV thrombus (03/2024) - thrombus resolved V.tach s/p defibrillator shock s/p recent ablation for sustained vtach (12/09/24) Paroxysmal a-fib on chronic anticoagulation presents to ED after defibrillator shock at home while watching TV associated with chest pain, shortness of breath Shock possibly secondary to recent medication changes. Previously on sotalol switched to amiodarone ~02/12/[address] Parsons. He reports his team is planning on upgrading to VICE ADMIRAL-D in the future. CXR negative, Troponin negative Monitor on telemetry for any arrhythmias resume home coumadin, statin Cardiology consulted Start oral mexiletine per cardio recs Resume home coumadin INR 1.06 on admission. Goal INR 2-3 Chronic CHF (HFrEF 20-25% on 12/05/2024) Chronic Multivessel CAD s/p PCI x3 Hypertension Hyperlipidemia NIDDM2 Obstructive Sleep Apnea Hx of CVA 2/2 LV thrombus (03/2024) - thrombus resolved confirm home meds, restart as appropriate restart home statin, metformin, protonix VTE: home coumadin Code: Full Dispo: Home Time Spent Managing Pts Care (In Minutes): 55
[2025-02-22] MEDS ORDERED: FLU (Fluarix) 25-26 (6MOS UP)/PF 45 MCG/0.5 ML Syringe IM ONE (10:45)
[2025-02-22] MEDS: MEXILETINE HCL 150 MG CAP PO SCH (12:04)
--- NOTE | 2025-02-22 12:57 | P.CNS ---
Date of Consult: 02/22/25 Chief Complaint: Defibrillator shock. History of Present Illness: Patient with PMH of CAD, LAD MEDICAL OFFICE REP, moderate RCA disease, cardiomyopathy, VT s/p ablation and ICD, AF, presented with ICD Shock, denies chest pain, no palpitations, no syncope. Allergies No Known Drug Allergies Allergy (Verified 01/09/25 15:12) Unknown Home medications list reviewed: Yes Home Medications: RX: Aspirin 81 mg PO BEDTIME 01/09/25 RX: Atorvastatin Calcium [Lipitor] 80 mg PO BEDTIME 01/09/25 RX: Magnesium Oxide 400 mg PO DAILY 01/09/25 RX: Metformin HCl 1,000 mg PO BID 01/09/25 RX: Potassium Chloride 20 meq PO DAILY 01/09/25 RX: Warfarin Sodium 5 mg PO BID 01/09/25 RX: Bumetanide [Bumex*] 1 mg PO DAILY 30 Days #30 tab 01/11/25 RX: Sacubitril/Valsartan [Entresto 24 mg-26 mg Tablet] 1 tab PO BID 30 Days #60 tab 01/11/25 Amiodarone HCl [Cordarone Tab] 200 mg PO BID 02/22/25 Metoprolol Succinate [Toprol Xl] 25 mg PO DAILY 02/22/25 Trazodone [Desyrel] 75 mg PO BEDTIME PRN 02/22/25 - Past Medical/Surgical History Diabetic: Yes -: Myocardial infraction -: atrial fibrilattion -: daibetes mellitus -: high cholesterol -: GERD -: Cholecystectomy -: 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 moist/pink, EOMI, Sclerae nonicteric Neck: Supple, 2+ carotid pulse no bruit, No LAD, Without JVD or thyroid abnormality Respiratory: Clear to auscultation bilaterally, Normal air movement Cardiovascular: Regular rate/rhythm, Normal S1 S2 Gastrointestinal: Normal bowel sounds, No tenderness Musculoskeletal: No tenderness Integumentary: No rashes Neurological: Normal gait, Normal speech, Normal tone, Normal affect Lymphatics: No axilla or inguinal lymphadenopathy Laboratory Data (last 24 hrs) 02/22/25 02/22/25 02/22/25 03:04 03:04 03:04 WBC 7.30 Hgb 14.4 Hct 42.5 Plt Count 204 PT 12.0 INR 1.06 Sodium 139 Potassium 3.6 BUN 18 Creatinine 1.18 Glucose 181 H Magnesium 2.2 Total Bilirubin 1.3 H AST 12 L ALT 19 Alkaline Phosphatase 83 - Problems (1) Paroxysmal atrial fibrillation Current Visit: No Status: Acute Plan: continue Amiodarone 200 mg po BID Continue Warfarin, goal INR is 2-3 continue to monitor on tele (2) Coronary artery disease involving [place] coronary artery of [place] heart without angina pectoris Current Visit: No Status: Chronic Plan: patient with known LAD MEDICAL OFFICE REP and moderate RCA disease, follow up with cardiology (Dr. Sharma) Troponin negative, no active chest pain continue ASA 81 mg daily (3) Ventricular tachycardia Current Visit: No Status: Chronic Plan: patient with history of VT ablation, follow up with EP (Dr. Parsons) for that recently switch from sotalol to amiodarone, plan is to upgrade his device to DENITRATOR-D he had an ICD shock for VT add Mexlitine 150 mg po BID Continue Amiodarone 200 mg po BID Continue to monitor on tele
[2025-02-22] MEDS: WARFARIN SODIUM 5 MG TAB PO SCH (16:59)
[2025-02-22] MEDS: PANTOPRAZOLE 40MG TABLET PO ONE (17:55)
[2025-02-22] MEDS: POTASSIUM CL SA 10 MEQ TAB PO ONE (20:35)
[2025-02-22] MEDS: ATORVASTATIN 80 MG TAB PO SCH (20:36)
[2025-02-22] MEDS: MELATONIN 5 MG TABLET PO PRN (21:39)
[2025-02-23 05:41] LABS: Absolute Lymphocytes (CBC) 1.6 K/uL (0.7-4.9); Hematocrit 42.0 % (39.6-49.0); Hemoglobin 14.3 g/dL (13.6-17.9); MCH 29.9 pg (27.0-35.0); MCHC 34.0 g/dL (32.0-36.0); MCV 87.8 fL (80-100); MPV 9.5 fL (7.6-11.3); Nucleated RBC Absolute Count 0.0 (0-0); Nucleated Red Blood Cells % 0.2 % (0-0); RBC Red Blood Cell Count 4.79 M/uL (4.33-5.43); White Blood Count 6.60 thou/uL (4.3-10.9)
[2025-02-23 06:02] LABS: AST/SGOT 12 U/L (15-37); Albumin 3.0 g/dL (3.4-5.0); Albumin/Globulin Ratio 0.9 (1.1-1.8); Alkaline Phosphatase 86 U/L (45-117); Anion Gap 7.9 mEq/L (5.0-15.0); BUN Blood Urea Nitrogen 14 mg/dL (7-18); Globulin 3.5 g/dL (2.3-3.5); Glucose Level 138 mg/dL (74-106); HDL Cholesterol 61 mg/dL (40-60); LDL Cholesterol, Calculated 97 mg/dL (<130); LDL Cholesterol,Calc NonReport 97; Magnesium 1.9 mg/dL (1.6-2.4); Potassium 3.9 mEq/L (3.5-5.1)
[2025-02-23 06:03] LABS: ALT/SGPT < 14 U/L (16-61)
[2025-02-23] MEDS: POTASSIUM CL SA 10 MEQ TAB PO ONE (06:18)
[2025-02-23 09:03] LABS: PT Prothrombin Time 13.0 SECONDS (10-13.0); Protime INR 1.16
[2025-02-23 11:08] VITALS: O2SAT 97
--- NOTE | 2025-02-23 11:56 | P.PN ---
Subjective Date of Service: 02/23/25 Chief Complaint: Defibrillator shock. Subjective: No new changes, No C/O voiced, Tolerating diet, Ambulating, Improving Review of Systems 10-point ROS is otherwise unremarkable Physical Examination - Vital Signs Temperature: 97.8 F Blood Pressure: 120/82 Pulse: 60 Respirations: 16 Pulse Ox (%): 97 - Physical Exam General: Alert, In no apparent distress HEENT: Atraumatic, PERRLA, EOMI Neck: Supple, JVD not distended Respiratory: Clear to auscultation bilaterally, Normal air movement Cardiovascular: Regular rate/rhythm, Normal S1 S2 Gastrointestinal: Normal bowel sounds, No tenderness Musculoskeletal: No tenderness Integumentary: No rashes Neurological: Normal speech, Normal tone, Normal affect Lymphatics: No axilla or inguinal lymphadenopathy - Studies Medications List Reviewed: Yes Assessment And Plan - Current Problems (Diagnosis) (1) Paroxysmal atrial fibrillation Current Visit: No Status: Acute Plan: continue Amiodarone 200 mg po BID Continue Warfarin, goal INR is 2-3 continue to monitor on tele (2) Coronary artery disease involving [place] coronary artery of [place] heart without angina pectoris Current Visit: No Status: Chronic Plan: 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 Sharma) Troponin negative, no active chest pain continue ASA 81 mg daily (3) Ventricular tachycardia Current Visit: No Status: Chronic Plan: patient with history of VT ablation, follow up with EP (Dr. Parsons) for that recently switch from sotalol to amiodarone, plan is to upgrade his device to CAM MILLING MACHINE OPERATOR-D he had an ICD shock for VT added Mexlitine 150 mg po BID Continue Amiodarone 200 mg po BID Patient can be discharged and advised about close follow up with EP.
[2025-02-23] MEDS: ACETAMINOPHEN 325 MG TABLET PO PRN (15:52)
--- NOTE | 2025-02-23 18:45 | P.DS ---
Admission Date: 02/22/25 Discharge Date: 02/23/25 Disposition: ROUTINE DISCHARGE Discharge Condition: FAIR Reason for Admission: Defibrillator shock. Brief History of Present Illness: [id number] man with past medical history of type 2 diabetes mellitus, atrial fibrillation currently on Coumadin 5 mg p.o. daily, hypercholesteremia, myocardial infarction in 2009 and pacemaker/defibrillator. Patient reported to the ER after he was shocked by his defibrillator. No associated chest pain or shortness of breath. Patient pacemaker and defibrillator was interrogated in ER, and which showed patient had a V. tach. Patient was hospitalized for further evaluation and management. Hospital Course: Problem List: V.tach s/p defibrillator shock s/p recent ablation for sustained vtach (12/09/24) Paroxysmal a-fib on chronic anticoagulation Chronic CHF (HFrEF 20-25% on 12/05/2024) Chronic Multivessel CAD s/p PCI x3 Hypertension Hyperlipidemia NIDDM2 Obstructive Sleep Apnea Hx of CVA 2/2 LV thrombus (03/2024) - thrombus resolved V.tach s/p defibrillator shock s/p recent ablation for sustained vtach (12/09/24) Paroxysmal a-fib on chronic anticoagulation Patient was previously on sotalol which was switched to amiodarone ~02/12/[address] Parsons. He reported his team is planning on upgrading to POST COMMAND[employer]-D in the future. CXR negative, Troponin negative Patient seen and evaluated by cardiology Dr. Burnham, mexiletine added to amiodarone. Toprol-XL was not continued during the hospital stay. Resumed home coumadin, statin INR was less than 2 during the hospitalization on warfarin 5 mg daily. Patient discharged on warfarin 6 mg daily and subcutaneous Lovenox bridge Patient is aware his target INR is 2-3. Patient advised to check his PT/INR within 3 to 4 days for Coumadin dose adjustment. Patient made aware he is supposed to stop the Lovenox injection when his INR reaches 2. Patient was asymptomatic during the hospital stay with stable vitals. Chronic CHF (HFrEF 20-25% on 12/05/2024) Chronic Multivessel CAD s/p PCI x3 Hypertension Hyperlipidemia NIDDM2 Obstructive Sleep Apnea Hx of CVA 2/2 LV thrombus (03/2024) - thrombus resolved Home medications continued during the hospital stay. Vital Signs/Physical Exam: Temp Pulse Resp BP Pulse Ox 97.7 F 62 16 132/82 98 02/23/25 16:00 02/23/25 16:00 02/23/25 16:00 02/23/25 16:00 02/23/25 16:00 General: Alert, In no apparent distress, Oriented x3 HEENT: Mucous membr. moist/pink, Sclerae nonicteric Neck: Supple, JVD not distended Respiratory: Clear to auscultation bilaterally, Normal air movement Cardiovascular: No edema, Normal S1 S2, Irregular heart rate/rhythm Gastrointestinal: Normal bowel sounds, Soft and benign, Non-distended, No tenderness Musculoskeletal: No swelling Integumentary: No rashes, No cyanosis Neurological: Normal strength at 5/5 x4 extr Laboratory Data at Discharge: WBC 6.60 thou/uL (4.3-10.9) 02/23/25 05:09 Hgb 14.3 g/dL (13.6-17.9) 02/23/25 05:09 Hct 42.0 % (39.6-49.0) 02/23/25 05:09 Plt Count 221 thou/uL (152-406) 02/23/25 05:09 PT 13.0 SECONDS (10-13.0) 02/23/25 08:38 INR 1.16 02/23/25 08:38 Sodium 140 mEq/L (136-145) 02/23/25 05:09 Potassium 3.9 mEq/L (3.5-5.1) 02/23/25 05:09 BUN 14 mg/dL (7-18) 02/23/25 05:09 Creatinine 1.01 mg/dL (0.70-1.30) 02/23/25 05:09 Glucose 138 mg/dL (74-106) H 02/23/25 05:09 Magnesium 1.9 mg/dL (1.6-2.4) 02/23/25 05:09 Total Bilirubin 2.0 mg/dL (0.2-1.0) H 02/23/25 05:09 AST 12 U/L (15-37) L 02/23/25 05:09 ALT < 14 U/L (16-61) L 02/23/25 05:09 Alkaline Phosphatase 86 U/L (45-117) 02/23/25 05:09 Triglycerides 92 mg/dL (<150) 02/23/25 05:09 Cholesterol 176 mg/dL (<200) 02/23/25 05:09 HDL Cholesterol 61 mg/dL (40-60) H 02/23/25 05:09 Cholesterol/HDL Ratio 2.89 02/23/25 05:09 Home Medications: Aspirin 81 mg PO BEDTIME 01/09/25 Atorvastatin Calcium [Lipitor] 80 mg PO BEDTIME 01/09/25 Magnesium Oxide 400 mg PO DAILY 01/09/25 Metformin HCl 1,000 mg PO BID 01/09/25 Potassium Chloride 20 meq PO DAILY 01/09/25 Bumetanide [Bumex*] 1 mg PO DAILY 30 Days #30 tab 01/11/25 Sacubitril/Valsartan [Entresto 24 mg-26 mg Tablet] 1 tab PO BID 30 Days #60 tab 01/11/25 Amiodarone HCl [Cordarone*] 200 mg PO BID 02/22/25 Trazodone [Desyrel*] 75 mg PO BEDTIME PRN 02/22/25 Enoxaparin Sodium [Lovenox 80 MG INJ] 80 mg SQ BID #12 ml 02/23/25 Mexiletine HCl [Mexitil*] 150 mg PO BID #60 cap 02/23/25 Warfarin Sodium 1 mg PO DAILY #30 tab 02/23/25 Warfarin Sodium 5 mg PO DAILY #30 tab 02/23/25 New Medications: Enoxaparin Sodium [Lovenox 80 MG INJ] 80 mg SQ BID #12 ml Mexiletine HCl [Mexitil*] 150 mg PO BID #60 cap Warfarin Sodium 5 mg PO DAILY #30 tab Warfarin Sodium 1 mg PO DAILY #30 tab Physician Discharge Instructions: Please check your PT/INR on 02/26/2025, Result to be called to Dr. Mayorga or your EP physician Dr. Parsons for Warfarin dose adjustment. You have been prescribed enoxaparin injections because your INR has been less than 2 since hospitalization even though you received your usual warfarin dose of 5 mg once a day. Warfarin dose has been increased to 6 mg once a day, enoxaparin is to keep your blood thin to prevent further blood clot formation in your heart until the current warfarin dose brings your INR level to between 2-3. The veterinary hospital attendant Dr. Burnham added 1 medication called mexiletine to help control your irregular heart rhythm-both atrial fibrillation and ventricular tachycardia. Continue taking the amiodarone You were taking metoprolol XL which has been discontinued and replaced with the mexiletine. Diet: ADA Activity: Ad ja Followup: Iain Mayorga DO [Primary Care Provider] - 1-2 Weeks Time spent managing pt's care (in minutes): 40
[2025-02-23 22:32] VITALS: BP 142/85; TEMP 97.6
== END 2025-02-23 21:00 | disposition home or self-care (01) ==
LOC: ER 02:34 → ERHOLD 05:19 → 4TH 08:08
PROVIDERS: ADMIT Hospitalist; ATTEND Internal Medicine
DX: I47.20 Ventricular tachycardia, unspecified (principal); R07.9 Chest pain, unspecified; I25.2 Old myocardial infarction; E78.00 Pure hypercholesterolemia, unspecified; E11.9 Type 2 diabetes mellitus without complications; I48.11 Longstanding persistent atrial fibrillation; R00.2 Palpitations; E78.5 Hyperlipidemia, unspecified; G47.33 Obstructive sleep apnea (adult) (pediatric); Z79.01 Long term (current) use of anticoagulants; Z95.0 Presence of cardiac pacemaker; Z23 Encounter for immunization
CPT/HCPCS: 93005; 85025 ×2; 80048; 36415 ×2; 83735 ×2; 85610 ×2; 80061; 82947 ×8; 80076; 84484; 80053; 83880; 71045; 99285; J1815 ×3; G0378

== ENCOUNTER 2025-02-24 05:39 | Emergency (ER) | payer OTHER ==
[2025-02-24 06:48] LABS: Absolute Lymphocytes (CBC) 2.0 K/uL (0.7-4.9); Hematocrit 48.1 % (39.6-49.0); Hemoglobin 16.1 g/dL (13.6-17.9); MCH 29.6 pg (27.0-35.0); MCHC 33.4 g/dL (32.0-36.0); MCV 88.5 fL (80-100); MPV 9.9 fL (7.6-11.3); Nucleated RBC Absolute Count 0.0 (0-0); Nucleated Red Blood Cells % 0.2 % (0-0); RBC Red Blood Cell Count 5.44 M/uL (4.33-5.43); White Blood Count 8.00 thou/uL (4.3-10.9)
[2025-02-24 07:23] LABS: PT Prothrombin Time 14.9 SECONDS (10-13.0); Protime INR 1.33
[2025-02-24 07:26] LABS: ALT/SGPT 19 U/L (16-61); Albumin 3.4 g/dL (3.4-5.0); Albumin/Globulin Ratio 0.9 (1.1-1.8); Alkaline Phosphatase 100 U/L (45-117); Anion Gap 11.9 mEq/L (5.0-15.0); BUN Blood Urea Nitrogen 19 mg/dL (7-18); Bilirubin Indirect, Calculated 1.6 mg/dL (0.2-0.8); Globulin 3.7 g/dL (2.3-3.5); Glucose Level 149 mg/dL (74-106); Magnesium 1.8 mg/dL (1.6-2.4); NT PRO-BNP 1835 pg/mL (<125); Potassium 3.9 mEq/L (3.5-5.1); Troponin High Sensitivity 18.1 pg/mL (<58.9)
[2025-02-24 07:33] LABS: AST/SGOT < 10 U/L (15-37)
--- NOTE | 2025-02-24 07:46 | ER ---
Nurse's Notes [facility] Name: Angel Malik Age: 59 yrs Sex: Male : 1965 Arrival Date: 02/24/2025 Time: 05:39 Bed 5 Private MD: Diagnosis: Ventricular tachycardia;Essential (primary) hypertension;Anemia, unspecified Presentation: 02/24 06:10 Chief complaint: Patient states: my defibrillator went off again tonight. bm8 06:10 Coronavirus screen: At this time, the client does not indicate any symptoms associated bm8 with coronavirus-19. Ebola Screen: Patient negative for fever greater than or equal to 101.5 degrees Fahrenheit, and additional compatible Ebola Virus Disease symptoms Patient denies exposure to infectious person. Patient denies travel to an Ebola-affected area in the 21 days before illness onset. No symptoms or risks identified at this time. Initial Sepsis Screen: Does the patient meet any 2 criteria? No. Patient's initial sepsis screen is negative. Does the patient have a suspected source of infection? No. Patient's initial sepsis screen is negative. Risk Assessment: Do you want to hurt yourself or someone else? Patient reports no desire to harm self or others. Onset of symptoms was February 24, 2025 at 05:30. 06:10 Method Of Arrival: EMS: [facility] bm8 06:10 Acuity: RAI 2 bm8 Triage Assessment: 06:28 General: Appears in no apparent distress. comfortable, Behavior is calm, cooperative, bm8 appropriate for age. Pain: Denies pain. EENT: No deficits noted. No signs and/or symptoms were reported regarding the EENT system. Neuro: No deficits noted. Level of Consciousness is awake, alert, obeys commands, Oriented to person, place, time, situation, Appropriate for age. Cardiovascular: Denies chest pain, palpitations, shortness of breath, Capillary refill < 3 seconds in bilateral fingers Patient's skin is warm and dry. Respiratory: Airway is patent Respiratory effort is even, unlabored, Respiratory pattern is regular, symmetrical. GI: No signs and/or symptoms were reported involving the gastrointestinal system. : No signs and/or symptoms were reported regarding the genitourinary system. Derm: No signs and/or symptoms reported regarding the dermatologic system. Musculoskeletal: No signs and/or symptoms reported regarding the musculoskeletal system. Historical: - Allergies: 06:28 No Known Allergies; bm8 - PMHx: 06:28 Atrial fibrillation; diabetes mellitus; High Cholesterol; Myocardial infarction; bm8 - PSHx: 06:28 Cholecystectomy; Pacemaker/Defib; bm8 - Immunization history:: Adult Immunizations up to date. - Infectious Disease History:: Denies. - Social history:: Smoking status: Patient/guardian denies using tobacco, Stopped _ months ago 3. - Family history:: not pertinent. Screenin:40 [facility] ED Fall Risk Assessment (Adult) History of falling in the last 3 months, nh2 including since admission No falls in past 3 months (0 pts) Confusion or Disorientation No (0 pts) Intoxicated or Sedated No (0 pts) Impaired Gait No (0 pts) Mobility Assist Device Used No (0 pt) Altered Elimination No (0 pt) Score/Fall Risk Level 0 - 2 = Low Risk Oriented to surroundings, Maintained a safe environment, Educated pt \T\ family on fall prevention, incl call for assistance when getting out of bed, Assessed \T\ reinforced patient's understanding of fall precautions. Abuse screen: Denies threats or abuse. Denies injuries from another. Nutritional screening: No deficits noted. Tuberculosis screening: No symptoms or risk factors identified. Assessment: 07:26 General: Appears in no apparent distress. comfortable, Behavior is calm, cooperative, zm appropriate for age. Pain: Denies pain. Neuro: Level of Consciousness is awake, alert, obeys commands, Oriented to person, place, time, situation. Cardiovascular: Reports Defibrillator went off around 4:30 or 5AM this morning, no chest pain and no heart palpitations at the time Denies chest pain, palpitations, shortness of breath, Heart tones S1 S2 present Patient's skin is warm and dry. Rhythm is sinus rhythm. Respiratory: Airway is patent Respiratory effort is even, unlabored, Respiratory pattern is regular, symmetrical, Breath sounds are clear bilaterally. 09:00 Reassessment: Patient appears in no apparent distress at this time. Patient and/or cm10 family updated on plan of care and expected duration. Pain level reassessed. Patient is alert, oriented x 3, equal unlabored respirations, skin warm/dry/pink. 10:52 Reassessment: Patient appears in no apparent distress at this time. Patient and/or cm10 family updated on plan of care and expected duration. Pain level reassessed. Patient is alert, oriented x 3, equal unlabored respirations, skin warm/dry/pink. Patient denies pain at this time. 11:11 Reassessment: REPORT CALLED TO [facility] [address]. db 11:35 Reassessment: Patient appears in no apparent distress at this time. Cardiovascular: zm Reports lightheadedness, palpitations, Denies chest pain, Heart tones present Patient's skin is warm and dry. 11:35 General: Appears in no apparent distress. uncomfortable, Behavior is calm, cooperative. zm 11:35 Pain: Denies pain. Neuro: Level of Consciousness is awake, alert, obeys commands, zm Oriented to person, place, time, situation. Respiratory: Airway is patent Respiratory effort is even, unlabored, Respiratory pattern is regular, symmetrical, Breath sounds are clear bilaterally. 11:58 Reassessment: Patient appears in no apparent distress at this time. Patient and/or family updated on plan of care and expected duration. Pain level reassessed. Patient is alert, oriented x 3, equal unlabored respirations, skin warm/dry/pink. Vital Signs: 06:10 BP 148 / 94; Pulse 77; Resp 20; Temp 98.1; Pulse Ox 96% ; Weight 83.01 kg; Height 5 ft. bm8 7 in. ; Pain 0/10; 06:40 BP 141 / 83; Pulse 75; Resp 19; Pulse Ox 96% on R/A; nh2 07:00 BP 138 / 88; Pulse 73; Resp 17; Pulse Ox 97% on R/A; cm10 07:30 BP 141 / 94; Pulse 69; Resp 16; Pulse Ox 97% ; cm10 08:30 BP 144 / 109; Pulse 71; Resp 16; Pulse Ox 97% ; cm10 09:00 BP 130 / 86; Pulse 73; Resp 19; Pulse Ox 98% on R/A; cm10 10:00 BP 150 / 90; Pulse 73; Resp 14; Pulse Ox 96% on R/A; cm10 11:35 BP 140 / 87; Pulse 96; Resp 18; Temp 98.2; Pulse Ox 97% on R/A; Pain 0/10; zm 06:10 Body Mass Index 28.66 (83.01 kg, 170.18 cm) bm8 06:10 Pain Scale: Adult bm8 11:35 Pain Scale: Adult zm Anayeli Coma Score: 06:19 Eye Response: spontaneous(4). Verbal Response: oriented(5). Motor Response: obeys sp4 commands(6). Total: 15. 10:53 Eye Response: spontaneous(4). Verbal Response: oriented(5). Motor Response: obeys cm10 commands(6). Total: 15. 11:35 Eye Response: spontaneous(4). Verbal Response: oriented(5). Motor Response: obeys zm commands(6). Total: 15. ED Course: 06:10 Patient arrived in ED. rv1 06:12 Benedict Adhikari MD is Attending Physician. sp4 06:26 Blaze Sharpe, RN is Primary Nurse. bm8 06:28 Triage completed. bm8 06:28 Arm band placed on right wrist. bm8 06:40 Patient has correct armband on for positive identification. Bed in low position. Call nh2 light in reach. Side rails up X 1. Provided Education on: using call light for assistance. 06:40 No provider procedures requiring assistance completed. nh2 07:08 XRAY Chest (1 view) In Process Unspecified. EDMS 07:15 Attending Physician role handed off by Benedict Adhikari MD ms3 07:15 Brad Calvert DO is Attending Physician. ms3 07:20 Gena Hinojosa, KOBI is Primary Nurse. cm10 07:26 Inserted saline lock: 20 gauge in left forearm, using aseptic technique. ,using aseptic zm technique. done by previous shift. 11:33 transfer to [facility] initiated by Dr Parsons, pt accepted in transfer to [facility] by dr Dowd,pt going to [facility]. 11:57 Patient transferred, IV remains in place. zm Administered Medications: No medications were administered Medication: 06:40 VIS not applicable for this client. nh2 Outcome: 07:46 ER care complete, transfer ordered by . ms3 11:55 Transferred by ground EMS [facility]. to other acute care facility: [facility]. Transfer form completed. X-rays sent w/ patient. 11:55 Condition: stable 11:55 Instructed on the need for transfer, Demonstrated understanding of instructions, 11:58 Patient left the ED. zm Signatures: Dispatcher [employer] EDMS Nichelle Nagel, Brad, DO DO ms3 Gena Hinojosa, RN RN zm Carol Calero, RN RN Ana Laura Harrington rv1 Benedict Adhikari MD MD sp4 Liat Hinojosa RN RN cm10 Blaze Sharpe RN RN bm8 Mick Noland, Lewis, RN RN nh2 Corrections: (The following items were deleted from the chart) 06:43 06:42 Accessed peripheral vein via ultrasound, utilizing dynamic ultrasound technique nh2 using 20G Nexia IV catheter ,sterile technique, per hospital protocol. Clean \T\ dry. Dressing intact. Good blood return. nh2 11:55 11:35 Neuro: [facility] 11:55 11:35 Cardiovascular: Reports lightheadedness, palpitations, [facility]
--- NOTE | 2025-02-24 07:46 | EDPHYS ---
Physician Documentation [facility] Name: Angel Malik Age: 59 yrs Sex: Male : 1965 Arrival Date: 02/24/2025 Time: 05:39 Bed 5 Private MD: ED Physician Brad Calvert HPI: 02/24 06:12 This 59 yrs old Male presents to ER via Unassigned with complaints of sp4 defibrillator discharge . 07:07 59-year-old male presents with acute defibrillator discharge at estimated 4:30 AM. sp4 Patient reports he has [employer] AICD placed in April 2024 at [facility]. His accounts receivable collector is Dr. Parsons. Denies any chest pain or shortness of breath at this time.. Historical: - Allergies: : No Known Allergies; bm8 - PMHx: : Atrial fibrillation; diabetes mellitus; High Cholesterol; Myocardial infarction; bm8 - PSHx: : Cholecystectomy; Pacemaker/Defib; bm8 - Immunization history:: Adult Immunizations up to date. - Infectious Disease History:: Denies. - Social history:: Smoking status: Patient/guardian denies using tobacco, Stopped _ months ago 3. - Family history:: not pertinent. ROS: 07:07 Constitutional: Negative for fever, chills, and weight loss, positive for sp4 defibrillator discharge 07:07 All other systems are negative, Exam: 07:07 Constitutional: This is a well developed, well nourished patient who is awake, alert, sp4 and in no acute distress. Head/Face: Normocephalic, atraumatic. Eyes: Pupils equal round and reactive to light, extra-ocular motions intact. Lids and lashes normal. Conjunctiva and sclera are not injected. Cornea within normal limits. Periorbital areas with no swelling, redness, or edema. ENT: Nares patent. No nasal discharge, no septal abnormalities noted. Tympanic membranes are normal and external auditory canals are clear. Oropharynx with no redness, swelling, or masses, exudates, or evidence of obstruction, uvula midline. Mucous membranes moist. Neck: Trachea midline, no thyromegaly or masses palpated, and no cervical lymphadenopathy. Supple, full range of motion without nuchal rigidity, or vertebral point tenderness. Chest/axilla: Normal chest wall appearance and motion. Nontender with no deformity. No lesions are appreciated. Cardiovascular: Regular rate and rhythm with a normal S1 and S2. No gallops, murmurs, or rubs. No pulse deficits. Respiratory: Lungs have equal breath sounds bilaterally, clear to auscultation and percussion. No rales, rhonchi or wheezes noted. No increased work of breathing, no retractions or nasal flaring. Abdomen/GI: Soft, with normal bowel sounds. No distension or tympany. No guarding or rebound. No evidence of tenderness throughout. Back: No spinal tenderness. No costovertebral tenderness. Skin: Warm, dry with normal turgor. Normal color with no rashes, no lesions, and no evidence of cellulitis. MS/ Extremity: Pulses equal, no cyanosis. Neurovascular intact. Full, normal range of motion. Neuro: Awake and alert, GCS 15, oriented to person, place, time, and situation. Cranial nerves II-XII grossly intact. Motor strength 5/5 in all extremities. Sensory grossly intact. Psych: Awake, alert, with orientation to person, place and time. Behavior, mood, and affect are within normal limits 07:07 ECG was reviewed by the Attending Physician. EKG at 0 619 sinus rhythm, left axis deviation, intraventricular conduction delay, rate 79. No ST elevation or depression. Vital Signs: 06:10 BP 148 / 94; Pulse 77; Resp 20; Temp 98.1; Pulse Ox 96% ; Weight 83.01 kg; Height 5 ft. bm8 7 in. ; Pain 0/10; 06:40 BP 141 / 83; Pulse 75; Resp 19; Pulse Ox 96% on R/A; nh2 07:00 BP 138 / 88; Pulse 73; Resp 17; Pulse Ox 97% on R/A; cm10 07:30 BP 141 / 94; Pulse 69; Resp 16; Pulse Ox 97% ; cm10 08:30 BP 144 / 109; Pulse 71; Resp 16; Pulse Ox 97% ; cm10 09:00 BP 130 / 86; Pulse 73; Resp 19; Pulse Ox 98% on R/A; cm10 10:00 BP 150 / 90; Pulse 73; Resp 14; Pulse Ox 96% on R/A; cm10 11:35 BP 140 / 87; Pulse 96; Resp 18; Temp 98.2; Pulse Ox 97% on R/A; Pain 0/10; zm 06:10 Body Mass Index 28.66 (83.01 kg, 170.18 cm) bm8 06:10 Pain Scale: Adult bm8 11:35 Pain Scale: Adult zm Sherman Coma Score: 06:19 Eye Response: spontaneous(4). Verbal Response: oriented(5). Motor Response: obeys sp4 commands(6). Total: 15. 10:53 Eye Response: spontaneous(4). Verbal Response: oriented(5). Motor Response: obeys cm10 commands(6). Total: 15. 11:35 Eye Response: spontaneous(4). Verbal Response: oriented(5). Motor Response: obeys zm commands(6). Total: 15. MDM: 06:13 Medical Screening Exam initiated sp4 07:13 Differential diagnosis: acute pericarditis, anxiety, chest wall pain, costochondritis, sp4 esophagitis, gastritis. Data reviewed: vital signs, nurses notes, EMS record, lab test result(s), EKG, radiologic studies, plain films. Transition of care: After a detail discussion of the patient's case, care is transferred to Brad Calvert DO. 07:15 Transition of care: Care assumed from Benedict Adhikari MD. ms3 07:37 Management of patient was discussed with the following: Excellence Leader: Dr Burnham- Patient ms3 will need EP evaluation. Patient is seen by Dr Parsons. Patient discharged yesterday. Mexlitine was added to Amiodarone and patient still having arrhythmia. 07:46 ED course: Will transfer patient to [facility] for continuity of care with his EP ms3 Automotive Product Specialist, Dr Parsons. 08:46 ED course: Discussed case with patient's accounts receivable collector, Dr Parsons, and he would like ms3 patient transferred to [facility]. 08:46 Counseling: I had a detailed discussion with the patient and/or guardian regarding the ms3 historical points, exam findings, and any diagnostic results supporting the discharge/admit diagnosis, lab results, radiology results, the need to transfer to another facility, [facility] does not immediately have the required specialist. 02/24 06:13 Order name: Basic Metabolic Panel; Complete Time: 07:35 sp4 02/24 06:13 Order name: CBC with Diff; Complete Time: 07:35 sp4 02/24 06:13 Order name: LFT's; Complete Time: 07:35 4 02/24 06:13 Order name: Magnesium; Complete Time: 07:35 4 02/24 06:13 Order name: NT PRO-BNP; Complete Time: 07:35 4 02/24 06:13 Order name: PT-INR; Complete Time: 07:35 4 02/24 06:13 Order name: Troponin HS; Complete Time: 07:35 4 02/24 06:13 Order name: XRAY Chest (1 view); Complete Time: 07:51 4 02/24 06:13 Order name: Cardiac monitoring; Complete Time: 06:34 02/24 06:13 Order name: EKG - Nurse/Tech; Complete Time: 06:34 02/24 06:13 Order name: IV Saline Lock; Complete Time: 06:34 02/24 06:13 Order name: Labs collected and sent; Complete Time: 06:34 02/24 06:13 Order name: O2 Per Protocol; Complete Time: 06:34 02/24 06:13 Order name: O2 Sat Monitoring; Complete Time: 06:34 02/24 06:43 Order name: Misc. Order: RECOLLECT ALL LABS; Complete Time: 06:53 rv1 EC:19 Rate is 79 beats/min. Rhythm is regular, Sinus Rhythm. Left axis deviation noted. DE sp4 interval is normal. QRS interval is prolonged. QT interval is normal. No Q waves. T waves are Normal. No ST changes noted. Clinical impression: No evidence of ischemia. Interpreted by me. Reviewed by me. Administered Medications: No medications were administered Disposition Summary: 02/24/25 07:46 Transfer Ordered Notes: Transfer Location: [facility] System ms3 Reason: Higher level of care ms3 Condition: Stable ms3 Problem: new ms3 Symptoms: are unchanged ms3 Accepting Physician: (02/24/25 11:58) reese Diagnosis - Ventricular tachycardia ms3 - Essential (primary) hypertension ms3 - Anemia, unspecified ms3 Forms: - Medication Reconciliation Form ms3 - SBAR form ms3 Signatures: Dispatcher [employer] EDMS Brad Calvert DO DO ms3 Gena Hinojosa, RN RN zm Ana Laura Harrington rv1 Benedict Adhikari MD MD sp4 Blaze Sharpe RN RN bm8 Corrections: (The following items were deleted from the chart) 07:46 07:46 ms3 ms3 11:58 07:46 ms3 zm
--- NOTE | 2025-02-24 07:46 | RAD REPORT ---
EXAMINATION: ONE VIEW CHEST XR CLINICAL INDICATION: CHEST PAIN TECHNIQUE: Frontal chest projection is submitted. Examination is limited by patient positioning and t echnique. COMPARISON: 02/22/2025 FINDINGS: The lungs are well inflated and clear. The heart is moderately enlarged in size. No displaced fractur es identified. Multilead pacer/stimulator device. IMPRESSION: No acute intrathoracic abnormalities.
[2025-02-24 12:29] VITALS: BP 140/87; TEMP 98.2; O2SAT 97
== END 2025-02-24 11:58 | disposition short-term general hospital (02) ==
LOC: ER 05:39
DX: I47.20 Ventricular tachycardia, unspecified (principal); I10 Essential (primary) hypertension; D64.9 Anemia, unspecified; I48.91 Unspecified atrial fibrillation; Z95.810 Presence of automatic (implantable) cardiac defibrillator
CPT/HCPCS: 36415; 71045; 80048; 80076; 83735; 83880; 84484; 85025; 85610; 93005; 99285